=== PATIENT | male | born 1935 | race Caucasian/White ===

== ENCOUNTER 2018-04-01 05:55 | Emergency (ER) | payer MEDICARE ==
[2018-04-01 06:10] VITALS: PULSE 70
[2018-04-01] MEDS ORDERED: DUONEB 0.5-3 MG/3 ml Neb IH ONE ×2 (06:18→07:04)
--- NOTE | 2018-04-01 06:25 | ERPHSYRPT ---
- History of Present Illness Time Seen by Provider: 04/01/18 06:13 Source: patient Exam Limitations: no limitations Patient Subjective Stated Complaint: pt is alert and oriented. pt is ambulatory with a steady gait. pt comes in with c/o cough for the past 10 days. pt states he's had a runny nose and cough with some shortness of breath. pt denies fever, nausea, vomiting, diarrhea, chest pain, or any abnormal body aches. pt has some audible wheezes with some fine right lower lobe crackles noted posteriorly. Triage Nursing Assessment: see above Physician History: 82-year-old white male with history of CVA, coronary artery disease, hyperlipidemia, high blood pressure, OR. Patient arrives with complaint of shortness of breath cough symptoms 1 week he states that he has had some wheezing sometimes at night. He denies any chest pain denies any fevers he has had a runny nose no vomiting no diarrhea. Past medical history includes CVA, coronary artery disease, hyperlipidemia, high blood pressure, myocardial infarction. Past surgical history includes CABG, cardiac stents. Social history patient denies tobacco alcohol or illicit drug use. Timing/Duration: day(s) (10 days) Activities at Onset: none Severity of Dyspnea-Max: moderate Severity of Dyspnea-Current: mild Possible Cause: no prior episodes Modifying Factors: Improves With: coughing. Worsens With: nothing, albuterol inhaler, albuterol nebulizer, deep breath, exertion, lying down, oxygen, rest Associated Symptoms: intermittent, cough, wheezing, No constant, No anxiety, No chest pain/discomfort, No edema, No fever, No insomnia, No loss of appetite, No lightheadedness, No weakness, No ankle swelling, No chills, No hemoptysis, No calf pain, No dizziness, No heaviness, No heart racing, No lightheadedness, No leg swelling, No muscle spasms feet, No muscle spasms hands, No painful breathing, No productive cough, No sweating, No tightness, No tingling face, No tingling hands International travel in last 2 weeks: No Allergies/Adverse Reactions: No Known Drug Allergies Allergy (Verified 04/02/13 02:57) Home Medications: Aspirin 81 gm Chew [Baby Aspirin 81 mg Chew] 1 tab PO DAILY 04/02/13 [ History] Clopidogrel Bisulfate 75 mg [PLAVIX 75 MG Tablet] 1 tab PO DAILY 04/02/13 [History] Metoprolol Succinate 50 mg [Toprol Xl 50 MG] 50 mg PO DAILY 04/02/13 [ History] Hx Tetanus, Diphtheria Vaccination/Date Given: No Hx Influenza Vaccination/Date Given: Yes (February 2018) Hx Pneumococcal Vaccination/Date Given: No - Review of Systems Constitutional: No Fever, No Chills Eyes: No Symptoms Ears, Nose, & Throat: Nose Discharge, No Ear Pain, No Ear Discharge, No Hearing Changes, No Tinnitus, No Nose Pain, No Nose Congestion, No Sinus Drainage, No Epistaxis, No Mouth Pain, No Mouth Swelling, No Loose Teeth, No Throat Pain, No Throat Swelling, No Hoarse, No Painful Swallowing, No Snoring, No Stridor Respiratory: Cough, Dyspnea, Wheezing, No Cyanosis, No Dyspnea on Exertion (GARCIA) , No Stridor Cardiac: No Chest Pain, No Edema, No Syncope Abdominal/Gastrointestinal: No Abdominal Pain, No Nausea, No Vomiting, No Diarrhea Genitourinary Symptoms: No Dysuria Musculoskeletal: No Back Pain, No Neck Pain Skin: No Rash Neurological: No Dizziness, No Focal Weakness, No Sensory Changes Psychological: No Symptoms Endocrine: No Symptoms All Other Systems: Reviewed and Negative - Past Medical History Pertinent Past Medical History: Yes Neurological History: Stroke ENT History: No Pertinent History Cardiac History: Coronary Artery Disease, High Cholesterol, Hypertension, Myocardial Infarction ([place]) Respiratory History: Asthma Endocrine Medical History: No Pertinent History Musculoskeletal History: No Pertinent History GI Medical History: No Pertinent History History: No Pertinent History Psycho-Social History: No Pertinent History Male Reproductive Disorders: No Pertinent History - Past Surgical History Past Surgical History: Yes Neuro Surgical History: No Pertinent History Cardiac: CABG, Cardiac Stent Respiratory: No Pertinent History Gastrointestinal: Appendectomy Genitourinary: No Pertinent History Musculoskeletal: No Pertinent History Male Surgical History: No Pertinent History - Social History Smoking Status: Never smoker Exposure to second hand smoke: No Drug Use: none Patient Lives Alone: Yes - Nursing Vital Signs Nursing Vital Signs: Initial Vital Signs Temperature 97.8 F 04/01/18 06:02 Pulse Rate 70 04/01/18 06:02 Respiratory Rate 24 04/01/18 06:02 Blood Pressure 127/80 12/24/18 06:02 O2 Sat by Pulse Oximetry 98 04/01/18 06:02 Pain Scale Pain Intensity 0 - Physical Exam General Appearance: no apparent distress, alert, other (well-developed well- nourished white male alert, oriented 3, pleasant and cooperative to examination , frequent cough) Eye Exam: PERRL/EOMI, other (Fundi are unremarkable) Ears, Nose, Throat Exam: hearing grossly normal, normal ENT inspection, normal pharynx, No abnormal TM (R), No abnormal TM (L), No sinus pain/drainage, No hearing decreased, No nasal congestion, No pharyngeal erythema, No tonsillar exudate, No tonsillar swelling Neck Exam: normal inspection, non-tender, supple, full range of motion, No limited range of motion Respiratory Exam: diminished breath sounds, wheezing (few wheezes posteriorly in the bases) Cardiovascular/Chest Exam: normal heart sounds, regular rate/rhythm, normal peripheral pulses, No murmur Abdominal/Gastrointestinal Exam: soft, No tenderness, No distention, No mass Extremity Exam: non-tender, normal range of motion, normal inspection, no calf tenderness, no pedal edema Peripheral Pulses Exam: dorsalis-pedis (R): 2+, dorsalis-pedis (L): 2+ Neurologic Exam: alert, oriented x 3, cooperative, shell mold bonder II-XII nml as tested, sensation nml, No motor deficits Skin Exam: normal color, warm, No dry Lymphatic Exam: No adenopathy SpO2 Interpretation: normal (98%) SpO2: 98 Oxygen Delivery: Room Air - Course Nursing assessment & vital signs reviewed: Yes EKG Interpreted by Me: RATE (70 bpm), Other (EKG: Paced rhythm 70 bpm) - Radiology Exams Chest X-ray Interpretation: Interpreted by me, No Pneumothorax, No Infiltrates, Other (cardiomegaly, no infiltrates, no chf, no pneumothorax) Ordered Tests: Active Orders 24 hr Category Date Time Status EKG-ER Only STAT Care 04/01/18 06:18 Active IV Insertion STAT Care 04/01/18 06:18 Active CHEST 1 VIEW (PORTABLE) Stat Exams 04/01/18 06:18 Taken CBC W DIFF Stat Lab 04/01/18 06:36 Completed CMP Stat Lab 04/01/18 06:36 Completed NT PRO BNP Stat Lab 04/01/18 06:36 Completed VENOUS BLOOD GAS Stat Lab 04/01/18 06:45 Completed Respiratory Nebulizer STAT RT 04/01/18 06:19 Active Medication Summary Generic Name Dose Route Start Last Admin Trade Name Gemini PRN Reason Stop Dose Admin Ceftriaxone Sodium/Dextrose 1 g in 50 mls @ 100 mls/hr 04/01/18 07:03 Rocephin 1 Gm-D5w 50 Ml Bag IV 04/01/18 07:32 STAT STA Discontinued Medications Generic Name Dose Route Start Last Admin Trade Name Gemini PRN Reason Stop Dose Admin Albuterol/Ipratropium 3 ml 04/01/18 06:18 Duoneb 0.5-3 Mg/3 Ml Neb IH 04/01/18 06:19 STAT ONE Albuterol/Ipratropium Confirm 04/01/18 07:04 Duoneb 0.5-3 Mg/3 Ml Neb Administered 04/01/18 07:05 Dose 3 ml IH .STK-MED ONE Methylprednisolone Sodium Succinate 125 mg 04/01/18 07:03 Solu-Medrol 125 Mg IV 04/01/18 07:04 STAT ONE Lab/Rad Data: Laboratory Result Diagrams 04/01/18 06:36 04/01/18 06:36 Laboratory Results 04/01/18 04/01/18 04/01/18 Range/Units 06:45 06:36 06:36 WBC 6.5 (4.0-10.5) K/mm3 RBC 3.91 L (4.1-5.6) M/mm3 Hgb 11.9 L (12.5-18.0) gm/dl Hct 37.4 L (42-50) % MCV 95.7 (78-100) fl MCH 30.4 (26-32) pg MCHC 31.8 L (32-36) g/dl RDW 14.9 H (11.5-14.0) % Plt Count 151 (150-450) K/mm3 MPV 10.7 H (6-9.5) fl Gran % 59.3 (36.0-66.0) % Eos # (Auto) 0.33 (0-0.5) Absolute Lymphs (auto) 1.63 (1.0-4.6) Absolute Monos (auto) 0.64 (0.0-1.3) Lymphocytes % 25.2 (24.0-44.0) % Monocytes % 9.9 (0.0-12.0) % Eosinophils % 5.1 H (0.00-5.0) % Basophils % 0.5 (0.0-0.4) % Absolute Granulocytes 3.84 (1.4-6.9) Basophils # 0.03 (0-0.4) pO2/FiO2 Ratio 21.0 % VBG pH 7.40 (7.32-7.42) VBG pCO2 at Pat Temp 38 L (42-55) mm/Hg VBG pO2 at Pat Temp 56 H (25-40) mm/Hg VBG HCO3 23.5 (22-28) meq/L VBG O2 Sat (Esteban) 90.9 L (95-100) VBG Base Excess -1.1 (-2.0-2.0) VBG Hemoglobin 12.3 VBG Carboxyhemoglobin 2.2 (0.0-6.9) % T HGB POC Potassium 3.8 (3.5-5.1) Sodium 143 (137-145) mmol/L Potassium 3.9 (3.5-5.1) mmol/L Chloride 111 H (98-107) mmol/L Carbon Dioxide 23 (22-30) mmol/L Anion Gap 12.6 (5-15) MEQ/L BUN 29 H (9-20) mg/dL Creatinine 0.93 (0.66-1.25) mg/dL Estimated GFR > 60.0 ML/MIN Glucose 108 H (74-106) mg/dL Calcium 8.7 (8.4-10.2) mg/dL Total Bilirubin 0.40 (0.2-1.3) mg/dL AST 35 (17-59) U/L ALT 27 (0-50) U/L Alkaline Phosphatase 124 (38-126) U/L NT-Pro-B Natriuret Pep 1930 H (0-1800) pg/mL Serum Total Protein 7.0 (6.3-8.2) g/dL Albumin 3.9 (3.5-5.0) g/dL - Progress Progress: improved Air Movement: fair Progress Note: 04/01/18 06:24 82-year-old white male with history of CVA, coronary artery disease, hyperlipidemia, high blood pressure, myocardial infarction. Patient arrives with complaint of a cough for 10 days he states he occasionally is wheezy also states he is sometimes worse with laying down. On physical examination patient appears to have a fairly frequent cough he has diminished breath sounds and some wheezes in the bases posteriorly. Patient denies any fever she is not having any nausea or vomiting he has no chest pain. Will go ahead and give patient DuoNeb treatment obtain EKG chest x-ray CBC CMP BNP and venous gas. 04/01/18 06:58 Awaiting DuoNeb treatment. Patient's chest x-ray cardiomegaly no signs of failure no infiltrate patient's CBC white blood cell 6.5 hemoglobin 11.9 hematocrit 37.4 platelets 151. Patient's chemistry sodium 143 potassium 3.9 chloride 111 BUN 29 creatinine 0.93 glucose 108 BNP is slightly elevated at 1930 Patient with bronchitis with bronchospasm Will plan to give patient Rocephin 1 g IV, Solu-Medrol 125 IV. DuoNeb treatment is ordered Home on Zithromax tapering dose of prednisone and albuterol inhaler - Departure Time of Disposition: 07:00 Departure Disposition: Home Clinical Impression: Bronchitis with bronchospasm Condition: Fair Critical Care Time: No Referrals: ULISES ADAMS MD [Primary Care Provider] - Additional Instructions: Return home. Albuterol 2 puffs every 4-6 hours as needed. Zithromax Z-DANIEL as directed. Tapering dose of prednisone as directed. Follow-up with your family doctor. Return for acute distress or for severe symptoms. Prescriptions: Albuterol Common Canister [Proventil Common Canister] 2 puff IH Q4-6HPRN PRN #1 canister PRN Reason: shortness of breath / wheezing Azithromycin 250 mg [Zithromax 250 MG TABLET] 0 mg PO ZPACK #6 tablet
[2018-04-01 06:38] LABS: BASOPHIL % 0.5 % (0.0-0.4); Basophil (Absolute #) 0.03 (0-0.4); Eosinophil % 5.1 % (0.00-5.0); Eosinophil (Absolute #) 0.33 (0-0.5); Granulocyte Absolute (ANC) 3.84 (1.4-6.9); Granulocytes % 59.3 % (36.0-66.0); Hematocrit 37.4 % (42-50); Hemoglobin 11.9 gm/dl (12.5-18.0); Lymphocyte (Absolute #) 1.63 (1.0-4.6); Lymphocytes % 25.2 % (24.0-44.0); Mean Cell Volume 95.7 fl (78-100); Mean Corpuscular Hemoglobin 30.4 pg (26-32); Mean Corpuscular Hgb Concent. 31.8 g/dl (32-36); Mean Platelet Volume 10.7 fl (6-9.5); Monocyte (Absolute #) 0.64 (0.0-1.3); Monocytes % 9.9 % (0.0-12.0); Platelet Count 151 K/mm3 (150-450); Red Blood Count 3.91 M/mm3 (4.1-5.6); Red Cell Distribution Width 14.9 % (11.5-14.0); White Blood Count 6.5 K/mm3 (4.0-10.5)
[2018-04-01 06:53] LABS: ALBUMIN 3.9 g/dL (3.5-5.0); ALKALINE PHOSPHATASE 124 U/L (38-126); ANION GAP 12.6 MEQ/L (5-15); BLOOD UREA NITROGEN 29 mg/dL (9-20); CHLORIDE 111 mmol/L (98-107); Calcium 8.7 mg/dL (8.4-10.2); Carbon Dioxide 23 mmol/L (22-30); Creatinine 1 0.93 mg/dL (0.66-1.25); Glucose 108 mg/dL (74-106); NT PRO BNP 1930 pg/mL (0-1800); Potassium 3.9 mmol/L (3.5-5.1); SGOT/AST 35 U/L (17-59); SGPT/ALT 27 U/L (0-50); SODIUM 143 mmol/L (137-145)
[2018-04-01 07:02] LABS: VBG BASE EXCESS -1.1 (-2.0-2.0); VBG CARBOXYHEMOGLOBIN 2.2 % T HGB (0.0-6.9); VBG HCO3- 23.5 meq/L (22-28); VBG HEMOGLOBIN 12.3; VBG O2 SATURATION 90.9 (95-100); VBG POTASSIUM 3.8 (3.5-5.1); VBG pH 7.4 (7.32-7.42)
[2018-04-01] MEDS ORDERED: ROCEPHIN 1 Gm-D5w 50 ml Bag** 1 G/50 ML IVPB IV STA (07:03)
[2018-04-01] MEDS ORDERED: solu-MEDROL 125 MG IV ONE (07:03)
[2018-04-01] MEDS ORDERED: ROCEPHIN 1 Gm-D5w 50 ml Bag** 1 G/50 ML IVPB IV ONE (07:09)
[2018-04-01] MEDS ORDERED: solu-MEDROL 125 MG ONE (07:09)
[2018-04-01 07:57] VITALS: BP 142/95; O2SAT 94
--- NOTE | 2018-04-01 08:36 | XRAY ---
Indication: Cough and short of breath. Comparison: April 02, 2013. Portable chest demonstrates chronic lung markings with a few tiny calcified granulomas. No focal infiltrate, consolidation, or large effusion. Heart is now enlarged again demonstrating CABG surgery. New left-sided dual-lead pacemaker. Vascularity normal. Bony thorax intact again with mild osteopenia and degenerative changes. Impression: New cardiomegaly with left-sided dual-lead pacemaker. Negative acute pneumonic process or CHF.
== END 2018-04-01 07:57 | disposition home or self-care (01) ==
LOC: ED 05:55
DX: J20.9 Acute bronchitis, unspecified (principal); Z79.01 Long term (current) use of anticoagulants; Z79.899 Other long term (current) drug therapy; Z86.73 Personal history of transient ischemic attack (TIA), and cerebral infarction without residual deficits; I25.2 Old myocardial infarction
CPT/HCPCS: 36000; 36415; 71045; 80053; 82805; 83880; 85025; 93005; 94640; 96365; 96374; 99284; J0696; J2930; A9270-GY

== ENCOUNTER 2018-06-25 21:35 | Emergency (ER) | payer MEDICARE ==
--- NOTE | 2018-06-25 21:45 | ERPHSYRPT ---
- History of Present Illness Time Seen by Provider: 06/25/18 21:44 Source: patient, family Exam Limitations: clinical condition Physician History: 83 y/o white male presents with 2 week h/o worsening soa with associated mild substernal nonradiating chest pressure. 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 dr. francisco is pts baggage porter head. pt has never been dx with copd or chf. pt denies cp. pt denies abd pain. pt does not use oxygen at home. Timing/Duration: week(s) (2) Severity of Dyspnea-Max: moderate Severity of Dyspnea-Current: moderate Possible Cause: occasional episodes Modifying Factors: Improves With: exertion Associated Symptoms: cough, wheezing Allergies/Adverse Reactions: No Known Drug Allergies Allergy (Verified 06/25/18 21:52) Home Medications: Aspirin 81 gm Chew [Baby Aspirin 81 mg Chew] 1 tab PO DAILY 04/02/13 [ History] Albuterol Sulfate [Proair Hfa] 1 puff IN DAILY 06/25/18 [History] Apixaban [Eliquis] 1 tab PO DAILY 06/25/18 [History] Umeclidinium Brm/Vilanterol Tr [Anoro Ellipta 62.5-25 Mcg INH] DIRECTIONS UNKNOWN 06/25/18 [History] Hx Tetanus, Diphtheria Vaccination/Date Given: No Hx Influenza Vaccination/Date Given: Yes (February 2018) Hx Pneumococcal Vaccination/Date Given: No - Review of Systems Constitutional: No Symptoms Eyes: No Symptoms Ears, Nose, & Throat: No Symptoms Respiratory: Cough, Dyspnea, Wheezing Cardiac: No Symptoms Abdominal/Gastrointestinal: No Symptoms Genitourinary Symptoms: No Symptoms Musculoskeletal: No Symptoms Skin: No Symptoms Neurological: No Symptoms Psychological: No Symptoms Endocrine: No Symptoms Hematologic/Lymphatic: No Symptoms Immunological/Allergic: No Symptoms All Other Systems: Reviewed and Negative - Past Medical History Pertinent Past Medical History: Yes Neurological History: Stroke ENT History: No Pertinent History Cardiac History: Coronary Artery Disease, High Cholesterol, Hypertension, Myocardial Infarction ([place]) Respiratory History: Asthma Endocrine Medical History: No Pertinent History Musculoskeletal History: No Pertinent History GI Medical History: No Pertinent History History: No Pertinent History Psycho-Social History: No Pertinent History Male Reproductive Disorders: No Pertinent History - Past Surgical History Past Surgical History: Yes Neuro Surgical History: No Pertinent History Cardiac: CABG, Cardiac Stent Respiratory: No Pertinent History Gastrointestinal: Appendectomy Genitourinary: No Pertinent History Musculoskeletal: No Pertinent History Male Surgical History: No Pertinent History - Social History Smoking Status: Never smoker Exposure to second hand smoke: No Drug Use: none Patient Lives Alone: Yes - Nursing Vital Signs Nursing Vital Signs: Initial Vital Signs Pulse Rate 70 06/25/18 21:39 Respiratory Rate 26 H 06/25/18 21:39 Blood Pressure 160/94 06/25/18 21:39 O2 Sat by Pulse Oximetry 95 06/25/18 21:39 Pain Scale Pain Intensity 0 - Physical Exam General Appearance: moderate distress, alert, anxiety Eye Exam: PERRL/EOMI Ears, Nose, Throat Exam: hearing grossly normal Neck Exam: normal inspection, non-tender, supple, full range of motion Respiratory Exam: respiratory distress (mild), airway intact, rhonchi, wheezing , No chest tenderness Cardiovascular/Chest Exam: normal heart sounds, regular rate/rhythm Abdominal/Gastrointestinal Exam: soft, normal bowel sounds, No tenderness, No guarding Rectal Exam: not done Extremity Exam: non-tender, normal range of motion, normal inspection Neurologic Exam: alert, oriented x 3, cooperative, wellness ambassador II-XII nml as tested Skin Exam: normal color, warm, dry SpO2 Interpretation: normal O2 Delivery: Room Air - Course Nursing assessment & vital signs reviewed: Yes EKG Interpreted by Me: RATE (70 indeterminate axis), Other (pacemaker rhythm. no acute ischemia. comparison ekg 04/01/18) Ordered Tests: Active Orders 24 hr Category Date Time Status Rope Silica Machine Operator STAT Care 06/25/18 21:53 Active EKG-ER Only STAT Care 06/25/18 21:48 Active IV Insertion STAT Care 06/25/18 21:48 Active Oxygen-ED Only Nasal Cannula 2 lpm Care 06/25/18 21:56 Active Pulse Oximetry (ED) STAT Care 06/25/18 21:52 Active CHEST 1 VIEW (PORTABLE) Stat Exams 06/25/18 21:52 Taken CBC W DIFF Stat Lab 06/25/18 21:51 Completed CMP Stat Lab 06/25/18 21:51 Completed Lactic Acid Stat Lab 06/25/18 21:43 Completed NT PRO BNP Stat Lab 06/25/18 21:51 Completed TROPONIN Q3H Lab 06/25/18 22:00 Completed TROPONIN Q3H Lab 06/26/18 00:58 Completed TROPONIN Q3H Lab 06/26/18 04:00 Ordered TROPONIN Q3H Lab 06/26/18 07:00 Ordered TROPONIN Q3H Lab 06/26/18 10:00 Ordered Peak Expiratory Flow Rate ONCE RT 06/25/18 21:47 Active Respiratory Therapy Assessment DAILY RT 06/25/18 21:47 Active Medication Summary Discontinued Medications Generic Name Dose Route Start Last Admin Trade Name Gemini PRN Reason Stop Dose Admin Albuterol/Ipratropium Confirm 06/25/18 21:46 Duoneb 0.5-3 Mg/3 Ml Neb Administered 06/25/18 21:47 Dose 3 ml IH .STK-MED ONE Albuterol/Ipratropium 3 ml 06/25/18 21:47 06/25/18 21:49 Duoneb 0.5-3 Mg/3 Ml Neb IH 06/25/18 21:48 3 ml STAT ONE Administration Furosemide 40 mg 06/25/18 23:08 06/25/18 23:11 Lasix 40 Mg/4 Ml IV 06/25/18 23:09 40 mg STAT ONE Administration Furosemide Confirm 06/25/18 23:09 Lasix 40 Mg/4 Ml Administered 06/25/18 23:10 Dose 40 mg .ROUTE .STK-MED ONE Methylprednisolone Sodium Succinate 125 mg 06/25/18 21:52 06/25/18 21:57 Solu-Medrol 125 Mg IV 06/25/18 21:53 125 mg STAT ONE Administration Methylprednisolone Sodium Succinate Confirm 06/25/18 21:55 Solu-Medrol 125 Mg Administered 06/25/18 21:56 Dose 125 mg .ROUTE .STK-MED ONE Lab/Rad Data: Laboratory Result Diagrams 06/25/18 21:51 06/25/18 21:51 Laboratory Results 06/26/18 06/25/18 06/25/18 Range/Units 00:58 22:00 21:51 WBC (4.0-10.5) K/mm3 RBC (4.1-5.6) M/mm3 Hgb (12.5-18.0) gm/dl Hct (42-50) % MCV (78-100) fl MCH (26-32) pg MCHC (32-36) g/dl RDW (11.5-14.0) % Plt Count (150-450) K/mm3 MPV (6-9.5) fl Gran % (36.0-66.0) % Eos # (Auto) (0-0.5) Absolute Lymphs (auto) (1.0-4.6) Absolute Monos (auto) (0.0-1.3) Lymphocytes % (24.0-44.0) % Monocytes % (0.0-12.0) % Eosinophils % (0.00-5.0) % Basophils % (0.0-0.4) % Absolute Granulocytes (1.4-6.9) Basophils # (0-0.4) Sodium 140 (137-145) mmol/L Potassium 4.6 (3.5-5.1) mmol/L Chloride 109 H (98-107) mmol/L Carbon Dioxide 21 L (22-30) mmol/L Anion Gap 14.8 (5-15) MEQ/L BUN 34 H (9-20) mg/dL Creatinine 1.52 H (0.66-1.25) mg/dL Estimated GFR 46.8 ML/MIN Glucose 124 H (74-106) mg/dL Lactic Acid (0.4-2.0) Calcium 9.0 (8.4-10.2) mg/dL Total Bilirubin 0.60 (0.2-1.3) mg/dL AST 42 (17-59) U/L ALT 26 (0-50) U/L Alkaline Phosphatase 130 H (38-126) U/L Troponin I 0.040 H* 0.028 (0.000-0.034) ng/mL NT-Pro-B Natriuret Pep 1970 H (0-1800) pg/mL Serum Total Protein 7.4 (6.3-8.2) g/dL Albumin 4.3 (3.5-5.0) g/dL 06/25/18 06/25/18 Range/Units 21:51 21:43 WBC 6.4 (4.0-10.5) K/mm3 RBC 4.39 (4.1-5.6) M/mm3 Hgb 13.1 (12.5-18.0) gm/dl Hct 41.5 L (42-50) % MCV 94.5 (78-100) fl MCH 29.8 (26-32) pg MCHC 31.6 L (32-36) g/dl RDW 15.1 H (11.5-14.0) % Plt Count 120 L (150-450) K/mm3 MPV 11.8 H (6-9.5) fl Gran % 61.7 (36.0-66.0) % Eos # (Auto) 0.47 (0-0.5) Absolute Lymphs (auto) 1.23 (1.0-4.6) Absolute Monos (auto) 0.71 (0.0-1.3) Lymphocytes % 19.3 L (24.0-44.0) % Monocytes % 11.1 (0.0-12.0) % Eosinophils % 7.4 H (0.00-5.0) % Basophils % 0.5 (0.0-0.4) % Absolute Granulocytes 3.93 (1.4-6.9) Basophils # 0.03 (0-0.4) Sodium (137-145) mmol/L Potassium (3.5-5.1) mmol/L Chloride (98-107) mmol/L Carbon Dioxide (22-30) mmol/L Anion Gap (5-15) MEQ/L BUN (9-20) mg/dL Creatinine (0.66-1.25) mg/dL Estimated GFR ML/MIN Glucose (74-106) mg/dL Lactic Acid 1.5 (0.4-2.0) Calcium (8.4-10.2) mg/dL Total Bilirubin (0.2-1.3) mg/dL AST (17-59) U/L ALT (0-50) U/L Alkaline Phosphatase (38-126) U/L Troponin I (0.000-0.034) ng/mL NT-Pro-B Natriuret Pep (0-1800) pg/mL Serum Total Protein (6.3-8.2) g/dL Albumin (3.5-5.0) g/dL - Progress Progress: improved Air Movement: good Progress Note: 06/26/18 02:00 cxr-no pleural effusions. increased bronchovascular markings. no infiltrate. 0140 spoke with pts baggage porter head dr. francisco. i reviewed pt hx, condition, lab, ekg and xray results. he will be consulted. told me to call [facility] transfer center. 0155 spoke with jacoby at transfer center. i reviewed pt hx, condition, lab, ekg and cxr results. per [facility] protocol pt is automatically accepted for admission. jacoby told me she will speak with ED doctor. i do not need to speak with them there. they will call me if more info needed. jacoby will call back and give us attendings name and bed assignment. [address] Sanchez in ED at [facility] and gave him report Blood Culture(s) Obtained: No Antibiotics given: No Discussed with DrLinda: Jose Francisco ([facility] at [facility]) Counseled pt/family regarding: lab results, diagnosis, rad results - Departure Time of Disposition: 02:16 Departure Disposition: Transfer Clinical Impression: Exertional dyspnea, Elevated troponin level, CHF (congestive heart failure) Condition: Stable Critical Care Time: Yes Critical Care Time(excluding separately billable procedures): 30-74 minutes Referrals: ULISES ADAMS MD [Primary Care Provider] - Instructions: Heart Failure
[2018-06-25] MEDS ORDERED: DUONEB 0.5-3 MG/3 ml Neb IH ONE ×2 (21:46→21:47)
[2018-06-25 21:48] VITALS: PULSE 70
[2018-06-25] MEDS ORDERED: solu-MEDROL 125 MG IV ONE (21:52)
[2018-06-25] MEDS ORDERED: solu-MEDROL 125 MG ONE (21:55)
[2018-06-25 22:11] LABS: BASOPHIL % 0.5 % (0.0-0.4); Basophil (Absolute #) 0.03 (0-0.4); Eosinophil % 7.4 % (0.00-5.0); Eosinophil (Absolute #) 0.47 (0-0.5); Granulocyte Absolute (ANC) 3.93 (1.4-6.9); Granulocytes % 61.7 % (36.0-66.0); Hematocrit 41.5 % (42-50); Hemoglobin 13.1 gm/dl (12.5-18.0); Lymphocyte (Absolute #) 1.23 (1.0-4.6); Lymphocytes % 19.3 % (24.0-44.0); Mean Cell Volume 94.5 fl (78-100); Mean Corpuscular Hemoglobin 29.8 pg (26-32); Mean Corpuscular Hgb Concent. 31.6 g/dl (32-36); Mean Platelet Volume 11.8 fl (6-9.5); Monocyte (Absolute #) 0.71 (0.0-1.3); Monocytes % 11.1 % (0.0-12.0); Platelet Count 120 K/mm3 (150-450); Red Blood Count 4.39 M/mm3 (4.1-5.6); Red Cell Distribution Width 15.1 % (11.5-14.0); White Blood Count 6.4 K/mm3 (4.0-10.5)
[2018-06-25 22:32] LABS: ALBUMIN 4.3 g/dL (3.5-5.0); ANION GAP 14.8 MEQ/L (5-15); BILIRUBIN,TOTAL 0.6 mg/dL (0.2-1.3); Creatinine 1 1.52 mg/dL (0.66-1.25); Potassium 4.6 mmol/L (3.5-5.1); Total Protein 7.4 g/dL (6.3-8.2)
[2018-06-25] MEDS ORDERED: Lasix 40 MG/4 ML IV ONE (23:08)
[2018-06-25] MEDS ORDERED: Lasix 40 MG/4 ML ONE (23:09)
[2018-06-26 02:21] VITALS: BP 126/85; O2SAT 97
--- NOTE | 2018-06-26 09:03 | XRAY ---
Indication: Short of breath. Comparison: April 01, 2018. Portable chest again demonstrates chronic lung markings with a few incidental calcified granulomas. No focal infiltrate, consolidation, or large effusion. Heart remains enlarged again with previous cardiothoracic surgery and left-sided dual-lead pacemaker. Bony thorax intact again with mild osteopenia and degenerative changes. Impression: Stable cardiomegaly, cardiothoracic surgery, and evidence for old granulomatous disease. No new/acute findings.
== END 2018-06-26 02:43 | disposition short-term general hospital (02) ==
LOC: ED 21:35
DX: R06.09 Other forms of dyspnea (principal); R74.8 Abnormal levels of other serum enzymes; I50.9 Heart failure, unspecified; R07.89 Other chest pain; F41.9 Anxiety disorder, unspecified; Z79.899 Other long term (current) drug therapy
CPT/HCPCS: 36000; 36415; 71045; 80053; 83605; 83880; 84484; 85025; 93005; 93041; 94150; 94640; 96374; 96375; 99285; J1940; J2930; A9270-GY

== ENCOUNTER 2020-06-21 10:49 | Day surgery (SDC) | payer MEDICARE ==
--- NOTE | 2020-06-21 08:00 | HP ---
DATE OF SURGERY: 06/21/2020 HISTORY OF PRESENT ILLNESS: The patient is an 85 year-old with squamous cell carcinoma left upper shoulder that has been going on now for a while increasing in size the past few weeks itching and sometimes he scratches it and sometimes it will have a little bit of bleeding. He is in need of wide excision of the site. He has an area nearby it that also needs excision. PAST MEDICAL HISTORY: Coronary artery disease, high cholesterol, hypertension, stroke, myocardial infarction, asthma. PAST SURGICAL HISTORY: Pacemaker in the past. Appendectomy in the past. Coronary artery bypass graft, stent in the past. MEDICATIONS: Anoro Ellipta, atorvastatin, cyclobenzaprine, Klor-Con, Proair HFA, apixaban. ALLERGIES: NKDA. FAMILY HISTORY: Negative in regards to this problem. SOCIAL HISTORY: He denies smoking currently. REVIEW OF SYSTEMS: Fourteen systems reviewed. No chest pain or palpitations. Other systems negative or noncontributory as above and per preadmission questionnaire and as mentioned above, chronic heart and lung disease. He received cardiac clearance by Dr. Clemons. PHYSICAL EXAMINATION: GENERAL: No acute distress. HEENT: Sclerae nonicteric. NECK: No JVD. CHEST: Equal excursion, clear to auscultation. CVS: Regular rate and rhythm. ABDOMEN: Soft. EXTREMITIES: No cyanosis. 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 NEURO: Alert, moving extremities symmetrically. PSYCH: Appropriate mood and affect. IMPRESSION: Squamous cell carcinoma left shoulder. He is in need of wide excision of the lesion, possible flap, and possible skin graft. There is risk of bleeding or infection, risk of wound dehiscence or infection, possibly needing skin graft, possible risk of deep venous thrombosis, pulmonary embolism or pneumonia but not limited to, will proceed as an outpatient.
[~2020-06-21 10:49] MED LIST: MINERAL OIL LIGHT 10 ML FOR SURGERY ONE; Sensorcaine 0.25% 10 ML ONE
[2020-06-21] MEDS ORDERED: Lactated Ringers 1,000 ML IV ONE (10:54)
[2020-06-21] MEDS ORDERED: Lactated Ringers 1,000 ML IV SCH (11:30)
[2020-06-21] MEDS ORDERED: SUBLIMAZE 100 MCG/2 ML ONE (12:24)
[2020-06-21] MEDS ORDERED: DIPRIVAN 200 MG/20 ML IV ONE (12:24)
[2020-06-21] MEDS ORDERED: Zofran 4 MG/2 ML VIAL ONE (12:24)
[2020-06-21] MEDS ORDERED: Decadron 4 MG INJ ONE (12:24)
[2020-06-21] MEDS ORDERED: Xylocaine-Mpf 2% 5 Ml Vial ONE (12:24)
[2020-06-21] MEDS ORDERED: XYLOCAINE 1%/Epi 1:100000 MDV 20 ML ONE (12:34)
[2020-06-21] MEDS ORDERED: KEFZOL 1 GM ONE (12:48)
[2020-06-21] MEDS ORDERED: PHENYLEPHRINE HCL ONE (12:57)
[2020-06-21] MEDS ORDERED: CEFAZOLIN 2 GM-D5W BAG IV ONE (13:08)
[2020-06-21 15:30] VITALS: O2SAT 99
[2020-06-21 15:37] VITALS: BP 134/77; PULSE 71
--- NOTE | 2020-06-22 08:35 | OP ---
SURGERY DATE/TIME: 06/21/2020 1256 PREOPERATIVE DIAGNOSIS: Enlarging basal cell carcinoma left shoulder. POSTOPERATIVE DIAGNOSIS: Enlarging basal cell carcinoma left shoulder. PROCEDURE: Wide excisional biopsy of nonhealing basal cell carcinoma left shoulder approximately 10.5 cm with margins (two areas en bloc excised together) with rotational advancement flap closure. SURGEON: Dr. Og Dennis. ELECTRICAL TEST ENGINEER: William Florez, medical student III. ANESTHESIA: General. ESTIMATED BLOOD LOSS: Minimal. INDICATIONS: As noted above. Risks and benefits explained in detail and not limited to and consent obtained. The site is confirmed and marked in the preoperative holding area. DESCRIPTION OF PROCEDURE AND FINDINGS: The patient is taken to the operating room. General anesthesia introduced. Prepped and draped in usual fashion in lateral position. After official time out and no disagreement with planned procedure, marking out to normal appearing skin on either side, dissecting both of these areas off of the underlying muscle and fascia in what appeared to be a clinically visible clear plane. One small lithograph designer controlled with 3-0 Vicryl suture ligature. Specimen passed off. It measured about 10.5 cm with margins with the two areas excised en bloc. Given the large size of the defect on this shoulder extending from posterior to anteriorly on the shoulder, it was necessary to undermine flaps on either side and still required some rotation of the anterior skin and posterior medial skin rotating them laterally, this took some time but was carefully accomplished. The flaps were closed with interrupted 3-0 and 4-0 Vicryl closing the deep dermis and subcu. The skin was closed with running 4-0 subcuticular and some interrupted 2-0 and 3-0 Prolene used to reinforce the area given the tension of this large defect. Some antibiotic ointment and sterile dressing applied. The patient was given a sling. There were no immediate complications. The patient tolerated the procedure well. There was no family available to discuss the findings with. I will see him back in the office next week. Again, it was felt as it just closed it was snug. I was felt this is safer than trying put a skin graft on a high motion area. Should this wound fail to stay together [facility] would consider skin graft at a later date but at this time was closed with rotational advancement flaps.
== END 2020-06-21 16:00 | disposition home or self-care (01) ==
LOC: SDC 10:49
PROVIDERS: ATTEND Surgery
DX: C44.619 Basal cell carcinoma of skin of left upper limb, including shoulder (principal)
CPT/HCPCS: 88305; 99100; J0690; J1100; J2370; J2405; J2704; J3010; A9270-GY

== ENCOUNTER 2020-10-17 20:17 | Observation (INO) | payer MEDICARE ==
[2020-10-17] MEDS ORDERED: DUONEB 0.5-3 MG/3 ml Neb IH ONE ×2 (20:30→20:57)
[2020-10-17] MEDS ORDERED: BABY ASPIRIN 81 MG CHEW PO ONE (20:31)
--- NOTE | 2020-10-17 20:40 | ERPHSYRPT ---
- History of Present Illness Time Seen by Provider: 10/17/20 20:27 Source: patient Exam Limitations: no limitations Physician History: 85 years old male with history of atrial fibrillation status post pacemaker placement on Eliquis, coronary artery disease status post CABG, COPD presented in the ER with almost 4 days history of progressively increasing shortness of breath initially with activity and now even at resting. Patient reports wheezing and chest tightness without any palpitations. Patient reports having minimal productive cough which makes his shortness of breath worse. No fever or chills reported. Denies any chest pain Timing/Duration: day(s) (4), intermittent, gradual onset, worse Activities at Onset: activity, rest Severity of Dyspnea-Max: moderate Severity of Dyspnea-Current: moderate Modifying Factors: Worsens With: activity, coughing, exertion Associated Symptoms: cough, wheezing, heaviness, productive cough, tightness, No chest pain/discomfort Allergies/Adverse Reactions: No Known Drug Allergies Allergy (Verified 10/17/20 20:23) Home Medications: Aspirin 81 gm Chew [Baby Aspirin 81 mg Chew] 1 tab PO DAILY 04/02/13 [His tory] Apixaban [Eliquis] 1 tab PO BID 06/25/18 [History] Umeclidinium Brm/Vilanterol Tr [Anoro Ellipta 62.5-25 Mcg INH] 62.5 mcg IH UD 06/25/18 [History] Albuterol Sulfate [Proair Hfa] 8.5 gm IH Q4HWA 06/08/20 [History] Atorvastatin Calcium [Lipitor] 40 mg PO DAILY 06/08/20 [History] Cyclobenzaprine HCl 5 mg PO HS 06/08/20 [History] Furosemide 40 mg [Lasix 40 MG] 40 mg PO DAILY 06/08/20 [History] Potassium Chloride [Klor-Con 10] 10 meq PO DAILY 06/08/20 [History] Albuterol/Ipratropium 3ml Neb* [DUONEB 0.5-3 MG/3 ml Neb] 3 ml IH Q6H PRN PRN 10/17/20 [History] Montelukast Sodium 10 mg [Singulair 10 MG] 10 mg PO DAILY 10/17/20 [History] Hx Tetanus, Diphtheria Vaccination/Date Given: No Hx Influenza Vaccination/Date Given: Yes (February 2018) Hx Pneumococcal Vaccination/Date Given: No - Review of Systems Constitutional: Fatigue, Weakness Eyes: No Symptoms Ears, Nose, & Throat: No Symptoms Respiratory: Cough, Dyspnea, Dyspnea on Exertion (GARCIA), Wheezing Cardiac: No Symptoms Abdominal/Gastrointestinal: No Symptoms Genitourinary Symptoms: No Symptoms Skin: No Symptoms Neurological: No Symptoms Psychological: No Symptoms Endocrine: No Symptoms Hematologic/Lymphatic: No Symptoms Immunological/Allergic: No Symptoms - Past Medical History Pertinent Past Medical History: Yes Neurological History: Stroke ENT History: No Pertinent History Cardiac History: Coronary Artery Disease, High Cholesterol, Hypertension, Myocardial Infarction ([place]) Respiratory History: Asthma Endocrine Medical History: No Pertinent History Musculoskeletal History: No Pertinent History GI Medical History: No Pertinent History History: No Pertinent History Psycho-Social History: No Pertinent History Male Reproductive Disorders: No Pertinent History - Past Surgical History Past Surgical History: Yes Neuro Surgical History: No Pertinent History Cardiac: CABG, Cardiac Stent Respiratory: No Pertinent History Gastrointestinal: Appendectomy, Hernia Repair Genitourinary: No Pertinent History Musculoskeletal: No Pertinent History Male Surgical History: No Pertinent History Other Surgical History: TAVR, PACEMAKER - Social History Smoking Status: Never smoker Exposure to second hand smoke: No Drug Use: none Patient Lives Alone: Yes - Nursing Vital Signs Nursing Vital Signs: Initial Vital Signs Temperature 98.4 F 10/17/20 20:17 Pulse Rate 64 10/17/20 20:17 Respiratory Rate 22 10/17/20 20:17 Blood Pressure 139/78 10/17/20 20:17 O2 Sat by Pulse Oximetry 94 L 10/17/20 20:17 Pain Scale Pain Intensity 0 - Physical Exam General Appearance: no apparent distress, alert Eye Exam: PERRL/EOMI, eyes nml inspection Ears, Nose, Throat Exam: hearing grossly normal, pharyngeal erythema Neck Exam: normal inspection, supple, full range of motion Respiratory Exam: rhonchi, wheezing, No respiratory distress Cardiovascular/Chest Exam: normal heart sounds, regular rate/rhythm Abdominal/Gastrointestinal Exam: soft, normal bowel sounds, No tenderness Extremity Exam: non-tender, normal range of motion Neurologic Exam: alert, oriented x 3, cooperative, health care liaison II-XII nml as tested Skin Exam: normal color SpO2 Interpretation: normal SpO2: 95 O2 Delivery: Room Air - Course EKG Interpreted by Me: RATE (78), A-fib, NORMAL AXIS, NORMAL INTERVALS, Q-wave (Anterior), Other (PVCs) Ordered Tests: Active Orders 24 hr Category Date Time Status [place] STAT Care 10/17/20 20:31 Active EKG-ER Only STAT Care 10/17/20 20:30 Active IV Insertion STAT Care 10/17/20 20:30 Active CHEST 1 VIEW (PORTABLE) Stat Exams 10/17/20 20:31 Taken BLOOD CULTURE Stat Lab 10/17/20 21:07 Received CBC W DIFF Stat Lab 10/17/20 21:00 Completed CMP Stat Lab 10/17/20 21:00 Completed D-DIMER QUANTITATIVE Stat Lab 10/17/20 21:00 Received Lactic Acid Stat Lab 10/17/20 21:20 Completed MAGNESIUM Stat Lab 10/17/20 21:00 Completed NT PRO BNP Stat Lab 10/17/20 21:00 Completed TROPONIN Q3H Lab 10/17/20 20:30 Completed TROPONIN Q3H Lab 10/17/20 23:30 Ordered TROPONIN Q3H Lab 10/18/20 02:30 Ordered TROPONIN Q3H Lab 10/18/20 05:30 Ordered TROPONIN Q3H Lab 10/18/20 08:30 Ordered UA W/RFX UR CULTURE Stat Lab 10/17/20 20:30 Completed Respiratory Therapy Assessment DAILY RT 10/17/20 21:00 Active Transfer Order Routine Transfer 10/17/20 Ordered Medication Summary Generic Name Dose Route Start Last Admin Trade Name Gemini PRN Reason Stop Dose Admin Apixaban 5 mg 10/18/20 10:00 Eliquis 2.5 Mg Tablet PO 11/17/20 09:59 BID FAVIAN Magnesium Sulfate/Dextrose 100 mls @ 100 mls/hr 10/17/20 21:15 10/17/20 22:04 Magnesium 1 Gm / 100 Ml D5w IV 10/17/20 23:14 100 mls/hr Q1H FAVIAN Administration Discontinued Medications Generic Name Dose Route Start Last Admin Trade Name Freq PRN Reason Stop Dose Admin Albuterol/Ipratropium 3 ml 10/17/20 20:30 10/17/20 20:59 Duoneb 0.5-3 Mg/3 Ml Neb IH 10/17/20 20:31 3 ml STAT ONE Administration Albuterol/Ipratropium Confirm 10/17/20 20:57 Duoneb 0.5-3 Mg/3 Ml Neb Administered 10/17/20 20:58 Dose 3 ml IH .STK-MED ONE Aspirin 324 mg 10/17/20 20:31 10/17/20 21:13 Baby Aspirin 81 Mg Chew PO 10/17/20 20:32 324 mg STAT ONE Administration Aspirin Confirm 10/17/20 21:33 Baby Aspirin 81 Mg Chew Administered 10/17/20 21:34 Dose 324 mg .ROUTE .STK-MED ONE Lab/Rad Data: Laboratory Result Diagrams 10/17/20 21:00 10/17/20 21:00 Laboratory Results 10/17/20 10/17/20 10/17/20 Range/Units 21:20 21:00 21:00 WBC 8.0 (4.0-10.5) K/mm3 RBC 3.86 L (4.1-5.6) M/mm3 Hgb 11.2 L (12.5-18.0) gm/dl Hct 35.6 L (42-50) % MCV 92.2 (78-100) fl MCH 29.0 (26-32) pg MCHC 31.5 L (32-36) g/dl RDW 14.9 H (11.5-14.0) % Plt Count 158 (150-450) K/mm3 MPV 11.7 H (7.5-11.0) fl Gran % 56.9 (36.0-66.0) % Eos # (Auto) 1.27 H (0-0.5) Absolute Lymphs (auto) 1.50 (1.0-4.6) Absolute Monos (auto) 0.62 (0.0-1.3) Lymphocytes % 18.8 L (24.0-44.0) % Monocytes % 7.8 (0.0-12.0) % Eosinophils % 15.9 H (0.00-5.0) % Basophils % 0.6 (0.0-0.4) % Absolute Granulocytes 4.54 (1.4-6.9) Basophils # 0.05 (0-0.4) Sodium 139 (137-145) mmol/L Potassium 3.3 L (3.5-5.1) mmol/L Chloride 103 (98-107) mmol/L Carbon Dioxide 25 (22-30) mmol/L Anion Gap 14.2 (5-15) MEQ/L BUN 23 H (9-20) mg/dL Creatinine 1.61 H (0.66-1.25) mg/dL Estimated GFR 43.6 ML/MIN Glucose 104 (74-106) mg/dL Lactic Acid 1.0 (0.4-2.0) Calcium 8.7 (8.4-10.2) mg/dL Magnesium 2.1 (1.6-2.3) mg/dL Total Bilirubin 0.40 (0.2-1.3) mg/dL AST 34 (17-59) U/L ALT 16 (0-50) U/L Alkaline Phosphatase 125 (38-126) U/L Troponin I (0.000-0.034) ng/mL NT-Pro-B Natriuret Pep 1580 (0-1800) pg/mL Serum Total Protein 7.3 (6.3-8.2) g/dL Albumin 4.2 (3.5-5.0) g/dL Urine Color (YELLOW) Urine Appearance (CLEAR) Urine pH (5-6) Ur Specific [place] (1.005-1.025) Urine Protein (Negative) Urine Ketones (NEGATIVE) Urine Blood (0-5) [place]/ul Urine Nitrite (NEGATIVE) Urine Bilirubin (NEGATIVE) Urine Urobilinogen (0-1) mg/dL Ur Leukocyte Esterase (NEGATIVE) Urine WBC (Auto) (0-5) /HPF Urine RBC (Auto) (0-2) /HPF U Epithel Cells (Auto) (FEW) /HPF Urine Bacteria (Auto) (NEGATIVE) /HPF Urine Mucus (Auto) (NEGATIVE) /HPF Urine Culture Reflexed (NO) Urine Glucose (NEGATIVE) mg/dL 10/17/20 10/17/20 Range/Units 20:30 20:30 WBC (4.0-10.5) K/mm3 RBC (4.1-5.6) M/mm3 Hgb (12.5-18.0) gm/dl Hct (42-50) % MCV (78-100) fl MCH (26-32) pg MCHC (32-36) g/dl RDW (11.5-14.0) % Plt Count (150-450) K/mm3 MPV (7.5-11.0) fl Gran % (36.0-66.0) % Eos # (Auto) (0-0.5) Absolute Lymphs (auto) (1.0-4.6) Absolute Monos (auto) (0.0-1.3) Lymphocytes % (24.0-44.0) % Monocytes % (0.0-12.0) % Eosinophils % (0.00-5.0) % Basophils % (0.0-0.4) % Absolute Granulocytes (1.4-6.9) Basophils # (0-0.4) Sodium (137-145) mmol/L Potassium (3.5-5.1) mmol/L Chloride (98-107) mmol/L Carbon Dioxide (22-30) mmol/L Anion Gap (5-15) MEQ/L BUN (9-20) mg/dL Creatinine (0.66-1.25) mg/dL Estimated GFR ML/MIN Glucose (74-106) mg/dL Lactic Acid (0.4-2.0) Calcium (8.4-10.2) mg/dL Magnesium (1.6-2.3) mg/dL Total Bilirubin (0.2-1.3) mg/dL AST (17-59) U/L ALT (0-50) U/L Alkaline Phosphatase (38-126) U/L Troponin I 0.037 H* (0.000-0.034) ng/mL NT-Pro-B Natriuret Pep (0-1800) pg/mL Serum Total Protein (6.3-8.2) g/dL Albumin (3.5-5.0) g/dL Urine Color STRAW (YELLOW) Urine Appearance CLEAR (CLEAR) Urine pH 5.0 (5-6) Ur Specific [place] 1.006 (1.005-1.025) Urine Protein NEGATIVE (Negative) Urine Ketones NEGATIVE (NEGATIVE) Urine Blood NEGATIVE (0-5) [place]/ul Urine Nitrite NEGATIVE (NEGATIVE) Urine Bilirubin NEGATIVE (NEGATIVE) Urine Urobilinogen NEGATIVE (0-1) mg/dL Ur Leukocyte Esterase TRACE (NEGATIVE) Urine WBC (Auto) 6-10 (0-5) /HPF Urine RBC (Auto) 0-2 (0-2) /HPF U Epithel Cells (Auto) NONE (FEW) /HPF Urine Bacteria (Auto) NONE SEEN (NEGATIVE) /HPF Urine Mucus (Auto) SLIGHT (NEGATIVE) /HPF Urine Culture Reflexed NO (NO) Urine Glucose NEGATIVE (NEGATIVE) mg/dL - Progress Progress: improved Air Movement: good Progress Note: 10/17/20 22:04 85 years old with multiple medical problems including atrial fib rillation/pacemaker is evaluated for increasing shortness of breath for the last few days. Patient was not in any distress on presentation. He is given DuoNeb and his heart rate jumped to 106. He is feeling better on reevaluation after DuoNeb. Chest x-ray I did not appreciate any obvious pneumonic infiltrate, official reading is pending. Has normal white count, grossly unremarkable chemistries except for mildly elevated creatinine. Does have mildly elevated troponin 0.037 as well. Is given full dose aspirin. Denies any chest pain. Later on daughter told me that patient is out of Eliquis for the last 4 days. I have ordered D-dimers. He is also given magnesium. Discussed with Dr. Adams who recommended starting him back on Eliquis rather than obtaining CTA if D- dimers are elevated and will do VQ scan in the morning because of his renal issues. Plan discussed with patient and family who understand and agree with it. Blood Culture(s) Obtained: Yes Antibiotics given: No Discussed with Dr.: Jose Alfredo Will see patient in: hospital (observation) Counseled pt/family regarding: lab results, diagnosis, rad results - Departure Departure Disposition: Observation Clinical Impression: Elevated troponin level, DEEPIKA (acute kidney injury) Dyspnea Qualifiers: Dyspnea type: unspecified Qualified Code(s): R06.00 - Dyspnea, unspecified Atrial fibrillation Qualifiers: Atrial fibrillation type: unspecified Qualified Code(s): I48.91 - Unspecified atrial fibrillation Condition: Stable Critical Care Time: No Referrals: ULISES ADAMS MD [Primary Care Provider] -
[2020-10-17 21:11] LABS: Absolute Neutrophil Ct (ANC) 4.54 (1.4-6.9); BASOPHIL % 0.6 % (0.0-0.4); Basophil (Absolute #) 0.05 (0-0.4); Eosinophil % 15.9 % (0.00-5.0); Eosinophil (Absolute #) 1.27 (0-0.5); Hematocrit 35.6 % (42-50); Hemoglobin 11.2 gm/dl (12.5-18.0); Lymphocytes % 18.8 % (24.0-44.0); Mean Cell Volume 92.2 fl (78-100); Mean Corpuscular Hgb Concent. 31.5 g/dl (32-36); Mean Platelet Volume 11.7 fl (7.5-11.0); Monocyte (Absolute #) 0.62 (0.0-1.3); Monocytes % 7.8 % (0.0-12.0); Neutrophil % 56.9 % (36.0-66.0); Platelet Count 158 K/mm3 (150-450); Red Blood Count 3.86 M/mm3 (4.1-5.6); Red Cell Distribution Width 14.9 % (11.5-14.0)
[2020-10-17] MEDS ORDERED: Magnesium 1 Gm / 100 Ml D5W*** 200 ML IV ONE (21:11)
[2020-10-17] MEDS: Magnesium 1 Gm / 100 Ml D5W*** 100 ML IV SCH ×2 (21:12→22:04)
[2020-10-17] MEDS ORDERED: BABY ASPIRIN 81 MG CHEW ONE (21:33)
[2020-10-17 21:38] LABS: ALBUMIN 4.2 g/dL (3.5-5.0); ANION GAP 14.2 MEQ/L (5-15); BILIRUBIN,TOTAL 0.4 mg/dL (0.2-1.3); Calcium 8.7 mg/dL (8.4-10.2); Creatinine 1 1.61 mg/dL (0.66-1.25); EST GLOMERULAR FILTRATION RATE 43.6 ML/MIN; MAGNESIUM 2.1 mg/dL (1.6-2.3); Potassium 3.3 mmol/L (3.5-5.1); Total Protein 7.3 g/dL (6.3-8.2)
[2020-10-17 21:38] LABS: Appearance CLEAR (CLEAR); Bacteria NONE SEEN /HPF (NEGATIVE); Bilirubin NEGATIVE (NEGATIVE); Blood NEGATIVE Ery/ul (0-5); Glucose NEGATIVE (NEGATIVE); Ketones NEGATIVE (NEGATIVE); Leukocyte Esterase TRACE (NEGATIVE); Mucus SLIGHT /HPF (NEGATIVE); Nitrite NEGATIVE (NEGATIVE); Protein,Urine Dip NEGATIVE (Negative); RBC 0-2 /HPF (0-2); Specific Gravity 1.006 (1.005-1.025); Urobilinogen NEGATIVE mg/dL (0-1)
[2020-10-18] MEDS ORDERED: DUONEB 0.5-3 MG/3 ml Neb IH ONE ×2 (00:27→00:30)
[2020-10-18] MEDS ORDERED: solu-MEDROL 125 MG, Sterile H2O 10 ml 2 ML IV ONE ×2 (00:27)
[2020-10-18] MEDS ORDERED: Sterile H2O 10 ml IJ ONE (00:28)
[2020-10-18] MEDS ORDERED: solu-MEDROL ONE (00:28)
[2020-10-18] MEDS ORDERED: TYLENOL 325 MG PO PRN (01:04)
[2020-10-18 06:05] LABS: Absolute Neutrophil Ct (ANC) 5.65 (1.4-6.9); BASOPHIL % 0.3 % (0.0-0.4); Basophil (Absolute #) 0.02 (0-0.4); Eosinophil % 2.4 % (0.00-5.0); Eosinophil (Absolute #) 0.16 (0-0.5); Hemoglobin 11.4 gm/dl (12.5-18.0); Lymphocyte (Absolute #) 0.68 (1.0-4.6); Lymphocytes % 10.3 % (24.0-44.0); Mean Cell Volume 91.4 fl (78-100); Mean Corpuscular Hemoglobin 28.9 pg (26-32); Mean Corpuscular Hgb Concent. 31.7 g/dl (32-36); Mean Platelet Volume 11.4 fl (7.5-11.0); Monocytes % 1.5 % (0.0-12.0); Neutrophil % 85.5 % (36.0-66.0); Platelet Count 153 K/mm3 (150-450); Red Blood Count 3.94 M/mm3 (4.1-5.6); Red Cell Distribution Width 14.7 % (11.5-14.0); White Blood Count 6.6 K/mm3 (4.0-10.5)
[2020-10-18 06:33] LABS: ALBUMIN 3.9 g/dL (3.5-5.0); ANION GAP 12.4 MEQ/L (5-15); BILIRUBIN,TOTAL 0.3 mg/dL (0.2-1.3); Calcium 8.7 mg/dL (8.4-10.2); Creatinine 1 1.35 mg/dL (0.66-1.25); EST GLOMERULAR FILTRATION RATE 53.4 ML/MIN; Potassium 3.4 mmol/L (3.5-5.1); Total Protein 6.9 g/dL (6.3-8.2)
--- NOTE | 2020-10-18 08:32 | PCM.SSS ---
History of Present Illness - Chief Complaint Chief Complaint: Dyspnea elivated troponin History of Present Illness: is a 85 year old male who presented complaining of shortness of breat h, he is not requiring oxygen and his dyspnea is improved at the moment, he has some cough productive of white sputum as well, known hx of copd. had elevated d- dimer awaiting VQ scan but no chest pain, is on eliquis but apparently hadn't taken the last few days for unknown reasons. - Review of Systems Constitutional: No Fever, No Chills Respiratory: Cough, Short Of Breath Cardiac: No Chest Pain, No Edema, No Syncope Abdominal/Gastrointestinal: No Abdominal Pain, No Nausea, No Vomiting, No Diarrhea Skin: No Rash All Other Systems: Reviewed and Negative Medications & Allergies Home Medications: Home Medication List Aspirin 81 gm Chew [Baby Aspirin 81 mg Chew] 1 tab PO DAILY 04/02/13 [History Confirmed 10/18/20] Apixaban [Eliquis] 5 tab PO BID 06/25/18 [History Confirmed 10/18/20] Umeclidinium Brm/Vilanterol Tr [Anoro Ellipta 62.5-25 Mcg INH] 62.5 mcg IH BID PRN 06/25/18 [History Confirmed 10/18/20] Albuterol Sulfate [Proair Hfa] 8.5 gm IH Q4HWA 06/08/20 [History Confirmed 0 10/18/20] Atorvastatin Calcium [Lipitor] 40 mg PO DAILY 06/08/20 [History Confirmed 10/18/20] Cyclobenzaprine HCl 5 mg PO HS 06/08/20 [History Confirmed 10/18/20] Furosemide 40 mg [Lasix 40 MG] 40 mg PO DAILY 06/08/20 [History Confirmed 10/18/20] Potassium Chloride [Klor-Con 10] 10 meq PO DAILY 06/08/20 [History Confirmed 10/18/20] Albuterol/Ipratropium 3ml Neb* [DUONEB 0.5-3 MG/3 ml Neb] 3 ml IH Q6H PRN PRN 10/17/20 [History Confirmed 10/18/20] Montelukast Sodium 10 mg [Singulair 10 MG] 10 mg PO DAILY 10/17/20 [History Confirmed 10/18/20] Doxycycline Hyclate 100 mg [Vibramycin 100 MG] 100 mg PO BID #14 tab 10/18/20 [Rx] Hydrocodone/Acetaminophen [Hydrocodone-Acetamin 5-325 mg ###] 5 mg PO Q4H PRN MDD 6 10/18/20 [History Confirmed 10/18/20] Prednisone 20 mg [Deltasone 20 mg] 20 mg PO UD #18 tablet 10/18/20 [Rx] Allergies/Adverse Reactions: Allergies Allergy/AdvReac Type Severity Reaction Status Date / Time No Known Drug Allergies Allergy Verified 10/17/20 20:23 - Past Medical History Past Medical History: Yes Neurological History: Stroke ENT History: No Pertinent History Cardiac History: Coronary Artery Disease, High Cholesterol, Hypertension, Myocardial Infarction (CT) Respiratory History: Asthma Endocrine Medical History: No Pertinent History Musculoskelatal History: No Pertinent History GI Medical History: No Pertinent History History: No Pertinent History Pyscho-Social History: No Pertinent History Male Reproductive Disorders: No Pertinent History Comment: AFIB - Past Surgical History Past Surgical History: Yes Neuro Surgical History: No Pertinent History Cardiac History: CABG, Cardiac Stent Respiratory Surgery: No Pertinent History GI Surgical History: Appendectomy, Hernia Repair Genitourinary Surgical Hx: No Pertinent History Musculskeletal Surgical Hx: No Pertinent History Male Surgical History: No Pertinent History Other Surgical History: TAVR, PACEMAKER - Social History Smoking Status: Never smoker Exposure to second hand smoke: No Alcohol: Rarely Drug Use: none - Physical Exam Vital Signs: Vital Signs - 24 hr Temp Pulse Resp BP Pulse Ox 10/18/20 07:22 97.9 F 59 L 16 129/66 93 L 10/18/20 06:26 105 H 16 90 L 10/18/20 04:00 97.7 F 62 18 138/68 93 L 10/18/20 02:02 97.7 F 62 18 138/68 93 L 10/18/20 01:00 94 H 20 140/78 95 10/18/20 00:32 107 H 18 93 L 10/17/20 23:00 68 18 138/76 95 10/17/20 22:13 95 10/17/20 22:00 60 18 145/76 96 10/17/20 21:18 61 25 H 94 L 10/17/20 21:17 100 H 24 112/83 95 10/17/20 20:17 98.4 F 64 22 139/78 95 General Appearance: no apparent distress, alert Neurologic Exam: alert, oriented x 3, cooperative, normal mood/affect, nml cerebellar function, nml station & gait, sensation nml, No motor deficits Respiratory Exam: prolonged expirations, wheezing, No accessory muscle use Cardiovascular Exam: regular rate/rhythm, normal heart sounds, normal peripheral pulses Gastrointestinal/Abdomen Exam: soft, normal bowel sounds, No tenderness, No mass Extremity Exam: normal inspection, normal range of motion, pelvis stable Skin Exam: normal color, warm, dry, No rash Results - Labs Lab/Micro Results: Lab Results-Last 24 Hours 10/17/20 10/17/20 10/17/20 Range/Units 20:30 20:30 21:00 WBC 8.0 (4.0-10.5) K/mm3 RBC 3.86 L (4.1-5.6) M/mm3 Hgb 11.2 L (12.5-18.0) gm/dl Hct 35.6 L (42-50) % MCV 92.2 (78-100) fl MCH 29.0 (26-32) pg MCHC 31.5 L (32-36) g/dl RDW 14.9 H (11.5-14.0) % Plt Count 158 (150-450) K/mm3 MPV 11.7 H (7.5-11.0) fl Gran % 56.9 (36.0-66.0) % Eos # (Auto) 1.27 H (0-0.5) Absolute Lymphs (auto) 1.50 (1.0-4.6) Absolute Monos (auto) 0.62 (0.0-1.3) Lymphocytes % 18.8 L (24.0-44.0) % Monocytes % 7.8 (0.0-12.0) % Eosinophils % 15.9 H (0.00-5.0) % Basophils % 0.6 (0.0-0.4) % Absolute Granulocytes 4.54 (1.4-6.9) Basophils # 0.05 (0-0.4) D-Dimer (215-500) ng/mL Sodium (137-145) mmol/L Potassium (3.5-5.1) mmol/L Chloride (98-107) mmol/L Carbon Dioxide (22-30) mmol/L Anion Gap (5-15) MEQ/L BUN (9-20) mg/dL Creatinine (0.66-1.25) mg/dL Estimated GFR ML/MIN Glucose (74-106) mg/dL Lactic Acid (0.4-2.0) Calcium (8.4-10.2) mg/dL Magnesium (1.6-2.3) mg/dL Total Bilirubin (0.2-1.3) mg/dL AST (17-59) U/L ALT (0-50) U/L Alkaline Phosphatase (38-126) U/L Troponin I 0.037 H* (0.000-0.034) ng/mL NT-Pro-B Natriuret Pep (0-1800) pg/mL Serum Total Protein (6.3-8.2) g/dL Albumin (3.5-5.0) g/dL Urine Color STRAW (YELLOW) Urine Appearance CLEAR (CLEAR) Urine pH 5.0 (5-6) Ur Specific [place] 1.006 (1.005-1.025) Urine Protein NEGATIVE (Negative) Urine Ketones NEGATIVE (NEGATIVE) Urine Blood NEGATIVE (0-5) [place]/ul Urine Nitrite NEGATIVE (NEGATIVE) Urine Bilirubin NEGATIVE (NEGATIVE) Urine Urobilinogen NEGATIVE (0-1) mg/dL Ur Leukocyte Esterase TRACE (NEGATIVE) Urine WBC (Auto) 6-10 (0-5) /HPF Urine RBC (Auto) 0-2 (0-2) /HPF U Epithel Cells (Auto) NONE (FEW) /HPF Urine Bacteria (Auto) NONE SEEN (NEGATIVE) /HPF Urine Mucus (Auto) SLIGHT (NEGATIVE) /HPF Urine Culture Reflexed NO (NO) Urine Glucose NEGATIVE (NEGATIVE) mg/dL SARS-CoV-2 (PCR) (NEGATIVE) 10/17/20 10/17/20 10/17/20 Range/Units 21:00 21:00 21:20 WBC (4.0-10.5) K/mm3 RBC (4.1-5.6) M/mm3 Hgb (12.5-18.0) gm/dl Hct (42-50) % MCV (78-100) fl MCH (26-32) pg MCHC (32-36) g/dl RDW (11.5-14.0) % Plt Count (150-450) K/mm3 MPV (7.5-11.0) fl Gran % (36.0-66.0) % Eos # (Auto) (0-0.5) Absolute Lymphs (auto) (1.0-4.6) Absolute Monos (auto) (0.0-1.3) Lymphocytes % (24.0-44.0) % Monocytes % (0.0-12.0) % Eosinophils % (0.00-5.0) % Basophils % (0.0-0.4) % Absolute Granulocytes (1.4-6.9) Basophils # (0-0.4) D-Dimer 1521 H* (215-500) ng/mL Sodium 139 (137-145) mmol/L Potassium 3.3 L (3.5-5.1) mmol/L Chloride 103 (98-107) mmol/L Carbon Dioxide 25 (22-30) mmol/L Anion Gap 14.2 (5-15) MEQ/L BUN 23 H (9-20) mg/dL Creatinine 1.61 H (0.66-1.25) mg/dL Estimated GFR 43.6 ML/MIN Glucose 104 (74-106) mg/dL Lactic Acid 1.0 (0.4-2.0) Calcium 8.7 (8.4-10.2) mg/dL Magnesium 2.1 (1.6-2.3) mg/dL Total Bilirubin 0.40 (0.2-1.3) mg/dL AST 34 (17-59) U/L ALT 16 (0-50) U/L Alkaline Phosphatase 125 (38-126) U/L Troponin I (0.000-0.034) ng/mL NT-Pro-B Natriuret Pep 1580 (0-1800) pg/mL Serum Total Protein 7.3 (6.3-8.2) g/dL Albumin 4.2 (3.5-5.0) g/dL Urine Color (YELLOW) Urine Appearance (CLEAR) Urine pH (5-6) Ur Specific [place] (1.005-1.025) Urine Protein (Negative) Urine Ketones (NEGATIVE) Urine Blood (0-5) [place]/ul Urine Nitrite (NEGATIVE) Urine Bilirubin (NEGATIVE) Urine Urobilinogen (0-1) mg/dL Ur Leukocyte Esterase (NEGATIVE) Urine WBC (Auto) (0-5) /HPF Urine RBC (Auto) (0-2) /HPF U Epithel Cells (Auto) (FEW) /HPF Urine Bacteria (Auto) (NEGATIVE) /HPF Urine Mucus (Auto) (NEGATIVE) /HPF Urine Culture Reflexed (NO) Urine Glucose (NEGATIVE) mg/dL SARS-CoV-2 (PCR) (NEGATIVE) 10/17/20 10/17/20 10/18/20 Range/Units 22:51 23:54 02:28 WBC (4.0-10.5) K/mm3 RBC (4.1-5.6) M/mm3 Hgb (12.5-18.0) gm/dl Hct (42-50) % MCV (78-100) fl MCH (26-32) pg MCHC (32-36) g/dl RDW (11.5-14.0) % Plt Count (150-450) K/mm3 MPV (7.5-11.0) fl Gran % (36.0-66.0) % Eos # (Auto) (0-0.5) Absolute Lymphs (auto) (1.0-4.6) Absolute Monos (auto) (0.0-1.3) Lymphocytes % (24.0-44.0) % Monocytes % (0.0-12.0) % Eosinophils % (0.00-5.0) % Basophils % (0.0-0.4) % Absolute Granulocytes (1.4-6.9) Basophils # (0-0.4) D-Dimer (215-500) ng/mL Sodium (137-145) mmol/L Potassium (3.5-5.1) mmol/L Chloride (98-107) mmol/L Carbon Dioxide (22-30) mmol/L Anion Gap (5-15) MEQ/L BUN (9-20) mg/dL Creatinine (0.66-1.25) mg/dL Estimated GFR ML/MIN Glucose (74-106) mg/dL Lactic Acid (0.4-2.0) Calcium (8.4-10.2) mg/dL Magnesium (1.6-2.3) mg/dL Total Bilirubin (0.2-1.3) mg/dL AST (17-59) U/L ALT (0-50) U/L Alkaline Phosphatase (38-126) U/L Troponin I 0.038 H* 0.035 H (0.000-0.034) ng/mL NT-Pro-B Natriuret Pep (0-1800) pg/mL Serum Total Protein (6.3-8.2) g/dL Albumin (3.5-5.0) g/dL Urine Color (YELLOW) Urine Appearance (CLEAR) Urine pH (5-6) Ur Specific [place] (1.005-1.025) Urine Protein (Negative) Urine Ketones (NEGATIVE) Urine Blood (0-5) [place]/ul Urine Nitrite (NEGATIVE) Urine Bilirubin (NEGATIVE) Urine Urobilinogen (0-1) mg/dL Ur Leukocyte Esterase (NEGATIVE) Urine WBC (Auto) (0-5) /HPF Urine RBC (Auto) (0-2) /HPF U Epithel Cells (Auto) (FEW) /HPF Urine Bacteria (Auto) (NEGATIVE) /HPF Urine Mucus (Auto) (NEGATIVE) /HPF Urine Culture Reflexed (NO) Urine Glucose (NEGATIVE) mg/dL SARS-CoV-2 (PCR) NEGATIVE (NEGATIVE) 10/18/20 10/18/20 10/18/20 Range/Units 05:47 05:47 05:47 WBC 6.6 (4.0-10.5) K/mm3 RBC 3.94 L (4.1-5.6) M/mm3 Hgb 11.4 L (12.5-18.0) gm/dl Hct 36.0 L (42-50) % MCV 91.4 (78-100) fl MCH 28.9 (26-32) pg MCHC 31.7 L (32-36) g/dl RDW 14.7 H (11.5-14.0) % Plt Count 153 (150-450) K/mm3 MPV 11.4 H (7.5-11.0) fl Gran % 85.5 H (36.0-66.0) % Eos # (Auto) 0.16 (0-0.5) Absolute Lymphs (auto) 0.68 L (1.0-4.6) Absolute Monos (auto) 0.10 (0.0-1.3) Lymphocytes % 10.3 L (24.0-44.0) % Monocytes % 1.5 (0.0-12.0) % Eosinophils % 2.4 (0.00-5.0) % Basophils % 0.3 (0.0-0.4) % Absolute Granulocytes 5.65 (1.4-6.9) Basophils # 0.02 (0-0.4) D-Dimer (215-500) ng/mL Sodium 139 (137-145) mmol/L Potassium 3.4 L (3.5-5.1) mmol/L Chloride 104 (98-107) mmol/L Carbon Dioxide 26 (22-30) mmol/L Anion Gap 12.4 (5-15) MEQ/L BUN 23 H (9-20) mg/dL Creatinine 1.35 H (0.66-1.25) mg/dL Estimated GFR 53.4 ML/MIN Glucose 141 H (74-106) mg/dL Lactic Acid (0.4-2.0) Calcium 8.7 (8.4-10.2) mg/dL Magnesium (1.6-2.3) mg/dL Total Bilirubin 0.30 (0.2-1.3) mg/dL AST 32 (17-59) U/L ALT 16 (0-50) U/L Alkaline Phosphatase 130 H (38-126) U/L Troponin I 0.028 (0.000-0.034) ng/mL NT-Pro-B Natriuret Pep (0-1800) pg/mL Serum Total Protein 6.9 (6.3-8.2) g/dL Albumin 3.9 (3.5-5.0) g/dL Urine Color (YELLOW) Urine Appearance (CLEAR) Urine pH (5-6) Ur Specific [place] (1.005-1.025) Urine Protein (Negative) Urine Ketones (NEGATIVE) Urine Blood (0-5) [place]/ul Urine Nitrite (NEGATIVE) Urine Bilirubin (NEGATIVE) Urine Urobilinogen (0-1) mg/dL Ur Leukocyte Esterase (NEGATIVE) Urine WBC (Auto) (0-5) /HPF Urine RBC (Auto) (0-2) /HPF U Epithel Cells (Auto) (FEW) /HPF Urine Bacteria (Auto) (NEGATIVE) /HPF Urine Mucus (Auto) (NEGATIVE) /HPF Urine Culture Reflexed (NO) Urine Glucose (NEGATIVE) mg/dL SARS-CoV-2 (PCR) (NEGATIVE) - Radiology Impressions Radiology Exams & Impressions: Radiology Procedures Category Date Time Status CHEST 1 VIEW (PORTABLE) Stat Exams 10/17/20 20:31 Taken PULMONARY PERF VENTILATION [NUCMED] Stat Exams 10/18/20 10:00 Ordered - Other Procedures and Tests Respiratory Therapy 10/17/20 21:00 Respiratory Therapy Assessment DAILY Assessment/Plan (1) COPD exacerbation Current Visit: Yes Status: Acute Assessment & Plan: awaiting vq, start solu medrol and rocephin/zithromax. likely home if vq is n egative Code(s): J44.1 - CHRONIC OBSTRUCTIVE PULMONARY DISEASE W (ACUTE) EXACERBATION (2) Atrial fibrillation Current Visit: Yes Status: Acute Qualifiers: Atrial fibrillation type: unspecified Qualified Code(s): I48.91 - Unspecified atrial fibrillation Code(s): I48.91 - UNSPECIFIED ATRIAL FIBRILLATION Hospital Summary - Vitals & Intake/Output Vital Signs: Vital Signs Temperature 97.9 F 10/18/20 07:22 Pulse Rate 59 L 10/18/20 07:22 Respiratory Rate 16 10/18/20 07:22 Blood Pressure 129/66 10/18/20 07:22 O2 Sat by Pulse Oximetry 93 L 10/18/20 07:22 Intake & Output: Intake & Output 10/15/20 10/16/20 10/17/20 10/18/20 11:59 11:59 11:59 11:59 Weight 80.3 kg - Lab Result Diagrams: 10/18/20 05:47 10/18/20 05:47 Lab Results-Last 24 Hrs: Lab Results-Last 24 Hours 10/17/20 10/17/20 10/17/20 Range/Units 20:30 20:30 21:00 WBC 8.0 (4.0-10.5) K/mm3 RBC 3.86 L (4.1-5.6) M/mm3 Hgb 11.2 L (12.5-18.0) gm/dl Hct 35.6 L (42-50) % MCV 92.2 (78-100) fl MCH 29.0 (26-32) pg MCHC 31.5 L (32-36) g/dl RDW 14.9 H (11.5-14.0) % Plt Count 158 (150-450) K/mm3 MPV 11.7 H (7.5-11.0) fl Gran % 56.9 (36.0-66.0) % Eos # (Auto) 1.27 H (0-0.5) Absolute Lymphs (auto) 1.50 (1.0-4.6) Absolute Monos (auto) 0.62 (0.0-1.3) Lymphocytes % 18.8 L (24.0-44.0) % Monocytes % 7.8 (0.0-12.0) % Eosinophils % 15.9 H (0.00-5.0) % Basophils % 0.6 (0.0-0.4) % Absolute Granulocytes 4.54 (1.4-6.9) Basophils # 0.05 (0-0.4) D-Dimer (215-500) ng/mL Sodium (137-145) mmol/L Potassium (3.5-5.1) mmol/L Chloride (98-107) mmol/L Carbon Dioxide (22-30) mmol/L Anion Gap (5-15) MEQ/L BUN (9-20) mg/dL Creatinine (0.66-1.25) mg/dL Estimated GFR ML/MIN Glucose (74-106) mg/dL Lactic Acid (0.4-2.0) Calcium (8.4-10.2) mg/dL Magnesium (1.6-2.3) mg/dL Total Bilirubin (0.2-1.3) mg/dL AST (17-59) U/L ALT (0-50) U/L Alkaline Phosphatase (38-126) U/L Troponin I 0.037 H* (0.000-0.034) ng/mL NT-Pro-B Natriuret Pep (0-1800) pg/mL Serum Total Protein (6.3-8.2) g/dL Albumin (3.5-5.0) g/dL Urine Color STRAW (YELLOW) Urine Appearance CLEAR (CLEAR) Urine pH 5.0 (5-6) Ur Specific [place] 1.006 (1.005-1.025) Urine Protein NEGATIVE (Negative) Urine Ketones NEGATIVE (NEGATIVE) Urine Blood NEGATIVE (0-5) [place]/ul Urine Nitrite NEGATIVE (NEGATIVE) Urine Bilirubin NEGATIVE (NEGATIVE) Urine Urobilinogen NEGATIVE (0-1) mg/dL Ur Leukocyte Esterase TRACE (NEGATIVE) Urine WBC (Auto) 6-10 (0-5) /HPF Urine RBC (Auto) 0-2 (0-2) /HPF U Epithel Cells (Auto) NONE (FEW) /HPF Urine Bacteria (Auto) NONE SEEN (NEGATIVE) /HPF Urine Mucus (Auto) SLIGHT (NEGATIVE) /HPF Urine Culture Reflexed NO (NO) Urine Glucose NEGATIVE (NEGATIVE) mg/dL SARS-CoV-2 (PCR) (NEGATIVE) 10/17/20 10/17/20 10/17/20 Range/Units 21:00 21:00 21:20 WBC (4.0-10.5) K/mm3 RBC (4.1-5.6) M/mm3 Hgb (12.5-18.0) gm/dl Hct (42-50) % MCV (78-100) fl MCH (26-32) pg MCHC (32-36) g/dl RDW (11.5-14.0) % Plt Count (150-450) K/mm3 MPV (7.5-11.0) fl Gran % (36.0-66.0) % Eos # (Auto) (0-0.5) Absolute Lymphs (auto) (1.0-4.6) Absolute Monos (auto) (0.0-1.3) Lymphocytes % (24.0-44.0) % Monocytes % (0.0-12.0) % Eosinophils % (0.00-5.0) % Basophils % (0.0-0.4) % Absolute Granulocytes (1.4-6.9) Basophils # (0-0.4) D-Dimer 1521 H* (215-500) ng/mL Sodium 139 (137-145) mmol/L Potassium 3.3 L (3.5-5.1) mmol/L Chloride 103 (98-107) mmol/L Carbon Dioxide 25 (22-30) mmol/L Anion Gap 14.2 (5-15) MEQ/L BUN 23 H (9-20) mg/dL Creatinine 1.61 H (0.66-1.25) mg/dL Estimated GFR 43.6 ML/MIN Glucose 104 (74-106) mg/dL Lactic Acid 1.0 (0.4-2.0) Calcium 8.7 (8.4-10.2) mg/dL Magnesium 2.1 (1.6-2.3) mg/dL Total Bilirubin 0.40 (0.2-1.3) mg/dL AST 34 (17-59) U/L ALT 16 (0-50) U/L Alkaline Phosphatase 125 (38-126) U/L Troponin I (0.000-0.034) ng/mL NT-Pro-B Natriuret Pep 1580 (0-1800) pg/mL Serum Total Protein 7.3 (6.3-8.2) g/dL Albumin 4.2 (3.5-5.0) g/dL Urine Color (YELLOW) Urine Appearance (CLEAR) Urine pH (5-6) Ur Specific [place] (1.005-1.025) Urine Protein (Negative) Urine Ketones (NEGATIVE) Urine Blood (0-5) [place]/ul Urine Nitrite (NEGATIVE) Urine Bilirubin (NEGATIVE) Urine Urobilinogen (0-1) mg/dL Ur Leukocyte Esterase (NEGATIVE) Urine WBC (Auto) (0-5) /HPF Urine RBC (Auto) (0-2) /HPF U Epithel Cells (Auto) (FEW) /HPF Urine Bacteria (Auto) (NEGATIVE) /HPF Urine Mucus (Auto) (NEGATIVE) /HPF Urine Culture Reflexed (NO) Urine Glucose (NEGATIVE) mg/dL SARS-CoV-2 (PCR) (NEGATIVE) 10/17/20 10/17/20 10/18/20 Range/Units 22:51 23:54 02:28 WBC (4.0-10.5) K/mm3 RBC (4.1-5.6) M/mm3 Hgb (12.5-18.0) gm/dl Hct (42-50) % MCV (78-100) fl MCH (26-32) pg MCHC (32-36) g/dl RDW (11.5-14.0) % Plt Count (150-450) K/mm3 MPV (7.5-11.0) fl Gran % (36.0-66.0) % Eos # (Auto) (0-0.5) Absolute Lymphs (auto) (1.0-4.6) Absolute Monos (auto) (0.0-1.3) Lymphocytes % (24.0-44.0) % Monocytes % (0.0-12.0) % Eosinophils % (0.00-5.0) % Basophils % (0.0-0.4) % Absolute Granulocytes (1.4-6.9) Basophils # (0-0.4) D-Dimer (215-500) ng/mL Sodium (137-145) mmol/L Potassium (3.5-5.1) mmol/L Chloride (98-107) mmol/L Carbon Dioxide (22-30) mmol/L Anion Gap (5-15) MEQ/L BUN (9-20) mg/dL Creatinine (0.66-1.25) mg/dL Estimated GFR ML/MIN Glucose (74-106) mg/dL Lactic Acid (0.4-2.0) Calcium (8.4-10.2) mg/dL Magnesium (1.6-2.3) mg/dL Total Bilirubin (0.2-1.3) mg/dL AST (17-59) U/L ALT (0-50) U/L Alkaline Phosphatase (38-126) U/L Troponin I 0.038 H* 0.035 H (0.000-0.034) ng/mL NT-Pro-B Natriuret Pep (0-1800) pg/mL Serum Total Protein (6.3-8.2) g/dL Albumin (3.5-5.0) g/dL Urine Color (YELLOW) Urine Appearance (CLEAR) Urine pH (5-6) Ur Specific [place] (1.005-1.025) Urine Protein (Negative) Urine Ketones (NEGATIVE) Urine Blood (0-5) [place]/ul Urine Nitrite (NEGATIVE) Urine Bilirubin (NEGATIVE) Urine Urobilinogen (0-1) mg/dL Ur Leukocyte Esterase (NEGATIVE) Urine WBC (Auto) (0-5) /HPF Urine RBC (Auto) (0-2) /HPF U Epithel Cells (Auto) (FEW) /HPF Urine Bacteria (Auto) (NEGATIVE) /HPF Urine Mucus (Auto) (NEGATIVE) /HPF Urine Culture Reflexed (NO) Urine Glucose (NEGATIVE) mg/dL SARS-CoV-2 (PCR) NEGATIVE (NEGATIVE) 10/18/20 10/18/20 10/18/20 Range/Units 05:47 05:47 05:47 WBC 6.6 (4.0-10.5) K/mm3 RBC 3.94 L (4.1-5.6) M/mm3 Hgb 11.4 L (12.5-18.0) gm/dl Hct 36.0 L (42-50) % MCV 91.4 (78-100) fl MCH 28.9 (26-32) pg MCHC 31.7 L (32-36) g/dl RDW 14.7 H (11.5-14.0) % Plt Count 153 (150-450) K/mm3 MPV 11.4 H (7.5-11.0) fl Gran % 85.5 H (36.0-66.0) % Eos # (Auto) 0.16 (0-0.5) Absolute Lymphs (auto) 0.68 L (1.0-4.6) Absolute Monos (auto) 0.10 (0.0-1.3) Lymphocytes % 10.3 L (24.0-44.0) % Monocytes % 1.5 (0.0-12.0) % Eosinophils % 2.4 (0.00-5.0) % Basophils % 0.3 (0.0-0.4) % Absolute Granulocytes 5.65 (1.4-6.9) Basophils # 0.02 (0-0.4) D-Dimer (215-500) ng/mL Sodium 139 (137-145) mmol/L Potassium 3.4 L (3.5-5.1) mmol/L Chloride 104 (98-107) mmol/L Carbon Dioxide 26 (22-30) mmol/L Anion Gap 12.4 (5-15) MEQ/L BUN 23 H (9-20) mg/dL Creatinine 1.35 H (0.66-1.25) mg/dL Estimated GFR 53.4 ML/MIN Glucose 141 H (74-106) mg/dL Lactic Acid (0.4-2.0) Calcium 8.7 (8.4-10.2) mg/dL Magnesium (1.6-2.3) mg/dL Total Bilirubin 0.30 (0.2-1.3) mg/dL AST 32 (17-59) U/L ALT 16 (0-50) U/L Alkaline Phosphatase 130 H (38-126) U/L Troponin I 0.028 (0.000-0.034) ng/mL NT-Pro-B Natriuret Pep (0-1800) pg/mL Serum Total Protein 6.9 (6.3-8.2) g/dL Albumin 3.9 (3.5-5.0) g/dL Urine Color (YELLOW) Urine Appearance (CLEAR) Urine pH (5-6) Ur Specific [place] (1.005-1.025) Urine Protein (Negative) Urine Ketones (NEGATIVE) Urine Blood (0-5) [place]/ul Urine Nitrite (NEGATIVE) Urine Bilirubin (NEGATIVE) Urine Urobilinogen (0-1) mg/dL Ur Leukocyte Esterase (NEGATIVE) Urine WBC (Auto) (0-5) /HPF Urine RBC (Auto) (0-2) /HPF U Epithel Cells (Auto) (FEW) /HPF Urine Bacteria (Auto) (NEGATIVE) /HPF Urine Mucus (Auto) (NEGATIVE) /HPF Urine Culture Reflexed (NO) Urine Glucose (NEGATIVE) mg/dL SARS-CoV-2 (PCR) (NEGATIVE) - Radiology Exams Ordered Rad Exams-Entire Visit: Radiology Procedures Category Date Time Status CHEST 1 VIEW (PORTABLE) Stat Exams 10/17/20 20:31 Taken PULMONARY PERF VENTILATION [NUCMED] Stat Exams 10/18/20 10:00 Ordered - Procedures and Test Procedures and Tests throughout Hospitalization: Therapy Orders & Screens 10/17/20 21:00 Respiratory Therapy Assessment DAILY Comment: 10/18/20 06:11 EKG OM.NOW Comment: Diagnosis: Dyspnea elivated troponin - Discharge Disposition: Home, Self-Care Condition: Stable Prescriptions: New Prednisone 20 mg [Deltasone 20 mg] 20 mg PO UD #18 tablet Doxycycline Hyclate 100 mg [Vibramycin 100 MG] 100 mg PO BID #14 tab Continue Aspirin 81 gm Chew [Baby Aspirin 81 mg Chew] 1 tab PO DAILY Apixaban [Eliquis] 5 tab PO BID Umeclidinium Brm/Vilanterol Tr [Anoro Ellipta 62.5-25 Mcg INH] 62.5 mcg IH BID PRN PRN Reason: sob Potassium Chloride [Klor-Con 10] 10 meq PO DAILY Furosemide 40 mg [Lasix 40 MG] 40 mg PO DAILY Atorvastatin Calcium [Lipitor] 40 mg PO DAILY Albuterol Sulfate [Proair Hfa] 8.5 gm IH Q4HWA Cyclobenzaprine HCl 5 mg PO HS Montelukast Sodium 10 mg [Singulair 10 MG] 10 mg PO DAILY Albuterol/Ipratropium 3ml Neb* [DUONEB 0.5-3 MG/3 ml Neb] 3 ml IH Q6H PRN PRN PRN Reason: Shortness Of Breath/Wheezing Hydrocodone/Acetaminophen [Hydrocodone-Acetamin 5-325 mg ###] 5 mg PO Q4H PRN MDD 6 PRN Reason: Pain Follow up with: ULISES ADAMS MD [Primary Care Provider] - 1 Week
[2020-10-18] MEDS: ROCEPHIN 1 Gm-D5w 50 ml Bag** 1 G/50 ML IVPB IV SCH (09:39)
[2020-10-18] MEDS: PROTONIX 40 MG IV IV SCH (09:39)
[2020-10-18] MEDS: Zithromax 500 MG/ 250 ML NaCl Premix 500 MG/250 ML IVPB IV SCH (09:46)
[2020-10-18] MEDS ORDERED: VILANTEROL IH PRN (09:48)
[2020-10-18] MEDS ORDERED: NORCO 5/325 MG PO PRN (09:48)
[2020-10-18] MEDS ORDERED: [UNRECOGNIZED DRUG - OTHER] IH PRN (09:48)
[2020-10-18] MEDS ORDERED: UMECLIDINIUM IH PRN (09:48)
[2020-10-18] MEDS ORDERED: ELIQUIS 2.5 MG TABLET PO SCH (10:00)
[2020-10-18] MEDS ORDERED: BABY ASPIRIN 81 MG CHEW PO SCH (10:00)
[2020-10-18] MEDS ORDERED: APIXABAN PO SCH (10:00)
[2020-10-18] MEDS ORDERED: LIPITOR 40MG PO SCH ×2 (10:00→22:00)
[2020-10-18] MEDS ORDERED: MEDICATION INTERVENTION MC PRN (10:03)
[2020-10-18] MEDS: Lasix 40 MG PO SCH (10:09)
[2020-10-18] MEDS: ECOTRIN 81 MG PO SCH (10:09)
[2020-10-18] MEDS: Klor Con 10 MEQ PO SCH (10:09)
[2020-10-18] MEDS: Singulair 10 MG PO SCH (10:09)
[2020-10-18] MEDS: ELIQUIS 2.5 MG TABLET PO SCH ×2 (10:10→21:46)
[2020-10-18] MEDS: solu-MEDROL 40 MG IV SCH ×2 (11:54→17:33)
--- NOTE | 2020-10-18 12:52 | XRAY ---
Exam: AP upright portable chest film from 10/17/2020. Comparison: Two-view chest from 08/28/2020. Indication: Shortness of breath. Findings: The film was obtained in a lordotic projection. The heart size appears slightly enlarged. I again see evidence of aortic valve replacement, probable CABG, and midline sternotomy. Left-sided cardiac pacemaker is noted with [address], one lead tip in the projection of the right atrium and the other lead tip in the projection of the apex of the right ventricle. The david and mediastinal structures appear unremarkable. The lung gayle are adequately inflated. No air space infiltrates, central pulmonary vascular congestion, pneumothorax, or pleural fluid is seen. There is minimal eventration of the right hemidiaphragm. Some degenerative changes are seen within the lower thoracic spine. Impression: 1. No acute cardiopulmonary process is seen. 2. Slight cardiomegaly without evidence of cardiac decompensation. 3. Left-sided cardiac pacemaker, probable CABG, and evidence of prior aortic valve replacement with sternotomy, no change from 08/28/2020.
--- NOTE | 2020-10-18 15:53 | XRAY ---
Exam: Radionuclide ventilation perfusion lung scan from 10/18/2020. Comparison: AP upright portable chest radiograph from 10/17/2020. Indication: 85-year-old male for rule out pulmonary embolus; chest pain; shortness of breath. Dose: Ventilation scan: 35.6 mCi of technetium 99m DTPA aerosol. Perfusion scan: 5.0 mCi of technetium 99m MAA IV. Findings: Corresponding anterior, posterior, right lateral, left lateral, left posterior oblique, right posterior oblique, right anterior oblique, and left anterior oblique camera spot images were obtained of the patient's chest during both the ventilation and perfusion lung scan phases. There are some minor ventilation perfusion lung scan matches which I believe are not significant and could be related to chronic lung disease or mild COPD. No segmental or subsegmental perfusion mismatches were seen with respect to the ventilation scan. Impression: 1. The probability of pulmonary embolism is low.
[2020-10-18] MEDS: DUONEB 0.5-3 MG/3 ml Neb IH PRN (19:51)
[2020-10-19] MEDS: solu-MEDROL 40 MG IV SCH ×2 (00:15→05:52)
[2020-10-19] MEDS: DUONEB 0.5-3 MG/3 ml Neb IH PRN (07:31)
[2020-10-19 07:48] VITALS: O2SAT 96
[2020-10-19 08:05] VITALS: BP 121/72; PULSE 65
--- NOTE | 2020-10-19 09:19 | PCM.DS ---
Discharge Summary Date of Admission: 10/18/20 00:39 Admitting Physician: ULISES ADAMS Primary Care Provider: ULISES ADAMS Allergies Allergies No Known Drug Allergies Allergy (Verified 10/17/20 20:23) Hospital Summary - Hospital Course Hospital Course: Pt is an 85 yo male pt of Dr. Adams' who was admitted with SOB - had been out of [facility] for a few days. His VQ scan ended up with low probability of PE. He has been tachycardic at times to the 100s - it was thought he was having intermittent episodes of Vtach that were asymptomatic. When all the leads are examined, however, several leads show NSR. I was present during one "episode" and pt's heartrate was regular rhythm, possibly mildly tachycardic, and pt was completely asymptomatic. Therefore, it appears that this is all artifact. Pt is feeling very well today and would like to go home. He is denying shortness of breath at rest and while up to the bathroom. 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 Pt also has hx B12 deficiency so will test him for that as well. - Vitals & Intake/Output Vital Signs: Vital Signs Temperature 98.1 F 10/19/20 08:00 Pulse Rate 65 10/19/20 08:00 Respiratory Rate 16 10/19/20 08:00 Blood Pressure 121/72 10/19/20 08:00 O2 Sat by Pulse Oximetry 96 10/19/20 08:00 Intake & Output: Intake & Output 10/16/20 10/17/20 10/18/20 10/19/20 11:59 11:59 11:59 11:59 Intake Total 1420 Balance 1420 Weight 80.3 kg 80.4 kg - Lab Result Diagrams: 10/18/20 05:47 10/18/20 05:47 Micro Results-Entire Visit: Microbiology 10/17/20 21:07 Blood Culture Gram Stain - Final Blood Blood Culture - Preliminary NO GROWTH TO DATE 10/17/20 21:00 Blood Culture - Preliminary Blood NO GROWTH TO DATE - Radiology Exams Ordered Rad Exams-Entire Visit: Radiology Procedures Category Date Time Status CHEST 1 VIEW (PORTABLE) Stat Exams 10/17/20 20:31 Completed PULMONARY PERF VENTILATION [NUCMED] Stat Exams 10/18/20 10:00 Completed - Procedures and Test Procedures and Tests throughout Hospitalization: Therapy Orders & Screens 10/17/20 21:00 Respiratory Therapy Assessment DAILY Comment: 10/18/20 06:11 EKG OM.NOW Comment: Diagnosis: Dyspnea elivated troponin Discharge Exam General Appearance: no apparent distress, alert Neurologic Exam: oriented x 3, cooperative, normal mood/affect Eye Exam: eyes nml inspection Ears, Nose, Throat Exam: moist mucous membranes Neck Exam: normal inspection Respiratory Exam: normal breath sounds, lungs clear, No crackles/rales, No rhonchi, No wheezing Cardiovascular Exam: normal heart sounds, tachycardia (reg rhythm; mildly tachycardic), No murmur Gastrointestinal/Abdomen Exam: soft, normal bowel sounds, No tenderness, No distention, No mass, No guarding, No rebound Extremity Exam: normal inspection, No pedal edema, No swelling Skin Exam: normal color, warm, dry, No rash Final Diagnosis/Problem List - Final Discharge Diagnosis/Problem (1) Dyspnea Current Visit: Yes Status: Resolved Assessment & Plan: discharge to home today. If any issues, he should return to ER. Will check for histoplasmosis. Code(s): R06.00 - DYSPNEA, UNSPECIFIED (2) COPD exacerbation Current Visit: Yes Status: Acute Assessment & Plan: home on doxycycline and po prednisone. Code(s): J44.1 - CHRONIC OBSTRUCTIVE PULMONARY DISEASE W (ACUTE) EXACERBATION - Discharge Disposition: Home, Self-Care Condition: Good Prescriptions: New Prednisone 20 mg [Deltasone 20 mg] 20 mg PO UD #18 tablet Doxycycline Hyclate 100 mg [Vibramycin 100 MG] 100 mg PO BID #14 tab Continue Aspirin 81 gm Chew [Baby Aspirin 81 mg Chew] 1 tab PO DAILY Apixaban [Eliquis] 5 tab PO BID Umeclidinium Brm/Vilanterol Tr [Anoro Ellipta 62.5-25 Mcg INH] 62.5 mcg IH BID PRN PRN Reason: sob Potassium Chloride [Klor-Con 10] 10 meq PO DAILY Furosemide 40 mg [Lasix 40 MG] 40 mg PO DAILY Atorvastatin Calcium [Lipitor] 40 mg PO DAILY Albuterol Sulfate [Proair Hfa] 8.5 gm IH Q4HWA Cyclobenzaprine HCl 5 mg PO HS Montelukast Sodium 10 mg [Singulair 10 MG] 10 mg PO DAILY Albuterol/Ipratropium 3ml Neb* [DUONEB 0.5-3 MG/3 ml Neb] 3 ml IH Q6H PRN PRN PRN Reason: Shortness Of Breath/Wheezing Hydrocodone/Acetaminophen [Hydrocodone-Acetamin 5-325 mg ###] 5 mg PO Q4H PRN MDD 6 PRN Reason: Pain Instructions: Shortness of Breath (Dyspnea) (DC), Doxycycline, Prednisone Follow up with: ULISES ADAMS MD [Primary Care Provider] - 10/25/20 10:00 am Forms: Discharge Instructions
[2020-10-19] MEDS: ROCEPHIN 1 Gm-D5w 50 ml Bag** 1 G/50 ML IVPB IV SCH (09:39)
[2020-10-19] MEDS: ECOTRIN 81 MG PO SCH (10:14)
[2020-10-19] MEDS: Klor Con 10 MEQ PO SCH (10:14)
[2020-10-19] MEDS: ELIQUIS 2.5 MG TABLET PO SCH (10:14)
[2020-10-19] MEDS: PROTONIX 40 MG IV IV SCH (10:15)
[2020-10-19] MEDS: Lasix 40 MG PO SCH (10:15)
[2020-10-19] MEDS: Singulair 10 MG PO SCH (10:15)
[2020-10-19] MEDS: Zithromax 500 MG/ 250 ML NaCl Premix 500 MG/250 ML IVPB IV SCH (10:16)
[2020-10-19 11:19] LABS: Folate (Folic Acid) 5.9 ng/mL (2.76 - >20)
== END 2020-10-19 11:38 | disposition home or self-care (01) ==
LOC: ED 20:17 → MED SURG 10-18 00:39
PROVIDERS: ADMIT Family Medicine; ATTEND Family Medicine
DX: J44.1 Chronic obstructive pulmonary disease with (acute) exacerbation (principal); I48.91 Unspecified atrial fibrillation; Z95.0 Presence of cardiac pacemaker; Z79.899 Other long term (current) drug therapy; Z79.01 Long term (current) use of anticoagulants; R79.1 Abnormal coagulation profile; R53.1 Weakness; R53.83 Other fatigue; I10 Essential (primary) hypertension; E78.00 Pure hypercholesterolemia, unspecified; Z20.828 Contact with and (suspected) exposure to other viral communicable diseases
CPT/HCPCS: 36000; 36415; 71045; 78582; 80053; 81001; 82607; 82746; 83605; 83735; 83880; 84484; 85025; 85379; 86698; 87040; 87077; 93005; 93041; 93268; 94640; 94760; 96365; 96366; 96374; 99285; A9540; A9567; G0378; U0003; 96375; J0456; J0696; J2920; J2930; J3475; A9270-GY

== ENCOUNTER 2021-01-05 10:43 | Day surgery (SDC) | payer MEDICARE ==
[2021-01-05] MEDS ORDERED: Depo-Medrol 80 MG/ML IM ONE (10:44)
[2021-01-05] MEDS ORDERED: Sodium Chloride 0.9(Preservative Free) 10 ML IJ ONE (10:44)
[2021-01-05] MEDS ORDERED: DIPRIVAN 200 MG/20 ML IV ONE (12:36)
--- NOTE | 2021-01-05 15:14 | XRAY ---
Indication: Right L4-S1 transforaminal DANIELLE. Intraoperative fluoroscopy provided for 38 seconds. 4 digital spot images submitted for interpretation demonstrates posterior needle tips projecting over the expected right L4 and L5 nerve roots. Small amount of contrast injected for needle tip placement. Correlate with intraoperative findings/report.
--- NOTE | 2021-01-05 16:30 | XRAY ---
38 seconds of fluoroscopy was used in surgery for a right L4-S1 transforaminal DANIELLE.
[2021-01-05] MEDS ORDERED: Lactated Ringers 1,000 ML IV ONE (17:27)
== END 2021-01-05 13:05 | disposition home or self-care (01) ==
LOC: SDC-PAIN 10:43
PROVIDERS: ATTEND Psychiatry & Neurology Pain Medicine
DX: M54.16 Radiculopathy, lumbar region (principal); Z79.899 Other long term (current) drug therapy
CPT/HCPCS: 64483; 64484; 72100; 77003; J1040; J2704; Q9966

== ENCOUNTER 2021-02-09 09:46 | Day surgery (SDC) | payer MEDICARE ==
[2021-02-09] MEDS ORDERED: Depo-Medrol 40 MG/ML IM ONE (09:47)
[2021-02-09] MEDS ORDERED: BUPIVACAINE 0.5% VIAL IJ ONE (09:47)
[2021-02-09] MEDS ORDERED: DIPRIVAN 200 MG/20 ML IV ONE (11:29)
[2021-02-09] MEDS ORDERED: Lactated Ringers 1,000 ML IV ONE (12:28)
--- NOTE | 2021-02-09 13:06 | XRAY ---
Indication: Right SI joint injection. Intraoperative fluoroscopy provided for 9 seconds. 2 digital spot images submitted for interpretation demonstrates posterior needle tip projecting over the inferior SI joint. Correlate with intraoperative findings/report.
--- NOTE | 2021-02-09 13:40 | XRAY ---
9 seconds of fluoroscopy was used in surgery for a right SI joint injection.
== END 2021-02-09 12:15 | disposition home or self-care (01) ==
LOC: SDC-PAIN 09:46
PROVIDERS: ATTEND Psychiatry & Neurology Pain Medicine
DX: M46.1 Sacroiliitis, not elsewhere classified (principal); Z79.899 Other long term (current) drug therapy
CPT/HCPCS: 27096; 72100; 77002; G0260; 99100; J1030; J2704

== ENCOUNTER 2021-03-09 09:27 | Day surgery (SDC) | payer MEDICARE ==
[2021-03-09] MEDS ORDERED: Depo-Medrol 40 MG/ML IM ONE (09:28)
[2021-03-09] MEDS ORDERED: Sodium Chloride 0.9% 10 ML FLUSH Syringe IJ ONE (09:28)
[2021-03-09] MEDS ORDERED: DIPRIVAN 200 MG/20 ML IV ONE (11:18)
[2021-03-09] MEDS ORDERED: Lactated Ringers 1,000 ML IV ONE (12:16)
--- NOTE | 2021-03-09 12:18 | XRAY ---
Indication: Right L3-L5 transforaminal DANIELLE. Intraoperative fluoroscopy provided for 39 seconds. 5 digital spot image submitted for interpretation demonstrates posterior needle tips projecting over the expected right L3 and L4 nerve roots. Small amount of contrast injected for needle tip placement. Correlate with intraoperative findings/report.
--- NOTE | 2021-03-09 12:23 | XRAY ---
39 seconds fluoroscopy time in surgery for right L3-L5 transforaminal DANIELLE.
== END 2021-03-09 11:47 | disposition home or self-care (01) ==
LOC: SDC-PAIN 09:27
PROVIDERS: ATTEND Psychiatry & Neurology Pain Medicine
DX: M54.16 Radiculopathy, lumbar region (principal); J44.9 Chronic obstructive pulmonary disease, unspecified; I50.9 Heart failure, unspecified; Z79.01 Long term (current) use of anticoagulants; Z79.899 Other long term (current) drug therapy
CPT/HCPCS: 64483; 64484; 72100; 77003; J1030; J2704; Q9966

== ENCOUNTER 2021-05-25 08:32 | Day surgery (SDC) | payer MEDICARE ==
[2021-05-25] MEDS ORDERED: Sensorcaine 0.25% 10 ML IJ ONE (08:33)
[2021-05-25] MEDS ORDERED: Depo-Medrol 40 MG/ML IM ONE (08:33)
[2021-05-25] MEDS ORDERED: Lactated Ringers 1,000 ML IV ONE (09:19)
[2021-05-25] MEDS ORDERED: DIPRIVAN 200 MG/20 ML IV ONE (09:25)
--- NOTE | 2021-05-25 10:50 | XRAY ---
Indication: Right SI joint injection. Intraoperative fluoroscopy provided for 10 seconds. 2 digital spot image submitted for interpretation demonstrates posterior needle tip projecting over the inferior right SI joint. Correlate with intraoperative findings/report.
--- NOTE | 2021-05-25 11:11 | XRAY ---
10 seconds fluoroscopy time in surgery for injection of the right SI joint.
== END 2021-05-25 09:50 | disposition home or self-care (01) ==
LOC: SDC-PAIN 08:32
PROVIDERS: ATTEND Psychiatry & Neurology Pain Medicine
DX: M46.1 Sacroiliitis, not elsewhere classified (principal); Z79.01 Long term (current) use of anticoagulants; Z79.899 Other long term (current) drug therapy
CPT/HCPCS: 27096; 72020; 77002; G0260; 99100; J1030; J2704

== ENCOUNTER 2022-09-09 08:32 | Emergency (ER) | payer MEDICARE ==
--- NOTE | 2022-09-09 09:37 | ERPHSYRPT ---
- History of Present Illness Time Seen by Provider: 09/09/22 09:32 Source: patient Exam Limitations: no limitations Patient Subjective Stated Complaint: Right shoulder pain Triage Nursing Assessment: Patient brought back to ED per w/c and transferred to bed with assist of 1. Patient A+O X3. Patient's skin, pink, warm and dry. Patient complains of right shoulder pain that goes into right shoulder blade 09/16. Patient denies recent injury or trauma. Patient states he is due to get a cortizone injection to right shoulder by Dr. Suazo. Patient complains of increased SOB at times. Lungs clear a/p francisco. Physician History: 87-year-old male presents emergency room with right shoulder pain. Patient woke up this morning with severe right shoulder pain, no injury reported. Patient has been dealing with pain in the shoulder for quite some time and is scheduled to have an injection soon. He was also feeling more short of breath than normal for him so he decided to come to the emergency room today. Patient has a history of CAD status post CABG, COPD, CHF and severe aortic stenosis. Due to his history it is appropriate to initiate a full cardiac work-up at this time. Patient's range of motion of the right shoulder is severely limited in flexion and abduction. He also has difficulty raising his arm overhead. He denies any numbness or tingling down the arm or pain in the neck. Occurred: this morning Method of Injury: unknown Quality: constant, dullness, throbbing Severity of Pain-Max: severe Severity of Pain-Current: severe Extremities Pain Location: shoulder: right Modifying Factors: Improves With: rest. Worsens With: movement Associated Symptoms: back pain (scapula), dyspnea, short of breath, No fever, No nausea, No neck pain, No vomiting Allergies/Adverse Reactions: No Known Drug Allergies Allergy (Verified 09/09/22 09:16) Home Medications: Aspirin 81 gm Chew [Baby Aspirin 81 mg Chew] 1 tab PO DAILY 04/02/13 [History] Apixaban [Eliquis] 5 tab PO BID 06/25/18 [History] Umeclidinium Brm/Vilanterol Tr [Anoro Ellipta 62.5-25 Mcg INH] 62.5 mcg IH BID PRN 06/25/18 [History] Albuterol Sulfate [Proair Hfa] 8.5 gm IH Q4HWA 06/08/20 [History] Atorvastatin Calcium [Lipitor] 40 mg PO DAILY 06/08/20 [History] Cyclobenzaprine HCl 5 mg PO HS 06/08/20 [History] Furosemide 40 mg [Lasix 40 MG] 40 mg PO DAILY 06/08/20 [History] Potassium Chloride [Klor-Con 10] 10 meq PO DAILY 06/08/20 [History] Albuterol/Ipratropium 3ml Neb* [DUONEB 0.5-3 MG/3 ml Neb] 3 ml IH Q6H PRN PRN 10/17/20 [History] Montelukast Sodium 10 mg [Singulair 10 MG] 10 mg PO DAILY 10/17/20 [History] Hydrocodone/Acetaminophen [Hydrocodone-Acetamin 5-325 mg ###] 5 mg PO Q4H PRN MDD 6 10/18/20 [History] Hx Tetanus, Diphtheria Vaccination/Date Given: No Hx Influenza Vaccination/Date Given: No Hx Pneumococcal Vaccination/Date Given: No Immunizations Up to Date: Yes Travel Risk - International Travel Have you traveled outside of the country in past 3 weeks: No - Coronavirus Screening Are you exhibiting any of the following symptoms?: No Close contact with a COVID-19 positive Pt in past 14-21 Days: No - Vaccine Status Have you recieved a Covid-19 vaccination: Yes B[employer]er [employer] Supervisor: Unknown - Vaccination Dates Date of 2cond Vaccination (if applicable): unknown Dates if Unknown: unkown - Review of Systems Constitutional: No Symptoms Eyes: No Symptoms Ears, Nose, & Throat: No Symptoms Respiratory: Dyspnea, Dyspnea on Exertion (GARCIA), No Cough, No Cyanosis, No Wheezing Cardiac: Edema, No Chest Pain Abdominal/Gastrointestinal: No Abdominal Pain, No Nausea, No Vomiting, No Diarrhea, No Constipation, No Appetite Changes Genitourinary Symptoms: No Symptoms Musculoskeletal: Arthralgias, Back Pain (right scapula), Joint Pain (right shoulder), No Deformity, No Injury, No Joint Swelling Skin: No Symptoms Neurological: No Symptoms - Past Medical History Pertinent Past Medical History: Yes Neurological History: Stroke ENT History: No Pertinent History Cardiac History: Coronary Artery Disease, High Cholesterol, Myocardial Infarction ([place]) Respiratory History: Asthma Endocrine Medical History: No Pertinent History Musculoskeletal History: No Pertinent History GI Medical History: No Pertinent History History: No Pertinent History Psycho-Social History: No Pertinent History Male Reproductive Disorders: No Pertinent History Other Medical History: AFIB. CABG 1999. PACEMAKER 1999 - Past Surgical History Past Surgical History: Yes Neuro Surgical History: No Pertinent History Cardiac: CABG, Cardiac Stent Respiratory: No Pertinent History Gastrointestinal: Appendectomy, Hernia Repair Genitourinary: No Pertinent History Musculoskeletal: No Pertinent History Male Surgical History: No Pertinent History Other Surgical History: TAVR, PACEMAKER - Social History Smoking Status: Never smoker Exposure to second hand smoke: No Drug Use: none Patient Lives Alone: No (granddaughter lives with) - Nursing Vital Signs Nursing Vital Signs: Initial Vital Signs Temperature 97.1 F 09/09/22 09:18 Pulse Rate 67 09/09/22 09:18 Respiratory Rate 18 09/09/22 09:18 Blood Pressure 119/73 09/09/22 09:18 O2 Sat by Pulse Oximetry 96 09/09/22 09:18 Pain Scale Pain Intensity 7 - Physical Exam General Appearance: no apparent distress, alert Neck Exam: normal inspection, supple, full range of motion Cardiovascular/Respiratory Exam: chest non-tender, regular rate/rhythm, no respiratory distress, decreased breath sounds, murmur (3/6 systolic murmur over right 2nd intercostal space) Abdominal Exam: non-tender, soft, No guarding, No tenderness Back Exam: normal inspection Shoulder Exam: normal inspection, non-tender, no evidence of injury, limited ROM, pain (+ flores, + neers, + empty can, no ac tenderness, no scapula tenderness), No bone tenderness Elbow/Forearm Exam: normal inspection, non-tender, no evidence of injury, normal ROM Neuro/Tendon Exam: normal sensation, normal motor functions, normal tendon functions Mental Status Exam: alert, oriented x 3, cooperative Skin Exam: normal color, warm, dry SpO2 Interpretation: normal SpO2: 96 O2 Delivery: Room Air - Course Nursing assessment & vital signs reviewed: Yes EKG Interpreted by Me: RATE (82), A-fib, NORMAL AXIS, prolonged QT interval (497), Non-specific ST Changes - Radiology Exams Right Shoulder X-ray Interpretation: Interpreted by me, No Fracture, Other (GH arthritis, AC arthritis) - CT Exams Chest CT Interpretation: Tele-radiologist Report, No PE, Other (cardiomegaly w/ bibasilar congestive changes w/ reflux of IV contrast into IVC and hepatic veins concerning for right heart failure, cholelithiasis w/o definite imaging evidence of acute cholecystitis) Ordered Tests: Medication Summary Discontinued Medications Generic Name Dose Route Start Last Admin Trade Name Gemini PRN Reason Stop Dose Admin Acetaminophen 650 mg 09/09/22 17:09 09/09/22 17:11 Acetaminophen 325 Mg Tablet PO 09/09/22 17:10 650 mg STAT STA Administration Acetaminophen Confirm 09/09/22 17:10 Acetaminophen 325 Mg Tablet Administered 09/09/22 17:11 Dose 650 mg .ROUTE .STK-MED ONE Albuterol/Ipratropium Confirm 09/09/22 10:21 Ipratropium/Albuterol Sulfate 3 Ml Ampul.Neb Administered 09/09/22 10:22 Dose 3 ml IH .STK-MED ONE Albuterol/Ipratropium 3 ml 09/09/22 10:27 09/09/22 10:28 Ipratropium/Albuterol Sulfate 3 Ml Ampul.Neb IH 09/09/22 10:28 3 ml STAT ONE Administration Furosemide 40 mg 09/09/22 10:52 09/09/22 11:22 Furosemide 40 Mg/4 Ml Vial IV 09/09/22 10:53 40 mg STAT ONE Administration Furosemide Confirm 09/09/22 11:20 Furosemide 40 Mg/4 Ml Vial Administered 09/09/22 11:21 Dose 40 mg .ROUTE .STK-MED ONE Lab/Rad Data: Laboratory Result Diagrams 09/09/22 09:46 09/09/22 09:46 Laboratory Results 09/09/22 09/09/22 09/09/22 Range/Units 17:47 14:02 09:46 WBC (4.0-10.5) x10^3/uL RBC (4.1-5.6) x10^6/uL Hgb (12.5-18.0) g/dL Hct (42-50) % MCV (78-100) fL MCH (26-32) pg MCHC (32-36) g/dL RDW (11.5-14.0) % Plt Count (150-450) x10^3/uL MPV (7.5-11.0) fL Gran % (36.0-66.0) % Immature Gran % (Auto) (0.00-0.4) % Nucleat RBC Rel Count (0.00-0.1) % Eos # (Auto) (0-0.5) x10^3/uL Immature Gran # (Auto) (0.00-0.03) x10^3u/L Absolute Lymphs (auto) (1.0-4.6) x10^3/uL Absolute Monos (auto) (0.0-1.3) x10^3/uL Absolute Nucleated RBC (0.00-0.01) x10^3u/L Lymphocytes % (24.0-44.0) % Monocytes % (0.0-12.0) % Eosinophils % (0.00-5.0) % Basophils % (0.0-0.4) % Absolute Granulocytes (1.4-6.9) x10^3/uL Basophils # (0-0.4) x10^3/uL D-Dimer (0.0-0.50) mg/L Sodium (137-145) mmol/L Potassium (3.5-5.1) mmol/L Chloride (98-107) mmol/L Carbon Dioxide (22-30) mmol/L Anion Gap (5-15) MEQ/L BUN (9-20) mg/dL Creatinine (0.66-1.25) mg/dL Estimated GFR ML/MIN Glucose (74-106) mg/dL Lactic Acid (0.4-2.0) Calcium (8.4-10.2) mg/dL Magnesium (1.6-2.3) mg/dL Total Bilirubin (0.2-1.3) mg/dL AST (17-59) U/L ALT (0-50) U/L Alkaline Phosphatase (38-126) U/L Troponin I 0.081 H* 0.071 H* (0.000-0.034) ng/mL NT-Pro-B Natriuret Pep 4400 (<300) pg/mL Serum Total Protein (6.3-8.2) g/dL Albumin (3.5-5.0) g/dL Lipase (23-300) U/L 06/03/23 06/03/23 06/03/23 Range/Units 09:46 09:46 09:46 WBC (4.0-10.5) x10^3/uL RBC (4.1-5.6) x10^6/uL Hgb (12.5-18.0) g/dL Hct (42-50) % MCV (78-100) fL MCH (26-32) pg MCHC (32-36) g/dL RDW (11.5-14.0) % Plt Count (150-450) x10^3/uL MPV (7.5-11.0) fL Gran % (36.0-66.0) % Immature Gran % (Auto) (0.00-0.4) % Nucleat RBC Rel Count (0.00-0.1) % Eos # (Auto) (0-0.5) x10^3/uL Immature Gran # (Auto) (0.00-0.03) x10^3u/L Absolute Lymphs (auto) (1.0-4.6) x10^3/uL Absolute Monos (auto) (0.0-1.3) x10^3/uL Absolute Nucleated RBC (0.00-0.01) x10^3u/L Lymphocytes % (24.0-44.0) % Monocytes % (0.0-12.0) % Eosinophils % (0.00-5.0) % Basophils % (0.0-0.4) % Absolute Granulocytes (1.4-6.9) x10^3/uL Basophils # (0-0.4) x10^3/uL D-Dimer 1.39 H* (0.0-0.50) mg/L Sodium 141 (137-145) mmol/L Potassium 3.5 (3.5-5.1) mmol/L Chloride 102 (98-107) mmol/L Carbon Dioxide 30 (22-30) mmol/L Anion Gap 12.5 (5-15) MEQ/L BUN 22 H (9-20) mg/dL Creatinine 1.45 H (0.66-1.25) mg/dL Estimated GFR 48.9 ML/MIN Glucose 102 (74-106) mg/dL Lactic Acid (0.4-2.0) Calcium 8.7 (8.4-10.2) mg/dL Magnesium 2.3 (1.6-2.3) mg/dL Total Bilirubin 1.00 (0.2-1.3) mg/dL AST 39 (17-59) U/L ALT 22 (0-50) U/L Alkaline Phosphatase 99 (38-126) U/L Troponin I 0.082 H* (0.000-0.034) ng/mL NT-Pro-B Natriuret Pep (<300) pg/mL Serum Total Protein 6.5 (6.3-8.2) g/dL Albumin 3.7 (3.5-5.0) g/dL Lipase 99 (23-300) U/L 09/09/22 09/09/22 Range/Units 09:46 09:25 WBC 8.3 (4.0-10.5) x10^3/uL RBC 3.84 L (4.1-5.6) x10^6/uL Hgb 10.5 L (12.5-18.0) g/dL Hct 34.6 L (42-50) % MCV 90.1 (78-100) fL MCH 27.3 (26-32) pg MCHC 30.3 L (32-36) g/dL RDW 17.7 H (11.5-14.0) % Plt Count 145 L (150-450) x10^3/uL MPV 10.6 (7.5-11.0) fL Gran % 74.2 H (36.0-66.0) % Immature Gran % (Auto) 0.4 (0.00-0.4) % Nucleat RBC Rel Count 0.0 (0.00-0.1) % Eos # (Auto) 0.15 (0-0.5) x10^3/uL Immature Gran # (Auto) 0.03 (0.00-0.03) x10^3u/L Absolute Lymphs (auto) 1.12 (1.0-4.6) x10^3/uL Absolute Monos (auto) 0.79 (0.0-1.3) x10^3/uL Absolute Nucleated RBC 0.00 (0.00-0.01) x10^3u/L Lymphocytes % 13.6 L (24.0-44.0) % Monocytes % 9.6 (0.0-12.0) % Eosinophils % 1.8 (0.00-5.0) % Basophils % 0.4 (0.0-0.4) % Absolute Granulocytes 6.14 (1.4-6.9) x10^3/uL Basophils # 0.03 (0-0.4) x10^3/uL D-Dimer (0.0-0.50) mg/L Sodium (137-145) mmol/L Potassium (3.5-5.1) mmol/L Chloride (98-107) mmol/L Carbon Dioxide (22-30) mmol/L Anion Gap (5-15) MEQ/L BUN (9-20) mg/dL Creatinine (0.66-1.25) mg/dL Estimated GFR ML/MIN Glucose (74-106) mg/dL Lactic Acid 1.9 (0.4-2.0) Calcium (8.4-10.2) mg/dL Magnesium (1.6-2.3) mg/dL Total Bilirubin (0.2-1.3) mg/dL AST (17-59) U/L ALT (0-50) U/L Alkaline Phosphatase (38-126) U/L Troponin I (0.000-0.034) ng/mL NT-Pro-B Natriuret Pep (<300) pg/mL Serum Total Protein (6.3-8.2) g/dL Albumin (3.5-5.0) g/dL Lipase (23-300) U/L - Progress Progress: unchanged Progress Note: Due to patient's hx of CHF and severe aortic stenosis I felt that a full cardiac w/u was warranted w/ his presentation of right shoulder pain and swelling. His results showed a Hb of 10.5, D dimer of 1.39, K 3.5, BNP 4400 and Troponin I of 0.082. CTA chest was ordered and showed no PE, but did show signs concerning for right heart failure. Repeat Troponoin remained elevated so patient was trasferred to [facility] because his guyline operator is Dr. Clemons. I never spoke w/ a physician at the facility to the hospital automatically accepted due to amount of time we had to wait. Will see patient in: hospital (observation) Counseled pt/family regarding: lab results, diagnosis, need for follow-up, rad results Medical Desision Making - Diagnostic Testing Diagnostic test were ordered, analyzed, and reviewed by me: Yes Radiological Interpretation: Interpreted by me, Reviewed by me, Teleradiologist Report - Risk of complications The pt has a mod risk of morbidity or mortality based on: Need for prescription drug management The pt has a high risk of morbidity or mortality based on: Decision regarding hospitilization or escalation of hosp level of care - Departure Departure Disposition: Transfer ([facility]) Clinical Impression: Atrial fibrillation, Acute exacerbation of CHF (congestive heart failure), Elevated troponin level, Anemia, Degenerative arthritis of right shoulder region, Acromioclavicular joint arthritis, Severe aortic stenosis, CKD (chronic kidney disease) Condition: Stable Critical Care Time: No Referrals: ULISES SUAZO MD [Primary Care Provider] - Follow up/PCP as directed Instructions: Heart Failure, Heart Failure, Adult, Shoulder Pain (DC)
[2022-09-09 09:58] LABS: Absolute Neutrophil Ct (ANC) 6.14 x10^3/uL (1.4-6.9); BASOPHIL % 0.4 % (0.0-0.4); Basophil (Absolute #) 0.03 x10^3/uL (0-0.4); Eosinophil % 1.8 % (0.00-5.0); Eosinophil (Absolute #) 0.15 x10^3/uL (0-0.5); Hematocrit 34.6 % (42-50); Hemoglobin 10.5 g/dL (12.5-18.0); IMMATURE GRAN # 0.03 x10^3u/L (0.00-0.03); IMMATURE GRAN % 0.4 % (0.00-0.4); Lymphocyte (Absolute #) 1.12 x10^3/uL (1.0-4.6); Lymphocytes % 13.6 % (24.0-44.0); Mean Cell Volume 90.1 fL (78-100); Mean Corpuscular Hemoglobin 27.3 pg (26-32); Mean Corpuscular Hgb Concent. 30.3 g/dL (32-36); Mean Platelet Volume 10.6 fL (7.5-11.0); Monocyte (Absolute #) 0.79 x10^3/uL (0.0-1.3); Monocytes % 9.6 % (0.0-12.0); Neutrophil % 74.2 % (36.0-66.0); Platelet Count 145 x10^3/uL (150-450); Red Blood Count 3.84 x10^6/uL (4.1-5.6); Red Cell Distribution Width 17.7 % (11.5-14.0); White Blood Count 8.3 x10^3/uL (4.0-10.5)
[2022-09-09 10:08] LABS: ALBUMIN 3.7 g/dL (3.5-5.0); ANION GAP 12.5 MEQ/L (5-15); Calcium 8.7 mg/dL (8.4-10.2); Creatinine 1 1.45 mg/dL (0.66-1.25); EST GLOMERULAR FILTRATION RATE 48.9 ML/MIN; MAGNESIUM 2.3 mg/dL (1.6-2.3); Potassium 3.5 mmol/L (3.5-5.1); Total Protein 6.5 g/dL (6.3-8.2)
[2022-09-09] MEDS ORDERED: DUONEB 0.5-3 MG/3 ml Neb IH ONE ×2 (10:21→10:27)
[2022-09-09] MEDS ORDERED: Lasix 40 MG/4 ML IV ONE (10:52)
[2022-09-09] MEDS ORDERED: Lasix 40 MG/4 ML ONE (11:20)
--- NOTE | 2022-09-09 13:43 | XRAY ---
CLINICAL HISTORY:sob, shoulder pain COMPARISON:Previous CT chest dated 06/17/2018 is reviewed; TECHNIQUES:Pulmonary angiogram was performed to visualize the pulmonary arteries and its branches after high bolus injection of intravenous contrast. Multiple images were acquired. 80cc of isovue 370 was given. Total DLp is 850mgy-cm and CTDL is 60.75mgy; FINDINGS: Midline sternotomy sutures are seen. Right-sided dual-chamber cardiac pacemaker noted with intact wires in place. Aortic valve replacement noted .Significant streak artifact seen due to prosthesis obscuring fine details. Right and left main pulmonary arteries as well as segmental branches appear of normal caliber without evidence of any filling defect. No evidence of pulmonary arterial thrombosis identified. Cardiomegaly seen with cardiothoracic ratio measuring 15: 25. Mild bibasal congestive changes noted. Reflux of intravenous contrast into the IVC and hepatic veins noted. Mild atheromatous calcification noted in arch of aorta. Using appropriate lung window settings, mild interlobular septal signal noted in both lung. Minimal paraseptal emphysematous changes noted bilaterally. Redemonstration of diffusely calcified nodule in the posterior segment of right upper lobe representing benign findinggranuloma showing no interval change. Few atelectatic band also noted in both lung bases. No evidence of consolidation or cavitation noted. No honey combing is noted. The major airway appears patent. No pleural effusion seen bilaterally. Small hiatal hernia seen. On appropriate mediastinal window settings, no evidence of mediastinal or hilar lymphadenopathy seen. Included sections through the upper abdomen show small calculus in the gallbladder measuring 7 mm, no pericholecystic fluid identified. On appropriate bone window settings, no significant abnormality was noted. IMPRESSION: 1. No evidence of pulmonary arterial thromboembolic disease. 2. Cardiomegaly with bibasal congestive changes seen, reflux of intravenous contrast into the IVC and hepatic veins noted, findings raising possibility of right heart failure, would recommend echocardiography for further evaluation. 3. Cholelithiasis without definite imaging evidence of acute cholecystitis. 4. In comparison to previous CT scan dated 06/17/2018, no significant interval change noted. Electronically Signed by: Josse Aquino MD. (09/09/2022 12:33:28 HOME HEALTH MANAGER)
[2022-09-09] MEDS ORDERED: TYLENOL 325 MG PO STA (17:09)
[2022-09-09] MEDS ORDERED: TYLENOL 325 MG ONE (17:10)
[2022-09-09 18:36] VITALS: BP 110/63; PULSE 72
--- NOTE | 2022-09-09 21:03 | XRAY ---
Indication: Pain. Comparison: None 3 view right shoulder demonstrates osteopenia, mild glenohumeral degenerative changes, moderate acromioclavicular degenerative changes, right perihilar calcified granulomas, and minimal right base subsegmental atelectasis/scarring. No acute findings.
[2022-09-12 22:25] VITALS: O2SAT 96
== END 2022-09-09 19:13 | disposition short-term general hospital (02) ==
LOC: ED 08:32
DX: I48.91 Unspecified atrial fibrillation (principal); I50.9 Heart failure, unspecified; R77.8 Other specified abnormalities of plasma proteins; D64.9 Anemia, unspecified; M19.011 Primary osteoarthritis, right shoulder; I35.0 Nonrheumatic aortic (valve) stenosis; N18.9 Chronic kidney disease, unspecified; I21.4 Non-ST elevation (NSTEMI) myocardial infarction; R06.02 Shortness of breath; M25.511 Pain in right shoulder; Z79.01 Long term (current) use of anticoagulants; Z79.899 Other long term (current) drug therapy
CPT/HCPCS: 36000; 36415; 71260; 73030; 80053; 83605; 83690; 83735; 83880; 84484; 85025; 85379; 93005; 93041; 94640; 96374; 99285; J1940; A9270-GY

== ENCOUNTER 2022-09-19 19:44 | Observation (INO) | payer MEDICARE ==
--- NOTE | 2022-09-19 19:46 | ERPHSYRPT ---
- History of Present Illness Time Seen by Provider: 09/19/22 19:46 Historian: patient Exam Limitations: no limitations Physician History: Patient is an 87-year-old white male who presented to the emergency room with concern of constipation for the last 2 to 3 days. The last 2 days he has taken stool softeners without benefit of passage of stool. Patient states he has chronic breathing problems and initially stated he did not want anything dealt with in terms of his breathing issue. However, while here in the emergency department his oxygen saturations dropped to 88% requiring additional, supplemental oxygen. He is now running 93 to 94% on 2 L of oxygen. He also received a nebulizer treatment from respiratory therapy. Patient has a history of coronary artery disease and has had a CABG, pacemaker placed and cardiac stents. He has history of COPD, hyperlipidemia, asthma and history of atrial fibrillation. He does state his main issue is the constipation. He does not have abdominal pain. He does not have nausea or vomiting. He does not have chest pain. Timing/Duration: day(s) (2 to 3 days) Activities at Onset: other (Increasing shortness of breath with activity) Severity of Pain-Max: none Severity of Pain-Current: none Associated Symptoms: shortness of breath, No fever/chills, No loss of appetite, No nausea, No vomiting, No weakness Previous symptoms: same symptoms as today, no recent treatment Allergies/Adverse Reactions: No Known Drug Allergies Allergy (Verified 09/19/22 20:13) Home Medications: Albuterol Sulfate [Proair Hfa] 8.5 gm IH Q4HWA 06/08/20 [History] Atorvastatin Calcium [Lipitor] 40 mg PO DAILY 06/08/20 [History] Potassium Chloride [Klor-Con 10] 10 meq PO DAILY 06/08/20 [History] Albuterol/Ipratropium 3ml Neb* [DUONEB 0.5-3 MG/3 ml Neb] 3 ml IH Q6H PRN PRN 10/17/20 [History] Trazodone HCl 150 mg PO HS 09/19/22 [History] Hx Tetanus, Diphtheria Vaccination/Date Given: No Hx Influenza Vaccination/Date Given: No Hx Pneumococcal Vaccination/Date Given: No Travel Risk - International Travel Have you traveled outside of the country in past 3 weeks: No - Coronavirus Screening Are you exhibiting any of the following symptoms?: Yes Symptoms: Shortness of Breath Close contact with a COVID-19 positive Pt in past 14-21 Days: No - Vaccine Status Have you recieved a Covid-19 vaccination: Yes Senior 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 - Vaccination Dates Date of 2cond Vaccination (if applicable): unknown Dates if Unknown: unkown - Review of Systems Constitutional: No Symptoms Eyes: No Symptoms Ears, Nose, & Throat: No Symptoms Respiratory: Dyspnea on Exertion (GARCIA), Wheezing (He says this is chronic), No Stridor Cardiac: No Symptoms, No Chest Pain Abdominal/Gastrointestinal: Constipation, No Abdominal Pain, No Nausea, No Vomiting, No Diarrhea Genitourinary Symptoms: No Symptoms Musculoskeletal: No Symptoms Skin: No Symptoms Neurological: No Symptoms Psychological: No Symptoms Endocrine: No Symptoms Hematologic/Lymphatic: No Symptoms Immunological/Allergic: No Symptoms All Other Systems: Reviewed and Negative - Past Medical History Pertinent Past Medical History: Yes Neurological History: Stroke ENT History: No Pertinent History Cardiac History: Coronary Artery Disease, High Cholesterol, Myocardial Infarction ([place]) Respiratory History: Asthma Endocrine Medical History: No Pertinent History Musculoskeletal History: No Pertinent History GI Medical History: No Pertinent History History: No Pertinent History Psycho-Social History: No Pertinent History Male Reproductive Disorders: No Pertinent History Other Medical History: AFIB. CABG 1999. PACEMAKER 1999 - Past Surgical History Past Surgical History: Yes Neuro Surgical History: No Pertinent History Cardiac: CABG, Cardiac Stent Respiratory: No Pertinent History Gastrointestinal: Appendectomy, Hernia Repair Genitourinary: No Pertinent History Musculoskeletal: No Pertinent History Male Surgical History: No Pertinent History Other Surgical History: TAVR, PACEMAKER - Social History Smoking Status: Never smoker Exposure to second hand smoke: No Drug Use: none Patient Lives Alone: No (granddaughter lives with) - Nursing Vital Signs Nursing Vital Signs: Initial Vital Signs Temperature 100.1 F 09/19/22 20:18 Pulse Rate 71 09/19/22 20:18 Respiratory Rate 24 09/19/22 20:18 Blood Pressure 103/78 09/19/22 20:18 O2 Sat by Pulse Oximetry 92 L 09/19/22 20:18 Pain Scale Pain Intensity 9 - Physical Exam General Appearance: no apparent distress, alert Eye Exam: PERRL/EOMI, eyes nml inspection Ears, Nose, Throat Exam: normal ENT inspection, moist mucous membranes Neck Exam: normal inspection, non-tender, supple, full range of motion Respiratory Exam: respiratory distress, airway intact, wheezing (Bilateral mild diffuse), No chest tenderness (Mild) Cardiovascular Exam: regular rate/rhythm, normal heart sounds, normal peripheral pulses Gastrointestinal/Abdomen Exam: soft, normal bowel sounds, No tenderness Rectal Exam: not done Back Exam: normal inspection, normal range of motion, No CVA tenderness, No vertebral tenderness Extremity Exam: normal inspection, normal range of motion, pelvis stable Neurologic Exam: alert, oriented x 3, cooperative, puppy sitter II-XII nml as tested, normal mood/affect, nml cerebellar function, nml station & gait, sensation nml Skin Exam: normal color, warm, dry Lymphatic Exam: No adenopathy SpO2 Interpretation: normal O2 Delivery: Nasal Cannula - Course Nursing assessment & vital signs reviewed: Yes Ordered Tests: Active Orders 24 hr Category Date Time Status Disk Sander STAT Care 09/19/22 21:13 Active EKG-ER Only STAT Care 09/19/22 21:12 Active IV Insertion STAT Care 09/19/22 21:12 Active Pulse Oximetry (ED) STAT Care 09/19/22 21:12 Active Telemetry q4h Care 09/19/22 21:58 Active CHEST 1 VIEW (PORTABLE) Stat Exams 09/19/22 21:12 Taken CBC W DIFF Stat Lab 09/19/22 21:33 Completed CMP Stat Lab 09/19/22 21:33 Completed MAG [MAGNESIUM] Stat Lab 09/19/22 22:48 Completed NT PRO BNPII Stat Lab 09/19/22 21:33 Completed TROPONIN Q4H Lab 09/19/22 21:33 Completed TROPONIN Q4H Lab 09/20/22 01:15 Ordered TROPONIN Q4H Lab 09/20/22 05:15 Ordered Respiratory Therapy Assessment DAILY RT 09/19/22 20:44 Active Transfer Order Routine Transfer 09/19/22 Ordered Medication Summary Generic Name Dose Route Start Last Admin Trade Name Freq PRN Reason Stop Dose Admin Potassium Chloride 20 meq in 100 mls @ 50 mls/hr 09/19/22 21:58 09/19/22 22:23 Potassium Chloride 20 Meq In Water 100ml IV 09/19/22 23:57 50 mls/hr STAT ONE Administration Sodium Chloride 1,000 mls @ 100 mls/hr 09/19/22 22:15 09/19/22 22:20 Sodium Chloride 0.9% 1000 Ml IV 10/19/22 22:14 100 mls/hr .Q10H FAVIAN Administration Discontinued Medications Generic Name Dose Route Start Last Admin Trade Name Gemini PRN Reason Stop Dose Admin Albuterol/Ipratropium Confirm 09/19/22 20:24 Ipratropium/Albuterol Sulfate 3 Ml Ampul.Neb Administered 09/19/22 20:25 Dose 3 ml IH .STK-MED ONE Albuterol/Ipratropium 3 ml 09/19/22 20:43 09/19/22 20:30 Ipratropium/Albuterol Sulfate 3 Ml Ampul.Neb IH 09/19/22 20:44 3 ml STAT ONE Administration Potassium Chloride Confirm 09/19/22 22:18 Potassium Chloride 20 Meq In Water 100ml Administered 09/19/22 22:19 Dose 100 mls @ ud IV .STK-MED ONE Potassium Chloride 20 meq 09/19/22 21:58 09/19/22 22:20 Potassium Chloride Tab 10 Meq Tab PO 09/19/22 21:59 20 meq STAT ONE Administration Potassium Chloride Confirm 09/19/22 22:18 Potassium Chloride Tab 10 Meq Tab Administered 09/19/22 22:19 Dose 20 meq PO .STK-MED ONE Lab/Rad Data: Laboratory Result Diagrams 09/19/22 21:33 09/19/22 21:33 Laboratory Results 09/19/22 09/19/22 09/19/22 Range/Units 22:48 21:33 21:33 WBC (4.0-10.5) x10^3/uL RBC (4.1-5.6) x10^6/uL Hgb (12.5-18.0) g/dL Hct (42-50) % MCV (78-100) fL MCH (26-32) pg MCHC (32-36) g/dL RDW (11.5-14.0) % Plt Count (150-450) x10^3/uL MPV (7.5-11.0) fL Gran % (36.0-66.0) % Immature Gran % (Auto) (0.00-0.4) % Nucleat RBC Rel Count (0.00-0.1) % Eos # (Auto) (0-0.5) x10^3/uL Immature Gran # (Auto) (0.00-0.03) x10^3u/L Absolute Lymphs (auto) (1.0-4.6) x10^3/uL Absolute Monos (auto) (0.0-1.3) x10^3/uL Absolute Nucleated RBC (0.00-0.01) x10^3u/L Lymphocytes % (24.0-44.0) % Monocytes % (0.0-12.0) % Eosinophils % (0.00-5.0) % Basophils % (0.0-0.4) % Absolute Granulocytes (1.4-6.9) x10^3/uL Basophils # (0-0.4) x10^3/uL Sodium 139 (137-145) mmol/L Potassium 2.8 L* (3.5-5.1) mmol/L Chloride 96 L (98-107) mmol/L Carbon Dioxide 30 (22-30) mmol/L Anion Gap 16.0 H (5-15) MEQ/L BUN 24 H (9-20) mg/dL Creatinine 1.23 (0.66-1.25) mg/dL Estimated GFR 59.2 ML/MIN Glucose 140 H (74-106) mg/dL Calcium 9.1 (8.4-10.2) mg/dL Magnesium 2.2 (1.6-2.3) mg/dL Total Bilirubin 1.20 (0.2-1.3) mg/dL AST 47 (17-59) U/L ALT 21 (0-50) U/L Alkaline Phosphatase 150 H (38-126) U/L Troponin I 0.066 H* (0.000-0.034) ng/mL NT-Pro-B Natriuret Pep 4350 (<300) pg/mL Serum Total Protein 7.7 (6.3-8.2) g/dL Albumin 4.4 (3.5-5.0) g/dL 09/19/22 Range/Units 21:33 WBC 10.7 H (4.0-10.5) x10^3/uL RBC 4.16 (4.1-5.6) x10^6/uL Hgb 11.3 L (12.5-18.0) g/dL Hct 37.0 L (42-50) % MCV 88.9 (78-100) fL MCH 27.2 (26-32) pg MCHC 30.5 L (32-36) g/dL RDW 17.1 H (11.5-14.0) % Plt Count 202 (150-450) x10^3/uL MPV 10.3 (7.5-11.0) fL Gran % 79.2 H (36.0-66.0) % Immature Gran % (Auto) 0.4 (0.00-0.4) % Nucleat RBC Rel Count 0.0 (0.00-0.1) % Eos # (Auto) 0.31 (0-0.5) x10^3/uL Immature Gran # (Auto) 0.04 H (0.00-0.03) x10^3u/L Absolute Lymphs (auto) 1.21 (1.0-4.6) x10^3/uL Absolute Monos (auto) 0.62 (0.0-1.3) x10^3/uL Absolute Nucleated RBC 0.00 (0.00-0.01) x10^3u/L Lymphocytes % 11.3 L (24.0-44.0) % Monocytes % 5.8 (0.0-12.0) % Eosinophils % 2.9 (0.00-5.0) % Basophils % 0.4 (0.0-0.4) % Absolute Granulocytes 8.46 H (1.4-6.9) x10^3/uL Basophils # 0.04 (0-0.4) x10^3/uL Sodium (137-145) mmol/L Potassium (3.5-5.1) mmol/L Chloride (98-107) mmol/L Carbon Dioxide (22-30) mmol/L Anion Gap (5-15) MEQ/L BUN (9-20) mg/dL Creatinine (0.66-1.25) mg/dL Estimated GFR ML/MIN Glucose (74-106) mg/dL Calcium (8.4-10.2) mg/dL Magnesium (1.6-2.3) mg/dL Total Bilirubin (0.2-1.3) mg/dL AST (17-59) U/L ALT (0-50) U/L Alkaline Phosphatase (38-126) U/L Troponin I (0.000-0.034) ng/mL NT-Pro-B Natriuret Pep (<300) pg/mL Serum Total Protein (6.3-8.2) g/dL Albumin (3.5-5.0) g/dL - Progress Progress: improved Progress Note: 09/19/22 23:06 Patient's medical issue is 1 of high complexity. The level of complexity and the work-up performed is based on review of the patient's past medical history, review of his old lab results from 09/09/2022, reviewed the patient's medication list, review of the patient's drug allergy list, history of present illness and physical findings on examination. Work-up included placement of intravenous line, twelve-lead EKG, chest x-ray, CBC, CMP, troponin and BNP. I reviewed the results of this work-up. I also reviewed the note from the patient's visit in this emergency department on 09/09/2022. I did not repeat the D-dimer because the patient had a CTA of the chest on 09/09/2022 with no evidence of a pulmonary embolus. Patient also had troponin levels above 0.08. Patient was sent to [facility] to be evaluated by his manager film and was discharged home without intervention. He is current troponin is 0.066 which is elevated over our normal high of 0.034. However, the patient has no evidence of chest pain and his troponin levels are decreasing when compared to those on 09/09/2022. I reviewed the patient history, the patient history of present illness, physical findings and twelve-lead EKG as well as laboratory results with Dr. Das the telehospitalist on-call today. The patient also has a potassium of 2.8. Patient will be placed in telemetry for observation. He will have repeat twelve-lead EKG in the morning and serial troponin levels. We will also provide him with additional potassium supplementation via potassium protocol. Patient's main concern was his constipation and we will provide him with fleets enema 1 rectally on arrival to the medical floor and repeat in 8 hours. - Departure Departure Disposition: Observation Clinical Impression: Hypokalemia, Elevated troponin, Elevated brain natriuretic peptide (BNP) level, Shortness of breath, Constipation Condition: Fair Critical Care Time: No Referrals: ULISES ADAMS MD [Primary Care Provider] - Follow up/PCP as directed
[2022-09-19] MEDS ORDERED: DUONEB 0.5-3 MG/3 ml Neb IH ONE ×2 (20:24→20:43)
[2022-09-19 21:36] LABS: Absolute Neutrophil Ct (ANC) 8.46 x10^3/uL (1.4-6.9); BASOPHIL % 0.4 % (0.0-0.4); Basophil (Absolute #) 0.04 x10^3/uL (0-0.4); Eosinophil % 2.9 % (0.00-5.0); Eosinophil (Absolute #) 0.31 x10^3/uL (0-0.5); Hemoglobin 11.3 g/dL (12.5-18.0); IMMATURE GRAN # 0.04 x10^3u/L (0.00-0.03); IMMATURE GRAN % 0.4 % (0.00-0.4); Lymphocyte (Absolute #) 1.21 x10^3/uL (1.0-4.6); Lymphocytes % 11.3 % (24.0-44.0); Mean Cell Volume 88.9 fL (78-100); Mean Corpuscular Hemoglobin 27.2 pg (26-32); Mean Corpuscular Hgb Concent. 30.5 g/dL (32-36); Mean Platelet Volume 10.3 fL (7.5-11.0); Monocyte (Absolute #) 0.62 x10^3/uL (0.0-1.3); Monocytes % 5.8 % (0.0-12.0); Neutrophil % 79.2 % (36.0-66.0); Platelet Count 202 x10^3/uL (150-450); Red Blood Count 4.16 x10^6/uL (4.1-5.6); Red Cell Distribution Width 17.1 % (11.5-14.0); White Blood Count 10.7 x10^3/uL (4.0-10.5)
[2022-09-19 21:50] LABS: ALBUMIN 4.4 g/dL (3.5-5.0); BILIRUBIN,TOTAL 1.2 mg/dL (0.2-1.3); Calcium 9.1 mg/dL (8.4-10.2); Creatinine 1 1.23 mg/dL (0.66-1.25); EST GLOMERULAR FILTRATION RATE 59.2 ML/MIN; Total Protein 7.7 g/dL (6.3-8.2)
[2022-09-19 21:54] LABS: Potassium 2.8 mmol/L (3.5-5.1)
[2022-09-19] MEDS ORDERED: POTASSIUM CHLORIDE 20 mEq IN WATER 100ML 20 MEQ/100 ML BAG IV ONE (21:58)
[2022-09-19] MEDS ORDERED: Klor Con PO ONE ×2 (21:58→22:18)
[2022-09-19] MEDS ORDERED: Sodium Chloride 0.9% 1000 ML 1,000 ML IV SCH (22:15)
[2022-09-19] MEDS ORDERED: Sodium Chloride 0.9% 1000 ML 1,000 ML ONE (22:18)
[2022-09-19] MEDS ORDERED: POTASSIUM CHLORIDE 20 mEq IN WATER 100ML 100 ML IV ONE (22:18)
[2022-09-19 22:21] LABS: TROPONIN 0.066 ng/mL (0.000-0.034)
[2022-09-20] MEDS ORDERED: TYLENOL 325 MG PO PRN (01:03)
[2022-09-20] MEDS ORDERED: DUONEB 0.5-3 MG/3 ml Neb IH ONE ×2 (01:47→05:54)
[2022-09-20] MEDS: DUONEB 0.5-3 MG/3 ml Neb IH SCH ×6 (02:13→21:18)
--- NOTE | 2022-09-20 02:31 | PCM.HP ---
History of Present Illness - Chief Complaint Chief Complaint: constipation Date: 09/20/22 History of Present Illness: is a 87 year old male with history of severe aortic stenosis, HFrEF, A-fib s/p PPM, CAD, who initially presented to ED with three days of cons tipation not relieved by stool softeners. However, he was noted to be hypoxic and hypokalemic in the ED. He initially stated that he was at his baseline dyspnea, but after further discussion, he noted that he has had a worsening in his exercise tolerance, with more dyspnea on exertion at shorter distances, in the last two weeks. He also has early satiety and leg edema, although he things the edema is at its baseline. He was being worked up for TAVR; echo last month showed severe and LVEF 40- 45%. However, he states this was placed on hold because "they found a blood clot" they have to treat first. He was changed from Eliquis to warfarin, and had his initial Coumadin clinic visit yesterday where he was therapeutic on 2.5 mg daily. He states he was briefly in another hospital one week ago when his diuretics were changed because "the first ones weren't working." He does not recall the names of the diuretics they put him on. Older notes document he was on furosemide 40, but he states not on that currently. However, he does not recall all of his medications. His granddaughter will be here in the morning and has a list of all of his medications. He denies chest pain, diaphoresis, nausea, numbness or tingling. He denies focal weakness, palpitations, or tremors. - Review of Systems Constitutional: No Fever, No Night Sweats, No Weakness Eyes: No Symptoms Ears, Nose, & Throat: No Symptoms Respiratory: Short Of Breath, No Orthopnea Cardiac: Edema, No Chest Pain, No Palpitations Abdominal/Gastrointestinal: Constipation, No Abdominal Pain, No Nausea Genitourinary Symptoms: No Dysuria, No Frequency Musculoskeletal: No No Symptoms Skin: No Symptoms Neurological: No Focal Weakness, No Sensory Changes, No Tremors Psychological: No Symptoms Endocrine: No Symptoms Hematologic/Lymphatic: No Symptoms Immunological/Allergic: No Symptoms Medications & Allergies Home Medications: Home Medication List Albuterol Sulfate [Proair Hfa] 8.5 gm IH Q4HWA 06/08/20 [History Confirmed 09/19/22] Atorvastatin Calcium [Lipitor] 40 mg PO DAILY 06/08/20 [History Confirmed 09/19/22] Potassium Chloride [Klor-Con 10] 10 meq PO DAILY 06/08/20 [History Confirmed 09/19/22] Albuterol/Ipratropium 3ml Neb* [DUONEB 0.5-3 MG/3 ml Neb] 3 ml IH Q6H PRN PRN 10/17/20 [History Confirmed 09/19/22] Trazodone HCl 150 mg PO HS 09/19/22 [History Confirmed 09/19/22] Allergies/Adverse Reactions: Allergies Allergy/AdvReac Type Severity Reaction Status Date / Time No Known Drug Allergies Allergy Verified 09/19/22 20:13 - Past Medical History Past Medical History: Yes Neurological History: Stroke ENT History: No Pertinent History Cardiac History: Congestive Heart Failure (EF 40-45%), Coronary Artery Disease, High Cholesterol, Myocardial Infarction ([place]), Other (severe aortic stenosis atrial fibrillation) Respiratory History: Asthma Endocrine Medical History: No Pertinent History Musculoskelatal History: No Pertinent History GI Medical History: No Pertinent History History: No Pertinent History Pyscho-Social History: No Pertinent History Male Reproductive Disorders: No Pertinent History Comment: AFIB. CABG 1999. PACEMAKER 1999 - Past Surgical History Past Surgical History: Yes Neuro Surgical History: No Pertinent History Cardiac History: CABG, Cardiac Stent Respiratory Surgery: No Pertinent History GI Surgical History: Appendectomy, Hernia Repair Genitourinary Surgical Hx: No Pertinent History Musculskeletal Surgical Hx: No Pertinent History Male Surgical History: No Pertinent History Other Surgical History: TAVR, PACEMAKER - Social History Smoking Status: Never smoker Exposure to second hand smoke: No Alcohol: None Drug Use: none Significant Family History: heart disease - Physical Exam Vital Signs: Vital Signs - 24 hr Temp Pulse Resp BP BP Pulse Ox 09/20/22 02:00 66 22 96 09/20/22 01:31 99.1 F 85 20 116/74 91 L 09/20/22 00:47 99.1 F 85 20 116/74 91 L 09/20/22 00:30 85 23 112/76 98 09/20/22 00:00 84 23 134/107 96 09/19/22 23:30 96 H 28 H 118/68 96 09/19/22 23:00 86 21 107/65 97 06/13/23 22:55 100 09/19/22 22:30 82 22 130/86 99 09/19/22 22:01 87 14 09/19/22 21:32 115/73 80 L 09/19/22 21:23 115/80 87 L 09/19/22 21:22 95 09/19/22 21:20 97 09/19/22 21:10 98 09/19/22 21:00 82 20 103/78 93 L 09/19/22 20:50 93 L 09/19/22 20:40 94 L 09/19/22 20:34 90 103/78 100 09/19/22 20:30 90 28 H 99 09/19/22 20:18 100.1 F 71 24 103/78 92 L General Appearance: no apparent distress Neurologic Exam: alert, oriented x 3, cooperative Respiratory Exam: normal breath sounds, lungs clear, other (on 2L oxygen) Cardiovascular Exam: regular rate/rhythm, murmur (4/6 decrescendo murmur along LUSB) Gastrointestinal/Abdomen Exam: soft, No tenderness Results - Labs Lab/Micro Results: Lab Results-Last 24 Hours 09/19/22 09/19/22 09/19/22 Range/Units 21:33 21:33 21:33 WBC 10.7 H (4.0-10.5) x10^3/uL RBC 4.16 (4.1-5.6) x10^6/uL Hgb 11.3 L (12.5-18.0) g/dL Hct 37.0 L (42-50) % MCV 88.9 (78-100) fL MCH 27.2 (26-32) pg MCHC 30.5 L (32-36) g/dL RDW 17.1 H (11.5-14.0) % Plt Count 202 (150-450) x10^3/uL MPV 10.3 (7.5-11.0) fL Gran % 79.2 H (36.0-66.0) % Immature Gran % (Auto) 0.4 (0.00-0.4) % Nucleat RBC Rel Count 0.0 (0.00-0.1) % Eos # (Auto) 0.31 (0-0.5) x10^3/uL Immature Gran # (Auto) 0.04 H (0.00-0.03) x10^3u/L Absolute Lymphs (auto) 1.21 (1.0-4.6) x10^3/uL Absolute Monos (auto) 0.62 (0.0-1.3) x10^3/uL Absolute Nucleated RBC 0.00 (0.00-0.01) x10^3u/L Lymphocytes % 11.3 L (24.0-44.0) % Monocytes % 5.8 (0.0-12.0) % Eosinophils % 2.9 (0.00-5.0) % Basophils % 0.4 (0.0-0.4) % Absolute Granulocytes 8.46 H (1.4-6.9) x10^3/uL Basophils # 0.04 (0-0.4) x10^3/uL Sodium 139 (137-145) mmol/L Potassium 2.8 L* (3.5-5.1) mmol/L Chloride 96 L (98-107) mmol/L Carbon Dioxide 30 (22-30) mmol/L Anion Gap 16.0 H (5-15) MEQ/L BUN 24 H (9-20) mg/dL Creatinine 1.23 (0.66-1.25) mg/dL Estimated GFR 59.2 ML/MIN Glucose 140 H (74-106) mg/dL Calcium 9.1 (8.4-10.2) mg/dL Magnesium (1.6-2.3) mg/dL Total Bilirubin 1.20 (0.2-1.3) mg/dL AST 47 (17-59) U/L ALT 21 (0-50) U/L Alkaline Phosphatase 150 H (38-126) U/L Troponin I 0.066 H* (0.000-0.034) ng/mL NT-Pro-B Natriuret Pep 4350 (<300) pg/mL Serum Total Protein 7.7 (6.3-8.2) g/dL Albumin 4.4 (3.5-5.0) g/dL 09/19/22 09/20/22 Range/Units 22:48 01:12 WBC (4.0-10.5) x10^3/uL RBC (4.1-5.6) x10^6/uL Hgb (12.5-18.0) g/dL Hct (42-50) % MCV (78-100) fL MCH (26-32) pg MCHC (32-36) g/dL RDW (11.5-14.0) % Plt Count (150-450) x10^3/uL MPV (7.5-11.0) fL Gran % (36.0-66.0) % Immature Gran % (Auto) (0.00-0.4) % Nucleat RBC Rel Count (0.00-0.1) % Eos # (Auto) (0-0.5) x10^3/uL Immature Gran # (Auto) (0.00-0.03) x10^3u/L Absolute Lymphs (auto) (1.0-4.6) x10^3/uL Absolute Monos (auto) (0.0-1.3) x10^3/uL Absolute Nucleated RBC (0.00-0.01) x10^3u/L Lymphocytes % (24.0-44.0) % Monocytes % (0.0-12.0) % Eosinophils % (0.00-5.0) % Basophils % (0.0-0.4) % Absolute Granulocytes (1.4-6.9) x10^3/uL Basophils # (0-0.4) x10^3/uL Sodium (137-145) mmol/L Potassium (3.5-5.1) mmol/L Chloride (98-107) mmol/L Carbon Dioxide (22-30) mmol/L Anion Gap (5-15) MEQ/L BUN (9-20) mg/dL Creatinine (0.66-1.25) mg/dL Estimated GFR ML/MIN Glucose (74-106) mg/dL Calcium (8.4-10.2) mg/dL Magnesium 2.2 (1.6-2.3) mg/dL Total Bilirubin (0.2-1.3) mg/dL AST (17-59) U/L ALT (0-50) U/L Alkaline Phosphatase (38-126) U/L Troponin I 0.072 H* (0.000-0.034) ng/mL NT-Pro-B Natriuret Pep (<300) pg/mL Serum Total Protein (6.3-8.2) g/dL Albumin (3.5-5.0) g/dL - Radiology Impressions Radiology Exams & Impressions: Radiology Procedures Category Date Time Status CHEST 1 VIEW (PORTABLE) Stat Exams 09/19/22 21:12 Taken CXR images reviewed, no significant pulmonary edema or effusions. Cardiomegaly. Dual chamber pacemaker present. - Other Procedures and Tests Respiratory Therapy 09/20/22 02:07 Respiratory Therapy Assessment DAILY 09/20/22 02:09 Oxygen Nasal Cannula 2 lpm Assessment/Plan (1) Acute exacerbation of CHF (congestive heart failure) Current Visit: No Status: Acute Qualifiers: Heart failure type: systolic Qualified Code(s): I50.23 - Acute on chronic systolic (congestive) heart failure Assessment & Plan: CHF is secondary to ischemic cardiomyopathy and severe aortic stenosis. With hypoxia on arrival, and patient is not normally on oxygen. BNP of 4400 is essentially the same as a month ago, although slightly more than his prior baseline. It appears his diuretics were recently changed, although he is unsure what they are. With his recent decrease in exercise capacity, I suspect has a little more edema than usual, although only somewhat so; possible due to recent medication changes. Alternatively, could be having progression of his underlying severe . - granddaughter to bring in current list of home medications - will review at that time; patient would benefit from BB and ANDREY-I if BP can tolerate - will give Lasix 40 mg IV x1 in AM to see if oxygen improves (note, was given 500 ml NS in ED) - wean oxygen to maintain SpO2 91-94%; currently on 2L - may need oxygen at home if have hit limit of diuresis Code(s): I50.9 - HEART FAILURE, UNSPECIFIED (2) Hypokalemia Current Visit: Yes Status: Acute Assessment & Plan: Likely secondary to diuresis. - give KCl 20 PO and 20 IV in ED - repeat BMP, Mg in AM Code(s): E87.6 - HYPOKALEMIA (3) Elevated troponin level Current Visit: Yes Status: Acute Assessment & Plan: No concern for acute coronary syndrome. Patient has not symptoms, and his troponin levels are below his baseline. Patient has CKD3 (age 87, Cr 1.2, previously 1.5); he will have mildly elevated troponin at baseline. - d/c serial troponins Code(s): R74.8 - ABNORMAL LEVELS OF OTHER SERUM ENZYMES (4) CKD (chronic kidney disease) Current Visit: No Status: Acute Qualifiers: Chronic kidney disease stage: stage 3 (moderate) Assessment & Plan: Appears to be at slightly better than baseline Cr. - monitor BMP Code(s): N18.9 - CHRONIC KIDNEY DISEASE, UNSPECIFIED (5) Severe aortic stenosis Current Visit: No Status: Acute Assessment & Plan: Currently planning for TAVR, although reportedly found "clot" that delayed procedure. Presumably this is an LV thrombus or perhaps LA thrombus. Patient was already on Eliquis (for A-fib?), and apparently now switched to warfarin. Was therapeutic in clinic yesterday. - continue warfarin 2.5 mg daily (dose per warfarin clinic notes yesterday) - check INR in AM - confirm home medications with granddaughter tomorrow Code(s): I35.0 - NONRHEUMATIC AORTIC (VALVE) STENOSIS (6) Constipation Current Visit: Yes Status: Acute Assessment & Plan: Resolved now after enema in ED, and feels much better. Code(s): K59.00 - CONSTIPATION, UNSPECIFIED Telemedicine Encounter - Telemedicine Encounter Telemedicine Encounter: The entirety of this encounter was performed via Telemedicine"
[2022-09-20 04:52] LABS: Absolute Neutrophil Ct (ANC) 9.48 x10^3/uL (1.4-6.9); BASOPHIL % 0.3 % (0.0-0.4); Basophil (Absolute #) 0.03 x10^3/uL (0-0.4); Eosinophil (Absolute #) 0.12 x10^3/uL (0-0.5); Hematocrit 33.8 % (42-50); Hemoglobin 10.5 g/dL (12.5-18.0); IMMATURE GRAN # 0.05 x10^3u/L (0.00-0.03); IMMATURE GRAN % 0.4 % (0.00-0.4); Lymphocyte (Absolute #) 1.04 x10^3/uL (1.0-4.6); Mean Cell Volume 86.4 fL (78-100); Mean Corpuscular Hemoglobin 26.9 pg (26-32); Mean Corpuscular Hgb Concent. 31.1 g/dL (32-36); Mean Platelet Volume 11.6 fL (7.5-11.0); Monocyte (Absolute #) 0.85 x10^3/uL (0.0-1.3); Monocytes % 7.3 % (0.0-12.0); Platelet Count 181 x10^3/uL (150-450); Red Blood Count 3.91 x10^6/uL (4.1-5.6); Red Cell Distribution Width 17.2 % (11.5-14.0); White Blood Count 11.6 x10^3/uL (4.0-10.5)
[2022-09-20 05:00] LABS: INR 2.68 (0.8-3.0); PROTIME 27.2 SECONDS (9.4-12.5)
[2022-09-20 05:32] LABS: ALBUMIN 3.6 g/dL (3.5-5.0); ALKALINE PHOSPHATASE 117 U/L (38-126); ANION GAP 10.2 MEQ/L (5-15); BLOOD UREA NITROGEN 22 mg/dL (9-20); CHLORIDE 97 mmol/L (98-107); Calcium 8.4 mg/dL (8.4-10.2); Carbon Dioxide 31 mmol/L (22-30); Creatinine 1 1.21 mg/dL (0.66-1.25); EST GLOMERULAR FILTRATION RATE > 60.0 ML/MIN; Glucose 124 mg/dL (74-106); NT PRO BNPII 4140 pg/mL (<300); SGOT/AST 38 U/L (17-59); SGPT/ALT 19 U/L (0-50); SODIUM 136 mmol/L (137-145); Total Protein 6.6 g/dL (6.3-8.2)
[2022-09-20 05:45] LABS: Potassium 2.7 mmol/L (3.5-5.1)
[2022-09-20] MEDS ORDERED: Klor Con PO ONE (05:58)
[2022-09-20] MEDS: POTASSIUM CHLORIDE 20 mEq IN WATER 100ML 20 MEQ/100 ML BAG IV SCH ×2 (06:07→11:05)
[2022-09-20] MEDS ORDERED: Sodium Chloride 0.9% 500 ML 500 ML IV ONE (06:15)
[2022-09-20] MEDS ORDERED: Lasix 40 MG/4 ML IV ONE (09:00)
--- NOTE | 2022-09-20 09:10 | XRAY ---
Indication: Short of breath. Comparison: October 19, 2021 Portable chest remains inflated and clear with a few incidental tiny calcified granulomas. Heart borderline enlarged again with cardiac valve replacement, CABG, and left pacemaker. Bony thorax intact again with osteopenia and mild degenerative changes. Impression: Continued nonacute chest with chronic features.
[2022-09-20] MEDS ORDERED: LIPITOR 40MG PO SCH (10:00)
[2022-09-20] MEDS ORDERED: NON-FORMULARY ITEM (Potassium Chloride [Klor-Con 10] 10 MEQ Tablet.Er) PO SCH (10:00)
--- NOTE | 2022-09-20 10:21 | PCM.NOTE ---
Date and Time: 09/20/22 1017 Subjective Assessment: patient was admitted and presented with severe abdominal pain related to constipation, he has had a large bowel movement and his pain is gone today. he continues to be very short of breath with minimal exertion, his swelling has improved since recent addition of bumex Objective Exam General Appearance: no apparent distress Neurologic Exam: alert, oriented x 3 Skin Exam: normal color, warm, dry Respiratory Exam: crackles/rales, No accessory muscle use Cardiovascular Exam: murmur (right sternal border) Gastrointestinal/Abdomen Exam: soft, No tenderness, No mass Extremity Exam: No pedal edema, No swelling OBJECTIVE DATA Vital Signs: Vital Signs - 24 hr Temp Pulse Resp BP BP Pulse Ox 09/20/22 08:00 20 09/20/22 07:07 97.5 F 83 20 135/85 94 L 09/20/22 05:59 90 26 H 94 L 09/20/22 04:00 99.1 F 66 22 116/74 96 09/20/22 02:00 66 22 96 09/20/22 01:31 99.1 F 85 20 116/74 91 L 09/20/22 00:47 99.1 F 85 20 116/74 91 L 09/20/22 00:30 85 23 112/76 98 09/20/22 00:00 84 23 134/107 96 09/19/22 23:30 96 H 28 H 118/68 96 09/19/22 23:00 86 21 107/65 97 09/19/22 22:55 100 09/19/22 22:30 82 22 130/86 99 09/19/22 22:01 87 14 09/19/22 21:32 115/73 80 L 09/19/22 21:23 115/80 87 L 09/19/22 21:22 95 09/19/22 21:20 97 09/19/22 21:10 98 09/19/22 21:00 82 20 103/78 93 L 09/19/22 20:50 93 L 09/19/22 20:40 94 L 09/19/22 20:34 90 103/78 100 09/19/22 20:30 90 28 H 99 09/19/22 20:18 100.1 F 71 24 103/78 92 L Pain Assessment - Last Documented Pain Intensity 0 Intake and Output: Intake & Output 09/17/22 09/18/22 09/19/22 09/20/22 11:59 11:59 11:59 11:59 Intake Total 320 Balance 320 Weight 78.4 kg Lab Results: Lab Results-Last 24 Hours 09/19/22 09/19/22 09/19/22 Range/Units 21:33 21:33 21:33 WBC 10.7 H (4.0-10.5) x10^3/uL RBC 4.16 (4.1-5.6) x10^6/uL Hgb 11.3 L (12.5-18.0) g/dL Hct 37.0 L (42-50) % MCV 88.9 (78-100) fL MCH 27.2 (26-32) pg MCHC 30.5 L (32-36) g/dL RDW 17.1 H (11.5-14.0) % Plt Count 202 (150-450) x10^3/uL MPV 10.3 (7.5-11.0) fL Gran % 79.2 H (36.0-66.0) % Immature Gran % (Auto) 0.4 (0.00-0.4) % Nucleat RBC Rel Count 0.0 (0.00-0.1) % Eos # (Auto) 0.31 (0-0.5) x10^3/uL Immature Gran # (Auto) 0.04 H (0.00-0.03) x10^3u/L Absolute Lymphs (auto) 1.21 (1.0-4.6) x10^3/uL Absolute Monos (auto) 0.62 (0.0-1.3) x10^3/uL Absolute Nucleated RBC 0.00 (0.00-0.01) x10^3u/L Lymphocytes % 11.3 L (24.0-44.0) % Monocytes % 5.8 (0.0-12.0) % Eosinophils % 2.9 (0.00-5.0) % Basophils % 0.4 (0.0-0.4) % Absolute Granulocytes 8.46 H (1.4-6.9) x10^3/uL Basophils # 0.04 (0-0.4) x10^3/uL PT (9.4-12.5) SECONDS INR (0.8-3.0) Sodium 139 (137-145) mmol/L Potassium 2.8 L* (3.5-5.1) mmol/L Chloride 96 L (98-107) mmol/L Carbon Dioxide 30 (22-30) mmol/L Anion Gap 16.0 H (5-15) MEQ/L BUN 24 H (9-20) mg/dL Creatinine 1.23 (0.66-1.25) mg/dL Estimated GFR 59.2 ML/MIN Glucose 140 H (74-106) mg/dL Calcium 9.1 (8.4-10.2) mg/dL Magnesium (1.6-2.3) mg/dL Total Bilirubin 1.20 (0.2-1.3) mg/dL AST 47 (17-59) U/L ALT 21 (0-50) U/L Alkaline Phosphatase 150 H (38-126) U/L Troponin I 0.066 H* (0.000-0.034) ng/mL NT-Pro-B Natriuret Pep 4350 (<300) pg/mL Serum Total Protein 7.7 (6.3-8.2) g/dL Albumin 4.4 (3.5-5.0) g/dL 09/19/22 09/20/22 09/20/22 Range/Units 22:48 01:12 04:27 WBC 11.6 H (4.0-10.5) x10^3/uL RBC 3.91 L (4.1-5.6) x10^6/uL Hgb 10.5 L (12.5-18.0) g/dL Hct 33.8 L (42-50) % MCV 86.4 (78-100) fL MCH 26.9 (26-32) pg MCHC 31.1 L (32-36) g/dL RDW 17.2 H (11.5-14.0) % Plt Count 181 (150-450) x10^3/uL MPV 11.6 H (7.5-11.0) fL Gran % 82.0 H (36.0-66.0) % Immature Gran % (Auto) 0.4 (0.00-0.4) % Nucleat RBC Rel Count 0.0 (0.00-0.1) % Eos # (Auto) 0.12 (0-0.5) x10^3/uL Immature Gran # (Auto) 0.05 H (0.00-0.03) x10^3u/L Absolute Lymphs (auto) 1.04 (1.0-4.6) x10^3/uL Absolute Monos (auto) 0.85 (0.0-1.3) x10^3/uL Absolute Nucleated RBC 0.00 (0.00-0.01) x10^3u/L Lymphocytes % 9.0 L (24.0-44.0) % Monocytes % 7.3 (0.0-12.0) % Eosinophils % 1.0 (0.00-5.0) % Basophils % 0.3 (0.0-0.4) % Absolute Granulocytes 9.48 H (1.4-6.9) x10^3/uL Basophils # 0.03 (0-0.4) x10^3/uL PT (9.4-12.5) SECONDS INR (0.8-3.0) Sodium (137-145) mmol/L Potassium (3.5-5.1) mmol/L Chloride (98-107) mmol/L Carbon Dioxide (22-30) mmol/L Anion Gap (5-15) MEQ/L BUN (9-20) mg/dL Creatinine (0.66-1.25) mg/dL Estimated GFR ML/MIN Glucose (74-106) mg/dL Calcium (8.4-10.2) mg/dL Magnesium 2.2 (1.6-2.3) mg/dL Total Bilirubin (0.2-1.3) mg/dL AST (17-59) U/L ALT (0-50) U/L Alkaline Phosphatase (38-126) U/L Troponin I 0.072 H* (0.000-0.034) ng/mL NT-Pro-B Natriuret Pep (<300) pg/mL Serum Total Protein (6.3-8.2) g/dL Albumin (3.5-5.0) g/dL 09/20/22 09/20/22 Range/Units 04:27 04:27 WBC (4.0-10.5) x10^3/uL RBC (4.1-5.6) x10^6/uL Hgb (12.5-18.0) g/dL Hct (42-50) % MCV (78-100) fL MCH (26-32) pg MCHC (32-36) g/dL RDW (11.5-14.0) % Plt Count (150-450) x10^3/uL MPV (7.5-11.0) fL Gran % (36.0-66.0) % Immature Gran % (Auto) (0.00-0.4) % Nucleat RBC Rel Count (0.00-0.1) % Eos # (Auto) (0-0.5) x10^3/uL Immature Gran # (Auto) (0.00-0.03) x10^3u/L Absolute Lymphs (auto) (1.0-4.6) x10^3/uL Absolute Monos (auto) (0.0-1.3) x10^3/uL Absolute Nucleated RBC (0.00-0.01) x10^3u/L Lymphocytes % (24.0-44.0) % Monocytes % (0.0-12.0) % Eosinophils % (0.00-5.0) % Basophils % (0.0-0.4) % Absolute Granulocytes (1.4-6.9) x10^3/uL Basophils # (0-0.4) x10^3/uL PT 27.2 H (9.4-12.5) SECONDS INR 2.68 (0.8-3.0) Sodium 136 L (137-145) mmol/L Potassium 2.7 L* (3.5-5.1) mmol/L Chloride 97 L (98-107) mmol/L Carbon Dioxide 31 H (22-30) mmol/L Anion Gap 10.2 (5-15) MEQ/L BUN 22 H (9-20) mg/dL Creatinine 1.21 (0.66-1.25) mg/dL Estimated GFR > 60.0 ML/MIN Glucose 124 H (74-106) mg/dL Calcium 8.4 (8.4-10.2) mg/dL Magnesium 2.0 (1.6-2.3) mg/dL Total Bilirubin 1.00 (0.2-1.3) mg/dL AST 38 (17-59) U/L ALT 19 (0-50) U/L Alkaline Phosphatase 117 (38-126) U/L Troponin I (0.000-0.034) ng/mL NT-Pro-B Natriuret Pep 4140 (<300) pg/mL Serum Total Protein 6.6 (6.3-8.2) g/dL Albumin 3.6 (3.5-5.0) g/dL Radiology Exams: Radiology Procedures Category Date Time Status CHEST 1 VIEW (PORTABLE) Stat Exams 09/19/22 21:12 Completed Assessment/Plan (1) Severe aortic stenosis Current Visit: No Status: Acute Assessment & Plan: apparently per patient and family he has a clot on a valve so no immediate procedure planned, his functional status remains poor and he has had multiple recent admissions and ER visits to [facility], will consult cardiology in attempt to reduce ER/admits Code(s): I35.0 - NONRHEUMATIC AORTIC (VALVE) STENOSIS (2) CHF (congestive heart failure) Current Visit: No Status: Acute Assessment & Plan: appears stable currently Code(s): I50.9 - HEART FAILURE, UNSPECIFIED (3) Constipation Current Visit: Yes Status: Acute Code(s): K59.00 - CONSTIPATION, UNSPECIFIED (4) Atrial fibrillation Current Visit: No Status: Acute Assessment & Plan: INR therapeutic, rate controlled. Code(s): I48.91 - UNSPECIFIED ATRIAL FIBRILLATION (5) CKD (chronic kidney disease) Current Visit: No Status: Acute Qualifiers: Chronic kidney disease stage: stage 3 (moderate) Code(s): N18.9 - CHRONIC KIDNEY DISEASE, UNSPECIFIED (6) Hypokalemia Current Visit: Yes Status: Acute Assessment & Plan: replacing K, when normalized will likely be ready for discharge unless cardiology has other recommendations at this time. Code(s): E87.6 - HYPOKALEMIA
[2022-09-20] MEDS: ZOCOR 20MG PO SCH (12:39)
[2022-09-20] MEDS: Klor Con PO SCH (12:39)
[2022-09-20] MEDS: Protonix 40MG Tablet PO SCH (12:39)
[2022-09-20] MEDS: JARDIANCE PO SCH (12:40)
[2022-09-20] MEDS ORDERED: Sodium Chloride 0.9% 1000 ML 1,000 ML ONE (13:17)
[2022-09-20] MEDS ORDERED: Sodium Chloride 0.9% 1000 ML 1,000 ML IV SCH (14:15)
[2022-09-20] MEDS: DUONEB 0.5-3 MG/3 ml Neb IH PRN (17:18)
[2022-09-20] MEDS ORDERED: JANTOVEN PO SCH (18:00)
[2022-09-20] MEDS ORDERED: VENTOLIN COMMON CANISTER IH PRN (19:00)
[2022-09-20] MEDS ORDERED: Robitussin 100 MG/5 ML PO PRN (21:18)
[2022-09-20] MEDS ORDERED: Desyrel 150 MG PO SCH (22:00)
[2022-09-21] MEDS: DUONEB 0.5-3 MG/3 ml Neb IH PRN (03:40)
[2022-09-21 04:55] LABS: Absolute Neutrophil Ct (ANC) 3.79 x10^3/uL (1.4-6.9); BASOPHIL % 0.5 % (0.0-0.4); Basophil (Absolute #) 0.03 x10^3/uL (0-0.4); Eosinophil % 5.2 % (0.00-5.0); Eosinophil (Absolute #) 0.34 x10^3/uL (0-0.5); Hemoglobin 9.9 g/dL (12.5-18.0); IMMATURE GRAN # 0.02 x10^3u/L (0.00-0.03); IMMATURE GRAN % 0.3 % (0.00-0.4); Lymphocyte (Absolute #) 1.76 x10^3/uL (1.0-4.6); Lymphocytes % 26.9 % (24.0-44.0); Mean Cell Volume 88.7 fL (78-100); Mean Corpuscular Hemoglobin 26.6 pg (26-32); Mean Platelet Volume 11.2 fL (7.5-11.0); Monocyte (Absolute #) 0.61 x10^3/uL (0.0-1.3); Monocytes % 9.3 % (0.0-12.0); Neutrophil % 57.8 % (36.0-66.0); Platelet Count 158 x10^3/uL (150-450); Red Blood Count 3.72 x10^6/uL (4.1-5.6); Red Cell Distribution Width 17.2 % (11.5-14.0); White Blood Count 6.6 x10^3/uL (4.0-10.5)
[2022-09-21 05:07] LABS: INR 2.25 (0.8-3.0); PROTIME 23.1 SECONDS (9.4-12.5)
[2022-09-21 05:18] LABS: ANION GAP 13.4 MEQ/L (5-15); BLOOD UREA NITROGEN 23 mg/dL (9-20); CHLORIDE 102 mmol/L (98-107); Calcium 8.5 mg/dL (8.4-10.2); Carbon Dioxide 25 mmol/L (22-30); Creatinine 1 1.14 mg/dL (0.66-1.25); EST GLOMERULAR FILTRATION RATE > 60.0 ML/MIN; Glucose 102 mg/dL (74-106); MAGNESIUM 2.2 mg/dL (1.6-2.3); NT PRO BNPII 3790 pg/mL (<300); Potassium 3.1 mmol/L (3.5-5.1); SODIUM 137 mmol/L (137-145)
[2022-09-21] MEDS: DUONEB 0.5-3 MG/3 ml Neb IH SCH ×2 (07:06→10:40)
[2022-09-21 07:12] VITALS: O2SAT 95
[2022-09-21] MEDS: JARDIANCE PO SCH (08:28)
[2022-09-21] MEDS: Protonix 40MG Tablet PO SCH (08:28)
[2022-09-21] MEDS: Klor Con PO SCH (08:29)
[2022-09-21] MEDS: ZOCOR 20MG PO SCH (09:31)
--- NOTE | 2022-09-21 09:44 | XRAY ---
Indication: Hypoxia. Multiple contiguous axial images obtained through the chest without contrast. Comparison: None Lungs demonstrate mild pulmonary edema. Small bilateral effusions with mild bilateral compressive atelectasis greatest near the lung bases. Right upper lobe demonstrate small calcified granuloma. No suspicious pulmonary mass/nodule or pneumothorax. Heart borderline enlarged with scattered coronary calcifications, aortic valve replacement, and left dual-lead pacemaker. Aorta is mildly arteriosclerotic without aneurysm. Small mediastinal and right hilar calcified nodes. No pathologic mediastinal lymphadenopathy. Moderate-sized hiatal hernia with partial intrathoracic stomach. Bony thorax intact with osteopenia, minimal degenerative changes throughout the spine, and sternotomy wires. Limited upper abdomen demonstrates 8 mm gallstone. Impression: 1. Borderline cardiomegaly with pulmonary edema and small bibasilar effusions. Rule out mild cardiac decompensation/CHF. 2. Chronic findings including arteriosclerotic disease, hiatal hernia with partial intrathoracic stomach, chronic bony findings, gallstone, and old granulomatous disease.
[2022-09-21] MEDS ORDERED: NON-FORMULARY ITEM (Omeprazole [Omeprazole] 40 MG Capsule.Dr) PO SCH ×2 (10:00)
[2022-09-21 11:41] VITALS: BP 116/80; PULSE 89
--- NOTE | 2022-09-21 14:01 | PCM.DS ---
Discharge Summary Date of Admission: 09/20/22 00:47 Date of Discharge: 09/21/2022 Admitting Physician: QUINN VARGAS MD Consults: Consults on Case 09/20/22 10:16 Consult Cardiology ROUTINE Primary Care Provider: ULISES ADAMS JEAN Allergies Allergies No Known Drug Allergies Allergy (Verified 09/19/22 20:13) Hospital Summary - Hospital Course Hospital Course: Mr. Moore is an 87 year-old gentleman with chronic systolic heart failure, severe , COPD, CAD s/p CABG, HLD, HTN, Afib s/PM, chronic anemia, cardiac valvular clot pn coumadin, and CKD who presented on 09/20 with constipation, hypoxia, hypokalemia, and worsening dyspnea with exertion. Upon arrival to [facility], his laboratory data revealed anemia, hypokalemia, an elevated Cr, and an elevated troponin. 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 - Vitals & Intake/Output Vital Signs: Vital Signs Temperature 97.0 F 09/21/22 11:40 Pulse Rate 89 09/21/22 11:40 Respiratory Rate 22 09/21/22 12:00 Blood Pressure 116/80 09/21/22 11:40 O2 Sat by Pulse Oximetry 95 09/21/22 11:40 Intake & Output: Intake & Output 09/19/22 09/20/22 09/21/22 09/22/22 11:59 11:59 11:59 11:59 Intake Total 320 1440 380 Balance 320 1440 380 Weight 78.4 kg 78.4 kg - Lab Result Diagrams: 09/21/22 04:26 09/21/22 04:26 Lab Results-Last 24 Hrs: Lab Results-Last 24 Hours 09/20/22 09/21/22 09/21/22 Range/Units 18:12 04:26 04:26 WBC 6.6 (4.0-10.5) x10^3/uL RBC 3.72 L (4.1-5.6) x10^6/uL Hgb 9.9 L (12.5-18.0) g/dL Hct 33.0 L (42-50) % MCV 88.7 (78-100) fL MCH 26.6 (26-32) pg MCHC 30.0 L (32-36) g/dL RDW 17.2 H (11.5-14.0) % Plt Count 158 (150-450) x10^3/uL MPV 11.2 H (7.5-11.0) fL Gran % 57.8 (36.0-66.0) % Immature Gran % (Auto) 0.3 (0.00-0.4) % Nucleat RBC Rel Count 0.0 (0.00-0.1) % Eos # (Auto) 0.34 (0-0.5) x10^3/uL Immature Gran # (Auto) 0.02 (0.00-0.03) x10^3u/L Absolute Lymphs (auto) 1.76 (1.0-4.6) x10^3/uL Absolute Monos (auto) 0.61 (0.0-1.3) x10^3/uL Absolute Nucleated RBC 0.00 (0.00-0.01) x10^3u/L Lymphocytes % 26.9 (24.0-44.0) % Monocytes % 9.3 (0.0-12.0) % Eosinophils % 5.2 H (0.00-5.0) % Basophils % 0.5 (0.0-0.4) % Absolute Granulocytes 3.79 (1.4-6.9) x10^3/uL Basophils # 0.03 (0-0.4) x10^3/uL PT (9.4-12.5) SECONDS INR (0.8-3.0) Sodium 137 (137-145) mmol/L Potassium 3.4 L D 3.1 L (3.5-5.1) mmol/L Chloride 102 (98-107) mmol/L Carbon Dioxide 25 (22-30) mmol/L Anion Gap 13.4 (5-15) MEQ/L BUN 23 H (9-20) mg/dL Creatinine 1.14 (0.66-1.25) mg/dL Estimated GFR > 60.0 ML/MIN Glucose 102 (74-106) mg/dL Calcium 8.5 (8.4-10.2) mg/dL Magnesium 2.2 (1.6-2.3) mg/dL NT-Pro-B Natriuret Pep 3790 (<300) pg/mL 09/21/22 Range/Units 04:26 WBC (4.0-10.5) x10^3/uL RBC (4.1-5.6) x10^6/uL Hgb (12.5-18.0) g/dL Hct (42-50) % MCV (78-100) fL MCH (26-32) pg MCHC (32-36) g/dL RDW (11.5-14.0) % Plt Count (150-450) x10^3/uL MPV (7.5-11.0) fL Gran % (36.0-66.0) % Immature Gran % (Auto) (0.00-0.4) % Nucleat RBC Rel Count (0.00-0.1) % Eos # (Auto) (0-0.5) x10^3/uL Immature Gran # (Auto) (0.00-0.03) x10^3u/L Absolute Lymphs (auto) (1.0-4.6) x10^3/uL Absolute Monos (auto) (0.0-1.3) x10^3/uL Absolute Nucleated RBC (0.00-0.01) x10^3u/L Lymphocytes % (24.0-44.0) % Monocytes % (0.0-12.0) % Eosinophils % (0.00-5.0) % Basophils % (0.0-0.4) % Absolute Granulocytes (1.4-6.9) x10^3/uL Basophils # (0-0.4) x10^3/uL PT 23.1 H (9.4-12.5) SECONDS INR 2.25 (0.8-3.0) Sodium (137-145) mmol/L Potassium (3.5-5.1) mmol/L Chloride (98-107) mmol/L Carbon Dioxide (22-30) mmol/L Anion Gap (5-15) MEQ/L BUN (9-20) mg/dL Creatinine (0.66-1.25) mg/dL Estimated GFR ML/MIN Glucose (74-106) mg/dL Calcium (8.4-10.2) mg/dL Magnesium (1.6-2.3) mg/dL NT-Pro-B Natriuret Pep (<300) pg/mL - Radiology Exams Ordered Rad Exams-Entire Visit: Radiology Procedures Category Date Time Status CHEST 1 VIEW (PORTABLE) Stat Exams 09/19/22 21:12 Completed CHEST WITHOUT CONTRAST [CT] Stat Exams 09/21/22 08:32 Completed - Procedures and Test Procedures and Tests throughout Hospitalization: Therapy Orders & Screens 09/19/22 20:44 Respiratory Therapy Assessment DAILY Comment: 09/20/22 01:03 EKG REPEAT IN AM Comment: 09/20/22 01:45 RT Screen per Nursing Assess ONCE Comment: Protocol Order Physician Instructions: Greater than 3 points order RT Admission Screen Reason For Exam: Triggered on Admission Diagnosis: hypokalemia Diagnosis: hypokalemia Pneumonia: No Home O2: No Asthma: No CHF: Yes Home CPAP/BIPAP: No Home Nebs/MDI: Yes Total Points: 8 09/20/22 02:07 Respiratory Therapy Assessment DAILY Comment: Diagnosis: hypokalemia 09/20/22 02:09 Oxygen Nasal Cannula 2 lpm Comment: Diagnosis: hypokalemia Discharge Exam General Appearance: no apparent distress Neurologic Exam: alert, oriented x 3 Eye Exam: PERRL, EOMI Ears, Nose, Throat Exam: normal ENT inspection Neck Exam: normal inspection Respiratory Exam: normal breath sounds Cardiovascular Exam: regular rate/rhythm Gastrointestinal/Abdomen Exam: soft, normal bowel sounds Male Genitalia Exam: deferred Rectal Exam: deferred Extremity Exam: normal inspection Skin Exam: normal color Final Diagnosis/Problem List - Final Discharge Diagnosis/Problem (1) Exertional dyspnea Current Visit: No Status: Acute Assessment & Plan: PRIMARY DIAGNOSES Acute Hypoxemic Respiratory Failure Acute on Chronic Systolic Heart Failure Hypokalemia Acute on Chronic Kidney Disease Non-ST Elevation Myocardial Infarction SECONDARY DIAGNOSES Atrial Fibrillation s/p PM COPD Severe Aortic Stenosis s/p TAVR x 1 Hyperlipidemia Coronary Artery Disease s/p CABG Chronic Anemia Code(s): R06.09 - OTHER FORMS OF DYSPNEA - Discharge Disposition: Home, Self-Care Condition: Stable Prescriptions: No Action Potassium Chloride [Klor-Con 10] 10 meq PO DAILY Atorvastatin Calcium [Lipitor] 40 mg PO DAILY Albuterol Sulfate [Proair Hfa] 8.5 gm IH Q4HWA Albuterol/Ipratropium 3ml Neb* [DUONEB 0.5-3 MG/3 ml Neb] 3 ml IH Q6H PRN PRN PRN Reason: Shortness Of Breath/Wheezing Trazodone HCl 150 mg PO HS Warfarin Sodium 5 mg [Jantoven] 2.5 mg PO DAILY Omeprazole 40 mg PO DAILY Empagliflozin [Jardiance] 10 mg PO DAILY Bumetanide 1 mg [Bumex 1 mg] 2 mg PO BID Instructions: Hypokalemia, Oxygen Therapy, Adult (DC) Additional Instructions: -WEAR 2L @ HOME, ESPECIALLY WITH ANY WALKING OR EXERTION -CALL CHRISTIAN AT [phone] WHEN YOU LEAVE [facility] SO THEY CAN COME TO YOUR HOME AND SET UP YOUR HOME CONCENTRATOR. -[facility] HAS BEEN SET UP. THEY WILL CALL YOU TO ARRANGE A TIME TO COME SEE YOU. THEIR PHONE NUMBER IS [phone] Follow up with: ULISES ADAMS MD [Primary Care Provider] - 10/02/22 2:15 pm GERRI LIRIANO MD [CONSULTING PHYSICIAN] - 10/26/22 4:00 pm ( )
[2022-09-24] MEDS ORDERED: JANTOVEN PO SCH (18:00)
== END 2022-09-21 13:35 | disposition home health service (06) ==
LOC: ED 19:44 → MED SURG 09-20 00:47
PROVIDERS: ADMIT Internal Medicine; ATTEND Family Medicine
DX: R06.09 Other forms of dyspnea (principal); I50.9 Heart failure, unspecified; E87.6 Hypokalemia; N18.9 Chronic kidney disease, unspecified; I48.91 Unspecified atrial fibrillation; E78.5 Hyperlipidemia, unspecified; D64.9 Anemia, unspecified; K59.00 Constipation, unspecified; R60.0 Localized edema; I35.0 Nonrheumatic aortic (valve) stenosis; R74.8 Abnormal levels of other serum enzymes; Z20.828 Contact with and (suspected) exposure to other viral communicable diseases; Z95.1 Presence of aortocoronary bypass graft; Z79.899 Other long term (current) drug therapy; Z79.01 Long term (current) use of anticoagulants
CPT/HCPCS: 36000; 36415; 71045; 71250; 80048; 80053; 83735; 83880; 84132; 84484; 85025; 85610; 93005; 93041; 93268; 94640; 94760; 94762; 99285; G0378; Q3014; J3480; A9270-GY

== ENCOUNTER 2022-09-26 05:13 | Observation (INO) | payer MEDICARE ==
[2022-09-26] MEDS ORDERED: ROCEPHIN 1 Gm-D5w 50 ml Bag** 1 G/50 ML IVPB IV STA (05:37)
[2022-09-26] MEDS ORDERED: Sodium Chloride 0.9% 1000 ML 1,000 ML IV STA (05:37)
[2022-09-26] MEDS ORDERED: Zithromax 500 MG/ 250 ML NaCl Premix 500 MG/250 ML IVPB IV STA (05:37)
[2022-09-26] MEDS ORDERED: PROVENTIL 2.5 MG/3 ML NEB IH ONE ×2 (05:37→05:54)
[2022-09-26] MEDS ORDERED: solu-MEDROL 125 MG, Sterile H2O 10 ml 2 ML IV ONE ×2 (05:37)
[2022-09-26] MEDS ORDERED: Sterile H2O 10 ml IJ ONE (05:43)
[2022-09-26] MEDS ORDERED: Sodium Chloride 0.9% 1000 ML 1,000 ML ONE (05:43)
[2022-09-26] MEDS ORDERED: ROCEPHIN 1 Gm-D5w 50 ml Bag** 1 G/50 ML IVPB IV ONE (05:43)
[2022-09-26] MEDS ORDERED: solu-MEDROL ONE (05:43)
--- NOTE | 2022-09-26 05:46 | ERPHSYRPT ---
- History of Present Illness Source: patient Exam Limitations: no limitations Patient Subjective Stated Complaint: pt states he got up to the bathroom and was super short of breath Triage Nursing Assessment: pt came into the er via wheelchair; pt is axo x3; c/o SOB; pt denies SOB at time of arrival; no visible respiratory distress present; clear lung sounds in all lobes; pt wears 2L via NC; skin is PDW; vitals wnl Hx Tetanus, Diphtheria Vaccination/Date Given: No (unsure) Hx Influenza Vaccination/Date Given: Yes Hx Pneumococcal Vaccination/Date Given: Yes Immunizations Up to Date: Yes <GEOFFREY SAMUEL - Last Filed: 09/26/22 06:45> <GURPREET WATERS - Last Filed: 09/26/22 08:35> - History of Present Illness Time Seen by Provider: 09/26/22 05:33 Physician History: Patient here for shortness of breath. Patient states that he woke up at 3 AM to use the bathroom. Became very short of breath. Patient has a history of COPD. Denies smoking. Wheezing as I enter the room. Patient is always on 2 L of oxygen. His family initially brought him in on 6 L of oxygen. No falls no trauma no chest pain. He is on Coumadin for chronic A-fib. He is in atrial fibrillation today. (GEOFFREY SAMUEL) Allergies/Adverse Reactions: No Known Drug Allergies Allergy (Verified 09/19/22 20:13) Home Medications: Albuterol Sulfate [Proair Hfa] 8.5 gm IH Q4HWA 06/08/20 [History] Atorvastatin Calcium [Lipitor] 40 mg PO DAILY 06/08/20 [History] Potassium Chloride [Klor-Con 10] 10 meq PO DAILY 06/08/20 [History] Albuterol/Ipratropium 3ml Neb* [DUONEB 0.5-3 MG/3 ml Neb] 3 ml IH Q6H PRN PRN 10/17/20 [History] Trazodone HCl 150 mg PO HS 09/19/22 [History] Bumetanide 1 mg [Bumex 1 mg] 2 mg PO BID 09/20/22 [History] Empagliflozin [Jardiance] 10 mg PO DAILY 09/20/22 [History] Omeprazole 40 mg PO DAILY 09/20/22 [History] Warfarin Sodium 5 mg [Jantoven] 2.5 mg PO DAILY 09/20/22 [History] Spironolactone 25 mg [Aldactone 25 MG] 12.5 mg PO DAILY 09/26/22 [History] Travel Risk - International Travel Have you traveled outside of the country in past 3 weeks: No - Coronavirus Screening Are you exhibiting any of the following symptoms?: Yes Symptoms: Shortness of Breath Close contact with a COVID-19 positive Pt in past 14-21 Days: No - Vaccine Status Have you recieved a Covid-19 vaccination: Yes 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 - Vaccination Dates Date of 2cond Vaccination (if applicable): unknown Dates if Unknown: unkown <GEOFFREY SAMUEL - Last Filed: 09/26/22 06:45> - Review of Systems Constitutional: No Fever, No Chills Eyes: No Symptoms Ears, Nose, & Throat: No Symptoms Respiratory: Cough, Dyspnea, Dyspnea on Exertion (GARCIA) Cardiac: No Chest Pain, No Edema, No Syncope Abdominal/Gastrointestinal: No Abdominal Pain, No Nausea, No Vomiting, No Diarrhea Genitourinary Symptoms: No Dysuria Musculoskeletal: No Back Pain, No Neck Pain Skin: No Rash Neurological: No Dizziness, No Focal Weakness, No Sensory Changes Psychological: No Symptoms Endocrine: No Symptoms All Other Systems: Reviewed and Negative <GEOFFREY SAMUEL - Last Filed: 09/26/22 06:45> - Past Medical History Pertinent Past Medical History: Yes Neurological History: Stroke ENT History: No Pertinent History Cardiac History: Congestive Heart Failure, Coronary Artery Disease, High Cholesterol, Myocardial Infarction ([place]), Other Respiratory History: Asthma, COPD Endocrine Medical History: No Pertinent History Musculoskeletal History: No Pertinent History GI Medical History: No Pertinent History History: No Pertinent History Psycho-Social History: No Pertinent History Male Reproductive Disorders: No Pertinent History Other Medical History: AFIB. CABG 1999. PACEMAKER 1999 - Past Surgical History Past Surgical History: Yes Neuro Surgical History: No Pertinent History Cardiac: CABG, Cardiac Stent Respiratory: No Pertinent History Gastrointestinal: Appendectomy, Hernia Repair Genitourinary: No Pertinent History Musculoskeletal: No Pertinent History Male Surgical History: No Pertinent History Other Surgical History: TAVR, PACEMAKER - Social History Smoking Status: Never smoker Exposure to second hand smoke: No Drug Use: none Patient Lives Alone: No Significant Family History: heart disease <GEOFFREY SAMUEL - Last Filed: 09/26/22 06:45> - Physical Exam General Appearance: no apparent distress, alert Eye Exam: PERRL/EOMI, eyes nml inspection Ears, Nose, Throat Exam: normal ENT inspection, TMs normal, pharynx normal, moist mucous membranes Neck Exam: normal inspection, non-tender, supple, full range of motion Respiratory Exam: crackles/rales, wheezing, No normal breath sounds, No lungs clear, No respiratory distress Cardiovascular Exam: regular rate/rhythm, normal heart sounds, normal peripheral pulses Gastrointestinal/Abdomen Exam: soft, normal bowel sounds, No tenderness, No mass Back Exam: normal inspection, normal range of motion, No CVA tenderness, No vertebral tenderness Extremity Exam: normal inspection, normal range of motion, pelvis stable Neurologic Exam: alert, oriented x 3, cooperative, normal mood/affect, nml cerebellar function, nml station & gait, sensation nml, No motor deficits Skin Exam: normal color, warm, dry, No rash Lymphatic Exam: No adenopathy SpO2: 97 <GEOFFREY SAMUEL - Last Filed: 09/26/22 06:45> - Nursing Vital Signs Nursing Vital Signs: Initial Vital Signs Temperature 97.1 F 09/26/22 05:14 Pulse Rate 91 H 09/26/22 05:14 Respiratory Rate 22 09/26/22 05:14 Blood Pressure 93/62 09/26/22 05:14 O2 Sat by Pulse Oximetry 97 09/26/22 05:14 Pain Scale Pain Intensity 0 - Course Nursing assessment & vital signs reviewed: Yes EKG Interpreted by Me: A-fib (A-fib, rate controlled) <GEOFFREY SAMUEL - Last Filed: 09/26/22 06:45> - Course EKG Interpreted by Me: RATE (83), NORMAL AXIS, prolonged QT interval - CT Exams Chest CT Interpretation: Tele-radiologist Report (No PE, cardiomegaly, lung granuloma, small hiatal hernia. Cholelithiasis no cholecystitis) <GURPREET WATERS - Last Filed: 09/26/22 08:35> Ordered Tests: Active Orders 24 hr Category Date Time Status Insurance Claims Examiner STAT Care 09/26/22 05:38 Active EKG-ER Only STAT Care 09/26/22 05:37 Active IV Insertion STAT Care 09/26/22 05:37 Active Telemetry q4h Care 09/26/22 07:13 Active CHEST 1 VIEW (PORTABLE) Stat Exams 09/26/22 05:38 Taken CHEST WITH CONTRAST [CT] Stat Exams 09/26/22 06:35 Completed CBC W DIFF Stat Lab 09/26/22 05:26 Completed CMP Stat Lab 09/26/22 05:26 Completed D-DIMER QUANTITATIVE Stat Lab 09/26/22 05:26 Completed NT PRO BNPII Stat Lab 09/26/22 05:26 Completed PROTIME WITH INR Stat Lab 09/26/22 05:26 Completed TROPONIN Q4H Lab 09/26/22 05:26 Completed TROPONIN Q4H Lab 09/26/22 09:45 Ordered TROPONIN Q4H Lab 09/26/22 13:45 Ordered Respiratory Therapy Assessment DAILY RT 09/26/22 06:02 Active Transfer Order Routine Transfer 09/26/22 Ordered Medication Summary Generic Name Dose Route Start Last Admin Trade Name Freq PRN Reason Stop Dose Admin Potassium Chloride 20 meq in 100 mls @ 50 mls/hr 09/26/22 07:15 09/26/22 08:10 Potassium Chloride 20 Meq In Water 100ml IV 09/26/22 11:14 50 mls/hr Q2H FAVIAN Administration Sodium Chloride 1,000 mls @ 100 mls/hr 09/26/22 08:00 09/26/22 08:10 Sodium Chloride 0.9% 1000 Ml IV 10/26/22 07:59 100 mls/hr .Q10H FAVIAN Administration Discontinued Medications Generic Name Dose Route Start Last Admin Trade Name Freq PRN Reason Stop Dose Admin Albuterol Sulfate 2.5 mg 09/26/22 05:37 09/26/22 06:00 Albuterol Sulfate 2.5 Mg/3 Ml Neb IH 09/26/22 05:38 2.5 mg STAT ONE Administration Albuterol Sulfate Confirm 09/26/22 05:54 Albuterol Sulfate 2.5 Mg/3 Ml Neb Administered 09/26/22 05:55 Dose 2.5 mg IH .STK-MED ONE Methylprednisolone Sodium 0 mg 09/26/22 05:37 09/26/22 05:44 Succinate 125 mg/ Sterile IV 09/26/22 05:38 125 mg Water 2 ml STAT ONE Administration Furosemide 40 mg 09/26/22 07:34 Furosemide 40 Mg/4 Ml Vial IV 09/26/22 07:35 STAT ONE Sodium Chloride 1,000 mls @ 999 mls/hr 09/26/22 05:37 09/26/22 06:56 Sodium Chloride 0.9% 1000 Ml IV 09/26/22 06:37 Infused .Q1H1M STA Infusion Azithromycin 500 mg in 250 mls @ 250 mls/hr 09/26/22 05:37 09/26/22 07:25 Zithromax 500 Mg/ 250 Ml Nacl Premix IV 09/26/22 06:36 Infused STAT STA Infusion Ceftriaxone Sodium/Dextrose 1 g in 50 mls @ 100 mls/hr 09/26/22 05:37 09/26/22 06:27 Rocephin 1 Gm-D5w 50 Ml Bag IV 09/26/22 06:06 Infused STAT STA Infusion Sodium Chloride Confirm 09/26/22 05:43 Sodium Chloride 0.9% 1000 Ml Administered 09/26/22 05:44 Dose 1,000 mls @ ud .ROUTE .STK-MED ONE Ceftriaxone Sodium/Dextrose Confirm 09/26/22 05:43 Rocephin 1 Gm-D5w 50 Ml Bag Administered 09/26/22 05:44 Dose 1 g in 50 mls @ ud IV .STK-MED ONE Azithromycin Confirm 09/26/22 06:19 Zithromax 500 Mg/ 250 Ml Nacl Premix Administered 09/26/22 06:20 Dose 500 mg in 250 mls @ ud IV .STK-MED ONE Magnesium Sulfate/Water 2 gm in 50 mls @ 100 mls/hr 09/26/22 07:14 09/26/22 07:59 Magnesium Sulf 2 G/50 Ml Bag IV 09/26/22 07:43 Infused ONCE ONE Infusion Magnesium Sulfate/Water Confirm 09/26/22 07:26 Magnesium Sulf 2 G/50 Ml Bag Administered 09/26/22 07:27 Dose 2 gm in 50 mls @ ud IV .STK-MED ONE Methylprednisolone Sodium Succinate Confirm 09/26/22 05:43 Methylprednis Sod Succ 125 Mg/2 Ml Vial Administered 09/26/22 05:44 Dose 125 mg .ROUTE .STK-MED ONE Sterile Water Confirm 09/26/22 05:43 Water For Injection,Sterile 10 Ml Vial Administered 09/26/22 05:44 Dose 10 ml IJ .STK-MED ONE Lab/Rad Data: Laboratory Result Diagrams 09/26/22 05:26 09/26/22 05:26 Laboratory Results 09/26/22 09/26/22 09/26/22 Range/Units 06:00 05:26 05:26 WBC (4.0-10.5) x10^3/uL RBC (4.1-5.6) x10^6/uL Hgb (12.5-18.0) g/dL Hct (42-50) % MCV (78-100) fL MCH (26-32) pg MCHC (32-36) g/dL RDW (11.5-14.0) % Plt Count (150-450) x10^3/uL MPV (7.5-11.0) fL Gran % (36.0-66.0) % Immature Gran % (Auto) (0.00-0.4) % Nucleat RBC Rel Count (0.00-0.1) % Eos # (Auto) (0-0.5) x10^3/uL Immature Gran # (Auto) (0.00-0.03) x10^3u/L Absolute Lymphs (auto) (1.0-4.6) x10^3/uL Absolute Monos (auto) (0.0-1.3) x10^3/uL Absolute Nucleated RBC (0.00-0.01) x10^3u/L Lymphocytes % (24.0-44.0) % Monocytes % (0.0-12.0) % Eosinophils % (0.00-5.0) % Basophils % (0.0-0.4) % Absolute Granulocytes (1.4-6.9) x10^3/uL Basophils # (0-0.4) x10^3/uL PT 21.3 H (9.4-12.5) SECONDS INR 2.06 (0.8-3.0) D-Dimer 1.09 H* (0.0-0.50) mg/L Sodium (137-145) mmol/L Potassium (3.5-5.1) mmol/L Chloride (98-107) mmol/L Carbon Dioxide (22-30) mmol/L Anion Gap (5-15) MEQ/L BUN (9-20) mg/dL Creatinine (0.66-1.25) mg/dL Estimated GFR ML/MIN Glucose (74-106) mg/dL Calcium (8.4-10.2) mg/dL Total Bilirubin (0.2-1.3) mg/dL AST (17-59) U/L ALT (0-50) U/L Alkaline Phosphatase (38-126) U/L Troponin I 0.070 H* (0.000-0.034) ng/mL NT-Pro-B Natriuret Pep (<300) pg/mL Serum Total Protein (6.3-8.2) g/dL Albumin (3.5-5.0) g/dL Influenza Type A Ag NEGATIVE (NEGATIVE) Influenza Type B Ag NEGATIVE (NEGATIVE) RSV (PCR) NEGATIVE (NEGATIVE) SARS-CoV-2 (PCR) NEGATIVE (NEGATIVE) 09/26/22 09/26/22 Range/Units 05:26 05:26 WBC 7.8 (4.0-10.5) x10^3/uL RBC 3.93 L (4.1-5.6) x10^6/uL Hgb 10.5 L (12.5-18.0) g/dL Hct 35.3 L (42-50) % MCV 89.8 (78-100) fL MCH 26.7 (26-32) pg MCHC 29.7 L (32-36) g/dL RDW 17.0 H (11.5-14.0) % Plt Count 187 (150-450) x10^3/uL MPV 10.8 (7.5-11.0) fL Gran % 69.0 H (36.0-66.0) % Immature Gran % (Auto) 0.4 (0.00-0.4) % Nucleat RBC Rel Count 0.0 (0.00-0.1) % Eos # (Auto) 0.42 (0-0.5) x10^3/uL Immature Gran # (Auto) 0.03 (0.00-0.03) x10^3u/L Absolute Lymphs (auto) 1.34 (1.0-4.6) x10^3/uL Absolute Monos (auto) 0.58 (0.0-1.3) x10^3/uL Absolute Nucleated RBC 0.00 (0.00-0.01) x10^3u/L Lymphocytes % 17.3 L (24.0-44.0) % Monocytes % 7.5 (0.0-12.0) % Eosinophils % 5.4 H (0.00-5.0) % Basophils % 0.4 (0.0-0.4) % Absolute Granulocytes 5.36 (1.4-6.9) x10^3/uL Basophils # 0.03 (0-0.4) x10^3/uL PT (9.4-12.5) SECONDS INR (0.8-3.0) D-Dimer (0.0-0.50) mg/L Sodium 142 (137-145) mmol/L Potassium 3.1 L (3.5-5.1) mmol/L Chloride 101 (98-107) mmol/L Carbon Dioxide 30 (22-30) mmol/L Anion Gap 14.7 (5-15) MEQ/L BUN 17 (9-20) mg/dL Creatinine 1.33 H (0.66-1.25) mg/dL Estimated GFR 54.1 ML/MIN Glucose 130 H (74-106) mg/dL Calcium 8.8 (8.4-10.2) mg/dL Total Bilirubin 0.90 (0.2-1.3) mg/dL AST 36 (17-59) U/L ALT 21 (0-50) U/L Alkaline Phosphatase 131 H (38-126) U/L Troponin I (0.000-0.034) ng/mL NT-Pro-B Natriuret Pep 4630 (<300) pg/mL Serum Total Protein 7.3 (6.3-8.2) g/dL Albumin 3.9 (3.5-5.0) g/dL Influenza Type A Ag (NEGATIVE) Influenza Type B Ag (NEGATIVE) RSV (PCR) (NEGATIVE) SARS-CoV-2 (PCR) (NEGATIVE) - Progress Progress: improved Counseled pt/family regarding: lab results, diagnosis, need for follow-up, rad results <GEOFFREY SAMUEL - Last Filed: 09/26/22 06:45> <GURPREET WATERS - Last Filed: 09/26/22 08:35> - Progress Progress Note: 09/26/22 05:56 Differential diagnosis includes COPD exacerbation, pneumonia, other infection, PE, [place] We will obtain basic labs, chest x-ray, breathing treatment, steroids. Given crackles and shortness of breath we will start antibiotics in the emergency department. We will do a dose of Rocephin and azithromycin here. 09/26/22 06:45 Labs and work-up pending. Transfer of care to Dr. Waters at 7 AM. He will follow-up on labs and imaging. Patient may benefit from inpatient admission for IV antibiotics if large pneumonia on CT scan. (GEOFFREY SAMUEL) Patient endorsed to Dr. Waters at approximately 7 AM. Patient previously seen by Dr. Samuel. Patient presented to our ED for shortness of breath. Testing ordered by previous physician includes EKG which shows atrial fibrillation. Patient currently on Coumadin. Coagulation profile reveals INR 2.06. Chest x- ray reviewed by previous physician Dr. Samuel. CT chest ordered. Results pending. Patient had a CT scan last week which was negative according to daughter who is at the bedside. Showed a hemoglobin of 10. However this appears to be near patient's baseline. CMP reveals a hypokalemia of 3.1. K rider ordered as well as magnesium sulfate. COVID test negative. D-dimer was ordered. D-dimer positive at 1.09. CTA results pending. BNP elevated at 4630. In light of patient's elevated BNP, elevated troponin history of CHF and the fact that patient received a liter of IV fluids in our ED Lasix ordered 40 mg IV. Troponin elevated at 0.070. 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 Patient reportedly has a history of COPD. Patient was treated for COPD by previous physician. Patient received albuterol nebulized treatment. Patient also received Solu-Medrol, ceftriaxone and azithromycin. Patient received a liter of normal saline as well ordered by previous physician. In light of patient's findings we will admit patient for further evaluation and treatment. Patient's prison officer Dr. Fay. 09/26/22 07:[address] Jitendra Das at 7:30 AM who excepts admission to observation. Patient will be admitted for treatment of shortness of breath congestive heart failure and possible underlying COPD exacerbation. Plan of care discussed with patient and daughter who is at the bedside. They agree to a dmission at [facility] for further evaluation and treatment. They voiced no other complaints or concerns at this time. Patient is a 87-year-old male presents to our ED for evaluation of shortness of breath. Patient has a history of COPD. Patient requires 24-hour oxygen. Patient uses 2 L nasal cannula 24 hours daily. Patient evaluated by previous physician Dr. Samuel. Dr. Waters assumed care at approximately 7 AM. Patient will require admission. Dr. Bowden excepts admission to observation. Complexity of problem addressed is moderate. Chronic illness with exacerbation. Complexity of data reviewed and analyzed is extensive. Test ordered. test as well as EKG independently reviewed by Dr. Waters. Patient's daughter served as a primary historian. Management discussed with Dr. Das who agrees with plan of care and accepts admission to observation. Risk of complication and or risk morbidity/mortality patient management is high. Patient received nebulizer treatment and will require hospitalization for ongoing monitoring and treatment of shortness of breath likely due to both CHF and COPD exacerbation. Vital stable. Plan of care established via shared decision making with daughter and patient. Daughter reports that patient has a history of aortic valve replacement. Daughter states replacement valve was problematic however patient not a candidate for repair. Dr. Fay's are patient's prison officer Portions of this note were created with voice recognition technology. There may be grammatical, spelling, punctuation or sound alike errors 09/26/22 07:35 Patient reassessed. He appears to be in good spirits. Patient sitting up in bed conversant eating his meal. Lungs are clear no active wheezing. Slight edema to bilateral lower extremities. Vital stable. 09/26/22 08:00 CT chest negative for PE. Portions of this note were created with voice recognition technology. There may be grammatical, spelling, punctuation or sound alike errors 09/26/22 08:34 (GURPREET WATERS) Medical Desision Making - Independent Historian Additional History obtained from: Family - External Record(s) Reviewed Records reviewed as a part of evaluation & management: Discharge Summary - Diagnostic Testing Diagnostic test were ordered, analyzed, and reviewed by me: Yes Radiological Interpretation: Interpreted by me, Reviewed by me - Risk of complications Minimal Risk: Minimal risk of morbidity <GEOFFREY SAMUEL - Last Filed: 09/26/22 06:45> - Departure Critical Care Time: No <GEOFFREY SAMUEL - Last Filed: 09/26/22 06:45> - Departure Departure Disposition: Observation <GURPREET WATERS - Last Filed: 09/26/22 08:35> - Departure Clinical Impression: COPD exacerbation, Wheezing, CHF (congestive heart failure), Hypokalemia, Lila vated troponin, Cardiomegaly, Lung granuloma, Small hiatal hernia, Cholelithiasis Condition: Stable Referrals: [facility]] - Follow up/PCP as directed Instructions: Heart Failure, Chronic Obstructive Pulmonary Disease
[2022-09-26 06:08] LABS: Absolute Neutrophil Ct (ANC) 5.36 x10^3/uL (1.4-6.9); BASOPHIL % 0.4 % (0.0-0.4); Basophil (Absolute #) 0.03 x10^3/uL (0-0.4); Eosinophil % 5.4 % (0.00-5.0); Eosinophil (Absolute #) 0.42 x10^3/uL (0-0.5); Hematocrit 35.3 % (42-50); Hemoglobin 10.5 g/dL (12.5-18.0); IMMATURE GRAN # 0.03 x10^3u/L (0.00-0.03); IMMATURE GRAN % 0.4 % (0.00-0.4); Lymphocyte (Absolute #) 1.34 x10^3/uL (1.0-4.6); Lymphocytes % 17.3 % (24.0-44.0); Mean Cell Volume 89.8 fL (78-100); Mean Corpuscular Hemoglobin 26.7 pg (26-32); Mean Corpuscular Hgb Concent. 29.7 g/dL (32-36); Mean Platelet Volume 10.8 fL (7.5-11.0); Monocyte (Absolute #) 0.58 x10^3/uL (0.0-1.3); Monocytes % 7.5 % (0.0-12.0); Platelet Count 187 x10^3/uL (150-450); Red Blood Count 3.93 x10^6/uL (4.1-5.6); White Blood Count 7.8 x10^3/uL (4.0-10.5)
[2022-09-26] MEDS ORDERED: Zithromax 500 MG/ 250 ML NaCl Premix 500 MG/250 ML IVPB IV ONE (06:19)
[2022-09-26 06:30] LABS: ALBUMIN 3.9 g/dL (3.5-5.0); ANION GAP 14.7 MEQ/L (5-15); BILIRUBIN,TOTAL 0.9 mg/dL (0.2-1.3); Calcium 8.8 mg/dL (8.4-10.2); Creatinine 1 1.33 mg/dL (0.66-1.25); EST GLOMERULAR FILTRATION RATE 54.1 ML/MIN; Potassium 3.1 mmol/L (3.5-5.1); Total Protein 7.3 g/dL (6.3-8.2)
[2022-09-26 06:42] LABS: INFLUENZA A NEGATIVE (NEGATIVE); INFLUENZA B NEGATIVE (NEGATIVE); RESPIRATORY SYNCTIAL VIRUS NEGATIVE (NEGATIVE); SARS-CoV-2 Xpert Express NEGATIVE (NEGATIVE)
[2022-09-26 06:48] LABS: INR 2.06 (0.8-3.0); PROTIME 21.3 SECONDS (9.4-12.5)
[2022-09-26 06:52] LABS: D-DIMER QUANTITATIVE 1.09 mg/L (0.0-0.50)
[2022-09-26] MEDS ORDERED: MAGNESIUM SULF 2 G/50 ML BAG 2 GM/50 ML PIGGYBACK IV ONE ×2 (07:14→07:26)
[2022-09-26] MEDS ORDERED: Lasix 40 MG/4 ML IV ONE (07:34)
[2022-09-26] MEDS ORDERED: Sodium Chloride 0.9% 1000 ML 1,000 ML IV SCH (08:00)
[2022-09-26] MEDS: POTASSIUM CHLORIDE 20 mEq IN WATER 100ML 20 MEQ/100 ML BAG IV SCH ×2 (08:10→10:40)
--- NOTE | 2022-09-26 08:30 | XRAY ---
CLINICAL HISTORY:PE, SOB, wheezing COMPARISON:Previous CT chest dated 09/09/2022 is reviewed. TECHNIQUES:Pulmonary angiogram was performed to visualize the pulmonary arteries and branches after a high bolus injection of intravenous contrast. Multiple images were acquired including MIP technique. FINDINGS: Right and left main pulmonary arteries, as well as segmental branches, appear of normal caliber without evidence of any filling defect. No evidence of pulmonary arterial thrombosis identified. Midline sternotomy sutures are seen. Right-sided dual-chamber cardiac pacemaker noted with intact wires in place. Aortic valve replacement noted. Significant streak artifact is seen due to prosthesis obscuring fine details. Cardiomegaly seen. Still noted mild bibasal congestive changes noted. Reflux of intravenous contrast into the IVC and hepatic veins. Mild atheromatous calcification noted in arch of aorta. Redomonstrarion of minimal paraseptal emphysematous changes noted bilaterally. Redemonstration of diffusely calcified nodule in the posterior segment of right upper lobe representing benign findinggranuloma. showing no interval change. Still noted few atelectatic band also noted in both lung bases. No evidence of consolidation or cavitation noted. No honeycombing is noted. The major airway appears patent. No pleural effusion seen bilaterally. Still noted small hiatal hernia seen. On appropriate mediastinal window settings, no evidence of mediastinal or hilar lymphadenopathy seen. Included sections through the upper abdomen show small calculus in the gallbladder measuring 7 mm. No pericholecystic fluid identified. On appropriate bone window settings, no significant abnormality was noted. IMPRESSION: 1. No evidence of pulmonary arterial thromboembolic disease. 2. In comparison to previous CT scan dated 09/09/2022, no significant interval change noted. Electronically Signed by: Josse Aquino MD. (09/26/2022 07:26:28 DISPENSARY TECHNICIAN)
--- NOTE | 2022-09-26 08:36 | XRAY ---
Indication: Pneumonia. Comparison: September 19, 2022 Portable chest demonstrates worsening cardiomegaly again with aortic valve replacement, CABG, and left pacemaker. New CT proven small bibasilar effusions. Findings favor cardiac decompensation/CHF.
[2022-09-26] MEDS ORDERED: Lasix 40 MG/4 ML ONE (08:41)
[2022-09-26] MEDS ORDERED: Furosemide 100mg/10 ml Vial IV ONE (11:00)
[2022-09-26] MEDS: JARDIANCE PO SCH (12:25)
[2022-09-26] MEDS: Aldactone 25 MG PO SCH (12:26)
[2022-09-26] MEDS: Protonix 40MG Tablet PO SCH (12:26)
[2022-09-26] MEDS: ZOCOR 20MG PO SCH (12:26)
--- NOTE | 2022-09-26 12:37 | PCM.HP ---
History of Present Illness - Chief Complaint Chief Complaint: shortness of breath Date: 09/26/22 History of Present Illness: is a 87 year old male with history of severe aortic stenosis, HFrEF, A-fib s/p PPM, CKD3, and CAD, who presents to the ED with dyspnea. Patient was recently admitted with acute on chronic systolic heart failure secondary to ; he was diuresed, and discharged home one week ago. He was doing well, when woke up this morning with dyspnea. He continues to have leg edema and early satiety, although thinks these are at his baseline. He remains on oxygen; he was set up for home oxygen on his last discharge. He denies chest pain, nausea, diaphoresis, numbness or tingling. He states he has been compliant with all of his medications, and has not had any recent changes in medications. Of note, he was planning for TAVR, but procedure was delayed due to ventricular thrombus and he was placed on warfarin. - Review of Systems Constitutional: No Fever, No Chills, No Fatigue, No Lethargy Eyes: No Symptoms Ears, Nose, & Throat: No Symptoms Respiratory: Short Of Breath, Wheezing, No Cough Cardiac: Edema, Orthopnea, No Chest Pain, No Palpitations Abdominal/Gastrointestinal: Vomiting, No Abdominal Pain, No Nausea, No Constipation Genitourinary Symptoms: No Symptoms Musculoskeletal: No Symptoms Skin: No Symptoms Neurological: No Symptoms All Other Systems: Reviewed and Negative Medications & Allergies Home Medications: Home Medication List Albuterol Sulfate [Proair Hfa] 8.5 gm IH Q4HWA 06/08/20 [History Confirmed 09/26/22] Atorvastatin Calcium [Lipitor] 40 mg PO DAILY 06/08/20 [History Confirmed 09/26/22] Albuterol/Ipratropium 3ml Neb* [DUONEB 0.5-3 MG/3 ml Neb] 3 ml IH Q6H PRN PRN 10/17/20 [History Confirmed 09/26/22] Trazodone HCl 150 mg PO HS 09/19/22 [History Confirmed 09/26/22] Bumetanide 1 mg [Bumex 1 mg] 2 mg PO BID 09/20/22 [History Confirmed 09/26/22] Empagliflozin [Jardiance] 10 mg PO DAILY 09/20/22 [History Confirmed 09/26/22] Omeprazole 40 mg PO DAILY 09/20/22 [History Confirmed 09/26/22] Warfarin Sodium 5 mg [Jantoven] 2.5 mg PO DAILY 09/20/22 [History Confirmed ] Spironolactone 25 mg [Aldactone 25 MG] 12.5 mg PO DAILY 09/26/22 [History Confirmed 09/26/22] Allergies/Adverse Reactions: Allergies Allergy/AdvReac Type Severity Reaction Status Date / Time No Known Drug Allergies Allergy Verified 09/19/22 20:13 - Past Medical History Past Medical History: Yes Neurological History: Stroke ENT History: No Pertinent History Cardiac History: Congestive Heart Failure, Coronary Artery Disease, High C holesterol, Myocardial Infarction (ME), Other Respiratory History: Asthma, COPD Endocrine Medical History: No Pertinent History Musculoskelatal History: No Pertinent History GI Medical History: No Pertinent History History: No Pertinent History Pyscho-Social History: No Pertinent History Male Reproductive Disorders: No Pertinent History Comment: AFIB. CABG 1999. PACEMAKER 1999. CKD stage 3 - Past Surgical History Past Surgical History: Yes Neuro Surgical History: No Pertinent History Cardiac History: CABG, Cardiac Stent Respiratory Surgery: No Pertinent History GI Surgical History: Appendectomy, Hernia Repair Genitourinary Surgical Hx: No Pertinent History Musculskeletal Surgical Hx: No Pertinent History Male Surgical History: No Pertinent History Other Surgical History: PACEMAKER - Social History Smoking Status: Never smoker Exposure to second hand smoke: No Alcohol: None Drug Use: none Significant Family History: heart disease - Physical Exam Vital Signs: Vital Signs - 24 hr Temp Pulse Resp BP BP Pulse Ox 09/26/22 12:01 76 20 97 09/26/22 11:46 98.8 F 76 20 109/66 97 09/26/22 09:16 97.7 F 70 20 121/74 94 L 09/26/22 08:30 70 18 103/62 95 09/26/22 07:00 82 25 H 105/68 95 09/26/22 06:46 97 09/26/22 06:00 89 26 H 118/76 95 09/26/22 05:15 86 23 93/62 98 09/26/22 05:14 97.1 F 91 H 22 93/62 97 General Appearance: no apparent distress Neurologic Exam: alert, oriented x 3, normal mood/affect Eye Exam: eyes nml inspection, No scleral icterus Ears, Nose, Throat Exam: normal ENT inspection Neck Exam: normal inspection, No JVD Respiratory Exam: normal breath sounds, lungs clear, No respiratory distress, No accessory muscle use Cardiovascular Exam: regular rate/rhythm, murmur (4/6 decrescendo murmur at LUSB) Gastrointestinal/Abdomen Exam: soft, distention, No tenderness Skin Exam: No rash Results - Labs Lab/Micro Results: Lab Results-Last 24 Hours 09/26/22 09/26/22 09/26/22 Range/Units 05:26 05:26 05:26 WBC 7.8 (4.0-10.5) x10^3/uL RBC 3.93 L (4.1-5.6) x10^6/uL Hgb 10.5 L (12.5-18.0) g/dL Hct 35.3 L (42-50) % MCV 89.8 (78-100) fL MCH 26.7 (26-32) pg MCHC 29.7 L (32-36) g/dL RDW 17.0 H (11.5-14.0) % Plt Count 187 (150-450) x10^3/uL MPV 10.8 (7.5-11.0) fL Gran % 69.0 H (36.0-66.0) % Immature Gran % (Auto) 0.4 (0.00-0.4) % Nucleat RBC Rel Count 0.0 (0.00-0.1) % Eos # (Auto) 0.42 (0-0.5) x10^3/uL Immature Gran # (Auto) 0.03 (0.00-0.03) x10^3u/L Absolute Lymphs (auto) 1.34 (1.0-4.6) x10^3/uL Absolute Monos (auto) 0.58 (0.0-1.3) x10^3/uL Absolute Nucleated RBC 0.00 (0.00-0.01) x10^3u/L Lymphocytes % 17.3 L (24.0-44.0) % Monocytes % 7.5 (0.0-12.0) % Eosinophils % 5.4 H (0.00-5.0) % Basophils % 0.4 (0.0-0.4) % Absolute Granulocytes 5.36 (1.4-6.9) x10^3/uL Basophils # 0.03 (0-0.4) x10^3/uL PT 21.3 H (9.4-12.5) SECONDS INR 2.06 (0.8-3.0) D-Dimer 1.09 H* (0.0-0.50) mg/L Sodium 142 (137-145) mmol/L Potassium 3.1 L (3.5-5.1) mmol/L Chloride 101 (98-107) mmol/L Carbon Dioxide 30 (22-30) mmol/L Anion Gap 14.7 (5-15) MEQ/L BUN 17 (9-20) mg/dL Creatinine 1.33 H (0.66-1.25) mg/dL Estimated GFR 54.1 ML/MIN Glucose 130 H (74-106) mg/dL Calcium 8.8 (8.4-10.2) mg/dL Total Bilirubin 0.90 (0.2-1.3) mg/dL AST 36 (17-59) U/L ALT 21 (0-50) U/L Alkaline Phosphatase 131 H (38-126) U/L Troponin I (0.000-0.034) ng/mL NT-Pro-B Natriuret Pep 4630 (<300) pg/mL Serum Total Protein 7.3 (6.3-8.2) g/dL Albumin 3.9 (3.5-5.0) g/dL Influenza Type A Ag (NEGATIVE) Influenza Type B Ag (NEGATIVE) RSV (PCR) (NEGATIVE) SARS-CoV-2 (PCR) (NEGATIVE) 09/26/22 09/26/22 09/26/22 Range/Units 05:26 06:00 09:35 WBC (4.0-10.5) x10^3/uL RBC (4.1-5.6) x10^6/uL Hgb (12.5-18.0) g/dL Hct (42-50) % MCV (78-100) fL MCH (26-32) pg MCHC (32-36) g/dL RDW (11.5-14.0) % Plt Count (150-450) x10^3/uL MPV (7.5-11.0) fL Gran % (36.0-66.0) % Immature Gran % (Auto) (0.00-0.4) % Nucleat RBC Rel Count (0.00-0.1) % Eos # (Auto) (0-0.5) x10^3/uL Immature Gran # (Auto) (0.00-0.03) x10^3u/L Absolute Lymphs (auto) (1.0-4.6) x10^3/uL Absolute Monos (auto) (0.0-1.3) x10^3/uL Absolute Nucleated RBC (0.00-0.01) x10^3u/L Lymphocytes % (24.0-44.0) % Monocytes % (0.0-12.0) % Eosinophils % (0.00-5.0) % Basophils % (0.0-0.4) % Absolute Granulocytes (1.4-6.9) x10^3/uL Basophils # (0-0.4) x10^3/uL PT (9.4-12.5) SECONDS INR (0.8-3.0) D-Dimer (0.0-0.50) mg/L Sodium (137-145) mmol/L Potassium (3.5-5.1) mmol/L Chloride (98-107) mmol/L Carbon Dioxide (22-30) mmol/L Anion Gap (5-15) MEQ/L BUN (9-20) mg/dL Creatinine (0.66-1.25) mg/dL Estimated GFR ML/MIN Glucose (74-106) mg/dL Calcium (8.4-10.2) mg/dL Total Bilirubin (0.2-1.3) mg/dL AST (17-59) U/L ALT (0-50) U/L Alkaline Phosphatase (38-126) U/L Troponin I 0.070 H* 0.060 H* (0.000-0.034) ng/mL NT-Pro-B Natriuret Pep (<300) pg/mL Serum Total Protein (6.3-8.2) g/dL Albumin (3.5-5.0) g/dL Influenza Type A Ag NEGATIVE (NEGATIVE) Influenza Type B Ag NEGATIVE (NEGATIVE) RSV (PCR) NEGATIVE (NEGATIVE) SARS-CoV-2 (PCR) NEGATIVE (NEGATIVE) - Radiology Impressions Radiology Exams & Impressions: Radiology Procedures Category Date Time Status CHEST 1 VIEW (PORTABLE) Stat Exams 09/26/22 05:38 Completed CHEST WITH CONTRAST [CT] Stat Exams 09/26/22 06:[address] Chest: 1. No evidence of pulmonary arterial thromboembolic disease. 2. In comparison to previous CT scan dated 09/09/2022, no significant interval change noted. - Other Procedures and Tests Respiratory Therapy 09/26/22 09:17 Oxygen NASAL CANNULA 2 lpm 09/27/22 07:00 Respiratory Therapy Assessment DAILY Assessment/Plan (1) CHF (congestive heart failure) Current Visit: Yes Status: Acute Assessment & Plan: 87 y/o M with history of severe aortic stenosis, HFrEF, A-fib s/p PPM, CAD, CKD3, who presents with dyspnea, acute on chronic systolic heart failure. ## Acute on chronic systolic heart failure. Secondary to ischemic cardiomyopathy and severe aortic stenosis. Now requiring room air. BNP is slightly higher from his baseline, but mostly unchanged. At home on Bumex 2 BID, but was just discharged one week ago after similar presentation. Unfortunately, was given IV fluid bolus and continuous fluids in ED. Not on beta-ankit due to bradycardia. - d/c NS continuous drip - give Lasix IV 80 mg x1 - resume home spironolactone - continue SGLT2 inhibitor - consider ANDREY inhibitor if renal function remains stable ## Hypokalemia - secondary to diuresis - give KCl 40 mEq IV x1 - repeat BMP, Mg in AM ## Chronic hypoxic respiratory failure - Secondary to CHF above. Patient now on home oxygen. - continue 2L oxygen ## CKD3 - Patient is at his baseline Creatnine level of 1.3-1.5 - follow BMP ## Elevated troponin level - chronic for patient, and typical for his CKD. No chest pain. - stop serial troponins ## Severe aortic stenosis, LV thrombus - planning for TAVR, delayed by LV thrombus. Now on warfarin, therapeutic today - continue warfarin 2.5 mg daily - follow INR daily Code status: DNR Prophylaxis: warfarin Entirety of encounter took place via telemedicine, to which patient consented. Code(s): I50.9 - HEART FAILURE, UNSPECIFIED Telemedicine Encounter - Telemedicine Encounter Telemedicine Encounter: The entirety of this encounter was performed via Telemedicine"
[2022-09-26] MEDS: DUONEB 0.5-3 MG/3 ml Neb IH PRN ×2 (13:45→23:28)
[2022-09-26] MEDS: JANTOVEN PO SCH (17:36)
[2022-09-26] MEDS: DUONEB 0.5-3 MG/3 ml Neb IH SCH (19:10)
[2022-09-26] MEDS: Desyrel 150 MG PO SCH (22:40)
[2022-09-27] MEDS ORDERED: TYLENOL 325 MG PO PRN (01:32)
[2022-09-27 05:22] LABS: Hematocrit 30.7 % (42-50); Hemoglobin 9.6 g/dL (12.5-18.0); Mean Corpuscular Hemoglobin 26.9 pg (26-32); Mean Corpuscular Hgb Concent. 31.3 g/dL (32-36); Mean Platelet Volume 11.2 fL (7.5-11.0); Platelet Count 164 x10^3/uL (150-450); Red Blood Count 3.57 x10^6/uL (4.1-5.6); Red Cell Distribution Width 17.1 % (11.5-14.0)
[2022-09-27 05:33] LABS: ANION GAP 14.5 MEQ/L (5-15); BLOOD UREA NITROGEN 27 mg/dL (9-20); CHLORIDE 100 mmol/L (98-107); Calcium 8.1 mg/dL (8.4-10.2); Carbon Dioxide 25 mmol/L (22-30); EST GLOMERULAR FILTRATION RATE > 60.0 ML/MIN; Glucose 117 mg/dL (74-106); MAGNESIUM 2.4 mg/dL (1.6-2.3); Potassium 3.4 mmol/L (3.5-5.1); SODIUM 136 mmol/L (137-145)
[2022-09-27 05:53] LABS: INR 1.96 (0.8-3.0); PROTIME 20.3 SECONDS (9.4-12.5)
[2022-09-27] MEDS: DUONEB 0.5-3 MG/3 ml Neb IH SCH ×2 (07:23→18:54)
[2022-09-27] MEDS: Aldactone 25 MG PO SCH (08:21)
[2022-09-27] MEDS: JARDIANCE PO SCH (08:22)
[2022-09-27] MEDS: Protonix 40MG Tablet PO SCH (08:22)
[2022-09-27] MEDS: ZOCOR 20MG PO SCH (08:22)
[2022-09-27] MEDS ORDERED: Lasix 40 MG/4 ML IV ONE (08:36)
[2022-09-27] MEDS ORDERED: LIPITOR 40MG PO SCH (10:00)
[2022-09-27] MEDS ORDERED: NON-FORMULARY ITEM (Omeprazole [Omeprazole] 40 MG Capsule.Dr) PO SCH (10:00)
[2022-09-27] MEDS: Klor Con PO SCH (10:36)
[2022-09-27] MEDS: DUONEB 0.5-3 MG/3 ml Neb IH PRN (14:26)
--- NOTE | 2022-09-27 16:43 | PCM.NOTE ---
Date and Time: 09/27/22 1637 Subjective Assessment: No acute events overnight. Patient reports making a lot of urine after getting IV Lasix last night. He was able to ambulate to the bathroom. Notes that his leg edema is a little bit improved, and that he is little better appetite today. Denies chest pain, nausea, or diarrhea. - Review of Systems Constitutional: No Fever, No Chills Respiratory: Short Of Breath, Wheezing Cardiac: Edema, No Chest Pain, No Orthopnea All Other Systems: Reviewed and Negative Objective Exam General Appearance: no apparent distress Neurologic Exam: alert, oriented x 3, normal mood/affect, other (Mild hearing impairment) Skin Exam: normal color Eye Exam: eyes nml inspection Neck Exam: normal inspection Respiratory Exam: wheezing (Mild), other (On 2 L oxygen by nasal cannula), No respiratory distress, No accessory muscle use Cardiovascular Exam: regular rate/rhythm, normal heart sounds, murmur (3 out of 6 decrescendo murmur at the left upper sternal border), edema Gastrointestinal/Abdomen Exam: soft, No tenderness, No distention OBJECTIVE DATA Vital Signs: Vital Signs - 24 hr Temp Pulse Resp BP Pulse Ox 09/27/22 16:00 98.1 F 82 16 110/71 96 09/27/22 14:31 82 20 97 09/27/22 11:53 98.2 F 71 18 124/78 96 09/27/22 07:20 98.1 F 74 18 108/60 97 09/27/22 07:00 70 20 95 09/27/22 04:00 97.3 F 76 22 103/59 97 09/26/22 23:54 97.1 F 78 22 120/76 96 09/26/22 23:30 76 20 97 09/26/22 20:00 97.7 F 71 20 99/50 96 09/26/22 19:10 77 18 97 Pain Assessment - Last Documented Pain Intensity 3 Pain Scale Used 0-10 Pain Scale Intake and Output: Intake & Output 09/25/22 09/26/22 09/27/22 09/28/22 11:59 11:59 11:59 11:59 Intake Total 2039 480 Balance 2039 480 Weight 80.4 kg 80.4 kg Lab Results: Lab Results-Last 24 Hours 09/26/22 09/27/22 09/27/22 Range/Units 16:50 04:48 04:48 WBC 7.0 (4.0-10.5) x10^3/uL RBC 3.57 L (4.1-5.6) x10^6/uL Hgb 9.6 L (12.5-18.0) g/dL Hct 30.7 L (42-50) % MCV 86.0 (78-100) fL MCH 26.9 (26-32) pg MCHC 31.3 L (32-36) g/dL RDW 17.1 H (11.5-14.0) % Plt Count 164 (150-450) x10^3/uL MPV 11.2 H (7.5-11.0) fL PT (9.4-12.5) SECONDS INR (0.8-3.0) Sodium 136 L (137-145) mmol/L Potassium 3.8 D 3.4 L (3.5-5.1) mmol/L Chloride 100 (98-107) mmol/L Carbon Dioxide 25 (22-30) mmol/L Anion Gap 14.5 (5-15) MEQ/L BUN 27 H (9-20) mg/dL Creatinine 1.20 (0.66-1.25) mg/dL Estimated GFR > 60.0 ML/MIN Glucose 117 H (74-106) mg/dL Calcium 8.1 L (8.4-10.2) mg/dL Magnesium 2.4 H (1.6-2.3) mg/dL 09/27/22 Range/Units 04:48 WBC (4.0-10.5) x10^3/uL RBC (4.1-5.6) x10^6/uL Hgb (12.5-18.0) g/dL Hct (42-50) % MCV (78-100) fL MCH (26-32) pg MCHC (32-36) g/dL RDW (11.5-14.0) % Plt Count (150-450) x10^3/uL MPV (7.5-11.0) fL PT 20.3 H (9.4-12.5) SECONDS INR 1.96 (0.8-3.0) Sodium (137-145) mmol/L Potassium (3.5-5.1) mmol/L Chloride (98-107) mmol/L Carbon Dioxide (22-30) mmol/L Anion Gap (5-15) MEQ/L BUN (9-20) mg/dL Creatinine (0.66-1.25) mg/dL Estimated GFR ML/MIN Glucose (74-106) mg/dL Calcium (8.4-10.2) mg/dL Magnesium (1.6-2.3) mg/dL Radiology Exams: Radiology Procedures Category Date Time Status CHEST 1 VIEW (PORTABLE) Stat Exams 09/26/22 05:38 Completed CHEST WITH CONTRAST [CT] Stat Exams 09/26/22 06:35 Completed Multi-Disciplinary Progress Notes: Multi-Disciplinary Progress Notes 09/27/22 09:33 Case Management Note by Margaret Muhammad PATIENT HAS [facility]. THEY WERE NOTIFIED PATIENT HERE OBS. THEY WILL NEED NOTIFIED AT TIME OF DC AT [phone]. THEY WILL NEED FAXED THE DC INSTRUCTIONS, DC MED LIST AND DC SUMMARY ( IF AVAILABLE) TO [phone] Initialized on 09/27/22 09:33 - END OF NOTE Assessment/Plan (1) CHF (congestive heart failure) Current Visit: Yes Status: Acute Assessment & Plan: 87 y/o M with history of severe aortic stenosis, HFrEF, A-fib s/p PPM, CAD, CKD3, who presents with dyspnea, acute on chronic systolic heart failure. ## Acute on chronic systolic heart failure secondary to ischemic car diomyopathy and severe aortic stenosis. BNP mildly higher on admission, and with some dyspnea. Now responding well to IV Lasix last night. Not on beta-ankit due to bradycardia. - give Lasix IV 80 mg x1 again today - Continue home spironolactone - continue SGLT2 inhibitor - consider ANDREY inhibitor if renal function remains stable ## Hypokalemia - secondary to diuresis - give KCl 40 mEq IV x1 again today - repeat BMP, Mg in AM ## Chronic hypoxic respiratory failure - Secondary to CHF above. Patient now on home oxygen since last admission, at his baseline requirements. - continue 2L oxygen ## CKD3 - reported baseline creatinine is 1.3-1.5, slightly improved today 1.2. - follow BMP ## Severe aortic stenosis, LV thrombus - planning for TAVR, delayed by LV thrombus. Now on warfarin, just under therapeutic level today. - continue warfarin 2.5 mg daily - follow INR daily Code status: DNR Prophylaxis: warfarin Dispo: Clinically improving, likely able to be ready to be discharged to home tomorrow. He already has home oxygen. Entirety of encounter took place via telemedicine, to which patient consented. Code(s): I50.9 - HEART FAILURE, UNSPECIFIED Telemedicine Encounter - Telemedicine Encounter Telemedicine Encounter: The entirety of this encounter was performed via Telemedicine"
[2022-09-27] MEDS: JANTOVEN PO SCH (18:30)
[2022-09-27] MEDS: Desyrel 150 MG PO SCH (21:33)
[2022-09-28] MEDS: DUONEB 0.5-3 MG/3 ml Neb IH PRN ×2 (02:50→12:07)
[2022-09-28 05:51] LABS: INR 1.69 (0.8-3.0); PROTIME 17.7 SECONDS (9.4-12.5)
[2022-09-28 05:53] LABS: ANION GAP 11.2 MEQ/L (5-15); BLOOD UREA NITROGEN 29 mg/dL (9-20); CHLORIDE 100 mmol/L (98-107); Calcium 8.2 mg/dL (8.4-10.2); Carbon Dioxide 29 mmol/L (22-30); Creatinine 1 1.21 mg/dL (0.66-1.25); EST GLOMERULAR FILTRATION RATE > 60.0 ML/MIN; Glucose 94 mg/dL (74-106); MAGNESIUM 2.3 mg/dL (1.6-2.3); Potassium 3.2 mmol/L (3.5-5.1); SODIUM 137 mmol/L (137-145)
[2022-09-28 05:59] LABS: Hematocrit 32.1 % (42-50); Hemoglobin 9.8 g/dL (12.5-18.0); Mean Cell Volume 87.5 fL (78-100); Mean Corpuscular Hemoglobin 26.7 pg (26-32); Mean Corpuscular Hgb Concent. 30.5 g/dL (32-36); Mean Platelet Volume 11.5 fL (7.5-11.0); Platelet Count 162 x10^3/uL (150-450); Red Blood Count 3.67 x10^6/uL (4.1-5.6); Red Cell Distribution Width 17.1 % (11.5-14.0); White Blood Count 6.8 x10^3/uL (4.0-10.5)
[2022-09-28] MEDS: DUONEB 0.5-3 MG/3 ml Neb IH SCH (06:34)
[2022-09-28] MEDS: Protonix 40MG Tablet PO SCH (08:18)
[2022-09-28] MEDS: Aldactone 25 MG PO SCH (08:18)
[2022-09-28] MEDS: Klor Con PO SCH (08:19)
[2022-09-28] MEDS: ZOCOR 20MG PO SCH (08:19)
[2022-09-28] MEDS: JARDIANCE PO SCH (08:20)
[2022-09-28] MEDS ORDERED: BUMEX 1 MG PO SCH (10:00)
--- NOTE | 2022-09-28 11:33 | PCM.DS ---
Discharge Summary Date of Admission: 09/26/22 08:55 Date of Discharge: 09/28/2022 Admitting Physician: QUINN VARGAS MD Primary Care Provider: ULISES ADAMS Allergies Allergies No Known Drug Allergies Allergy (Verified 09/19/22 20:13) Hospital Summary - Hospital Course Hospital Course: 87-year-old man with history of severe aortic stenosis, HFrEF, A-fib, CKD 3, and CAD, who presented with progressive dyspnea, leg edema, and no satiety, felt to be due to acute on chronic exacerbation of his heart failure. He had recently been admitted and discharged with similar symptoms. He been compliant with his medications at home, but had been a little bit worse overall. He initially was given bolus fluids for concern for pneumonia and COPD in the ED. He was changed back to IV Lasix. Patient did well with diuresis, with good urine output with 2 days of Lasix 80 mg IV. His breathing improved back to his baseline, and his leg edema almost completely resolved. His creatinine remained at his baseline of 1.2-1.3. He remains on 2 L oxygen, which was started at his last admission. He was able to ambulate around the room without difficulty. His weight decreased from 80.4 kg to 78 kg by day of discharge. His warfarin dose had to be increased to 5 mg on Sunday and Sunday and 2.5 mg all other days, and coordination with the Coumadin clinic. He will follow-up with the Coumadin clinic next week. He was started on daily scheduled potassium because of persistent hypokalemia from diuresis. Entirety of encounter took place via telemedicine. Patient consented to telemedicine. Greater than 30 minutes managing discharge. - Vitals & Intake/Output Vital Signs: Vital Signs Temperature 97.1 F 09/28/22 07:40 Pulse Rate 78 09/28/22 07:40 Respiratory Rate 16 09/28/22 07:40 Blood Pressure 129/74 09/28/22 07:40 O2 Sat by Pulse Oximetry 98 09/28/22 06:36 Intake & Output: Intake & Output 09/25/22 09/26/22 09/27/22 09/28/22 11:59 11:59 11:59 11:59 Intake Total 2039 1859 Balance 2039 1859 Weight 80.4 kg 80.4 kg 78 kg - Lab Result Diagrams: 09/28/22 04:54 09/28/22 04:54 Lab Results-Last 24 Hrs: Lab Results-Last 24 Hours 09/28/22 09/28/22 09/28/22 Range/Units 04:54 04:54 04:54 WBC 6.8 (4.0-10.5) x10^3/uL RBC 3.67 L (4.1-5.6) x10^6/uL Hgb 9.8 L (12.5-18.0) g/dL Hct 32.1 L (42-50) % MCV 87.5 (78-100) fL MCH 26.7 (26-32) pg MCHC 30.5 L (32-36) g/dL RDW 17.1 H (11.5-14.0) % Plt Count 162 (150-450) x10^3/uL MPV 11.5 H (7.5-11.0) fL PT 17.7 H (9.4-12.5) SECONDS INR 1.69 (0.8-3.0) Sodium 137 (137-145) mmol/L Potassium 3.2 L (3.5-5.1) mmol/L Chloride 100 (98-107) mmol/L Carbon Dioxide 29 (22-30) mmol/L Anion Gap 11.2 (5-15) MEQ/L BUN 29 H (9-20) mg/dL Creatinine 1.21 (0.66-1.25) mg/dL Estimated GFR > 60.0 ML/MIN Glucose 94 (74-106) mg/dL Calcium 8.2 L (8.4-10.2) mg/dL Magnesium 2.3 (1.6-2.3) mg/dL - Procedures and Test Procedures and Tests throughout Hospitalization: Therapy Orders & Screens 09/26/22 06:02 Respiratory Therapy Assessment DAILY Comment: 09/26/22 09:17 Oxygen NASAL CANNULA 2 lpm Comment: Diagnosis: CHF 09/26/22 09:52 RT Screen per Nursing Assess ONCE Comment: Protocol Order Physician Instructions: Greater than 3 points order RT Admission Screen Reason For Exam: Triggered on Admission Diagnosis: CHF, COPD exacerbation, elevated troponin, hypokalemia Diagnosis: CHF, COPD exacerbation, elevated troponin, hypokalemia Pneumonia: No Home O2: Yes Asthma: No CHF: Yes Home CPAP/BIPAP: No Home Nebs/MDI: Yes Total Points: 13 09/27/22 07:00 Respiratory Therapy Assessment DAILY Comment: Diagnosis: CHF, COPD exacerbation, elevated troponin, hypokalemia Discharge Exam General Appearance: no apparent distress Neurologic Exam: alert, oriented x 3, normal mood/affect Eye Exam: eyes nml inspection Respiratory Exam: other (Very mild and expiratory wheezing. Speaking complete sentences, good air movement. On 2 L oxygen by nasal cannula.) Cardiovascular Exam: regular rate/rhythm, murmur (3 out of 6 systolic murmur at LUSB), No edema Gastrointestinal/Abdomen Exam: soft, normal bowel sounds Final Diagnosis/Problem List - Final Discharge Diagnosis/Problem (1) CHF (congestive heart failure) Current Visit: Yes Status: Acute Code(s): I50.9 - HEART FAILURE, UNSPECIFIED Telemedicine Encounter - Telemedicine Encounter Telemedicine Encounter: The entirety of this encounter was performed via Telemedicine" - Discharge Disposition: Home, Self-Care Condition: Stable Prescriptions: New Warfarin Sodium 5 mg [Jantoven] 2.5 mg PO [email or web address] tablet Warfarin Sodium 5 mg [Jantoven] 5 mg PO [email or web address] tablet Potassium Chloride Tab* [Klor Con] 40 meq PO DAILY #120 tablet Continue Atorvastatin Calcium [Lipitor] 40 mg PO DAILY Albuterol Sulfate [Proair Hfa] 8.5 gm IH Q4HWA Albuterol/Ipratropium 3ml Neb* [DUONEB 0.5-3 MG/3 ml Neb] 3 ml IH Q6H PRN PRN PRN Reason: Shortness Of Breath/Wheezing Trazodone HCl 150 mg PO HS Omeprazole 40 mg PO DAILY Empagliflozin [Jardiance] 10 mg PO DAILY Bumetanide 1 mg [Bumex 1 mg] 2 mg PO BID Spironolactone 25 mg [Aldactone 25 MG] 12.5 mg PO DAILY Discontinued Warfarin Sodium 5 mg [Jantoven] 2.5 mg PO DAILY Additional Instructions: Follow-up with your broom maker Dr. Saucedo on 10/26/2022. Follow up with: ELYSSA MURPHY NP [NON-STAFF PHY W/O PRIVILEGES] - 10/06/22 2:15 pm
[2022-09-28 11:40] VITALS: BP 108/61
[2022-09-28 12:09] VITALS: PULSE 69; O2SAT 96
[2022-09-28] MEDS ORDERED: Klor Con PO ONE (13:00)
[2022-09-28] MEDS ORDERED: JANTOVEN PO SCH (18:00)
[2022-09-30] MEDS ORDERED: JANTOVEN PO SCH (18:00)
== END 2022-09-28 15:58 | disposition home or self-care (01) ==
LOC: ED 05:13 → MED SURG 08:55
PROVIDERS: ADMIT Internal Medicine; ATTEND Internal Medicine
DX: I50.9 Heart failure, unspecified (principal); N18.30 Chronic kidney disease, stage 3 unspecified; I48.91 Unspecified atrial fibrillation; I25.10 Atherosclerotic heart disease of native coronary artery without angina pectoris; R60.0 Localized edema; E78.5 Hyperlipidemia, unspecified; E87.6 Hypokalemia; R77.8 Other specified abnormalities of plasma proteins; J96.11 Chronic respiratory failure with hypoxia; J44.1 Chronic obstructive pulmonary disease with (acute) exacerbation; Z79.01 Long term (current) use of anticoagulants; Z79.899 Other long term (current) drug therapy; Z20.828 Contact with and (suspected) exposure to other viral communicable diseases; Z95.1 Presence of aortocoronary bypass graft; Z99.81 Dependence on supplemental oxygen
CPT/HCPCS: 0241U; 36000; 36415; 71045; 71260; 80048; 80053; 83735; 83880; 84132; 84484; 85025; 85027; 85379; 85610; 93005; 93041; 94640; 94760; 96365; 96367; 96368; 96374; 96375; 99284; Q3014; 93268; J0456; J0696; J1940; J2930; J3480; J7609; A9270-GY; G0378; J3475

== ENCOUNTER 2022-12-05 07:57 | Observation (INO) | payer MEDICARE ==
[2022-12-05] MEDS ORDERED: DUONEB 0.5-3 MG/3 ml Neb IH ONE ×3 (08:18→11:33)
[2022-12-05] MEDS ORDERED: solu-MEDROL 125 MG, Sterile H2O 10 ml 2 ML IV ONE ×2 (08:18)
[2022-12-05] MEDS ORDERED: ROCEPHIN 2 Gm-D5w 50ML BAG** 2 G/50 ML IVPB IV STA (08:20)
[2022-12-05] MEDS ORDERED: Zithromax 500 MG/ 250 ML NaCl Premix 500 MG/250 ML IVPB IV STA (08:20)
[2022-12-05] MEDS ORDERED: solu-MEDROL ONE (08:37)
[2022-12-05] MEDS ORDERED: Sterile H2O 10 ml IJ ONE (08:37)
[2022-12-05] MEDS ORDERED: Zithromax 500 MG/ 250 ML NaCl Premix 500 MG/250 ML IVPB IV ONE (08:37)
[2022-12-05] MEDS ORDERED: ROCEPHIN 2 Gm-D5w 50ML BAG** 2 G/50 ML IVPB IV ONE (08:37)
--- NOTE | 2022-12-05 08:46 | ERPHSYRPT ---
- History of Present Illness Time Seen by Provider: 12/05/22 08:15 Source: patient Exam Limitations: no limitations Patient Subjective Stated Complaint: Cough/SOB Triage Nursing Assessment: Patient brought into ED per w/c and transferred to bed with asssit of 1. Patient A+O X 3. Patient's skin pink, warm and dry. Patient complains of increased cough and SOB that started yesterday. Patient denies pain or discomfort. Lungs noted to have wheezing throughout. Patient wears home O2 PRN at home. Upon assessment on room air O2 sat 86% on room air. O 2 applied at 3 liters per N/C bringing sat to 90%. Patient placed on Oxymask per RT on 5 liters and O2 sat 97%. Physician History: Patient is an 87-year-old male with a history of COPD presents to our ED with complaints of shortness of breath and a cough. Symptoms started yesterday. Patient treated himself earlier this morning at approximately 5:30 AM with albuterol nebulizer. Symptoms persisted and patient decided to come to our ED for evaluation. Patient is here with his granddaughter. She serves as the historian. Patient wears 3 L nasal cannula at home. Upon arrival patient was hypoxic at 86%. We placed patient on his usual 3 L nasal cannula and sats incr eased to 90%. Patient appears to be mouth breathing. So we placed an oxy mask. Patient now on 5 L saturating 97%. No chest pain or shortness of breath. No nausea vomiting or diaphoresis. No fever. Symptoms are moderate in intensity. No specific worsening or improving factors. Granddaughter at bedside. She advised that patient has history of CHF. Patient is on Coumadin for aortic stenosis per her granddaughter. They voiced no other complaints or concerns at this time. Portions of this note were created with voice recognition technology. There may be grammatical, spelling, punctuation or sound alike errors Timing/Duration: yesterday Severity: moderate Modifying Factors: Improves With: nothing Associated Symptoms: cough Allergies/Adverse Reactions: No Known Drug Allergies Allergy (Verified 12/05/22 08:07) Home Medications: Albuterol Sulfate [Proair Hfa] 8.5 gm IH Q4HWA 06/08/20 [History] Atorvastatin Calcium [Lipitor] 40 mg PO DAILY 06/08/20 [History] Albuterol/Ipratropium 3ml Neb* [DUONEB 0.5-3 MG/3 ml Neb] 3 ml IH Q6H PRN PRN 10/17/20 [History] Trazodone HCl 150 mg PO HS 09/19/22 [History] Bumetanide 1 mg [Bumex 1 mg] 2 mg PO BID 09/20/22 [History] Empagliflozin [Jardiance] 10 mg PO DAILY 09/20/22 [History] Omeprazole 40 mg PO DAILY 09/20/22 [History] Spironolactone 25 mg [Aldactone 25 MG] 12.5 mg PO DAILY 09/26/22 [History] Hx Tetanus, Diphtheria Vaccination/Date Given: No (unsure) Hx Influenza Vaccination/Date Given: Yes Hx Pneumococcal Vaccination/Date Given: Yes Immunizations Up to Date: Yes Travel Risk - International Travel Have you traveled outside of the country in past 3 weeks: No - Coronavirus Screening Are you exhibiting any of the following symptoms?: No Close contact with a COVID-19 positive Pt in past 14-21 Days: No - Vaccine Status Have you recieved a Covid-19 vaccination: Yes [employer] Student Coordinator: Moderna - Vaccination Dates Date of 2cond Vaccination (if applicable): 2020 - Review of Systems Constitutional: No Symptoms, No Fever, No Chills Eyes: No Symptoms Ears, Nose, & Throat: No Symptoms Respiratory: No Symptoms, No Cough, No Dyspnea Cardiac: No Symptoms, No Chest Pain, No Edema, No Syncope Abdominal/Gastrointestinal: No Symptoms, No Abdominal Pain, No Nausea, No Vomiting, No Diarrhea Genitourinary Symptoms: No Symptoms, No Dysuria Musculoskeletal: No Symptoms, No Back Pain, No Neck Pain Skin: No Symptoms, No Rash Neurological: No Symptoms, No Dizziness, No Focal Weakness, No Sensory Changes Psychological: No Symptoms Endocrine: No Symptoms Hematologic/Lymphatic: No Symptoms Immunological/Allergic: No Symptoms All Other Systems: Reviewed and Negative - Past Medical History Pertinent Past Medical History: Yes Neurological History: Stroke ENT History: No Pertinent History Cardiac History: Congestive Heart Failure, Coronary Artery Disease, High Cholesterol, Myocardial Infarction (NH), Other Respiratory History: Asthma, COPD Endocrine Medical History: No Pertinent History Musculoskeletal History: No Pertinent History GI Medical History: No Pertinent History History: No Pertinent History Psycho-Social History: No Pertinent History Male Reproductive Disorders: No Pertinent History Other Medical History: AFIB. CABG 2000. PACEMAKER 1999. CKD stage 3 - Past Surgical History Past Surgical History: Yes Neuro Surgical History: No Pertinent History Cardiac: CABG, Cardiac Stent Respiratory: No Pertinent History Gastrointestinal: Appendectomy, Hernia Repair Genitourinary: No Pertinent History Musculoskeletal: No Pertinent History Male Surgical History: No Pertinent History Other Surgical History: PACEMAKER - Social History Smoking Status: Never smoker Exposure to second hand smoke: No Drug Use: none Patient Lives Alone: No Significant Family History: heart disease - Nursing Vital Signs Nursing Vital Signs: Initial Vital Signs Temperature 98.4 F 12/05/22 08:08 Pulse Rate 84 12/05/22 08:08 Respiratory Rate 30 H 12/05/22 08:08 Blood Pressure 169/96 12/05/22 08:08 O2 Sat by Pulse Oximetry 86 L 12/05/22 08:08 Pain Scale Pain Intensity 0 - Physical Exam General Appearance: mild distress, alert Eye Exam: PERRL/EOMI, eyes nml inspection Ears, Nose, Throat Exam: normal ENT inspection, TMs normal, pharynx normal, moist mucous membranes Neck Exam: normal inspection, non-tender, supple, full range of motion Respiratory Exam: respiratory distress (Mild respiratory distress), wheezing Cardiovascular Exam: regular rate/rhythm, normal heart sounds, normal peripheral pulses Gastrointestinal/Abdomen Exam: soft, normal bowel sounds, No tenderness, No mass Back Exam: normal inspection, normal range of motion, No CVA tenderness, No vertebral tenderness Extremity Exam: normal inspection, normal range of motion, pelvis stable Neurologic Exam: alert, oriented x 3, cooperative, normal mood/affect, nml cerebellar function, nml station & gait, sensation nml, No motor deficits Skin Exam: normal color, warm, dry, No rash Lymphatic Exam: No adenopathy SpO2 Interpretation: hypoxic SpO2: 86 O2 Delivery: Room Air - Course Nursing assessment & vital signs reviewed: Yes EKG Interpreted by Me: RATE, A-fib, NORMAL AXIS, NORMAL INTERVALS (Nonspecific T wave abnormalities) - Radiology Exams Chest X-ray Interpretation: Teleradiologist Report (Borderline cardiomegaly. Aortic valve replacement evidence of CABG. Pacemaker observed. Right upper lobe pneumonia) Ordered Tests: Active Orders 24 hr Category Date Time Status Cost Analyst STAT Care 12/05/22 08:18 Active EKG-ER Only STAT Care 12/05/22 08:18 Active IV Insertion STAT Care 12/05/22 08:18 Active Oxygen-ED Only Venti-Mask 40% Care 12/05/22 08:54 Completed Pulse Oximetry (ED) STAT Care 12/05/22 08:18 Active Telemetry q4h Care 12/05/22 09:14 Active CHEST 1 VIEW (PORTABLE) Stat Exams 12/05/22 08:18 Completed BLOOD CULTURE Stat Lab 12/05/22 08:43 Received CBC W DIFF Stat Lab 12/05/22 08:43 Completed CMP Stat Lab 12/05/22 08:43 Completed NT PRO BNPII Stat Lab 12/05/22 08:43 Completed PROTIME WITH INR Stat Lab 12/05/22 08:43 Completed PTT Stat Lab 12/05/22 08:43 Completed TROPONIN Q4H Lab 12/05/22 08:43 Completed TROPONIN Q4H Lab 12/05/22 12:30 Ordered TROPONIN Q4H Lab 12/05/22 16:30 Ordered Oxygen NASAL CANNULA 2 lpm RT 12/05/22 08:53 Active Transfer Order Routine Transfer 12/05/22 Ordered Medication Summary Generic Name Dose Route Start Last Admin Trade Name Freq PRN Reason Stop Dose Admin Potassium Chloride 20 meq in 100 mls @ 50 mls/hr 12/05/22 09:15 Potassium Chloride 20 Meq In Water 100ml IV 12/05/22 13:14 Q2H FAVIAN Magnesium Sulfate/Dextrose 100 mls @ 100 mls/hr 12/05/22 09:15 Magnesium 1 Gm / 100 Ml D5w IV 12/05/22 11:14 Q1H FAVIAN Discontinued Medications Generic Name Dose Route Start Last Admin Trade Name Freq PRN Reason Stop Dose Admin Albuterol/Ipratropium 3 ml 12/05/22 08:18 12/05/22 08:44 Ipratropium/Albuterol Sulfate 3 Ml Ampul.Neb IH 12/05/22 08:19 3 ml STAT ONE Administration Albuterol/Ipratropium Confirm 12/05/22 08:43 Ipratropium/Albuterol Sulfate 3 Ml Ampul.Neb Administered 12/05/22 08:44 Dose 3 ml IH .STK-MED ONE Methylprednisolone Sodium 0 mg 12/05/22 08:18 12/05/22 08:42 Succinate 125 mg/ Sterile IV 12/05/22 08:19 125 mg Water 2 ml STAT ONE Administration Ceftriaxone Sodium/Dextrose 2 g in 50 mls @ 100 mls/hr 12/05/22 08:20 08:43 Rocephin 2 Gm-D5w 50ml Bag IV 12/05/22 08:49 100 mls/hr STAT STA 100 mls/hr Administration Azithromycin 500 mg in 250 mls @ 250 mls/hr 12/05/22 08:20 12/05/22 09:15 Zithromax 500 Mg/ 250 Ml Nacl Premix IV 12/05/22 09:19 250 mls/hr STAT STA 250 mls/hr Administration Azithromycin Confirm 12/05/22 08:37 Zithromax 500 Mg/ 250 Ml Nacl Premix Administered 12/05/22 08:38 Dose 500 mg in 250 mls @ ud IV .STK-MED ONE Ceftriaxone Sodium/Dextrose Confirm 12/05/22 08:37 Rocephin 2 Gm-D5w 50ml Bag Administered 12/05/22 08:38 Dose 2 g in 50 mls @ ud IV .STK-MED ONE Methylprednisolone Sodium Succinate Confirm 12/05/22 08:37 Methylprednis Sod Succ 125 Mg/2 Ml Vial Administered 12/05/22 08:38 Dose 125 mg .ROUTE .STK-MED ONE Sterile Water Confirm 12/05/22 08:37 Water For Injection,Sterile 10 Ml Vial Administered 12/05/22 08:38 Dose 10 ml IJ .STK-MED ONE Lab/Rad Data: Laboratory Result Diagrams 12/05/22 08:43 12/05/22 08:43 Laboratory Results 12/05/22 12/05/22 12/05/22 Range/Units 08:43 08:43 08:43 WBC (4.0-10.5) x10^3/uL RBC (4.1-5.6) x10^6/uL Hgb (12.5-18.0) g/dL Hct (42-50) % MCV (78-100) fL MCH (26-32) pg MCHC (32-36) g/dL RDW (11.5-14.0) % Plt Count (150-450) x10^3/uL MPV (7.5-11.0) fL Gran % (36.0-66.0) % Immature Gran % (Auto) (0.00-0.4) % Nucleat RBC Rel Count (0.00-0.1) % Eos # (Auto) (0-0.5) x10^3/uL Immature Gran # (Auto) (0.00-0.03) x10^3u/L Absolute Lymphs (auto) (1.0-4.6) x10^3/uL Absolute Monos (auto) (0.0-1.3) x10^3/uL Absolute Nucleated RBC (0.00-0.01) x10^3u/L Lymphocytes % (24.0-44.0) % Monocytes % (0.0-12.0) % Eosinophils % (0.00-5.0) % Basophils % (0.0-0.4) % Absolute Granulocytes (1.4-6.9) x10^3/uL Basophils # (0-0.4) x10^3/uL PT 16.3 H (9.4-12.5) SECONDS INR 1.54 (0.8-3.0) APTT 33.3 (25.1-36.5) SECONDS Sodium (137-145) mmol/L Potassium (3.5-5.1) mmol/L Chloride (98-107) mmol/L Carbon Dioxide (22-30) mmol/L Anion Gap (5-15) MEQ/L BUN (9-20) mg/dL Creatinine (0.66-1.25) mg/dL Estimated GFR ML/MIN Glucose (74-106) mg/dL Calcium (8.4-10.2) mg/dL Total Bilirubin (0.2-1.3) mg/dL AST (17-59) U/L ALT (0-50) U/L Alkaline Phosphatase (38-126) U/L Troponin I 0.048 H* (0.000-0.034) ng/mL NT-Pro-B Natriuret Pep (<300) pg/mL Serum Total Protein (6.3-8.2) g/dL Albumin (3.5-5.0) g/dL Influenza Type A Ag NEGATIVE (NEGATIVE) Influenza Type B Ag NEGATIVE (NEGATIVE) RSV (PCR) NEGATIVE (NEGATIVE) SARS-CoV-2 (PCR) NEGATIVE (NEGATIVE) 12/05/22 12/05/22 Range/Units 08:43 08:43 WBC 8.0 (4.0-10.5) x10^3/uL RBC 4.47 (4.1-5.6) x10^6/uL Hgb 11.4 L (12.5-18.0) g/dL Hct 37.3 L (42-50) % MCV 83.4 (78-100) fL MCH 25.5 L (26-32) pg MCHC 30.6 L (32-36) g/dL RDW 18.6 H (11.5-14.0) % Plt Count 173 (150-450) x10^3/uL MPV 10.4 (7.5-11.0) fL Gran % 70.8 H (36.0-66.0) % Immature Gran % (Auto) 0.3 (0.00-0.4) % Nucleat RBC Rel Count 0.0 (0.00-0.1) % Eos # (Auto) 0.63 H (0-0.5) x10^3/uL Immature Gran # (Auto) 0.02 (0.00-0.03) x10^3u/L Absolute Lymphs (auto) 1.03 (1.0-4.6) x10^3/uL Absolute Monos (auto) 0.61 (0.0-1.3) x10^3/uL Absolute Nucleated RBC 0.00 (0.00-0.01) x10^3u/L Lymphocytes % 12.9 L (24.0-44.0) % Monocytes % 7.6 (0.0-12.0) % Eosinophils % 7.9 H (0.00-5.0) % Basophils % 0.5 (0.0-0.4) % Absolute Granulocytes 5.65 (1.4-6.9) x10^3/uL Basophils # 0.04 (0-0.4) x10^3/uL PT (9.4-12.5) SECONDS INR (0.8-3.0) APTT (25.1-36.5) SECONDS Sodium 139 (137-145) mmol/L Potassium 3.2 L (3.5-5.1) mmol/L Chloride 98 (98-107) mmol/L Carbon Dioxide 31 H (22-30) mmol/L Anion Gap 13.4 (5-15) MEQ/L BUN 29 H (9-20) mg/dL Creatinine 1.15 (0.66-1.25) mg/dL Estimated GFR > 60.0 ML/MIN Glucose 116 H (74-106) mg/dL Calcium 8.9 (8.4-10.2) mg/dL Total Bilirubin 0.80 (0.2-1.3) mg/dL AST 52 (17-59) U/L ALT 33 (0-50) U/L Alkaline Phosphatase 233 H (38-126) U/L Troponin I (0.000-0.034) ng/mL NT-Pro-B Natriuret Pep 2120 (<300) pg/mL Serum Total Protein 7.0 (6.3-8.2) g/dL Albumin 4.3 (3.5-5.0) g/dL Influenza Type A Ag (NEGATIVE) Influenza Type B Ag (NEGATIVE) RSV (PCR) (NEGATIVE) SARS-CoV-2 (PCR) (NEGATIVE) - Progress Progress: improved Progress Note: Patient is an 87-year-old male with a history of COPD, CHF, aortic valve replacement on Coumadin presents to our ED with a 1 day history of progressive s hortness of breath. Patient self treated with albuterol at home. No significant improvement. Upon arrival to our ED patient was observed to be hypoxic however he was not using his usual nasal cannula oxygen. Patient ultimately placed on a facemask. Oxygen sat now 97%. Chest x-ray reveals a rig ht upper lobe pneumonia. Blood cultures obtained. Antibiotics administered. Potassium observed to be 3.2. Patient receiving 40 mEq of K rider. Magnesium supplementation administered as well. Patient received Solu-Medrol, DuoNeb treatment, antibiotics and supplemental oxygen. Symptoms improved but not resolved. Patient will require admission for further evaluation and treatment. Plan of care discussed with patient. He agrees to admission to [facility] for further evaluation and treatment. Patient's granddaughter is at the bedside. Granddaughter serves as the primary historian. They voiced no other complaints or concerns at this time Portions of this note were created with voice recognition technology. There may be grammatical, spelling, punctuation or sound alike errors Complexity of problem addressed is high, severe exacerbation of chronic con dition. No critical care time Complex of data reviewed and analyzed is extensive. Test ordered. Test reviewed. Clinical correlation made between findings and history and physical examination. Patient granddaughter served as independent historian. Management and plan of care discussed with Dr. Moreno hospitalist who excepts admission to observation. Visit complication and or risk of morbidity/mortality of patient management is high. Patient required duo nebulizer treatment for COPD exacerbation/hypoxia. Patient will require hospitalization for further evaluation and treatment. Plan of care established for shared decision making. Vital stable. Patient agrees to admission to [facility] for further evaluation and treatment. Portions of this note were created with voice recognition technology. There may be grammatical, spelling, punctuation or sound alike errors 12/05/22 08:[address] Moreno. He advised the answering service to inform us that he will not be available for at least another 30 minutes. Conversation occurred at 9:28 AM. 12/05/22 09:16 12/05/22 09:29 Dr. Moreno return call at 10:03 AM. We discussed history of present illness, physical exam, laboratory/imaging study findings and treatment. Dr. Moreno accepts admission to observation. 12/05/22 10:07 Discussed with : Sharon Counseled pt/family regarding: lab results, diagnosis, rad results - Departure Departure Disposition: Observation Clinical Impression: Right upper lobe pneumonia, COPD exacerbation, Hypoxia, Shortness of breath, Hypokalemia, Elevated troponin Condition: Stable Critical Care Time: No Referrals: ULISES ADAMS MD [Primary Care Provider] - Follow up/PCP as directed Instructions: Chronic Obstructive Pulmonary Disease
--- NOTE | 2022-12-05 08:47 | XRAY ---
Indication: Short of breath. Comparison: September 26, 2022 Portable chest demonstrates new subtle right upper lobe hazy airspace disease without consolidation/large effusion. Heart borderline enlarged again with aortic valve replacement, CABG, and left pacemaker. Bony thorax intact.
[2022-12-05 08:50] LABS: Absolute Neutrophil Ct (ANC) 5.65 x10^3/uL (1.4-6.9); BASOPHIL % 0.5 % (0.0-0.4); Basophil (Absolute #) 0.04 x10^3/uL (0-0.4); Eosinophil % 7.9 % (0.00-5.0); Eosinophil (Absolute #) 0.63 x10^3/uL (0-0.5); Hematocrit 37.3 % (42-50); Hemoglobin 11.4 g/dL (12.5-18.0); IMMATURE GRAN # 0.02 x10^3u/L (0.00-0.03); IMMATURE GRAN % 0.3 % (0.00-0.4); Lymphocyte (Absolute #) 1.03 x10^3/uL (1.0-4.6); Lymphocytes % 12.9 % (24.0-44.0); Mean Cell Volume 83.4 fL (78-100); Mean Corpuscular Hemoglobin 25.5 pg (26-32); Mean Corpuscular Hgb Concent. 30.6 g/dL (32-36); Mean Platelet Volume 10.4 fL (7.5-11.0); Monocyte (Absolute #) 0.61 x10^3/uL (0.0-1.3); Monocytes % 7.6 % (0.0-12.0); Neutrophil % 70.8 % (36.0-66.0); Platelet Count 173 x10^3/uL (150-450); Red Blood Count 4.47 x10^6/uL (4.1-5.6); Red Cell Distribution Width 18.6 % (11.5-14.0)
[2022-12-05 09:05] LABS: INR 1.54 (0.8-3.0); PROTIME 16.3 SECONDS (9.4-12.5); PTT 33.3 SECONDS (25.1-36.5)
[2022-12-05 09:12] LABS: ALBUMIN 4.3 g/dL (3.5-5.0); ALKALINE PHOSPHATASE 233 U/L (38-126); ANION GAP 13.4 MEQ/L (5-15); BLOOD UREA NITROGEN 29 mg/dL (9-20); CHLORIDE 98 mmol/L (98-107); Calcium 8.9 mg/dL (8.4-10.2); Carbon Dioxide 31 mmol/L (22-30); Creatinine 1 1.15 mg/dL (0.66-1.25); EST GLOMERULAR FILTRATION RATE > 60.0 ML/MIN; Glucose 116 mg/dL (74-106); NT PRO BNPII 2120 pg/mL (<300); Potassium 3.2 mmol/L (3.5-5.1); SGOT/AST 52 U/L (17-59); SGPT/ALT 33 U/L (0-50); SODIUM 139 mmol/L (137-145)
[2022-12-05 09:27] LABS: INFLUENZA A NEGATIVE (NEGATIVE); INFLUENZA B NEGATIVE (NEGATIVE); RESPIRATORY SYNCTIAL VIRUS NEGATIVE (NEGATIVE); SARS-CoV-2 Xpert Express NEGATIVE (NEGATIVE)
[2022-12-05] MEDS ORDERED: Sodium Chloride 0.9% 1000 ML 1,000 ML IV SCH ×2 (10:15)
[2022-12-05] MEDS: Magnesium 1 Gm / 100 Ml D5W*** 100 ML IV SCH ×2 (10:23→15:03)
[2022-12-05] MEDS: POTASSIUM CHLORIDE 20 mEq IN WATER 100ML 20 MEQ/100 ML BAG IV SCH ×2 (10:24→15:03)
--- NOTE | 2022-12-05 10:26 | PCM.HP ---
History of Present Illness - Chief Complaint Chief Complaint: pneumonia Date: 12/05/22 History of Present Illness: is a 87 year old male with hx of CHF, aortic valve replacement (on coumadin), CABG, pacemaker, COPD, and PRN up to 3LNC oxygen use. Presented to our ED with complaints of shortness of breath and a cough. Room air O2 sat 86%. O2 applied at 3 liters per N/C bringing sat to 90%. Patient placed on Oxymask per RT on 5 liters and O2 sat 97%. Patient complains of increased cough and SOB that started yesterday. Patient treated himself earlier this morning at approximately 5:30 AM with albuterol nebulizer. Symptoms persisted and patient decided to come to our ED for evaluation. Patient is here with his granddaughter. She serves as the historian. Patient now on 5 L saturating 97%. Pt denies chest pain, abd. pain, N/V/D, no fever. Symptoms are moderate in intensity. No specific worsening or improving factors. - Review of Systems Constitutional: No Fever, No Chills Eyes: No Symptoms Ears, Nose, & Throat: No Symptoms Respiratory: Cough, Short Of Breath, Wheezing Cardiac: No Chest Pain, No Edema, No Syncope Abdominal/Gastrointestinal: No Abdominal Pain, No Nausea, No Vomiting, No Diarrhea Genitourinary Symptoms: No Dysuria Musculoskeletal: No Back Pain, No Neck Pain Skin: No Rash Neurological: No Dizziness, No Focal Weakness, No Sensory Changes Psychological: No Symptoms Endocrine: No Symptoms Hematologic/Lymphatic: No Symptoms Immunological/Allergic: No Symptoms Medications & Allergies Home Medications: Home Medication List Albuterol Sulfate [Proair Hfa] 8.5 gm IH Q4HWA 06/08/20 [History Confirmed 12/05/22] Atorvastatin Calcium [Lipitor] 40 mg PO DAILY 06/08/20 [History Confirmed 12/05/22] Albuterol/Ipratropium 3ml Neb* [DUONEB 0.5-3 MG/3 ml Neb] 3 ml IH Q6H PRN PRN 10/17/20 [History Confirmed 12/05/22] Trazodone HCl 150 mg PO HS 09/19/22 [History Confirmed 12/05/22] Bumetanide 1 mg [Bumex 1 mg] 2 mg PO BID 09/20/22 [History Confirmed 12/05/22] Empagliflozin [Jardiance] 10 mg PO DAILY 09/20/22 [History Confirmed 12/05/22] Omeprazole 40 mg PO DAILY 09/20/22 [History Confirmed 12/05/22] Spironolactone 25 mg [Aldactone 25 MG] 12.5 mg PO DAILY 09/26/22 [History Confirmed 12/05/22] Potassium Chloride Tab* [Klor Con] 40 meq PO DAILY #120 tablet 09/28/22 [Rx Confirmed 12/05/22] Warfarin Sodium 5 mg [Jantoven] 2.5 mg PO DAILY 12/05/22 [History Confirmed 12/05/22] Allergies/Adverse Reactions: Allergies Allergy/AdvReac Type Severity Reaction Status Date / Time No Known Drug Allergies Allergy Verified 12/05/22 12:06 - Past Medical History Past Medical History: Yes Neurological History: Stroke ENT History: No Pertinent History Cardiac History: Congestive Heart Failure, Coronary Artery Disease, High Cholesterol, Myocardial Infarction ([place]), Other Respiratory History: Asthma, COPD Endocrine Medical History: No Pertinent History Musculoskelatal History: No Pertinent History GI Medical History: No Pertinent History History: No Pertinent History Pyscho-Social History: No Pertinent History Male Reproductive Disorders: No Pertinent History Comment: AFIB. CABG 1999. PACEMAKER 1999. CKD stage 3 - Past Surgical History Past Surgical History: Yes Neuro Surgical History: No Pertinent History Cardiac History: CABG, Cardiac Stent Respiratory Surgery: No Pertinent History GI Surgical History: Appendectomy, Hernia Repair Genitourinary Surgical Hx: No Pertinent History Musculskeletal Surgical Hx: No Pertinent History Male Surgical History: No Pertinent History Other Surgical History: PACEMAKER - Social History Smoking Status: Never smoker Exposure to second hand smoke: No Alcohol: None Drug Use: none Significant Family History: heart disease - Physical Exam Vital Signs: Vital Signs - 24 hr Temp Pulse Resp BP Pulse Ox 12/05/22 10:14 70 18 106/77 96 12/05/22 10:08 86 L 12/05/22 09:01 84 18 144/86 98 12/05/22 08:49 96 H 30 H 96 12/05/22 08:30 86 L 12/05/22 08:08 98.4 F 84 30 H 169/96 86 L General Appearance: no apparent distress, alert Neurologic Exam: alert, oriented x 3, cooperative, normal mood/affect, nml cerebellar function, nml station & gait, sensation nml, No motor deficits Eye Exam: PERRL/EOMI, eyes nml inspection Ears, Nose, Throat Exam: normal ENT inspection, TMs normal, pharynx normal, moist mucous membranes Neck Exam: normal inspection, non-tender, supple, full range of motion Respiratory Exam: normal breath sounds, lungs clear, No respiratory distress Cardiovascular Exam: regular rate/rhythm, normal heart sounds, normal peripheral pulses Gastrointestinal/Abdomen Exam: soft, normal bowel sounds, No tenderness, No mass Back Exam: normal inspection, normal range of motion, No CVA tenderness, No vertebral tenderness Extremity Exam: normal inspection, normal range of motion, pelvis stable Skin Exam: normal color, warm, dry, No rash Lymphatic Exam: No adenopathy Results - Labs Lab/Micro Results: Lab Results-Last 24 Hours 12/05/22 12/05/22 12/05/22 Range/Units 08:43 08:43 08:43 WBC 8.0 (4.0-10.5) x10^3/uL RBC 4.47 (4.1-5.6) x10^6/uL Hgb 11.4 L (12.5-18.0) g/dL Hct 37.3 L (42-50) % MCV 83.4 (78-100) fL MCH 25.5 L (26-32) pg MCHC 30.6 L (32-36) g/dL RDW 18.6 H (11.5-14.0) % Plt Count 173 (150-450) x10^3/uL MPV 10.4 (7.5-11.0) fL Gran % 70.8 H (36.0-66.0) % Immature Gran % (Auto) 0.3 (0.00-0.4) % Nucleat RBC Rel Count 0.0 (0.00-0.1) % Eos # (Auto) 0.63 H (0-0.5) x10^3/uL Immature Gran # (Auto) 0.02 (0.00-0.03) x10^3u/L Absolute Lymphs (auto) 1.03 (1.0-4.6) x10^3/uL Absolute Monos (auto) 0.61 (0.0-1.3) x10^3/uL Absolute Nucleated RBC 0.00 (0.00-0.01) x10^3u/L Lymphocytes % 12.9 L (24.0-44.0) % Monocytes % 7.6 (0.0-12.0) % Eosinophils % 7.9 H (0.00-5.0) % Basophils % 0.5 (0.0-0.4) % Absolute Granulocytes 5.65 (1.4-6.9) x10^3/uL Basophils # 0.04 (0-0.4) x10^3/uL PT (9.4-12.5) SECONDS INR (0.8-3.0) APTT (25.1-36.5) SECONDS Sodium 139 (137-145) mmol/L Potassium 3.2 L (3.5-5.1) mmol/L Chloride 98 (98-107) mmol/L Carbon Dioxide 31 H (22-30) mmol/L Anion Gap 13.4 (5-15) MEQ/L BUN 29 H (9-20) mg/dL Creatinine 1.15 (0.66-1.25) mg/dL Estimated GFR > 60.0 ML/MIN Glucose 116 H (74-106) mg/dL Calcium 8.9 (8.4-10.2) mg/dL Total Bilirubin 0.80 (0.2-1.3) mg/dL AST 52 (17-59) U/L ALT 33 (0-50) U/L Alkaline Phosphatase 233 H (38-126) U/L Troponin I 0.048 H* (0.000-0.034) ng/mL NT-Pro-B Natriuret Pep 2120 (<300) pg/mL Serum Total Protein 7.0 (6.3-8.2) g/dL Albumin 4.3 (3.5-5.0) g/dL Influenza Type A Ag (NEGATIVE) Influenza Type B Ag (NEGATIVE) RSV (PCR) (NEGATIVE) SARS-CoV-2 (PCR) (NEGATIVE) 12/05/22 12/05/22 Range/Units 08:43 08:43 WBC (4.0-10.5) x10^3/uL RBC (4.1-5.6) x10^6/uL Hgb (12.5-18.0) g/dL Hct (42-50) % MCV (78-100) fL MCH (26-32) pg MCHC (32-36) g/dL RDW (11.5-14.0) % Plt Count (150-450) x10^3/uL MPV (7.5-11.0) fL Gran % (36.0-66.0) % Immature Gran % (Auto) (0.00-0.4) % Nucleat RBC Rel Count (0.00-0.1) % Eos # (Auto) (0-0.5) x10^3/uL Immature Gran # (Auto) (0.00-0.03) x10^3u/L Absolute Lymphs (auto) (1.0-4.6) x10^3/uL Absolute Monos (auto) (0.0-1.3) x10^3/uL Absolute Nucleated RBC (0.00-0.01) x10^3u/L Lymphocytes % (24.0-44.0) % Monocytes % (0.0-12.0) % Eosinophils % (0.00-5.0) % Basophils % (0.0-0.4) % Absolute Granulocytes (1.4-6.9) x10^3/uL Basophils # (0-0.4) x10^3/uL PT 16.3 H (9.4-12.5) SECONDS INR 1.54 (0.8-3.0) APTT 33.3 (25.1-36.5) SECONDS Sodium (137-145) mmol/L Potassium (3.5-5.1) mmol/L Chloride (98-107) mmol/L Carbon Dioxide (22-30) mmol/L Anion Gap (5-15) MEQ/L BUN (9-20) mg/dL Creatinine (0.66-1.25) mg/dL Estimated GFR ML/MIN Glucose (74-106) mg/dL Calcium (8.4-10.2) mg/dL Total Bilirubin (0.2-1.3) mg/dL AST (17-59) U/L ALT (0-50) U/L Alkaline Phosphatase (38-126) U/L Troponin I (0.000-0.034) ng/mL NT-Pro-B Natriuret Pep (<300) pg/mL Serum Total Protein (6.3-8.2) g/dL Albumin (3.5-5.0) g/dL Influenza Type A Ag NEGATIVE (NEGATIVE) Influenza Type B Ag NEGATIVE (NEGATIVE) RSV (PCR) NEGATIVE (NEGATIVE) SARS-CoV-2 (PCR) NEGATIVE (NEGATIVE) - Radiology Impressions Radiology Exams & Impressions: Radiology Procedures Category Date Time Status CHEST 1 VIEW (PORTABLE) Stat Exams 12/05/22 08:18 Completed - Other Procedures and Tests Respiratory Therapy 12/05/22 08:53 Oxygen NASAL CANNULA 2 lpm Assessment/Plan (1) Right upper lobe pneumonia Current Visit: Yes Status: Acute Assessment & Plan: - Chest XR 12/05/22: Portable chest demonstrates new subtle right upper lobe hazy airspace disease without consolidation/large effusion. Heart borderline enlarged again with aortic valve replacement, CABG, and left pacemaker. Bony thorax intact. - CT chest pending - Azithromycin/ ceftriaxone - Methylprednisone gave in ER x1 - breathing has improved now not requiring oxygen Code(s): J18.9 - PNEUMONIA, UNSPECIFIED ORGANISM (2) CHF (congestive heart failure) Current Visit: Yes Status: Acute Assessment & Plan: - BNP- 0 - Continue Bumex Code(s): I50.9 - HEART FAILURE, UNSPECIFIED (3) Acute on chronic renal failure Current Visit: Yes Status: Acute Assessment & Plan: - trend labs - appears to be near baseline Code(s): N17.9 - ACUTE KIDNEY FAILURE, UNSPECIFIED; N18.9 - CHRONIC KIDNEY DISEASE, UNSPECIFIED (4) COPD exacerbation Current Visit: Yes Status: Acute Assessment & Plan: - RT eval and treat - duoneb Code(s): J44.1 - CHRONIC OBSTRUCTIVE PULMONARY DISEASE W (ACUTE) EXACERBATION (5) Elevated troponin level Current Visit: Yes Status: Acute Assessment & Plan: - Trop 08:43- 0.048 - Trop 11:58- 0.037 - Trop 3 pending - Pt denies CP Code(s): R74.8 - ABNORMAL LEVELS OF OTHER SERUM ENZYMES (6) Hypokalemia Current Visit: Yes Status: Acute Assessment & Plan: K+ 3.2 in ER- replaced - repeat K+ 3.7 - continue daily home dosing Code(s): E87.6 - HYPOKALEMIA (7) H/O aortic valve replacement Current Visit: Yes Status: Acute Assessment & Plan: - Continue warfarin Code(s): Z95.2 - PRESENCE OF PROSTHETIC HEART VALVE (8) Anticoagulated on Coumadin Current Visit: Yes Status: Acute Assessment & Plan: - pharmacy to manage warfarin VTE: warfarin PPI: omeprazole D/C plan tomorrow? Next of kin: Talisha Angel [phone] Code(s): Z79.01 - DEHAIRER (CURRENT) USE OF ANTICOAGULANTS
[2022-12-05] MEDS: DUONEB 0.5-3 MG/3 ml Neb IH SCH ×4 (11:43→22:19)
[2022-12-05 11:58] LABS: Appearance Clear (Clear); Bacteria None Seen /HPF (None Seen); Bilirubin Negative (Negative); Blood Negative (Negative); Epithelial Cells None Seen /HPF (None Seen); Glucose, Urine >=1000 mg/dL (Negative); Hyaline Casts NONE SEEN /LPF (0-2); Ketones Negative (Negative); Leukocyte Esterase Negative (Negative); Nitrite Negative (Negative); Ph 5.5 (4.6-8.0); Protein,Urine Dip Negative (Negative); RBC 0-2 /HPF (0-5); Urobilinogen 0.2 mg/dL (0.2); WBC 0-2 /HPF (0-5)
[2022-12-05 12:32] LABS: ADD URINE CULTURE? NO (NO)
[2022-12-05 14:24] LABS: MAGNESIUM 2.5 mg/dL (1.6-2.3); Potassium 3.7 mmol/L (3.5-5.1)
[2022-12-05] MEDS ORDERED: VENTOLIN COMMON CANISTER IH SCH (16:00)
[2022-12-05] MEDS: DUONEB 0.5-3 MG/3 ml Neb IH PRN (16:01)
--- NOTE | 2022-12-05 17:02 | XRAY ---
Indication: Short of breath. Elevated troponin. Pulmonary edema. COPD. Multiple contiguous axial images obtained through the chest without contrast. Comparison: September 26, 2022 Lungs again demonstrates mild pulmonary emphysema with mild bilateral dependent atelectasis and tiny right mid lung calcified granulomas. No new pulmonary mass/nodule, infiltrate, consolidation, or effusion. Heart remains enlarged again with scattered coronary calcifications, aortic valve replacement, CABG surgery, and left dual-lead pacemaker. Again incidental small right hilar calcified nodes and moderate size hiatal hernia. Bony thorax intact again with osteopenia and minimal degenerative changes throughout the spine. Limited upper abdomen demonstrates a 7 mm gallstone not previously included in [id number]. Impression: 1. Again pulmonary emphysema, cardiomegaly, arteriosclerotic disease, hiatal hernia, and chronic bony findings. No new/acute cardiopulmonary abnormalities on this noncontrast exam. 2. Incidental tiny gallstone.
[2022-12-05] MEDS ORDERED: Coumadin 2 MG PO ONE (18:00)
[2022-12-05] MEDS: BUMEX 1 MG PO SCH ×3 (18:28→21:25)
[2022-12-05] MEDS ORDERED: Desyrel 150 MG PO SCH (22:00)
[2022-12-05] MEDS ORDERED: ZOCOR 20MG PO SCH (22:00)
[2022-12-06] MEDS: DUONEB 0.5-3 MG/3 ml Neb IH SCH ×3 (02:49→10:35)
[2022-12-06 05:13] LABS: Hematocrit 33.9 % (42-50); Hemoglobin 10.2 g/dL (12.5-18.0); Mean Cell Volume 82.7 fL (78-100); Mean Corpuscular Hemoglobin 24.9 pg (26-32); Mean Corpuscular Hgb Concent. 30.1 g/dL (32-36); Mean Platelet Volume 10.8 fL (7.5-11.0); Platelet Count 152 x10^3/uL (150-450); Red Cell Distribution Width 18.6 % (11.5-14.0); White Blood Count 7.5 x10^3/uL (4.0-10.5)
[2022-12-06 05:33] LABS: INR 1.68 (0.8-3.0); PROTIME 17.6 SECONDS (9.4-12.5)
[2022-12-06 05:36] LABS: ALKALINE PHOSPHATASE 216 U/L (38-126); ANION GAP 13.3 MEQ/L (5-15); BLOOD UREA NITROGEN 30 mg/dL (9-20); CHLORIDE 99 mmol/L (98-107); Calcium 8.4 mg/dL (8.4-10.2); Carbon Dioxide 27 mmol/L (22-30); Creatinine 1 0.99 mg/dL (0.66-1.25); EST GLOMERULAR FILTRATION RATE > 60.0 ML/MIN; Glucose 129 mg/dL (74-106); Potassium 3.3 mmol/L (3.5-5.1); SGOT/AST 61 U/L (17-59); SGPT/ALT 39 U/L (0-50); SODIUM 136 mmol/L (137-145); Total Protein 6.8 g/dL (6.3-8.2)
[2022-12-06] MEDS ORDERED: Klor Con PO ONE (06:35)
[2022-12-06] MEDS ORDERED: VENTOLIN COMMON CANISTER IH PRN (06:55)
[2022-12-06] MEDS ORDERED: Protonix 40MG Tablet PO SCH (10:00)
[2022-12-06] MEDS ORDERED: Klor Con PO SCH (10:00)
[2022-12-06] MEDS ORDERED: Zithromax 500 MG/ 250 ML NaCl Premix 500 MG/250 ML IVPB IV SCH (10:00)
[2022-12-06] MEDS ORDERED: NON-FORMULARY ITEM (Omeprazole [Omeprazole] 40 MG Capsule.Dr) PO SCH (10:00)
[2022-12-06] MEDS ORDERED: Aldactone 25 MG PO SCH (10:00)
[2022-12-06] MEDS ORDERED: ROCEPHIN 1 Gm-D5w 50 ml Bag** 1 G/50 ML IVPB IV SCH (10:00)
[2022-12-06] MEDS ORDERED: JARDIANCE PO SCH (10:00)
--- NOTE | 2022-12-06 10:03 | PCM.DS ---
Discharge Summary Date of Admission: 12/05/22 11:09 Date of Discharge: 12/06/22 Admitting Physician: IVY MALONE MD Primary Care Provider: ULISES ADAMS Allergies Allergies No Known Drug Allergies Allergy (Verified 12/05/22 12:06) Hospital Summary - Hospital Course Hospital Course: is a 87 year old male with hx of CHF, aortic valve replacement (on coumadin), CABG, pacemaker, COPD, and PRN up to 3LNC oxygen use. Presented to our ED with complaints of shortness of breath and a cough on 12/05. Room air O2 sat 86%. O2 applied at 3 liters per N/C bringing sat to 90%. Patient placed on Oxymask per RT on 5 liters and O2 sat 97%. Patient complained of increased cough and SOB that started 2 days ago. Patient treated himself earlier that morning at approximately 5:30 AM with albuterol nebulizer. Symptoms persisted and patient decided to come to our ED for evaluation. Pt is feeling much better today. He is at his baseline 3LNC PRN. One blood culture did come back + gram cocci, however the other was negative. Could be contaminate and sensitivity is still pending. Pt would like to go home today. He denies SOB, CP, Abd. pain, N/V/D. - Vitals & Intake/Output Vital Signs: Vital Signs Temperature 98.0 F 12/06/22 07:20 Pulse Rate 81 12/06/22 07:20 Respiratory Rate 18 12/06/22 07:20 Blood Pressure 112/59 12/06/22 07:20 O2 Sat by Pulse Oximetry 96 12/06/22 07:20 Intake & Output: Intake & Output 12/03/22 12/04/22 12/05/22 12/06/22 11:59 11:59 11:59 11:59 Intake Total 1320 Output Total 600 Balance 720 Weight 72.5 kg - Lab Result Diagrams: 12/06/22 04:58 12/06/22 09:30 Lab Results-Last 24 Hrs: Lab Results-Last 24 Hours 12/05/22 12/05/22 12/05/22 Range/Units 11:50 11:58 14:08 WBC (4.0-10.5) x10^3/uL RBC (4.1-5.6) x10^6/uL Hgb (12.5-18.0) g/dL Hct (42-50) % MCV (78-100) fL MCH (26-32) pg MCHC (32-36) g/dL RDW (11.5-14.0) % Plt Count (150-450) x10^3/uL MPV (7.5-11.0) fL PT (9.4-12.5) SECONDS INR (0.8-3.0) Sodium (137-145) mmol/L Potassium 3.7 (3.5-5.1) mmol/L Chloride (98-107) mmol/L Carbon Dioxide (22-30) mmol/L Anion Gap (5-15) MEQ/L BUN (9-20) mg/dL Creatinine (0.66-1.25) mg/dL Estimated GFR ML/MIN Glucose (74-106) mg/dL Calcium (8.4-10.2) mg/dL Magnesium 2.5 H (1.6-2.3) mg/dL Total Bilirubin (0.2-1.3) mg/dL AST (17-59) U/L ALT (0-50) U/L Alkaline Phosphatase (38-126) U/L Troponin I 0.037 H* (0.000-0.034) ng/mL Serum Total Protein (6.3-8.2) g/dL Albumin (3.5-5.0) g/dL Urine Color Yellow (Yellow) Urine Appearance Clear (Clear) Urine pH 5.5 (4.6-8.0) Ur Specific [place] 1.010 (1.005-1.030) Urine Protein Negative (Negative) Urine Glucose (UA) >=1000 A (Negative) mg/dL Urine Ketones Negative (Negative) Urine Blood Negative (Negative) Urine Nitrite Negative (Negative) Urine Bilirubin Negative (Negative) Urine Urobilinogen 0.2 (0.2) mg/dL Ur Leukocyte Esterase Negative (Negative) U Hyaline Cast (Auto) NONE SEEN (0-2) /LPF Urine Microscopic RBC 0-2 (0-5) /HPF Urine Microscopic WBC 0-2 (0-5) /HPF Ur Epithelial Cells None Seen (None Seen) /HPF Urine Bacteria None Seen (None Seen) /HPF Urine Culture Reflexed NO (NO) 12/05/22 12/06/22 12/06/22 Range/Units 17:20 04:58 04:58 WBC 7.5 (4.0-10.5) x10^3/uL RBC 4.10 (4.1-5.6) x10^6/uL Hgb 10.2 L (12.5-18.0) g/dL Hct 33.9 L (42-50) % MCV 82.7 (78-100) fL MCH 24.9 L (26-32) pg MCHC 30.1 L (32-36) g/dL RDW 18.6 H (11.5-14.0) % Plt Count 152 (150-450) x10^3/uL MPV 10.8 (7.5-11.0) fL PT (9.4-12.5) SECONDS INR (0.8-3.0) Sodium 136 L (137-145) mmol/L Potassium 3.3 L (3.5-5.1) mmol/L Chloride 99 (98-107) mmol/L Carbon Dioxide 27 (22-30) mmol/L Anion Gap 13.3 (5-15) MEQ/L BUN 30 H (9-20) mg/dL Creatinine 0.99 (0.66-1.25) mg/dL Estimated GFR > 60.0 ML/MIN Glucose 129 H (74-106) mg/dL Calcium 8.4 (8.4-10.2) mg/dL Magnesium (1.6-2.3) mg/dL Total Bilirubin 0.60 (0.2-1.3) mg/dL AST 61 H (17-59) U/L ALT 39 (0-50) U/L Alkaline Phosphatase 216 H (38-126) U/L Troponin I 0.030 (0.000-0.034) ng/mL Serum Total Protein 6.8 (6.3-8.2) g/dL Albumin 4.0 (3.5-5.0) g/dL Urine Color (Yellow) Urine Appearance (Clear) Urine pH (4.6-8.0) Ur Specific [place] (1.005-1.030) Urine Protein (Negative) Urine Glucose (UA) (Negative) mg/dL Urine Ketones (Negative) Urine Blood (Negative) Urine Nitrite (Negative) Urine Bilirubin (Negative) Urine Urobilinogen (0.2) mg/dL Ur Leukocyte Esterase (Negative) U Hyaline Cast (Auto) (0-2) /LPF Urine Microscopic RBC (0-5) /HPF Urine Microscopic WBC (0-5) /HPF Ur Epithelial Cells (None Seen) /HPF Urine Bacteria (None Seen) /HPF Urine Culture Reflexed (NO) 12/06/22 12/06/22 12/06/22 Range/Units 04:58 04:58 09:30 WBC (4.0-10.5) x10^3/uL RBC (4.1-5.6) x10^6/uL Hgb (12.5-18.0) g/dL Hct (42-50) % MCV (78-100) fL MCH (26-32) pg MCHC (32-36) g/dL RDW (11.5-14.0) % Plt Count (150-450) x10^3/uL MPV (7.5-11.0) fL PT 17.6 H (9.4-12.5) SECONDS INR 1.68 (0.8-3.0) Sodium (137-145) mmol/L Potassium 3.4 L (3.5-5.1) mmol/L Chloride (98-107) mmol/L Carbon Dioxide (22-30) mmol/L Anion Gap (5-15) MEQ/L BUN (9-20) mg/dL Creatinine (0.66-1.25) mg/dL Estimated GFR ML/MIN Glucose (74-106) mg/dL Calcium (8.4-10.2) mg/dL Magnesium 2.4 H (1.6-2.3) mg/dL Total Bilirubin (0.2-1.3) mg/dL AST (17-59) U/L ALT (0-50) U/L Alkaline Phosphatase (38-126) U/L Troponin I (0.000-0.034) ng/mL Serum Total Protein (6.3-8.2) g/dL Albumin (3.5-5.0) g/dL Urine Color (Yellow) Urine Appearance (Clear) Urine pH (4.6-8.0) Ur Specific [place] (1.005-1.030) Urine Protein (Negative) Urine Glucose (UA) (Negative) mg/dL Urine Ketones (Negative) Urine Blood (Negative) Urine Nitrite (Negative) Urine Bilirubin (Negative) Urine Urobilinogen (0.2) mg/dL Ur Leukocyte Esterase (Negative) U Hyaline Cast (Auto) (0-2) /LPF Urine Microscopic RBC (0-5) /HPF Urine Microscopic WBC (0-5) /HPF Ur Epithelial Cells (None Seen) /HPF Urine Bacteria (None Seen) /HPF Urine Culture Reflexed (NO) Micro Results-Entire Visit: Microbiology 12/05/22 08:43 Blood Culture Gram Stain - Final Blood 12/05/22 08:43 Blood Culture - Preliminary Blood NO GROWTH TO DATE - Radiology Exams Ordered Rad Exams-Entire Visit: Radiology Procedures Category Date Time Status CHEST 1 VIEW (PORTABLE) Stat Exams 12/05/22 08:18 Completed CHEST WITHOUT CONTRAST [CT] Routine Exams 12/05/22 15:08 Completed - Procedures and Test Procedures and Tests throughout Hospitalization: Therapy Orders & Screens 12/05/22 08:53 Oxygen NASAL CANNULA 2 lpm Comment: 12/05/22 11:16 Oxygen Oxymask LPM 10 lpm Comment: 12/06/22 06:51 Oxygen Nasal Cannula 3 lpm Comment: Diagnosis: pneumonia Discharge Exam General Appearance: no apparent distress, alert Neurologic Exam: alert, oriented x 3, cooperative, normal mood/affect, nml cerebellar function, sensation nml, No motor deficits Eye Exam: PERRL, EOMI, eyes nml inspection Ears, Nose, Throat Exam: normal ENT inspection, pharynx normal, moist mucous membranes Neck Exam: normal inspection, non-tender, supple, full range of motion Respiratory Exam: normal breath sounds, lungs clear, No respiratory distress Cardiovascular Exam: regular rate/rhythm, normal heart sounds Gastrointestinal/Abdomen Exam: soft, No tenderness, No mass Male Genitalia Exam: deferred Rectal Exam: deferred Back Exam: normal inspection, normal range of motion, No CVA tenderness, No vertebral tenderness Extremity Exam: normal inspection, normal range of motion Skin Exam: normal color, warm, dry Final Diagnosis/Problem List - Final Discharge Diagnosis/Problem (1) Right upper lobe pneumonia Current Visit: Yes Status: Acute Assessment & Plan: - Chest XR 12/05/22: Portable chest demonstrates new subtle right upper lobe hazy airspace disease without consolidation/large effusion. Heart borderline enlarged again with aortic valve replacement, CABG, and left pacemaker. Bony thorax intact. - CT chest: Impression: 1. Again pulmonary emphysema, cardiomegaly, arteriosclerotic disease, hiatal hernia, and chronic bony findings. No new/acute cardiopulmonary abnormalities on this noncontrast exam. 2. Incidental tiny gallstone - Azithromycin/ ceftriaxone - Methylprednisone gave in ER x1 - breathing has improved now not requiring oxygen 12/06 - placed on 3 LNC which is his baseline oxygen at night Code(s): J18.9 - PNEUMONIA, UNSPECIFIED ORGANISM (2) CHF (congestive heart failure) Current Visit: Yes Status: Acute Assessment & Plan: - BNP- 2119 - Continue Bumex Code(s): I50.9 - HEART FAILURE, UNSPECIFIED (3) Acute on chronic renal failure Current Visit: Yes Status: Acute Assessment & Plan: - trend labs - appears to be near baseline Code(s): N17.9 - ACUTE KIDNEY FAILURE, UNSPECIFIED; N18.9 - CHRONIC KIDNEY DISEASE, UNSPECIFIED (4) COPD exacerbation Current Visit: Yes Status: Acute Assessment & Plan: - RT eval and treat - duoneb Code(s): J44.1 - CHRONIC OBSTRUCTIVE PULMONARY DISEASE W (ACUTE) EXACERBATION (5) Elevated troponin level Current Visit: Yes Status: Acute Assessment & Plan: - Trop 08:43- 0.048 - Trop 11:58- 0.037 - Trop 3 wnl - Pt denies CP Code(s): R74.8 - ABNORMAL LEVELS OF OTHER SERUM ENZYMES (6) Hypokalemia Current Visit: Yes Status: Acute Assessment & Plan: K+ 3.2 in ER- replaced - repeat K+ 3.7 - continue daily home dosing 12/06 - K+ 3.4- replaced Code(s): E87.6 - HYPOKALEMIA (7) H/O aortic valve replacement Current Visit: Yes Status: Acute Assessment & Plan: - Continue warfarin Code(s): Z95.2 - PRESENCE OF PROSTHETIC HEART VALVE (8) Anticoagulated on Coumadin Current Visit: Yes Status: Acute Assessment & Plan: - pharmacy to manage warfarin Code(s): Z79.01 - RELOCATION COUNSELOR (CURRENT) USE OF ANTICOAGULANTS - Discharge Discharge Date: 12/06/22 Disposition: Home, Self-Care Condition: Stable Prescriptions: New Doxycycline Monohydrate 100 mg PO BID 5 Days #10 cap Continue Atorvastatin Calcium [Lipitor] 40 mg PO DAILY Albuterol Sulfate [Proair Hfa] 8.5 gm IH Q4HWA Albuterol/Ipratropium 3ml Neb* [DUONEB 0.5-3 MG/3 ml Neb] 3 ml IH Q6H PRN PRN PRN Reason: Shortness Of Breath/Wheezing Trazodone HCl 150 mg PO HS Omeprazole 40 mg PO DAILY Empagliflozin [Jardiance] 10 mg PO DAILY Bumetanide 1 mg [Bumex 1 mg] 2 mg PO BID Spironolactone 25 mg [Aldactone 25 MG] 12.5 mg PO DAILY Potassium Chloride Tab* [Klor Con] 40 meq PO DAILY #120 tablet Warfarin Sodium 5 mg [Jantoven] 2.5 mg PO DAILY Follow up with: ULISES ADAMS MD [Primary Care Provider] -
[2022-12-06] MEDS: BUMEX 1 MG PO SCH (10:21)
[2022-12-06 10:39] VITALS: RESP 24
[2022-12-06] MEDS: DUONEB 0.5-3 MG/3 ml Neb IH PRN (13:36)
[2022-12-06] MEDS ORDERED: JANTOVEN PO SCH (18:00)
[2022-12-07 11:23] VITALS: BP 112/65; PULSE 79; TEMP 97.6; O2SAT 96
== END 2022-12-06 14:28 | disposition home or self-care (01) ==
LOC: ED 07:57 → MED SURG 11:09
PROVIDERS: ADMIT Internal Medicine; ATTEND Internal Medicine
DX: J18.9 Pneumonia, unspecified organism (principal); I50.9 Heart failure, unspecified; J44.1 Chronic obstructive pulmonary disease with (acute) exacerbation; R74.8 Abnormal levels of other serum enzymes; E87.6 Hypokalemia; I25.10 Atherosclerotic heart disease of native coronary artery without angina pectoris; E78.5 Hyperlipidemia, unspecified; N18.30 Chronic kidney disease, stage 3 unspecified; Z79.01 Long term (current) use of anticoagulants; Z99.81 Dependence on supplemental oxygen; Z95.2 Presence of prosthetic heart valve; Z79.899 Other long term (current) drug therapy; Z20.828 Contact with and (suspected) exposure to other viral communicable diseases
CPT/HCPCS: 0241U; 36000; 36415; 71045; 71250; 80053; 81001; 83735; 83880; 84132; 84484; 85025; 85027; 85610; 85730; 87040; 93005; 93041; 93268; 94640; 94760; 94762; 96365; 96367; 96374; 99284; G0378; Q3014; J0456; J0696; J2930; J3475; J3480; A9270-GY

== ENCOUNTER 2023-02-13 13:15 | Observation (INO) | payer MEDICARE ==
[2023-02-13] MEDS ORDERED: DUONEB 0.5-3 MG/3 ml Neb IH ONE ×2 (13:26→13:32)
[2023-02-13] MEDS ORDERED: solu-MEDROL 125 MG, Sterile H2O 10 ml 10 ML IV ONE ×2 (13:26)
[2023-02-13] MEDS ORDERED: solu-MEDROL ONE (13:31)
[2023-02-13] MEDS ORDERED: Sterile H2O 10 ml IJ ONE (13:31)
[2023-02-13 13:43] LABS: BASOPHIL % 0.2 % (0.0-0.4); Basophil (Absolute #) 0.01 x10^3/uL (0-0.4); Eosinophil % 0.2 % (0.00-5.0); Eosinophil (Absolute #) 0.01 x10^3/uL (0-0.5); Hematocrit 31.9 % (42-50); Hemoglobin 9.8 g/dL (12.5-18.0); IMMATURE GRAN # 0.03 x10^3u/L (0.00-0.03); IMMATURE GRAN % 0.5 % (0.00-0.4); Lymphocyte (Absolute #) 0.41 x10^3/uL (1.0-4.6); Lymphocytes % 6.6 % (24.0-44.0); Mean Cell Volume 83.9 fL (78-100); Mean Corpuscular Hemoglobin 25.8 pg (26-32); Mean Corpuscular Hgb Concent. 30.7 g/dL (32-36); Mean Platelet Volume 10.7 fL (7.5-11.0); Monocyte (Absolute #) 0.34 x10^3/uL (0.0-1.3); Monocytes % 5.5 % (0.0-12.0); Platelet Count 144 x10^3/uL (150-450); Red Cell Distribution Width 18.5 % (11.5-14.0); White Blood Count 6.2 x10^3/uL (4.0-10.5)
--- NOTE | 2023-02-13 13:44 | ERPHSYRPT ---
- History of Present Illness Time Seen by Provider: 02/13/23 13:30 Source: patient Exam Limitations: no limitations Patient Subjective Stated Complaint: SOB Triage Nursing Assessment: gggg Physician History: Patient 87-year-old male presents to our ED for evaluation of shortness of breath. Patient has history of COPD and CHF. Patient currently on Coumadin for atrial fibrillation. INR was performed yesterday. Patient's niece is a nurse. She reports INR was 3.5. 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 Patient was started on steroids to treat COPD exacerbation. In spite of the steroids patient's symptoms worsen. No chest pain. No nausea vomiting or diaphoresis. Symptoms are moderate in intensity. Activity worsens symptoms. Symptoms improved with rest. Patient requires oxygen at home 3 to 5 L. Patient currently on 4 L. Patient voices no other complaints concerns at this time. Portions of this note were created with voice recognition technology. There may be grammatical, spelling, punctuation or sound alike errors Timing/Duration: today Activities at Onset: activity Severity of Dyspnea-Max: moderate Severity of Dyspnea-Current: mild Possible Cause: occasional episodes Modifying Factors: Improves With: activity Associated Symptoms: wheezing Allergies/Adverse Reactions: No Known Drug Allergies Allergy (Verified 02/13/23 13:20) Home Medications: Albuterol Sulfate [Proair Hfa] 8.5 gm IH Q4HWA 06/08/20 [History] Atorvastatin Calcium [Lipitor] 40 mg PO DAILY 06/08/20 [History] Albuterol/Ipratropium 3ml Neb* [DUONEB 0.5-3 MG/3 ml Neb] 3 ml IH Q6H PRN PRN 10/17/20 [History] Trazodone HCl 150 mg PO HS 09/19/22 [History] Bumetanide 1 mg [Bumex 1 mg] 2 mg PO BID 09/20/22 [History] Empagliflozin [Jardiance] 10 mg PO DAILY 09/20/22 [History] Omeprazole 40 mg PO DAILY 09/20/22 [History] Spironolactone 25 mg [Aldactone 25 MG] 12.5 mg PO DAILY 09/26/22 [History] Warfarin Sodium 5 mg [Jantoven] 2.5 mg PO DAILY 12/05/22 [History] Hx Tetanus, Diphtheria Vaccination/Date Given: No (unsure) Hx Influenza Vaccination/Date Given: No Hx Pneumococcal Vaccination/Date Given: No Immunizations Up to Date: Yes Travel Risk - International Travel Have you traveled outside of the country in past 3 weeks: No - Coronavirus Screening Are you exhibiting any of the following symptoms?: No Close contact with a COVID-19 positive Pt in past 14-21 Days: No - Vaccine Status Have you recieved a Covid-19 vaccination: Yes Stratigraphy 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 - Vaccination Dates Dates if Unknown: unknown - Review of Systems Constitutional: No Symptoms, No Fever, No Chills Eyes: No Symptoms Ears, Nose, & Throat: No Symptoms Respiratory: No Symptoms, No Cough, No Dyspnea Cardiac: No Symptoms, No Chest Pain, No Edema, No Syncope Abdominal/Gastrointestinal: No Symptoms, No Abdominal Pain, No Nausea, No Vomiting, No Diarrhea Genitourinary Symptoms: No Symptoms, No Dysuria Musculoskeletal: No Symptoms, No Back Pain, No Neck Pain Skin: No Symptoms, No Rash Neurological: No Symptoms, No Dizziness, No Focal Weakness, No Sensory Changes Psychological: No Symptoms Endocrine: No Symptoms Hematologic/Lymphatic: No Symptoms Immunological/Allergic: No Symptoms All Other Systems: Reviewed and Negative - Past Medical History Pertinent Past Medical History: Yes Neurological History: Stroke ENT History: No Pertinent History Cardiac History: Congestive Heart Failure, Coronary Artery Disease, High Cholesterol, Myocardial Infarction ([place]), Other Respiratory History: Asthma, COPD Endocrine Medical History: No Pertinent History Musculoskeletal History: No Pertinent History GI Medical History: No Pertinent History History: No Pertinent History Psycho-Social History: No Pertinent History Male Reproductive Disorders: No Pertinent History Other Medical History: AFIB. CABG 1999. PACEMAKER 2000. CKD stage 3 - Past Surgical History Past Surgical History: Yes Neuro Surgical History: No Pertinent History Cardiac: CABG, Cardiac Stent Respiratory: No Pertinent History Gastrointestinal: Appendectomy, Hernia Repair Genitourinary: No Pertinent History Musculoskeletal: No Pertinent History Male Surgical History: No Pertinent History Other Surgical History: PACEMAKER - Social History Smoking Status: Never smoker Exposure to second hand smoke: No Drug Use: none Patient Lives Alone: No Significant Family History: heart disease - Nursing Vital Signs Nursing Vital Signs: Initial Vital Signs Temperature 97.4 F 02/13/23 13:22 Pulse Rate 75 02/13/23 13:22 Respiratory Rate 34 H 02/13/23 13:22 Blood Pressure 114/59 02/13/23 13:22 O2 Sat by Pulse Oximetry 98 02/13/23 13:22 Pain Scale Pain Intensity 0 - Physical Exam General Appearance: no apparent distress, alert Eye Exam: PERRL/EOMI, eyes nml inspection Ears, Nose, Throat Exam: hearing grossly normal, normal ENT inspection, normal pharynx (Dry oral mucous membranes) Neck Exam: normal inspection, supple, full range of motion Respiratory Exam: diminished breath sounds, rhonchi, wheezing Cardiovascular/Chest Exam: normal heart sounds, regular rate/rhythm Abdominal/Gastrointestinal Exam: soft, No tenderness, No distention, No mass Extremity Exam: non-tender, normal range of motion, normal inspection, no calf tenderness, no pedal edema Neurologic Exam: alert, oriented x 3, cooperative, 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-XII nml as tested, sensation nml, No motor deficits Skin Exam: normal color, warm, No dry Lymphatic Exam: No adenopathy SpO2 Interpretation: normal SpO2: 98 O2 Delivery: Room Air - Course Nursing assessment & vital signs reviewed: Yes EKG Interpreted by Me: RATE (70 paced rhythm) - Radiology Exams Chest X-ray Interpretation: Teleradiologist Report (Nonacute chest with chronic features) Ordered Tests: Active Orders 24 hr Category Date Time Status Choker Hooker STAT Care 02/13/23 13:26 Active IV Insertion STAT Care 02/13/23 13:26 Active Pulse Oximetry (ED) STAT Care 02/13/23 13:26 Active CHEST 1 VIEW (PORTABLE) Stat Exams 02/13/23 13:26 Completed BLOOD CULTURE Stat Lab 02/13/23 14:05 Received CBC W DIFF Stat Lab 02/13/23 13:38 Completed CMP Stat Lab 02/13/23 13:38 Completed PROTIME WITH INR Stat Lab 02/13/23 13:38 Completed PTT Stat Lab 02/13/23 13:38 Completed TROPONIN Q4H Lab 02/13/23 13:38 Completed TROPONIN Q4H Lab 02/13/23 15:40 Completed TROPONIN Q4H Lab 02/13/23 21:30 Ordered Respiratory Therapy Assessment DAILY RT 02/13/23 13:43 Active Transfer Order Routine Transfer 02/13/23 Ordered Medication Summary Generic Name Dose Route Start Last Admin Trade Name Freq PRN Reason Stop Dose Admin Doxycycline Hyclate 100 mg/ 100 mls @ 100 mls/hr 02/13/23 22:00 02/13/23 15:26 Dextrose IV 03/15/23 21:59 100 mls/hr Q12HT FAVIAN Administration Discontinued Medications Generic Name Dose Route Start Last Admin Trade Name Gemini PRN Reason Stop Dose Admin Albuterol/Ipratropium 3 ml 02/13/23 13:26 02/13/23 13:42 Ipratropium/Albuterol Sulfate 3 Ml Ampul.Neb IH 02/13/23 13:27 3 ml STAT ONE Administration Albuterol/Ipratropium Confirm 02/13/23 13:32 Ipratropium/Albuterol Sulfate 3 Ml Ampul.Neb Administered 02/13/23 13:33 Dose 3 ml IH .STK-MED ONE Methylprednisolone Sodium 0 mg 02/13/23 13:26 02/13/23 13:39 Succinate 125 mg/ Sterile IV 02/13/23 13:27 125 mg Water 10 ml STAT ONE Administration Doxycycline Hyclate Confirm 02/13/23 15:24 Doxycycline Hyclate 100 Mg/Vial Injection Administered 02/13/23 15:25 Dose 100 mg IV .STK-MED ONE Ceftriaxone Sodium/Dextrose 2 g in 50 mls @ 100 mls/hr 02/13/23 14:24 15:13 Rocephin 2 Gm-D5w 50ml Bag IV 02/13/23 14:53 Infused STAT STA Infusion Ceftriaxone Sodium/Dextrose Confirm 02/13/23 14:28 Rocephin 2 Gm-D5w 50ml Bag Administered 02/13/23 14:29 Dose 2 g in 50 mls @ ud IV .STK-MED ONE Dextrose Confirm 02/13/23 15:24 D5w 100ml Mini Bag 100 Ml Administered 02/13/23 15:25 Dose 100 mls @ ud IV .STK-MED ONE Methylprednisolone Sodium Succinate Confirm 02/13/23 13:31 Methylprednis Sod Succ 125 Mg/2 Ml Vial Administered 02/13/23 13:32 Dose 125 mg .ROUTE .STK-MED ONE Sterile Water Confirm 02/13/23 13:31 Water For Injection,Sterile 10 Ml Vial Administered 02/13/23 13:32 Dose 10 ml IJ .STK-MED ONE Lab/Rad Data: Laboratory Result Diagrams 02/13/23 13:38 02/13/23 13:38 Laboratory Results 02/13/23 02/13/23 02/13/23 Range/Units 15:40 14:05 13:38 WBC (4.0-10.5) x10^3/uL RBC (4.1-5.6) x10^6/uL Hgb (12.5-18.0) g/dL Hct (42-50) % MCV (78-100) fL MCH (26-32) pg MCHC (32-36) g/dL RDW (11.5-14.0) % Plt Count (150-450) x10^3/uL MPV (7.5-11.0) fL Gran % (36.0-66.0) % Immature Gran % (Auto) (0.00-0.4) % Nucleat RBC Rel Count (0.00-0.1) % Eos # (Auto) (0-0.5) x10^3/uL Immature Gran # (Auto) (0.00-0.03) x10^3u/L Absolute Lymphs (auto) (1.0-4.6) x10^3/uL Absolute Monos (auto) (0.0-1.3) x10^3/uL Absolute Nucleated RBC (0.00-0.01) x10^3u/L Lymphocytes % (24.0-44.0) % Monocytes % (0.0-12.0) % Eosinophils % (0.00-5.0) % Basophils % (0.0-0.4) % Absolute Granulocytes (1.4-6.9) x10^3/uL Basophils # (0-0.4) x10^3/uL PT 28.1 H (9.4-12.5) SECONDS INR 2.78 (0.8-3.0) APTT 36.6 H (25.1-36.5) SECONDS Sodium (137-145) mmol/L Potassium (3.5-5.1) mmol/L Chloride (98-107) mmol/L Carbon Dioxide (22-30) mmol/L Anion Gap (5-15) MEQ/L BUN (9-20) mg/dL Creatinine (0.66-1.25) mg/dL Estimated GFR ML/MIN Glucose (74-106) mg/dL Calcium (8.4-10.2) mg/dL Total Bilirubin (0.2-1.3) mg/dL AST (17-59) U/L ALT (0-50) U/L Alkaline Phosphatase (38-126) U/L Troponin I 0.032 (0.000-0.034) ng/mL Serum Total Protein (6.3-8.2) g/dL Albumin (3.5-5.0) g/dL Influenza Type A Ag NEGATIVE (NEGATIVE) Influenza Type B Ag NEGATIVE (NEGATIVE) RSV (PCR) NEGATIVE (NEGATIVE) SARS-CoV-2 (PCR) NEGATIVE (NEGATIVE) Slides for Path Review 02/13/23 02/13/23 02/13/23 Range/Units 13:38 13:38 13:38 WBC 6.2 (4.0-10.5) x10^3/uL RBC 3.80 L (4.1-5.6) x10^6/uL Hgb 9.8 L (12.5-18.0) g/dL Hct 31.9 L (42-50) % MCV 83.9 (78-100) fL MCH 25.8 L (26-32) pg MCHC 30.7 L (32-36) g/dL RDW 18.5 H (11.5-14.0) % Plt Count 144 L (150-450) x10^3/uL MPV 10.7 (7.5-11.0) fL Gran % 87.0 H (36.0-66.0) % Immature Gran % (Auto) 0.5 H (0.00-0.4) % Nucleat RBC Rel Count 0.0 (0.00-0.1) % Eos # (Auto) 0.01 (0-0.5) x10^3/uL Immature Gran # (Auto) 0.03 (0.00-0.03) x10^3u/L Absolute Lymphs (auto) 0.41 L (1.0-4.6) x10^3/uL Absolute Monos (auto) 0.34 (0.0-1.3) x10^3/uL Absolute Nucleated RBC 0.00 (0.00-0.01) x10^3u/L Lymphocytes % 6.6 L (24.0-44.0) % Monocytes % 5.5 (0.0-12.0) % Eosinophils % 0.2 (0.00-5.0) % Basophils % 0.2 (0.0-0.4) % Absolute Granulocytes 5.40 (1.4-6.9) x10^3/uL Basophils # 0.01 (0-0.4) x10^3/uL PT (9.4-12.5) SECONDS INR (0.8-3.0) APTT (25.1-36.5) SECONDS Sodium 135 L (137-145) mmol/L Potassium 3.7 (3.5-5.1) mmol/L Chloride 99 (98-107) mmol/L Carbon Dioxide 26 (22-30) mmol/L Anion Gap 13.6 (5-15) MEQ/L BUN 28 H (9-20) mg/dL Creatinine 1.19 (0.66-1.25) mg/dL Estimated GFR 59.1 ML/MIN Glucose 150 H (74-106) mg/dL Calcium 8.4 (8.4-10.2) mg/dL Total Bilirubin 0.90 (0.2-1.3) mg/dL AST 43 (17-59) U/L ALT 31 (0-50) U/L Alkaline Phosphatase 147 H (38-126) U/L Troponin I 0.038 H* (0.000-0.034) ng/mL Serum Total Protein 6.4 (6.3-8.2) g/dL Albumin 3.9 (3.5-5.0) g/dL Influenza Type A Ag (NEGATIVE) Influenza Type B Ag (NEGATIVE) RSV (PCR) (NEGATIVE) SARS-CoV-2 (PCR) (NEGATIVE) Slides for Path Review YES - Progress Progress: improved Air Movement: good Progress Note: Patient 77-year-old male with history of COPD presents to our ED for evaluation of progressive shortness of breath. Patient has no chest pain. Patient currently on Coumadin for atrial fibrillation. D-dimer not ordered as PE very unlikely at this point. Patient denies pain. Work-up reveals a normocytic anemia at 9.8. Patient's last hemoglobin was 10.2. Thrombocytopenia at 144. COVID test pending. Cultures pending. case discussed with at 2:28 PM. Patient was accepted to the floor for further evaluation and treatment. Plan of care discussed with patient. He agrees to admission at [facility] for further evaluation and treatment. Portions of this note were created with voice recognition technology. There may be grammatical, spelling, punctuation or sound alike errors 02/13/23 14:29 Complexity problem addressed is moderate acute complicated No critical care time Complex of data reviewed and analyzed is extensive. Test ordered test reviewed. Results analyzed and correlated clinically with history and physical examination. Plan of care/management discussed with hospitalist who excepts admission to observation. Risk of complication and or risk of morbidity/mortality of patient management is high. Patient received nebulizer treatment. Patient will require hospitalization for further evaluation and treatment. Vital stable. Diagnosis COPD exacerbation. Time spent admit patient approximately 20 minutes. Plan of care established for shared decision making. Portions of this note were created with voice recognition technology. There may be grammatical, spelling, punctuation or sound alike errors 02/13/23 14:31 02/13/23 14:43 Patient's troponin was marginally elevated. We repeated a second troponin prior to going up to the floor to assure that it is not trending upward. Troponin appears to be coming down. Patient remains asymptomatic Blood Culture(s) Obtained: Yes Antibiotics given: Yes Discussed with Dr.: Other (lillie) Will see patient in: hospital (observation) Counseled pt/family regarding: lab results, diagnosis, rad results - Departure Departure Disposition: Observation Clinical Impression: Shortness of breath, COPD exacerbation Condition: Stable Critical Care Time: No Referrals: [facility]] - Follow up/PCP as directed Instructions: Chronic Obstructive Pulmonary Disease
--- NOTE | 2023-02-13 13:46 | XRAY ---
Indication: Short of breath. COPD. Comparison: December 05, 2022 Portable chest again hyperinflated. No focal infiltrate, consolidation, or large effusion. Heart remains enlarged again with aortic valve replacement, CABG, and left dual-lead pacemaker. Stable small right suprahilar calcified nodes. Bony thorax intact again with osteopenia and mild degenerative changes. Impression: Nonacute chest with chronic features.
[2023-02-13 13:56] LABS: ALBUMIN 3.9 g/dL (3.5-5.0); ANION GAP 13.6 MEQ/L (5-15); BILIRUBIN,TOTAL 0.9 mg/dL (0.2-1.3); Calcium 8.4 mg/dL (8.4-10.2); Creatinine 1 1.19 mg/dL (0.66-1.25); EST GLOMERULAR FILTRATION RATE 59.1 ML/MIN; Potassium 3.7 mmol/L (3.5-5.1); Total Protein 6.4 g/dL (6.3-8.2)
[2023-02-13 13:58] LABS: INR 2.78 (0.8-3.0); PROTIME 28.1 SECONDS (9.4-12.5); PTT 36.6 SECONDS (25.1-36.5)
[2023-02-13] MEDS ORDERED: ROCEPHIN 2 Gm-D5w 50ML BAG** 2 G/50 ML IVPB IV STA (14:24)
[2023-02-13] MEDS ORDERED: ROCEPHIN 2 Gm-D5w 50ML BAG** 2 G/50 ML IVPB IV ONE (14:28)
[2023-02-13 14:32] LABS: Slide Review 1 YES
[2023-02-13 14:50] LABS: INFLUENZA A NEGATIVE (NEGATIVE); INFLUENZA B NEGATIVE (NEGATIVE); RESPIRATORY SYNCTIAL VIRUS NEGATIVE (NEGATIVE); SARS-CoV-2 Xpert Express NEGATIVE (NEGATIVE)
[2023-02-13] MEDS ORDERED: D5w 100ML Mini Bag 100 ML 100 ML IV ONE (15:24)
[2023-02-13] MEDS ORDERED: VIBRAMYCIN 100 MG IV ONE (15:24)
--- NOTE | 2023-02-13 15:33 | PCM.HP ---
<LENY CARRENO - Last Filed: 02/13/23 17:15> History of Present Illness - Chief Complaint Chief Complaint: COPD exacerbcation Date: 02/13/23 History of Present Illness: is a 87 year old male with PMHX of COPD, asthma, hyperlipidemia, CHF, CA, Stroke, A-fib, and CABG. He presented to our ED for evaluation of shortness of breath. Patient currently on Coumadin for atrial fibrillation. INR was performed yesterday. Patient's niece is a nurse. She reports INR was 3.5. 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 In spite of the steroids patient's symptoms worsened thus came to the ER. He is on baseline 3LNC. Symptoms are moderate in intensity. Activity worsens symptoms and symptoms improved with rest. Patient voices no other complaints concerns at this time. Since admission to ER sxs have improved, he was given steriods, duonebs, and antibiotics. Lung sounds are clear. Flu and COVID are negative. Trop I slightly elevated will trend and consult cardiology if needed. Most likely observe overnight and d/c tomorrow. - Review of Systems Constitutional: No Fever, No Chills Eyes: No Symptoms Ears, Nose, & Throat: No Symptoms Respiratory: Short Of Breath (that has improved since admission), No Cough Cardiac: No Chest Pain, No Edema, No Syncope Abdominal/Gastrointestinal: No Abdominal Pain, No Nausea, No Vomiting, No Diarrhea Genitourinary Symptoms: No Dysuria Musculoskeletal: No Back Pain, No Neck Pain Skin: No Rash Neurological: No Dizziness, No Focal Weakness, No Sensory Changes Psychological: No Symptoms Endocrine: No Symptoms Hematologic/Lymphatic: No Symptoms Immunological/Allergic: No Symptoms Medications & Allergies Home Medications: Home Medication List Albuterol Sulfate [Proair Hfa] 8.5 gm IH Q4HWA 06/08/20 [History Confirmed 02/13/23] Atorvastatin Calcium [Lipitor] 40 mg PO DAILY 06/08/20 [History Confirmed 02/13/23] Albuterol/Ipratropium 3ml Neb* [DUONEB 0.5-3 MG/3 ml Neb] 3 ml IH Q6H PRN PRN 10/17/20 [History Confirmed 02/13/23] Trazodone HCl 150 mg PO HS 09/19/22 [History Confirmed 02/13/23] Bumetanide 1 mg [Bumex 1 mg] 2 mg PO BID 09/20/22 [History Confirmed 02/13/23] Empagliflozin [Jardiance] 10 mg PO DAILY 09/20/22 [History Confirmed 02/13/23] Omeprazole 40 mg PO DAILY 09/20/22 [History Confirmed 02/13/23] Spironolactone 25 mg [Aldactone 25 MG] 12.5 mg PO DAILY 09/26/22 [History Confirmed 02/13/23] Potassium Chloride Tab* [Klor Con] 40 meq PO DAILY #120 tablet 09/28/22 [Rx Confirmed 02/13/23] Warfarin Sodium 5 mg [Jantoven] 2.5 mg PO DAILY 12/05/22 [History Confirmed 02/13/23] Allergies/Adverse Reactions: Allergies Allergy/AdvReac Type Severity Reaction Status Date / Time No Known Drug Allergies Allergy Verified 02/13/23 13:20 - Past Medical History Past Medical History: Yes Neurological History: Stroke ENT History: No Pertinent History Cardiac History: Congestive Heart Failure, Coronary Artery Disease, High Cholesterol, Myocardial Infarction (CA), Other Respiratory History: Asthma, COPD Endocrine Medical History: No Pertinent History Musculoskelatal History: No Pertinent History GI Medical History: No Pertinent History History: No Pertinent History Pyscho-Social History: No Pertinent History Male Reproductive Disorders: No Pertinent History Comment: AFIB. CABG 1999. PACEMAKER 1999. CKD stage 3 - Past Surgical History Past Surgical History: Yes Neuro Surgical History: No Pertinent History Cardiac History: CABG, Cardiac Stent Respiratory Surgery: No Pertinent History GI Surgical History: Appendectomy, Hernia Repair Genitourinary Surgical Hx: No Pertinent History Musculskeletal Surgical Hx: No Pertinent History Male Surgical History: No Pertinent History Other Surgical History: PACEMAKER - Social History Smoking Status: Never smoker Exposure to second hand smoke: No Alcohol: None Drug Use: none Significant Family History: heart disease - Physical Exam Vital Signs: Vital Signs - 24 hr Temp Pulse Resp BP BP Pulse Ox 02/13/23 15:01 102 H 18 107/74 97 02/13/23 14:47 98 02/13/23 14:45 72 18 123/70 96 02/13/23 14:31 72 24 122/72 98 02/13/23 14:30 73 21 122/72 99 02/13/23 13:43 70 32 H 98 02/13/23 13:41 98 02/13/23 13:22 97.4 F 75 34 H 114/59 98 General Appearance: no apparent distress, alert Neurologic Exam: alert, oriented x 3, cooperative, normal mood/affect, nml cerebellar function, nml station & gait, sensation nml, No motor deficits Eye Exam: PERRL/EOMI, eyes nml inspection Ears, Nose, Throat Exam: normal ENT inspection, TMs normal, pharynx normal, moist mucous membranes Neck Exam: normal inspection, non-tender, supple, full range of motion Respiratory Exam: normal breath sounds, lungs clear, No respiratory distress Cardiovascular Exam: regular rate/rhythm, normal heart sounds, normal peripheral pulses Gastrointestinal/Abdomen Exam: soft, normal bowel sounds, No tenderness, No mass Back Exam: normal inspection, normal range of motion, No CVA tenderness, No vertebral tenderness Extremity Exam: normal inspection, normal range of motion, pelvis stable Skin Exam: normal color, warm, dry, No rash Lymphatic Exam: No adenopathy Results - Labs Lab/Micro Results: Lab Results-Last 24 Hours 02/13/23 02/13/23 02/13/23 Range/Units 13:38 13:38 13:38 WBC 6.2 (4.0-10.5) x10^3/uL RBC 3.80 L (4.1-5.6) x10^6/uL Hgb 9.8 L (12.5-18.0) g/dL Hct 31.9 L (42-50) % MCV 83.9 (78-100) fL MCH 25.8 L (26-32) pg MCHC 30.7 L (32-36) g/dL RDW 18.5 H (11.5-14.0) % Plt Count 144 L (150-450) x10^3/uL MPV 10.7 (7.5-11.0) fL Gran % 87.0 H (36.0-66.0) % Immature Gran % (Auto) 0.5 H (0.00-0.4) % Nucleat RBC Rel Count 0.0 (0.00-0.1) % Eos # (Auto) 0.01 (0-0.5) x10^3/uL Immature Gran # (Auto) 0.03 (0.00-0.03) x10^3u/L Absolute Lymphs (auto) 0.41 L (1.0-4.6) x10^3/uL Absolute Monos (auto) 0.34 (0.0-1.3) x10^3/uL Absolute Nucleated RBC 0.00 (0.00-0.01) x10^3u/L Lymphocytes % 6.6 L (24.0-44.0) % Monocytes % 5.5 (0.0-12.0) % Eosinophils % 0.2 (0.00-5.0) % Basophils % 0.2 (0.0-0.4) % Absolute Granulocytes 5.40 (1.4-6.9) x10^3/uL Basophils # 0.01 (0-0.4) x10^3/uL PT (9.4-12.5) SECONDS INR (0.8-3.0) APTT (25.1-36.5) SECONDS Sodium 135 L (137-145) mmol/L Potassium 3.7 (3.5-5.1) mmol/L Chloride 99 (98-107) mmol/L Carbon Dioxide 26 (22-30) mmol/L Anion Gap 13.6 (5-15) MEQ/L BUN 28 H (9-20) mg/dL Creatinine 1.19 (0.66-1.25) mg/dL Estimated GFR 59.1 ML/MIN Glucose 150 H (74-106) mg/dL Calcium 8.4 (8.4-10.2) mg/dL Total Bilirubin 0.90 (0.2-1.3) mg/dL AST 43 (17-59) U/L ALT 31 (0-50) U/L Alkaline Phosphatase 147 H (38-126) U/L Troponin I 0.038 H* (0.000-0.034) ng/mL Serum Total Protein 6.4 (6.3-8.2) g/dL Albumin 3.9 (3.5-5.0) g/dL Influenza Type A Ag (NEGATIVE) Influenza Type B Ag (NEGATIVE) RSV (PCR) (NEGATIVE) SARS-CoV-2 (PCR) (NEGATIVE) Slides for Path Review YES 02/13/23 02/13/23 Range/Units 13:38 14:05 WBC (4.0-10.5) x10^3/uL RBC (4.1-5.6) x10^6/uL Hgb (12.5-18.0) g/dL Hct (42-50) % MCV (78-100) fL MCH (26-32) pg MCHC (32-36) g/dL RDW (11.5-14.0) % Plt Count (150-450) x10^3/uL MPV (7.5-11.0) fL Gran % (36.0-66.0) % Immature Gran % (Auto) (0.00-0.4) % Nucleat RBC Rel Count (0.00-0.1) % Eos # (Auto) (0-0.5) x10^3/uL Immature Gran # (Auto) (0.00-0.03) x10^3u/L Absolute Lymphs (auto) (1.0-4.6) x10^3/uL Absolute Monos (auto) (0.0-1.3) x10^3/uL Absolute Nucleated RBC (0.00-0.01) x10^3u/L Lymphocytes % (24.0-44.0) % Monocytes % (0.0-12.0) % Eosinophils % (0.00-5.0) % Basophils % (0.0-0.4) % Absolute Granulocytes (1.4-6.9) x10^3/uL Basophils # (0-0.4) x10^3/uL PT 28.1 H (9.4-12.5) SECONDS INR 2.78 (0.8-3.0) APTT 36.6 H (25.1-36.5) SECONDS Sodium (137-145) mmol/L Potassium (3.5-5.1) mmol/L Chloride (98-107) mmol/L Carbon Dioxide (22-30) mmol/L Anion Gap (5-15) MEQ/L BUN (9-20) mg/dL Creatinine (0.66-1.25) mg/dL Estimated GFR ML/MIN Glucose (74-106) mg/dL Calcium (8.4-10.2) mg/dL Total Bilirubin (0.2-1.3) mg/dL AST (17-59) U/L ALT (0-50) U/L Alkaline Phosphatase (38-126) U/L Troponin I (0.000-0.034) ng/mL Serum Total Protein (6.3-8.2) g/dL Albumin (3.5-5.0) g/dL Influenza Type A Ag NEGATIVE (NEGATIVE) Influenza Type B Ag NEGATIVE (NEGATIVE) RSV (PCR) NEGATIVE (NEGATIVE) SARS-CoV-2 (PCR) NEGATIVE (NEGATIVE) Slides for Path Review - Radiology Impressions Radiology Exams & Impressions: Radiology Procedures Category Date Time Status CHEST 1 VIEW (PORTABLE) Stat Exams 02/13/23 13:26 Completed - Other Procedures and Tests Respiratory Therapy 02/13/23 13:43 Respiratory Therapy Assessment DAILY Assessment/Plan (1) COPD exacerbation Current Visit: Yes Status: Acute Assessment & Plan: - failed OP steroids ordered by Pulm - on Baseline 3LNC - Chest XR 02/13/23: Nonacute chest with chronic features - Cont. antibiotics ceftriaxone - Steriods PO Code(s): J44.1 - CHRONIC OBSTRUCTIVE PULMONARY DISEASE W (ACUTE) EXACERBATION (2) Hyperlipidemia Current Visit: Yes Status: Acute Assessment & Plan: - Continue statin Code(s): E78.5 - HYPERLIPIDEMIA, UNSPECIFIED (3) Elevated troponin level Current Visit: No Status: Acute Assessment & Plan: - Trop 0.038- continue to trend - 2nd trop trended down 0.032 - Consider cardiology consult Code(s): R74.8 - ABNORMAL LEVELS OF OTHER SERUM ENZYMES (4) Anticoagulated on Coumadin Current Visit: No Status: Chronic Assessment & Plan: - Pharmacy to manage coumadin - INR 2.78, target INR 2-3 Code(s): Z79.01 - HALF-WAY (CURRENT) USE OF ANTICOAGULANTS (5) Atrial fibrillation Current Visit: No Status: Chronic Assessment & Plan: - chronic - tele Code(s): I48.91 - UNSPECIFIED ATRIAL FIBRILLATION (6) Hyponatremia Current Visit: Yes Status: Acute Assessment & Plan: - mild- monitor Code(s): E87.1 - HYPO-OSMOLALITY AND HYPONATREMIA (7) GERD (gastroesophageal reflux disease) Current Visit: Yes Status: Acute Assessment & Plan: - continue omeprazole Code(s): K21.9 - GASTRO-ESOPHAGEAL REFLUX DISEASE WITHOUT ESOPHAGITIS <MARLINE RODRIGUES - Last Filed: 02/13/23 19:52> History of Present Illness - Chief Complaint History of Present Illness: is a 87 year old male. - Physical Exam Vital Signs: Vital Signs - 24 hr Temp Pulse Resp BP BP Pulse Ox 02/13/23 17:12 96.6 F 70 16 123/83 99 02/13/23 16:32 98 02/13/23 16:01 85 41 H 136/80 98 02/13/23 15:45 74 26 H 125/90 98 02/13/23 15:30 70 26 H 139/81 98 02/13/23 15:15 74 21 127/82 99 02/13/23 15:01 102 H 18 107/74 97 02/13/23 14:45 72 18 123/70 96 02/13/23 14:31 72 24 122/72 98 02/13/23 14:30 73 21 122/72 99 02/13/23 13:43 70 32 H 98 02/13/23 13:41 98 02/13/23 13:22 97.4 F 75 34 H 114/59 98 Results - Labs Lab/Micro Results: Lab Results-Last 24 Hours 02/13/23 02/13/23 02/13/23 Range/Units 13:38 13:38 13:38 WBC 6.2 (4.0-10.5) x10^3/uL RBC 3.80 L (4.1-5.6) x10^6/uL Hgb 9.8 L (12.5-18.0) g/dL Hct 31.9 L (42-50) % MCV 83.9 (78-100) fL MCH 25.8 L (26-32) pg MCHC 30.7 L (32-36) g/dL RDW 18.5 H (11.5-14.0) % Plt Count 144 L (150-450) x10^3/uL MPV 10.7 (7.5-11.0) fL Gran % 87.0 H (36.0-66.0) % Immature Gran % (Auto) 0.5 H (0.00-0.4) % Nucleat RBC Rel Count 0.0 (0.00-0.1) % Eos # (Auto) 0.01 (0-0.5) x10^3/uL Immature Gran # (Auto) 0.03 (0.00-0.03) x10^3u/L Absolute Lymphs (auto) 0.41 L (1.0-4.6) x10^3/uL Absolute Monos (auto) 0.34 (0.0-1.3) x10^3/uL Absolute Nucleated RBC 0.00 (0.00-0.01) x10^3u/L Lymphocytes % 6.6 L (24.0-44.0) % Monocytes % 5.5 (0.0-12.0) % Eosinophils % 0.2 (0.00-5.0) % Basophils % 0.2 (0.0-0.4) % Absolute Granulocytes 5.40 (1.4-6.9) x10^3/uL Basophils # 0.01 (0-0.4) x10^3/uL PT (9.4-12.5) SECONDS INR (0.8-3.0) APTT (25.1-36.5) SECONDS Sodium 135 L (137-145) mmol/L Potassium 3.7 (3.5-5.1) mmol/L Chloride 99 (98-107) mmol/L Carbon Dioxide 26 (22-30) mmol/L Anion Gap 13.6 (5-15) MEQ/L BUN 28 H (9-20) mg/dL Creatinine 1.19 (0.66-1.25) mg/dL Estimated GFR 59.1 ML/MIN Glucose 150 H (74-106) mg/dL Calcium 8.4 (8.4-10.2) mg/dL Total Bilirubin 0.90 (0.2-1.3) mg/dL AST 43 (17-59) U/L ALT 31 (0-50) U/L Alkaline Phosphatase 147 H (38-126) U/L Troponin I 0.038 H* (0.000-0.034) ng/mL Serum Total Protein 6.4 (6.3-8.2) g/dL Albumin 3.9 (3.5-5.0) g/dL Influenza Type A Ag (NEGATIVE) Influenza Type B Ag (NEGATIVE) RSV (PCR) (NEGATIVE) SARS-CoV-2 (PCR) (NEGATIVE) Slides for Path Review YES 02/13/23 02/13/23 02/13/23 Range/Units 13:38 14:05 15:40 WBC (4.0-10.5) x10^3/uL RBC (4.1-5.6) x10^6/uL Hgb (12.5-18.0) g/dL Hct (42-50) % MCV (78-100) fL MCH (26-32) pg MCHC (32-36) g/dL RDW (11.5-14.0) % Plt Count (150-450) x10^3/uL MPV (7.5-11.0) fL Gran % (36.0-66.0) % Immature Gran % (Auto) (0.00-0.4) % Nucleat RBC Rel Count (0.00-0.1) % Eos # (Auto) (0-0.5) x10^3/uL Immature Gran # (Auto) (0.00-0.03) x10^3u/L Absolute Lymphs (auto) (1.0-4.6) x10^3/uL Absolute Monos (auto) (0.0-1.3) x10^3/uL Absolute Nucleated RBC (0.00-0.01) x10^3u/L Lymphocytes % (24.0-44.0) % Monocytes % (0.0-12.0) % Eosinophils % (0.00-5.0) % Basophils % (0.0-0.4) % Absolute Granulocytes (1.4-6.9) x10^3/uL Basophils # (0-0.4) x10^3/uL PT 28.1 H (9.4-12.5) SECONDS INR 2.78 (0.8-3.0) APTT 36.6 H (25.1-36.5) SECONDS Sodium (137-145) mmol/L Potassium (3.5-5.1) mmol/L Chloride (98-107) mmol/L Carbon Dioxide (22-30) mmol/L Anion Gap (5-15) MEQ/L BUN (9-20) mg/dL Creatinine (0.66-1.25) mg/dL Estimated GFR ML/MIN Glucose (74-106) mg/dL Calcium (8.4-10.2) mg/dL Total Bilirubin (0.2-1.3) mg/dL AST (17-59) U/L ALT (0-50) U/L Alkaline Phosphatase (38-126) U/L Troponin I 0.032 (0.000-0.034) ng/mL Serum Total Protein (6.3-8.2) g/dL Albumin (3.5-5.0) g/dL Influenza Type A Ag NEGATIVE (NEGATIVE) Influenza Type B Ag NEGATIVE (NEGATIVE) RSV (PCR) NEGATIVE (NEGATIVE) SARS-CoV-2 (PCR) NEGATIVE (NEGATIVE) Slides for Path Review - Radiology Impressions Radiology Exams & Impressions: Radiology Procedures Category Date Time Status CHEST 1 VIEW (PORTABLE) Stat Exams 02/13/23 13:26 Completed - Other Procedures and Tests Respiratory Therapy 02/13/23 17:24 RT Screen per Nursing Assess ONCE 02/13/23 17:28 Respiratory Therapy Assessment DAILY 02/13/23 17:36 Oxygen Nasal Cannula 3 lpm EMILIA Encounter - EMILIA Encounter Attestation EMILIA Encounter Attestation: "AlemlyseenandLOU Vela andhavediscussed pertinent aspects of their care with Leny Calles agree with the history, physical exam (any modifications based on my personal exam will be noted below), assessment, and plan as outlined in original note. Please see immediately below for my summary of findings and additional assessment and plan along with any meaningful corrections/explanations to the Subjective/Objective portions of the EMILIA note will be noted." My portion of the encounter took place via telemedicine. -COPD exacerbation with failure of outpatient management. Continue IV steroids, nebs. No indication for antibiotics in the absence of fever, WBC and CXR findings.
[2023-02-13] MEDS ORDERED: PHARMACY DOSING REQUEST MC ONE (17:16)
[2023-02-13] MEDS ORDERED: DUONEB 0.5-3 MG/3 ml Neb IH PRN (17:17)
[2023-02-13] MEDS ORDERED: JANTOVEN PO SCH (18:00)
[2023-02-13] MEDS: BUMEX 1 MG PO SCH (18:14)
[2023-02-13] MEDS: DUONEB 0.5-3 MG/3 ml Neb IH SCH (18:38)
[2023-02-13] MEDS ORDERED: VENTOLIN COMMON CANISTER IH SCH (20:00)
[2023-02-13] MEDS: DELTASONE 20 MG PO SCH (21:56)
[2023-02-13] MEDS ORDERED: Desyrel 150 MG PO SCH (22:00)
[2023-02-13] MEDS ORDERED: VIBRAMYCIN 100 MG*** 100 MG in Dextrose 5%/Water IV Soln. 100ML PLUS BAG 100 ML IV SCH (22:00)
[2023-02-14 05:40] LABS: Hematocrit 32.3 % (42-50); Hemoglobin 9.9 g/dL (12.5-18.0); Mean Cell Volume 81.8 fL (78-100); Mean Corpuscular Hemoglobin 25.1 pg (26-32); Mean Corpuscular Hgb Concent. 30.7 g/dL (32-36); Mean Platelet Volume 11.2 fL (7.5-11.0); Platelet Count 147 x10^3/uL (150-450); Red Blood Count 3.95 x10^6/uL (4.1-5.6); Red Cell Distribution Width 18.5 % (11.5-14.0); White Blood Count 5.5 x10^3/uL (4.0-10.5)
[2023-02-14 06:00] LABS: INR 3.17 (0.8-3.0); PROTIME 31.7 SECONDS (9.4-12.5)
[2023-02-14 06:07] LABS: ALBUMIN 3.8 g/dL (3.5-5.0); ANION GAP 13.8 MEQ/L (5-15); BILIRUBIN,TOTAL 0.6 mg/dL (0.2-1.3); Calcium 8.3 mg/dL (8.4-10.2); Creatinine 1 1.15 mg/dL (0.66-1.25); EST GLOMERULAR FILTRATION RATE 61.6 ML/MIN; Potassium 3.2 mmol/L (3.5-5.1); Total Protein 6.6 g/dL (6.3-8.2)
[2023-02-14] MEDS ORDERED: Klor Con PO ONE (07:35)
[2023-02-14 07:42] VITALS: RESP 18
[2023-02-14] MEDS: DUONEB 0.5-3 MG/3 ml Neb IH SCH ×2 (07:44→11:10)
[2023-02-14] MEDS: DELTASONE 20 MG PO SCH (09:29)
[2023-02-14] MEDS: BUMEX 1 MG PO SCH (09:29)
--- NOTE | 2023-02-14 09:58 | PCM.DS ---
Discharge Summary Date of Admission: 02/13/23 16:47 Date of Discharge: 02/14/23 Admitting Physician: MARLINE RODRIGUES MD Primary Care Provider: ULISES ADAMS <LENY CARRENO - Last Filed: 02/14/23 10:25> Date of Admission: 02/13/23 16:47 Date of Discharge: 02/14/23 Admitting Physician: MARLINE RODRIGUES MD Primary Care Provider: ULISES ADAMS <MARLINE RODRIGUES - Last Filed: 02/14/23 18:55> Allergies <LENY CARRENO - Last Filed: 02/14/23 10:25> <MARLINE RODRIGUES - Last Filed: 02/14/23 18:55> Allergies No Known Drug Allergies Allergy (Verified 02/13/23 13:20) Hospital Summary - Hospital Course Hospital Course: 02/13/23 is a 87 year old male with PMHX of COPD, asthma, hyperlipidemia, CHF, [place], Stroke, A-fib, and CABG. He presented to our ED for evaluation of shortness of breath. Patient currently on Coumadin for atrial fibrillation. INR was performed yesterday. Patient's niece is a nurse. She reports INR was 3.5. Patient saw his financial specialist regarding his shortness of breath and was started on steroids to treat COPD exacerbation. In spite of the steroids patient's symptoms worsened thus came to the ER. He is on baseline 3LNC. Symptoms are moderate in intensity. Activity worsens symptoms and symptoms improved with rest. Patient voices no other complaints concerns at this time. Since admission to ER sxs have improved, he was given steriods, duonebs, and antibiotics. Lung sounds are clear. Flu and COVID are negative. Trop I slightly elevated will trend and consult cardiology if needed. Most likely observe overnight and d/c tomorrow. 02/14/23 Pt sitting up in chair. He is feeling much better and would like to go home. Lung sounds are clear. He is on baseline oxygen of 3LNC. Troponins trended down. He denies CP, SOB, Abd pain, N/V/D. He denies any further concerns at this time. Will d/c with steroids and antibiotics. - Vitals & Intake/Output Vital Signs: Vital Signs Temperature 96.9 F 02/14/23 07:42 Pulse Rate 74 02/14/23 07:45 Respiratory Rate 18 02/14/23 07:45 Blood Pressure 112/71 02/14/23 07:42 O2 Sat by Pulse Oximetry 99 02/14/23 07:45 Intake & Output: Intake & Output 02/11/23 02/12/23 02/13/23 02/14/23 11:59 11:59 11:59 11:59 Intake Total 1440 Balance 1440 Weight 76.1 kg - Lab Result Diagrams: 02/14/23 04:59 02/14/23 04:59 Lab Results-Last 24 Hrs: Lab Results-Last 24 Hours 02/13/23 02/13/23 02/13/23 Range/Units 13:38 13:38 13:38 WBC 6.2 (4.0-10.5) x10^3/uL RBC 3.80 L (4.1-5.6) x10^6/uL Hgb 9.8 L (12.5-18.0) g/dL Hct 31.9 L (42-50) % MCV 83.9 (78-100) fL MCH 25.8 L (26-32) pg MCHC 30.7 L (32-36) g/dL RDW 18.5 H (11.5-14.0) % Plt Count 144 L (150-450) x10^3/uL MPV 10.7 (7.5-11.0) fL Gran % 87.0 H (36.0-66.0) % Immature Gran % (Auto) 0.5 H (0.00-0.4) % Nucleat RBC Rel Count 0.0 (0.00-0.1) % Eos # (Auto) 0.01 (0-0.5) x10^3/uL Immature Gran # (Auto) 0.03 (0.00-0.03) x10^3u/L Absolute Lymphs (auto) 0.41 L (1.0-4.6) x10^3/uL Absolute Monos (auto) 0.34 (0.0-1.3) x10^3/uL Absolute Nucleated RBC 0.00 (0.00-0.01) x10^3u/L Lymphocytes % 6.6 L (24.0-44.0) % Monocytes % 5.5 (0.0-12.0) % Eosinophils % 0.2 (0.00-5.0) % Basophils % 0.2 (0.0-0.4) % Absolute Granulocytes 5.40 (1.4-6.9) x10^3/uL Basophils # 0.01 (0-0.4) x10^3/uL PT (9.4-12.5) SECONDS INR (0.8-3.0) APTT (25.1-36.5) SECONDS Sodium 135 L (137-145) mmol/L Potassium 3.7 (3.5-5.1) mmol/L Chloride 99 (98-107) mmol/L Carbon Dioxide 26 (22-30) mmol/L Anion Gap 13.6 (5-15) MEQ/L BUN 28 H (9-20) mg/dL Creatinine 1.19 (0.66-1.25) mg/dL Estimated GFR 59.1 ML/MIN Glucose 150 H (74-106) mg/dL Calcium 8.4 (8.4-10.2) mg/dL Total Bilirubin 0.90 (0.2-1.3) mg/dL AST 43 (17-59) U/L ALT 31 (0-50) U/L Alkaline Phosphatase 147 H (38-126) U/L Troponin I 0.038 H* (0.000-0.034) ng/mL Serum Total Protein 6.4 (6.3-8.2) g/dL Albumin 3.9 (3.5-5.0) g/dL Influenza Type A Ag (NEGATIVE) Influenza Type B Ag (NEGATIVE) RSV (PCR) (NEGATIVE) SARS-CoV-2 (PCR) (NEGATIVE) Slides for Path Review YES 02/13/23 02/13/23 02/13/23 Range/Units 13:38 14:05 15:40 WBC (4.0-10.5) x10^3/uL RBC (4.1-5.6) x10^6/uL Hgb (12.5-18.0) g/dL Hct (42-50) % MCV (78-100) fL MCH (26-32) pg MCHC (32-36) g/dL RDW (11.5-14.0) % Plt Count (150-450) x10^3/uL MPV (7.5-11.0) fL Gran % (36.0-66.0) % Immature Gran % (Auto) (0.00-0.4) % Nucleat RBC Rel Count (0.00-0.1) % Eos # (Auto) (0-0.5) x10^3/uL Immature Gran # (Auto) (0.00-0.03) x10^3u/L Absolute Lymphs (auto) (1.0-4.6) x10^3/uL Absolute Monos (auto) (0.0-1.3) x10^3/uL Absolute Nucleated RBC (0.00-0.01) x10^3u/L Lymphocytes % (24.0-44.0) % Monocytes % (0.0-12.0) % Eosinophils % (0.00-5.0) % Basophils % (0.0-0.4) % Absolute Granulocytes (1.4-6.9) x10^3/uL Basophils # (0-0.4) x10^3/uL PT 28.1 H (9.4-12.5) SECONDS INR 2.78 (0.8-3.0) APTT 36.6 H (25.1-36.5) SECONDS Sodium (137-145) mmol/L Potassium (3.5-5.1) mmol/L Chloride (98-107) mmol/L Carbon Dioxide (22-30) mmol/L Anion Gap (5-15) MEQ/L BUN (9-20) mg/dL Creatinine (0.66-1.25) mg/dL Estimated GFR ML/MIN Glucose (74-106) mg/dL Calcium (8.4-10.2) mg/dL Total Bilirubin (0.2-1.3) mg/dL AST (17-59) U/L ALT (0-50) U/L Alkaline Phosphatase (38-126) U/L Troponin I 0.032 (0.000-0.034) ng/mL Serum Total Protein (6.3-8.2) g/dL Albumin (3.5-5.0) g/dL Influenza Type A Ag NEGATIVE (NEGATIVE) Influenza Type B Ag NEGATIVE (NEGATIVE) RSV (PCR) NEGATIVE (NEGATIVE) SARS-CoV-2 (PCR) NEGATIVE (NEGATIVE) Slides for Path Review 02/13/23 02/14/23 02/14/23 Range/Units 21:40 04:59 04:59 WBC 5.5 (4.0-10.5) x10^3/uL RBC 3.95 L (4.1-5.6) x10^6/uL Hgb 9.9 L (12.5-18.0) g/dL Hct 32.3 L (42-50) % MCV 81.8 (78-100) fL MCH 25.1 L (26-32) pg MCHC 30.7 L (32-36) g/dL RDW 18.5 H (11.5-14.0) % Plt Count 147 L (150-450) x10^3/uL MPV 11.2 H (7.5-11.0) fL Gran % (36.0-66.0) % Immature Gran % (Auto) (0.00-0.4) % Nucleat RBC Rel Count (0.00-0.1) % Eos # (Auto) (0-0.5) x10^3/uL Immature Gran # (Auto) (0.00-0.03) x10^3u/L Absolute Lymphs (auto) (1.0-4.6) x10^3/uL Absolute Monos (auto) (0.0-1.3) x10^3/uL Absolute Nucleated RBC (0.00-0.01) x10^3u/L Lymphocytes % (24.0-44.0) % Monocytes % (0.0-12.0) % Eosinophils % (0.00-5.0) % Basophils % (0.0-0.4) % Absolute Granulocytes (1.4-6.9) x10^3/uL Basophils # (0-0.4) x10^3/uL PT (9.4-12.5) SECONDS INR (0.8-3.0) APTT (25.1-36.5) SECONDS Sodium 136 L (137-145) mmol/L Potassium 3.2 L (3.5-5.1) mmol/L Chloride 97 L (98-107) mmol/L Carbon Dioxide 28 (22-30) mmol/L Anion Gap 13.8 (5-15) MEQ/L BUN 31 H (9-20) mg/dL Creatinine 1.15 (0.66-1.25) mg/dL Estimated GFR 61.6 ML/MIN Glucose 131 H (74-106) mg/dL Calcium 8.3 L (8.4-10.2) mg/dL Total Bilirubin 0.60 (0.2-1.3) mg/dL AST 42 (17-59) U/L ALT 32 (0-50) U/L Alkaline Phosphatase 157 H (38-126) U/L Troponin I 0.022 (0.000-0.034) ng/mL Serum Total Protein 6.6 (6.3-8.2) g/dL Albumin 3.8 (3.5-5.0) g/dL Influenza Type A Ag (NEGATIVE) Influenza Type B Ag (NEGATIVE) RSV (PCR) (NEGATIVE) SARS-CoV-2 (PCR) (NEGATIVE) Slides for Path Review 02/14/23 Range/Units 04:59 WBC (4.0-10.5) x10^3/uL RBC (4.1-5.6) x10^6/uL Hgb (12.5-18.0) g/dL Hct (42-50) % MCV (78-100) fL MCH (26-32) pg MCHC (32-36) g/dL RDW (11.5-14.0) % Plt Count (150-450) x10^3/uL MPV (7.5-11.0) fL Gran % (36.0-66.0) % Immature Gran % (Auto) (0.00-0.4) % Nucleat RBC Rel Count (0.00-0.1) % Eos # (Auto) (0-0.5) x10^3/uL Immature Gran # (Auto) (0.00-0.03) x10^3u/L Absolute Lymphs (auto) (1.0-4.6) x10^3/uL Absolute Monos (auto) (0.0-1.3) x10^3/uL Absolute Nucleated RBC (0.00-0.01) x10^3u/L Lymphocytes % (24.0-44.0) % Monocytes % (0.0-12.0) % Eosinophils % (0.00-5.0) % Basophils % (0.0-0.4) % Absolute Granulocytes (1.4-6.9) x10^3/uL Basophils # (0-0.4) x10^3/uL PT 31.7 H (9.4-12.5) SECONDS INR 3.17 H (0.8-3.0) APTT (25.1-36.5) SECONDS Sodium (137-145) mmol/L Potassium (3.5-5.1) mmol/L Chloride (98-107) mmol/L Carbon Dioxide (22-30) mmol/L Anion Gap (5-15) MEQ/L BUN (9-20) mg/dL Creatinine (0.66-1.25) mg/dL Estimated GFR ML/MIN Glucose (74-106) mg/dL Calcium (8.4-10.2) mg/dL Total Bilirubin (0.2-1.3) mg/dL AST (17-59) U/L ALT (0-50) U/L Alkaline Phosphatase (38-126) U/L Troponin I (0.000-0.034) ng/mL Serum Total Protein (6.3-8.2) g/dL Albumin (3.5-5.0) g/dL Influenza Type A Ag (NEGATIVE) Influenza Type B Ag (NEGATIVE) RSV (PCR) (NEGATIVE) SARS-CoV-2 (PCR) (NEGATIVE) Slides for Path Review - Radiology Exams Ordered Rad Exams-Entire Visit: Radiology Procedures Category Date Time Status CHEST 1 VIEW (PORTABLE) Stat Exams 02/13/23 13:26 Completed - Procedures and Test Procedures and Tests throughout Hospitalization: Therapy Orders & Screens 02/13/23 13:43 Respiratory Therapy Assessment DAILY Comment: 02/13/23 17:24 RT Screen per Nursing Assess ONCE Comment: Protocol Order Physician Instructions: Greater than 3 points order RT Admission Screen Reason For Exam: Triggered on Admission Diagnosis: COPD exacerbcation Diagnosis: COPD exacerbcation Pneumonia: No Home O2: Yes Asthma: No CHF: No Home CPAP/BIPAP: No Home Nebs/MDI: Yes Total Points: 10 02/13/23 17:28 Respiratory Therapy Assessment DAILY Comment: Diagnosis: COPD exacerbcation 02/13/23 17:36 Oxygen Nasal Cannula 3 lpm Comment: Diagnosis: COPD exacerbcation <LENY CARRENO - Last Filed: 02/14/23 10:25> - Vitals & Intake/Output Vital Signs: Vital Signs Temperature 97.1 F 02/14/23 12:00 Pulse Rate 70 02/14/23 12:00 Respiratory Rate 18 02/14/23 12:00 Blood Pressure 114/65 02/14/23 12:00 O2 Sat by Pulse Oximetry 94 L 02/14/23 12:00 Intake & Output: Intake & Output 02/12/23 02/13/23 02/14/23 02/15/23 11:59 11:59 11:59 11:59 Intake Total 1440 Balance 1440 Weight 76.1 kg - Lab Result Diagrams: 02/14/23 04:59 02/14/23 04:59 Lab Results-Last 24 Hrs: Lab Results-Last 24 Hours 02/13/23 02/14/23 02/14/23 Range/Units 21:40 04:59 04:59 WBC 5.5 (4.0-10.5) x10^3/uL RBC 3.95 L (4.1-5.6) x10^6/uL Hgb 9.9 L (12.5-18.0) g/dL Hct 32.3 L (42-50) % MCV 81.8 (78-100) fL MCH 25.1 L (26-32) pg MCHC 30.7 L (32-36) g/dL RDW 18.5 H (11.5-14.0) % Plt Count 147 L (150-450) x10^3/uL MPV 11.2 H (7.5-11.0) fL PT (9.4-12.5) SECONDS INR (0.8-3.0) Sodium 136 L (137-145) mmol/L Potassium 3.2 L (3.5-5.1) mmol/L Chloride 97 L (98-107) mmol/L Carbon Dioxide 28 (22-30) mmol/L Anion Gap 13.8 (5-15) MEQ/L BUN 31 H (9-20) mg/dL Creatinine 1.15 (0.66-1.25) mg/dL Estimated GFR 61.6 ML/MIN Glucose 131 H (74-106) mg/dL Calcium 8.3 L (8.4-10.2) mg/dL Total Bilirubin 0.60 (0.2-1.3) mg/dL AST 42 (17-59) U/L ALT 32 (0-50) U/L Alkaline Phosphatase 157 H (38-126) U/L Troponin I 0.022 (0.000-0.034) ng/mL Serum Total Protein 6.6 (6.3-8.2) g/dL Albumin 3.8 (3.5-5.0) g/dL 02/14/23 Range/Units 04:59 WBC (4.0-10.5) x10^3/uL RBC (4.1-5.6) x10^6/uL Hgb (12.5-18.0) g/dL Hct (42-50) % MCV (78-100) fL MCH (26-32) pg MCHC (32-36) g/dL RDW (11.5-14.0) % Plt Count (150-450) x10^3/uL MPV (7.5-11.0) fL PT 31.7 H (9.4-12.5) SECONDS INR 3.17 H (0.8-3.0) Sodium (137-145) mmol/L Potassium (3.5-5.1) mmol/L Chloride (98-107) mmol/L Carbon Dioxide (22-30) mmol/L Anion Gap (5-15) MEQ/L BUN (9-20) mg/dL Creatinine (0.66-1.25) mg/dL Estimated GFR ML/MIN Glucose (74-106) mg/dL Calcium (8.4-10.2) mg/dL Total Bilirubin (0.2-1.3) mg/dL AST (17-59) U/L ALT (0-50) U/L Alkaline Phosphatase (38-126) U/L Troponin I (0.000-0.034) ng/mL Serum Total Protein (6.3-8.2) g/dL Albumin (3.5-5.0) g/dL - Radiology Exams Ordered Rad Exams-Entire Visit: Radiology Procedures Category Date Time Status CHEST 1 VIEW (PORTABLE) Stat Exams 02/13/23 13:26 Completed - Procedures and Test Procedures and Tests throughout Hospitalization: Therapy Orders & Screens 02/13/23 13:43 Respiratory Therapy Assessment DAILY Comment: 02/13/23 17:24 RT Screen per Nursing Assess ONCE Comment: Protocol Order Physician Instructions: Greater than 3 points order RT Admission Screen Reason For Exam: Triggered on Admission Diagnosis: COPD exacerbcation Diagnosis: COPD exacerbcation Pneumonia: No Home O2: Yes Asthma: No CHF: No Home CPAP/BIPAP: No Home Nebs/MDI: Yes Total Points: 10 02/13/23 17:28 Respiratory Therapy Assessment DAILY Comment: Diagnosis: COPD exacerbcation 02/13/23 17:36 Oxygen Nasal Cannula 3 lpm Comment: Diagnosis: COPD exacerbcation <MARLINE RODRIGUES - Last Filed: 02/14/23 18:55> Discharge Exam General Appearance: no apparent distress, alert Neurologic Exam: alert, oriented x 3, cooperative, normal mood/affect, nml cerebellar function, sensation nml, No motor deficits Eye Exam: PERRL, EOMI, eyes nml inspection Ears, Nose, Throat Exam: normal ENT inspection, pharynx normal, moist mucous membranes Neck Exam: normal inspection, non-tender, supple, full range of motion Respiratory Exam: normal breath sounds, lungs clear, No respiratory distress Cardiovascular Exam: regular rate/rhythm, normal heart sounds Gastrointestinal/Abdomen Exam: soft, No tenderness, No mass Male Genitalia Exam: deferred Rectal Exam: deferred Back Exam: normal inspection, normal range of motion, No CVA tenderness, No vertebral tenderness Extremity Exam: normal inspection, normal range of motion Skin Exam: normal color, warm, dry <LENY CARRENO - Last Filed: 02/14/23 10:25> Final Diagnosis/Problem List - Final Discharge Diagnosis/Problem (1) COPD exacerbation Status: Acute Code(s): J44.1 - CHRONIC OBSTRUCTIVE PULMONARY DISEASE W (ACUTE) EXACERBATION (2) Hyperlipidemia Status: Acute Code(s): E78.5 - HYPERLIPIDEMIA, UNSPECIFIED (3) Elevated troponin level Status: Acute Code(s): R74.8 - ABNORMAL LEVELS OF OTHER SERUM ENZYMES (4) Anticoagulated on Coumadin Status: Chronic Code(s): Z79.01 - PUMP INSTALLATION AND SERVICER (CURRENT) USE OF ANTICOAGULANTS (5) Atrial fibrillation Status: Chronic Code(s): I48.91 - UNSPECIFIED ATRIAL FIBRILLATION (6) Hyponatremia Status: Acute Code(s): E87.1 - HYPO-OSMOLALITY AND HYPONATREMIA (7) GERD (gastroesophageal reflux disease) Status: Acute Assessment & Plan: (1) COPD exacerbation Current Visit: Yes Status: Acute Assessment & Plan: - failed OP steroids ordered by Pulm - on Baseline 3LNC - Chest XR 02/13/23: Nonacute chest with chronic features - Cont. antibiotics ceftriaxone - Steroids PO Code(s): J44.1 - CHRONIC OBSTRUCTIVE PULMONARY DISEASE W (ACUTE) EXACERBATION (2) Hyperlipidemia Current Visit: Yes Status: Acute Assessment & Plan: - Continue statin Code(s): E78.5 - HYPERLIPIDEMIA, UNSPECIFIED (3) Elevated troponin level Current Visit: No Status: Acute Assessment & Plan: - Trop 0.038- continue to trend - 2nd trop trended down 0.032 - Consider cardiology consult 02/14 - trop trended down and no Cp, most likely r/t demand Code(s): R74.8 - ABNORMAL LEVELS OF OTHER SERUM ENZYMES (4) Anticoagulated on Coumadin Current Visit: No Status: Chronic Assessment & Plan: - Pharmacy to manage coumadin - INR 2.78, target INR 2-3 02/14 - INR 3.17 Code(s): Z79.01 - PUMP INSTALLATION AND SERVICER (CURRENT) USE OF ANTICOAGULANTS (5) Atrial fibrillation Current Visit: No Status: Chronic Assessment & Plan: - chronic - tele Code(s): I48.91 - UNSPECIFIED ATRIAL FIBRILLATION (6) Hyponatremia Current Visit: Yes Status: Acute Assessment & Plan: - mild- monitor Code(s): E87.1 - HYPO-OSMOLALITY AND HYPONATREMIA (7) GERD (gastroesophageal reflux disease) Current Visit: Yes Status: Acute Assessment & Plan: - continue omeprazole Code(s): K21.9 - GASTRO-ESOPHAGEAL REFLUX DISEASE WITHOUT ESOPHAGITIS Code(s): K21.9 - GASTRO-ESOPHAGEAL REFLUX DISEASE WITHOUT ESOPHAGITIS <LENY CARRENO - Last Filed: 02/14/23 10:25> - Discharge Discharge Date: 02/14/23 <LENY CARRENO - Last Filed: 02/14/23 10:25> <MARLINE RODRIGUES - Last Filed: 02/14/23 18:55> - Discharge Disposition: Home, Self-Care Condition: Stable Prescriptions: New Azithromycin [Azithromycin 250 mg Pack] 250 mg PO UD #6 tablet Budesonide/Formoterol Fumarate [Budesonide-Formoterol 160-4.5] 10.2 gm IH BID 30 Days #1 Prednisone 20 mg [Deltasone 20 mg] 20 mg PO BID 5 Days #10 tablet Continue Atorvastatin Calcium [Lipitor] 40 mg PO DAILY Albuterol Sulfate [Proair Hfa] 8.5 gm IH Q4HWA Albuterol/Ipratropium 3ml Neb* [DUONEB 0.5-3 MG/3 ml Neb] 3 ml IH Q6H PRN PRN PRN Reason: Shortness Of Breath/Wheezing Trazodone HCl 150 mg PO HS Omeprazole 40 mg PO DAILY Empagliflozin [Jardiance] 10 mg PO DAILY Bumetanide 1 mg [Bumex 1 mg] 2 mg PO BID Spironolactone 25 mg [Aldactone 25 MG] 12.5 mg PO DAILY Potassium Chloride Tab* [Klor Con] 40 meq PO DAILY #120 tablet Warfarin Sodium 5 mg [Jantoven] 2.5 mg PO DAILY Instructions: Exacerbation of COPD (DC) Additional Instructions: follow up with Pulmonology TODAY Follow up with: ULISES ADAMS MD [Primary Care Provider] - 02/21/23 10:00 am EMILIA Encounter - EMILIA Encounter Attestation EMILIA Encounter Attestation: "LOU Sandoval andhavediscussed pertinent aspects of their care with Leny Carreno and agree with the history, physical exam (any modifications based on my personal exam will be noted below), assessment, and plan as outlined in original note. Please see immediately below for my summary of findings and additional assessment and plan along with any meaningful corrections/explanations to the Subjective/Objective portions of the EMILIA note will be noted." My portion of the encounter took place via telemedicine. -COPD exacerbation, now improving. Okay to discharge home on short course of oral steroids and inhaled steroid/LABA combination (new Rx, follow up with PCP). <MARLINE RODRIGUES - Last Filed: 02/14/23 18:55>
[2023-02-14] MEDS ORDERED: ZOCOR 20MG PO SCH (10:00)
[2023-02-14] MEDS ORDERED: Aldactone 25 MG PO SCH (10:00)
[2023-02-14] MEDS ORDERED: Protonix 40MG Tablet PO SCH (10:00)
[2023-02-14] MEDS ORDERED: Klor Con PO SCH (10:00)
[2023-02-14] MEDS ORDERED: FLUZONE HIGH-DOSE QUAD 2023-24 IM ONE (10:00)
[2023-02-14] MEDS ORDERED: ROCEPHIN 1 Gm-D5w 50 ml Bag** 1 G/50 ML IVPB IV SCH ×2 (10:00)
[2023-02-14] MEDS ORDERED: JARDIANCE PO SCH (10:00)
[2023-02-14 12:07] VITALS: BP 114/65; PULSE 70; TEMP 97.1; O2SAT 94
[2023-02-15] MEDS ORDERED: JANTOVEN PO SCH (18:00)
== END 2023-02-14 14:08 | disposition home health service (06) ==
LOC: ED 13:15 → MED SURG 16:47
PROVIDERS: ADMIT Internal Medicine; ATTEND Internal Medicine
DX: J44.1 Chronic obstructive pulmonary disease with (acute) exacerbation (principal); E78.5 Hyperlipidemia, unspecified; R74.8 Abnormal levels of other serum enzymes; I48.91 Unspecified atrial fibrillation; E87.1 Hypo-osmolality and hyponatremia; K21.9 Gastro-esophageal reflux disease without esophagitis; I50.9 Heart failure, unspecified; I25.2 Old myocardial infarction; Z95.0 Presence of cardiac pacemaker; Z79.01 Long term (current) use of anticoagulants; Z79.899 Other long term (current) drug therapy; Z20.828 Contact with and (suspected) exposure to other viral communicable diseases; Z99.81 Dependence on supplemental oxygen
CPT/HCPCS: 0241U; 36000; 36415; 71045; 80053; 84484; 85025; 85027; 85610; 85730; 87040; 93041; 94640; 94760; 94762; 96365; 96374; 99285; G0008; Q3014; 90662; 93268; J0696; J2930; A9270-GY; G0378

== ENCOUNTER 2023-04-10 10:48 | Observation (INO) | payer MEDICARE ==
[2023-04-10 11:48] LABS: Absolute Neutrophil Ct (ANC) 5.58 x10^3/uL (1.4-6.9); BASOPHIL % 0.3 % (0.0-0.4); Basophil (Absolute #) 0.02 x10^3/uL (0-0.4); Eosinophil % 1.7 % (0.00-5.0); Eosinophil (Absolute #) 0.12 x10^3/uL (0-0.5); Hematocrit 35.7 % (42-50); Hemoglobin 10.5 g/dL (12.5-18.0); IMMATURE GRAN # 0.03 x10^3u/L (0.00-0.03); IMMATURE GRAN % 0.4 % (0.00-0.4); Lymphocytes % 8.5 % (24.0-44.0); Mean Cell Volume 84.4 fL (78-100); Mean Corpuscular Hemoglobin 24.8 pg (26-32); Mean Corpuscular Hgb Concent. 29.4 g/dL (32-36); Mean Platelet Volume 10.7 fL (7.5-11.0); Monocyte (Absolute #) 0.72 x10^3/uL (0.0-1.3); Monocytes % 10.2 % (0.0-12.0); Neutrophil % 78.9 % (36.0-66.0); Platelet Count 146 x10^3/uL (150-450); Red Blood Count 4.23 x10^6/uL (4.1-5.6); White Blood Count 7.1 x10^3/uL (4.0-10.5)
--- NOTE | 2023-04-10 11:50 | ERPHSYRPT ---
- History of Present Illness Time Seen by Provider: 04/10/23 11:00 Source: patient Exam Limitations: no limitations Patient Subjective Stated Complaint: C/O SOB for 3 days Triage Nursing Assessment: Patient brought back to ER in a W/C. He is alert and oriented. He is SOB with a non-productive cough. Wheezes heard throughout lungs gayle with some rhonchi to left upper lobe as well. Pitting edema present to BLE. Patient has missed several days of his routine medications this past week including his coumadin and bumex. Lips are dry. Physician History: Patient is a 87-year-old male history of COPD with 4 L nasal cannula home O2 requirement presents to our ED for evaluation of shortness of breath. Shortness of breath has been progressively worsening over the past 3 days. Shortness of breath associate with a cough. Audible wheezing on physical exam. Patient advises that he has not been compliant with his home meds. Patient has not taken his Coumadin or his Bumex. As result patient has some pitting edema to his lower extremity. Symptoms are progressive. Symptoms are moderate in intensity. No specific worsening or improving factors. Patient voices no other complaints or concerns at this time. Portions of this note were created with voice recognition technology. There may be grammatical, spelling, punctuation or sound alike errors Timing/Duration: day(s) (3 days) Severity: moderate Modifying Factors: Improves With: movement Associated Symptoms: denies symptoms Allergies/Adverse Reactions: No Known Drug Allergies Allergy (Verified 04/10/23 10:50) Home Medications: Albuterol Sulfate [Proair Hfa] 8.5 gm IH Q4HWA 06/08/20 [History] Atorvastatin Calcium [Lipitor] 40 mg PO DAILY 06/08/20 [History] Albuterol/Ipratropium 3ml Neb* [DUONEB 0.5-3 MG/3 ml Neb] 3 ml IH Q6H PRN PRN 10/17/20 [History] Trazodone HCl 150 mg PO HS 09/19/22 [History] Bumetanide 1 mg [Bumex 1 mg] 2 mg PO BID 09/20/22 [History] Empagliflozin [Jardiance] 10 mg PO DAILY 09/20/22 [History] Omeprazole 40 mg PO DAILY 09/20/22 [History] Spironolactone 25 mg [Aldactone 25 MG] 12.5 mg PO DAILY 09/26/22 [History] Warfarin Sodium 5 mg [Coumadin] 2.5 mg PO DAILY 12/05/22 [History] Fluoxetine HCl 10 mg [Prozac 10 mg] 1 cap PO DAILY 04/10/23 [History] Prednisone 20 mg [Deltasone 20 mg] 10 mg PO DAILY 04/10/23 [History] Warfarin Sodium 2 mg [Coumadin 2 MG] 1 tab PO DAILY 04/10/23 [History] Hx Tetanus, Diphtheria Vaccination/Date Given: Yes Hx Influenza Vaccination/Date Given: No Hx Pneumococcal Vaccination/Date Given: Yes Immunizations Up to Date: Yes Travel Risk - International Travel Have you traveled outside of the country in past 3 weeks: No - Coronavirus Screening Are you exhibiting any of the following symptoms?: Yes Symptoms: Cough: New Onset, Shortness of Breath Close contact with a COVID-19 positive Pt in past 14-21 Days: No - Vaccine Status Have you recieved a Covid-19 vaccination: Yes 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: 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 - Vaccination Dates Dates if Unknown: unknown - Review of Systems Constitutional: No Symptoms, No Fever, No Chills Eyes: No Symptoms Ears, Nose, & Throat: No Symptoms Respiratory: No Symptoms, No Cough, No Dyspnea Cardiac: No Symptoms, No Chest Pain, No Edema, No Syncope Abdominal/Gastrointestinal: No Symptoms, No Abdominal Pain, No Nausea, No Vomiting, No Diarrhea Genitourinary Symptoms: No Symptoms, No Dysuria Musculoskeletal: No Symptoms, No Back Pain, No Neck Pain Skin: No Symptoms, No Rash Neurological: No Symptoms, No Dizziness, No Focal Weakness, No Sensory Changes Psychological: No Symptoms Endocrine: No Symptoms Hematologic/Lymphatic: No Symptoms Immunological/Allergic: No Symptoms All Other Systems: Reviewed and Negative - Past Medical History Pertinent Past Medical History: Yes Neurological History: Stroke ENT History: No Pertinent History Cardiac History: Congestive Heart Failure, Coronary Artery Disease, High Cholest amberly, Hypertension, Myocardial Infarction ([place]), Other Respiratory History: Asthma, COPD Endocrine Medical History: No Pertinent History Musculoskeletal History: No Pertinent History GI Medical History: Hernia History: Renal Disease Psycho-Social History: No Pertinent History Male Reproductive Disorders: No Pertinent History Other Medical History: AFIB, stenosis, CKD stage 3 - Past Surgical History Past Surgical History: Yes Neuro Surgical History: No Pertinent History Cardiac: CABG, Cardiac Stent, Pacemaker Respiratory: No Pertinent History Gastrointestinal: Appendectomy, Hernia Repair Genitourinary: No Pertinent History Musculoskeletal: No Pertinent History Male Surgical History: No Pertinent History Other Surgical History: PACEMAKER - Social History Smoking Status: Never smoker Exposure to second hand smoke: No Drug Use: none Patient Lives Alone: No (Granddaughter) Significant Family History: heart disease - Nursing Vital Signs Nursing Vital Signs: Initial Vital Signs Temperature 98.7 F 04/10/23 10:54 Pulse Rate 76 04/10/23 10:54 Respiratory Rate 22 04/10/23 10:54 Blood Pressure 106/66 04/10/23 10:54 O2 Sat by Pulse Oximetry 97 04/10/23 10:54 Pain Scale Pain Intensity 0 - Physical Exam General Appearance: no apparent distress, alert Eye Exam: PERRL/EOMI, eyes nml inspection Ears, Nose, Throat Exam: normal ENT inspection, TMs normal, pharynx normal, moist mucous membranes Neck Exam: normal inspection, non-tender, supple, full range of motion Respiratory Exam: diminished breath sounds, rhonchi, wheezing, No respiratory distress Cardiovascular Exam: regular rate/rhythm, normal heart sounds, normal peripheral pulses Gastrointestinal/Abdomen Exam: soft, normal bowel sounds, No tenderness, No mass Back Exam: normal inspection, normal range of motion, No CVA tenderness, No vertebral tenderness Extremity Exam: normal inspection, normal range of motion, pelvis stable Neurologic Exam: alert, oriented x 3, cooperative, normal mood/affect, sensation nml, No motor deficits Skin Exam: normal color, warm, dry, No rash Lymphatic Exam: No adenopathy SpO2 Interpretation: normal SpO2: 98 O2 Delivery: Room Air - Course Nursing assessment & vital signs reviewed: Yes EKG Interpreted by Me: RATE (80), A-fib (A-fib a flutter with ventricular paced complexes), NORMAL AXIS, NORMAL INTERVALS - Radiology Exams Chest X-ray Interpretation: Teleradiologist Report (Nonacute chest with chronic features) Ordered Tests: Active Orders 24 hr Category Date Time Status Brim Rounder STAT Care 04/10/23 11:15 Active EKG-ER Only STAT Care 04/10/23 11:14 Active IV Insertion STAT Care 04/10/23 11:14 Active Pulse Oximetry (ED) STAT Care 04/10/23 11:14 Active Telemetry q4h Care 04/10/23 12:25 Active CHEST 1 VIEW (PORTABLE) Stat Exams 04/10/23 11:15 Completed BLOOD CULTURE Stat Lab 04/10/23 11:41 Received CBC W DIFF Stat Lab 04/10/23 11:14 Completed CMP Stat Lab 04/10/23 11:41 Completed NT PRO BNPII Stat Lab 04/10/23 11:41 Completed PROTIME WITH INR Stat Lab 04/10/23 11:41 Received TROPONIN Q4H Lab 04/10/23 11:15 Received TROPONIN Q4H Lab 04/10/23 15:15 Ordered TROPONIN Q4H Lab 04/10/23 19:15 Ordered Respiratory Therapy Assessment DAILY RT 04/10/23 12:32 Active Transfer Order Routine Transfer 04/10/23 Ordered Medication Summary Generic Name Dose Route Start Last Admin Trade Name Freq PRN Reason Stop Dose Admin Ceftriaxone Sodium/Dextrose 2 g in 50 mls @ 100 mls/hr 04/10/23 12:17 Rocephin 2 Gm-D5w 50ml Bag IV 04/10/23 12:46 STAT STA Azithromycin 500 mg in 250 mls @ 250 mls/hr 04/10/23 12:17 Zithromax 500 Mg/ 250 Ml Nacl Premix IV 04/10/23 13:16 STAT STA Potassium Chloride 20 meq in 100 mls @ 50 mls/hr 04/10/23 12:30 Potassium Chloride 20 Meq In Water 100ml IV 04/10/23 16:29 Q2H FAVIAN Magnesium Sulfate/Dextrose 100 mls @ 100 mls/hr 04/10/23 12:30 Magnesium 1 Gm / 100 Ml D5w IV 04/10/23 14:29 Q1H FAVIAN Discontinued Medications Generic Name Dose Route Start Last Admin Trade Name Freq PRN Reason Stop Dose Admin Albuterol/Ipratropium 3 ml 04/10/23 12:16 04/10/23 12:28 Ipratropium/Albuterol Sulfate 3 Ml Ampul.Neb IH 04/10/23 12:17 3 ml STAT ONE Administration Albuterol/Ipratropium Confirm 04/10/23 12:27 Ipratropium/Albuterol Sulfate 3 Ml Ampul.Neb Administered 04/10/23 12:28 Dose 3 ml IH .STK-MED ONE Methylprednisolone Sodium 0 mg 04/10/23 12:16 Succinate 125 mg/ Sterile IV 04/10/23 12:17 Water 2 ml STAT ONE Furosemide 40 mg 04/10/23 12:25 Furosemide 40 Mg/4 Ml Vial IV 04/10/23 12:26 STAT ONE Lab/Rad Data: Laboratory Result Diagrams 04/10/23 11:14 04/10/23 11:41 Laboratory Results 04/10/23 04/10/23 Range/Units 11:41 11:14 WBC 7.1 (4.0-10.5) x10^3/uL RBC 4.23 (4.1-5.6) x10^6/uL Hgb 10.5 L (12.5-18.0) g/dL Hct 35.7 L (42-50) % MCV 84.4 (78-100) fL MCH 24.8 L (26-32) pg MCHC 29.4 L (32-36) g/dL RDW 19.0 H (11.5-14.0) % Plt Count 146 L (150-450) x10^3/uL MPV 10.7 (7.5-11.0) fL Gran % 78.9 H (36.0-66.0) % Immature Gran % (Auto) 0.4 (0.00-0.4) % Nucleat RBC Rel Count 0.0 (0.00-0.1) % Eos # (Auto) 0.12 (0-0.5) x10^3/uL Immature Gran # (Auto) 0.03 (0.00-0.03) x10^3u/L Absolute Lymphs (auto) 0.60 L (1.0-4.6) x10^3/uL Absolute Monos (auto) 0.72 (0.0-1.3) x10^3/uL Absolute Nucleated RBC 0.00 (0.00-0.01) x10^3u/L Lymphocytes % 8.5 L (24.0-44.0) % Monocytes % 10.2 (0.0-12.0) % Eosinophils % 1.7 (0.00-5.0) % Basophils % 0.3 (0.0-0.4) % Absolute Granulocytes 5.58 (1.4-6.9) x10^3/uL Basophils # 0.02 (0-0.4) x10^3/uL Sodium 136 L (137-145) mmol/L Potassium 3.1 L (3.5-5.1) mmol/L Chloride 98 (98-107) mmol/L Carbon Dioxide 31 H (22-30) mmol/L Anion Gap 10.2 (5-15) MEQ/L BUN 28 H (9-20) mg/dL Creatinine 1.17 (0.66-1.25) mg/dL Estimated GFR 60.3 ML/MIN Glucose 103 (74-106) mg/dL Calcium 8.6 (8.4-10.2) mg/dL Total Bilirubin 1.40 H (0.2-1.3) mg/dL AST 47 (17-59) U/L ALT 23 (0-50) U/L Alkaline Phosphatase 141 H (38-126) U/L NT-Pro-B Natriuret Pep 4640 (<300) pg/mL Serum Total Protein 6.9 (6.3-8.2) g/dL Albumin 4.0 (3.5-5.0) g/dL - Progress Progress: improved Progress Note: Case discussed with who accepts admission to observation at 12:23 PM 04/10/23 12:27 87-year-old male history of COPD presents to our ED with 3-day history of derrick rtness of breath. Physical exam reveals lungs to be coarse diminished with wheezing. Chest x-ray is nonacute with chronic features. Blood cultures sent. CBC reveals a hemoglobin of 10.5. This appears to be improved from his last hemoglobin level. CMP reveals a potassium of 3.1. Potassium and magnesium ordered. COVID test negative. Patient has been noncompliant with his Bumex. BNP is 4640. 40 mg IV Lasix administered. Troponin slightly elevated. Patient received albuterol dual neb, magnesium sulfate, potassium chloride 40 mg of Lasix Rocephin azithromycin and Solu-Medrol. Plan of care discussed the patient. He agrees to admission to [facility] for further evaluation and treatment. Portions of this note were created with voice recognition technology. There may be grammatical, spelling, punctuation or sound alike errors Complexity problem addressed is moderate acute complicated No critical care time Complex of data reviewed and analyzed is extensive. Test ordered test reviewed. Results analyzed and correlated clinically. Management discussed with hospitalist who accepts admission to observation. Risk of complication and or risk of morbidity/mortality of patient management is high. Patient requires hospitalization for further evaluation and treatment. Vital stable. Time spent to admit patient is approximately 30 minutes. Plan of care established for shared decision making. No social determinants of health present impede follow-up. Portions of this note were created with voice recognition technology. There may be grammatical, spelling, punctuation or sound alike errors 04/10/23 12:44 [address] with DrLinda: Jose Will see patient in: hospital (observation) Counseled pt/family regarding: lab results, diagnosis, rad results - Departure Departure Disposition: Home Clinical Impression: COPD exacerbation, non compliant with home med, Hypokalemia, Elevated brain natriuretic peptide (BNP) level Condition: Stable Critical Care Time: No Referrals: ULISES ADAMS MD [Primary Care Provider] - Follow up/PCP as directed Instructions: Chronic Obstructive Pulmonary Disease
--- NOTE | 2023-04-10 12:07 | XRAY ---
Indication: Short of breath. Comparison: February 13, 2023 Portable chest remains hyperinflated and clear. Heart remains borderline enlarged again with aortic valve replacement, CABG, and left pacemaker. Bony thorax intact again with osteopenia and mild degenerative changes. Impression: Continued nonacute chest with chronic features.
[2023-04-10 12:14] LABS: ANION GAP 10.2 MEQ/L (5-15); BILIRUBIN,TOTAL 1.4 mg/dL (0.2-1.3); Calcium 8.6 mg/dL (8.4-10.2); Creatinine 1 1.17 mg/dL (0.66-1.25); EST GLOMERULAR FILTRATION RATE 60.3 ML/MIN; Potassium 3.1 mmol/L (3.5-5.1); Total Protein 6.9 g/dL (6.3-8.2)
[2023-04-10] MEDS ORDERED: solu-MEDROL 125 MG, Sterile H2O 10 ml 2 ML IV ONE ×2 (12:16)
[2023-04-10] MEDS ORDERED: DUONEB 0.5-3 MG/3 ml Neb IH ONE ×2 (12:16→12:27)
[2023-04-10] MEDS ORDERED: Zithromax 500 MG/ 250 ML NaCl Premix 500 MG/250 ML IVPB IV STA (12:17)
[2023-04-10] MEDS ORDERED: ROCEPHIN 2 Gm-D5w 50ML BAG** 2 G/50 ML IVPB IV STA (12:17)
[2023-04-10] MEDS ORDERED: Lasix 40 MG/4 ML IV ONE (12:25)
[2023-04-10 12:33] LABS: INR 1.58 (0.8-3.0); PROTIME 16.7 SECONDS (9.4-12.5)
[2023-04-10] MEDS ORDERED: Sterile H2O 10 ml IJ ONE (12:34)
[2023-04-10] MEDS ORDERED: ROCEPHIN 2 Gm-D5w 50ML BAG** 2 G/50 ML IVPB IV ONE (12:34)
[2023-04-10] MEDS ORDERED: solu-MEDROL ONE (12:34)
[2023-04-10 12:42] LABS: INFLUENZA A NEGATIVE (NEGATIVE); INFLUENZA B NEGATIVE (NEGATIVE); RESPIRATORY SYNCTIAL VIRUS NEGATIVE (NEGATIVE); SARS-CoV-2 Xpert Express NEGATIVE (NEGATIVE)
[2023-04-10] MEDS ORDERED: Zithromax 500 MG/ 250 ML NaCl Premix 500 MG/250 ML IVPB IV ONE (13:07)
[2023-04-10] MEDS ORDERED: Lasix 40 MG/4 ML ONE (13:07)
[2023-04-10] MEDS ORDERED: Sodium Chloride 0.9% 1000 ML 1,000 ML ONE (13:08)
[2023-04-10] MEDS ORDERED: Sodium Chloride 0.9% 1000 ML 1,000 ML IV SCH (13:30)
[2023-04-10] MEDS: Magnesium 1 Gm / 100 Ml D5W*** 100 ML IV SCH ×2 (13:32→14:14)
[2023-04-10] MEDS: POTASSIUM CHLORIDE 20 mEq IN WATER 100ML 20 MEQ/100 ML BAG IV SCH ×2 (13:46→17:15)
--- NOTE | 2023-04-10 15:55 | PCM.HP ---
History of Present Illness - Chief Complaint Chief Complaint: copd exacerbation Date: 04/10/23 History of Present Illness: is a 87 year old male with PMHX of COPD, pacemaker, CABG, [place], CKD, hyperlipidemia, HTN, CHF, CAD, and GERD. Baseline O2 requirement is 4LNC. Pt came to the ED for evaluation of shortness of breath. Shortness of breath has been progressively worsening over the past 3 days. Shortness of breath associate with a cough. Audible wheezing on physical exam. Patient advises that he has not been compliant with his home meds. Patient has not taken his Coumadin or his Bumex. As result patient has +3 pitting edema to his lower extremity. Symptoms are progressive. Symptoms are moderate in intensity. No specific worsening or improving factors. Patient voices no other complaints or concerns at this time. Steriods and antibiotics gave in ER, will continue. Will start lasix for CHF. - Review of Systems Constitutional: No Fever, No Chills Eyes: No Symptoms Ears, Nose, & Throat: No Symptoms Respiratory: Cough, Short Of Breath, Wheezing Cardiac: Edema, No Chest Pain, No Syncope Abdominal/Gastrointestinal: No Abdominal Pain, No Nausea, No Vomiting, No Diarrhea Genitourinary Symptoms: No Dysuria Musculoskeletal: No Back Pain, No Neck Pain Skin: No Rash Neurological: No Dizziness, No Focal Weakness, No Sensory Changes Psychological: No Symptoms Endocrine: No Symptoms Hematologic/Lymphatic: No Symptoms Immunological/Allergic: No Symptoms Medications & Allergies Home Medications: Home Medication List Albuterol Sulfate [Proair Hfa] 8.5 gm IH Q4HWA 06/08/20 [History Confirmed 04/10/23] Atorvastatin Calcium [Lipitor] 40 mg PO DAILY 06/08/20 [History Confirmed 04/10/23] Albuterol/Ipratropium 3ml Neb* [DUONEB 0.5-3 MG/3 ml Neb] 3 ml IH Q6H PRN PRN 10/17/20 [History Confirmed 04/10/23] Trazodone HCl 150 mg PO HS 09/19/22 [History Confirmed 04/10/23] Bumetanide 1 mg [Bumex 1 mg] 2 mg PO BID 09/20/22 [History Confirmed 04/10/23] Empagliflozin [Jardiance] 10 mg PO DAILY 09/20/22 [History Confirmed 04/10/23] Omeprazole 40 mg PO DAILY 09/20/22 [History Confirmed 04/10/23] Spironolactone 25 mg [Aldactone 25 MG] 12.5 mg PO DAILY 09/26/22 [History Confirmed 04/10/23] Potassium Chloride Tab* [Klor Con] 40 meq PO DAILY #120 tablet 09/28/22 [Rx Confirmed 04/10/23] Warfarin Sodium 5 mg [Coumadin] 2.5 mg PO DAILY 12/05/22 [History Confirmed 04/10/23] Budesonide/Formoterol Fumarate [Budesonide-Formoterol 160-4.5] 10.2 gm IH BID 30 Days #1 02/14/23 [Rx Confirmed 04/10/23] Fluoxetine HCl 10 mg [Prozac 10 mg] 1 cap PO DAILY 04/10/23 [History Confirmed 04/10/23] Prednisone 20 mg [Deltasone 20 mg] 10 mg PO DAILY 04/10/23 [History Confirmed 04/10/23] Warfarin Sodium 2 mg [Coumadin 2 MG] 1 tab PO DAILY 04/10/23 [History Confirmed 04/10/23] Allergies/Adverse Reactions: Allergies Allergy/AdvReac Type Severity Reaction Status Date / Time No Known Drug Allergies Allergy Verified 04/10/23 10:50 - Past Medical History Past Medical History: Yes Neurological History: Stroke ENT History: No Pertinent History Cardiac History: Congestive Heart Failure, Coronary Artery Disease, High Cholesterol, Hypertension, Myocardial Infarction ([place]), Other Respiratory History: Asthma, COPD Endocrine Medical History: No Pertinent History Musculoskelatal History: No Pertinent History GI Medical History: Hernia History: Renal Disease Pyscho-Social History: No Pertinent History Male Reproductive Disorders: No Pertinent History Comment: AFIB, stenosis, CKD stage 3 - Past Surgical History Past Surgical History: Yes Neuro Surgical History: No Pertinent History Cardiac History: CABG, Cardiac Stent, Pacemaker Respiratory Surgery: No Pertinent History GI Surgical History: Appendectomy, Hernia Repair Genitourinary Surgical Hx: No Pertinent History Musculskeletal Surgical Hx: No Pertinent History Male Surgical History: No Pertinent History Other Surgical History: PACEMAKER - Social History Smoking Status: Never smoker Exposure to second hand smoke: No Alcohol: None Drug Use: none Significant Family History: heart disease - Physical Exam Vital Signs: Vital Signs - 24 hr Temp Pulse Resp BP BP Pulse Ox 04/10/23 14:00 83 20 114/64 04/10/23 13:00 76 28 H 114/84 98 04/10/23 12:47 98 04/10/23 12:34 72 20 97 04/10/23 12:30 85 15 115/69 04/10/23 12:00 75 12 106/72 98 04/10/23 11:45 78 18 117/61 98 04/10/23 11:44 80 22 04/10/23 11:40 74 27 H 96 04/10/23 11:31 77 22 98 04/10/23 11:17 98 04/10/23 11:02 79 19 106/66 92 L 04/10/23 10:54 98.7 F 76 22 106/66 97 General Appearance: no apparent distress, alert Neurologic Exam: alert, oriented x 3, cooperative, normal mood/affect, nml cerebellar function, nml station & gait, sensation nml, No motor deficits Eye Exam: PERRL/EOMI, eyes nml inspection Ears, Nose, Throat Exam: normal ENT inspection, TMs normal, pharynx normal, moist mucous membranes Neck Exam: normal inspection, non-tender, supple, full range of motion Respiratory Exam: normal breath sounds, crackles/rales, No respiratory distress Cardiovascular Exam: regular rate/rhythm, normal heart sounds, normal peripheral pulses Gastrointestinal/Abdomen Exam: soft, normal bowel sounds, No tenderness, No mass Back Exam: normal inspection, normal range of motion, No CVA tenderness, No vertebral tenderness Extremity Exam: normal inspection, normal range of motion, pelvis stable Skin Exam: normal color, warm, dry, No rash Lymphatic Exam: No adenopathy Results - Labs Lab/Micro Results: Lab Results-Last 24 Hours 04/10/23 04/10/23 04/10/23 Range/Units 11:14 11:15 11:25 WBC 7.1 (4.0-10.5) x10^3/uL RBC 4.23 (4.1-5.6) x10^6/uL Hgb 10.5 L (12.5-18.0) g/dL Hct 35.7 L (42-50) % MCV 84.4 (78-100) fL MCH 24.8 L (26-32) pg MCHC 29.4 L (32-36) g/dL RDW 19.0 H (11.5-14.0) % Plt Count 146 L (150-450) x10^3/uL MPV 10.7 (7.5-11.0) fL Gran % 78.9 H (36.0-66.0) % Immature Gran % (Auto) 0.4 (0.00-0.4) % Nucleat RBC Rel Count 0.0 (0.00-0.1) % Eos # (Auto) 0.12 (0-0.5) x10^3/uL Immature Gran # (Auto) 0.03 (0.00-0.03) x10^3u/L Absolute Lymphs (auto) 0.60 L (1.0-4.6) x10^3/uL Absolute Monos (auto) 0.72 (0.0-1.3) x10^3/uL Absolute Nucleated RBC 0.00 (0.00-0.01) x10^3u/L Lymphocytes % 8.5 L (24.0-44.0) % Monocytes % 10.2 (0.0-12.0) % Eosinophils % 1.7 (0.00-5.0) % Basophils % 0.3 (0.0-0.4) % Absolute Granulocytes 5.58 (1.4-6.9) x10^3/uL Basophils # 0.02 (0-0.4) x10^3/uL PT (9.4-12.5) SECONDS INR (0.8-3.0) Sodium (137-145) mmol/L Potassium (3.5-5.1) mmol/L Chloride (98-107) mmol/L Carbon Dioxide (22-30) mmol/L Anion Gap (5-15) MEQ/L BUN (9-20) mg/dL Creatinine (0.66-1.25) mg/dL Estimated GFR ML/MIN Glucose (74-106) mg/dL Calcium (8.4-10.2) mg/dL Total Bilirubin (0.2-1.3) mg/dL AST (17-59) U/L ALT (0-50) U/L Alkaline Phosphatase (38-126) U/L Troponin I 0.080 H* (0.000-0.034) ng/mL NT-Pro-B Natriuret Pep (<300) pg/mL Serum Total Protein (6.3-8.2) g/dL Albumin (3.5-5.0) g/dL Influenza Type A Ag NEGATIVE (NEGATIVE) Influenza Type B Ag NEGATIVE (NEGATIVE) RSV (PCR) NEGATIVE (NEGATIVE) SARS-CoV-2 (PCR) NEGATIVE (NEGATIVE) 04/10/23 04/10/23 Range/Units 11:41 11:41 WBC (4.0-10.5) x10^3/uL RBC (4.1-5.6) x10^6/uL Hgb (12.5-18.0) g/dL Hct (42-50) % MCV (78-100) fL MCH (26-32) pg MCHC (32-36) g/dL RDW (11.5-14.0) % Plt Count (150-450) x10^3/uL MPV (7.5-11.0) fL Gran % (36.0-66.0) % Immature Gran % (Auto) (0.00-0.4) % Nucleat RBC Rel Count (0.00-0.1) % Eos # (Auto) (0-0.5) x10^3/uL Immature Gran # (Auto) (0.00-0.03) x10^3u/L Absolute Lymphs (auto) (1.0-4.6) x10^3/uL Absolute Monos (auto) (0.0-1.3) x10^3/uL Absolute Nucleated RBC (0.00-0.01) x10^3u/L Lymphocytes % (24.0-44.0) % Monocytes % (0.0-12.0) % Eosinophils % (0.00-5.0) % Basophils % (0.0-0.4) % Absolute Granulocytes (1.4-6.9) x10^3/uL Basophils # (0-0.4) x10^3/uL PT 16.7 H (9.4-12.5) SECONDS INR 1.58 (0.8-3.0) Sodium 136 L (137-145) mmol/L Potassium 3.1 L (3.5-5.1) mmol/L Chloride 98 (98-107) mmol/L Carbon Dioxide 31 H (22-30) mmol/L Anion Gap 10.2 (5-15) MEQ/L BUN 28 H (9-20) mg/dL Creatinine 1.17 (0.66-1.25) mg/dL Estimated GFR 60.3 ML/MIN Glucose 103 (74-106) mg/dL Calcium 8.6 (8.4-10.2) mg/dL Total Bilirubin 1.40 H (0.2-1.3) mg/dL AST 47 (17-59) U/L ALT 23 (0-50) U/L Alkaline Phosphatase 141 H (38-126) U/L Troponin I (0.000-0.034) ng/mL NT-Pro-B Natriuret Pep 4640 (<300) pg/mL Serum Total Protein 6.9 (6.3-8.2) g/dL Albumin 4.0 (3.5-5.0) g/dL Influenza Type A Ag (NEGATIVE) Influenza Type B Ag (NEGATIVE) RSV (PCR) (NEGATIVE) SARS-CoV-2 (PCR) (NEGATIVE) - Radiology Impressions Radiology Exams & Impressions: Radiology Procedures Category Date Time Status CHEST 1 VIEW (PORTABLE) Stat Exams 04/10/23 11:15 Completed - Other Procedures and Tests Respiratory Therapy 04/10/23 12:32 Respiratory Therapy Assessment DAILY 04/10/23 14:45 Oxygen Nasal Cannula 2 lpm Assessment/Plan (1) COPD exacerbation Current Visit: Yes Status: Acute Assessment & Plan: - steriods, antibiotics - On BL O2 at 4lNC - RT eval and treat -duonebs - Chest XR 04/10/23 Impression: Continued nonacute chest with chronic features. Code(s): J44.1 - CHRONIC OBSTRUCTIVE PULMONARY DISEASE W (ACUTE) EXACERBATION (2) CHF (congestive heart failure) Current Visit: Yes Status: Acute Assessment & Plan: - BNP 4640 - Tele - lasix - Trop trending down, 0.080, 0.075- cont to monitor - K+ >4, Mg+ > 2 - recheck BNP in 48 hours - Echo 08/15/22 EF 40-45% IMPRESSION: 1) GLOBAL LEFT VENTRICULAR HYPOKINESIA, EJECTION FRACTION OF AROUND 40 TO 45%. 2) SEVERE AORTIC STENOSIS WITH PEAK TRANSAORTIC GRADIENT OF 38 MM OF MERCURY AND MEAN GRADIENT OF 22 MM OF MERCURY. 3) MODERATE MITRAL REGURGITATION. 4) MODERATE TRICUSPID REGURGITATION. RIGHT VENTRICULAR SYSTOLIC PRESSURE OF 41 MM OF MERCURY. 5) LEFT VENTRICULAR HYPERTROPHY. 6) MODERATELY DILATED RIGHT SIDE CHAMBERS. 7) PACEMAKER ELECTRODE IN RIGHT VENTRICLE. 8) MILDLY DILATED INFERIOR VENA CAVA. Code(s): I50.9 - HEART FAILURE, UNSPECIFIED (3) Hypokalemia Current Visit: Yes Status: Acute Assessment & Plan: - K= 3.1- replaced Code(s): E87.6 - HYPOKALEMIA (4) Anticoagulated on Coumadin Current Visit: No Status: Chronic Assessment & Plan: - Pharmacy to dose - Daily PT/INR VTE Coumadin PPI: omeprazole Next of kin: Talisha Ortiz [phone] Code status: SCO/DNR Code(s): Z79.01 - FEE CLERK (CURRENT) USE OF ANTICOAGULANTS
[2023-04-10] MEDS ORDERED: PHARMACY DOSING REQUEST MC ONE (16:08)
[2023-04-10] MEDS ORDERED: Tums EX 750 MG PO PRN (16:53)
[2023-04-10] MEDS ORDERED: TYLENOL 325 MG PO PRN (16:53)
[2023-04-10] MEDS ORDERED: VENTOLIN COMMON CANISTER IH PRN (17:12)
[2023-04-10] MEDS: Lasix 40 MG/4 ML IV SCH (17:41)
[2023-04-10] MEDS ORDERED: DUONEB 0.5-3 MG/3 ml Neb IH PRN (17:54)
[2023-04-10] MEDS ORDERED: Coumadin 2 MG PO SCH (18:00)
[2023-04-10] MEDS ORDERED: DUONEB 0.5-3 MG/3 ml Neb IH SCH (19:00)
[2023-04-10] MEDS: Advair Hfa 230/21 Mcg COMMON CANISTER IH SCH (19:04)
[2023-04-10] MEDS ORDERED: VENTOLIN COMMON CANISTER IH SCH (20:00)
[2023-04-10] MEDS: DELTASONE 20 MG PO SCH (21:05)
[2023-04-10] MEDS ORDERED: NON-FORMULARY ITEM (Budesonide/Formoterol Fumarate [Budesonide-Formoterol 160-4.5] 10.2 GM IH SCH (22:00)
[2023-04-10] MEDS ORDERED: Desyrel 150 MG PO SCH (22:00)
[2023-04-11] MEDS ORDERED: Sodium Chloride 0.9% 1000 ML 1,000 ML ONE (00:29)
[2023-04-11] MEDS ORDERED: PROVENTIL 2.5 MG/3 ML NEB IH ONE (04:34)
[2023-04-11] MEDS ORDERED: PROVENTIL 2.5 MG/3 ML NEB IH PRN (04:45)
[2023-04-11 04:54] LABS: Hematocrit 31.9 % (42-50); Hemoglobin 9.6 g/dL (12.5-18.0); Mean Cell Volume 82.2 fL (78-100); Mean Corpuscular Hemoglobin 24.7 pg (26-32); Mean Corpuscular Hgb Concent. 30.1 g/dL (32-36); Mean Platelet Volume 11.5 fL (7.5-11.0); Platelet Count 135 x10^3/uL (150-450); Red Blood Count 3.88 x10^6/uL (4.1-5.6); Red Cell Distribution Width 19.3 % (11.5-14.0); White Blood Count 3.2 x10^3/uL (4.0-10.5)
[2023-04-11 05:24] LABS: INR 1.87 (0.8-3.0); PROTIME 19.6 SECONDS (9.4-12.5)
[2023-04-11 06:14] LABS: ALBUMIN 3.2 g/dL (3.5-5.0); BILIRUBIN,TOTAL 0.7 mg/dL (0.2-1.3); Creatinine 1 1.28 mg/dL (0.66-1.25); EST GLOMERULAR FILTRATION RATE 54.2 ML/MIN; Potassium 3.8 mmol/L (3.5-5.1); Total Protein 5.7 g/dL (6.3-8.2)
[2023-04-11] MEDS: Advair Hfa 230/21 Mcg COMMON CANISTER IH SCH (06:52)
[2023-04-11] MEDS ORDERED: DUONEB 0.5-3 MG/3 ml Neb IH PRN (08:00)
[2023-04-11] MEDS ORDERED: Klor Con PO SCH (10:00)
[2023-04-11] MEDS ORDERED: ZOCOR 20MG PO SCH (10:00)
[2023-04-11] MEDS ORDERED: Aldactone 25 MG PO SCH (10:00)
[2023-04-11] MEDS ORDERED: Protonix 40MG Tablet PO SCH (10:00)
[2023-04-11] MEDS ORDERED: COUMADIN PO SCH (10:00)
[2023-04-11] MEDS ORDERED: JARDIANCE PO SCH (10:00)
[2023-04-11] MEDS ORDERED: LIPITOR 40MG PO SCH (10:00)
[2023-04-11] MEDS ORDERED: Coumadin 2 MG PO SCH ×2 (10:00→18:00)
[2023-04-11] MEDS ORDERED: NON-FORMULARY ITEM (Omeprazole [Omeprazole] 40 MG Capsule.Dr) PO SCH (10:00)
[2023-04-11] MEDS ORDERED: ROCEPHIN 1 Gm-D5w 50 ml Bag** 1 G/50 ML IVPB IV SCH (10:00)
[2023-04-11] MEDS ORDERED: PROZAC 10 MG PO SCH (10:00)
[2023-04-11] MEDS: DELTASONE 20 MG PO SCH (10:08)
[2023-04-11] MEDS: Lasix 40 MG/4 ML IV SCH (10:09)
--- NOTE | 2023-04-11 10:31 | PCM.DS ---
Discharge Summary Date of Admission: 04/10/23 14:45 Date of Discharge: 04/11/23 Admitting Physician: MINNIE PADILLA MD Primary Care Provider: ULISES ADAMS Allergies Allergies No Known Drug Allergies Allergy (Verified 04/10/23 10:50) Hospital Summary - Hospital Course Hospital Course: 04/10/23 is a 87 year old male with PMHX of COPD, pacemaker, CABG, [place], CKD, hyperlipidemia, HTN, CHF, CAD, and GERD. Baseline O2 requirement is 4LNC. Pt cam e to the ED for evaluation of shortness of breath. Shortness of breath has been progressively worsening over the past 3 days. Shortness of breath associate with a cough. Audible wheezing on physical exam. Patient advises that he has not been compliant with his home meds. Patient has not taken his Coumadin or his Bumex. As result patient has +3 pitting edema to his lower extremity. Symptoms are progressive. Symptoms are moderate in intensity. No specific worsening or improving factors. Patient voices no other complaints or concerns at this time. Steriods and antibiotics gave in ER, will continue. Will start lasix for CHF. 04/11/23 Pt is sitting up in the chair he is feeling much better. Edema has improved overnight with Lasix. He is no longer SOB and lung sounds are clear. He is on his baseline 4LNC. Case management to discuss options for home compliance with medications. He has had repeat admissions due to noncompliance with oxygen and medications. He denies CP, SOB, abd. pain, N/V/D. - Vitals & Intake/Output Vital Signs: Vital Signs Temperature 97.3 F 04/11/23 07:16 Pulse Rate 53 L 04/11/23 07:16 Respiratory Rate 18 04/11/23 07:16 Blood Pressure 112/64 04/11/23 07:16 O2 Sat by Pulse Oximetry 93 L 04/11/23 07:16 Intake & Output: Intake & Output 04/08/23 04/09/23 04/10/23 04/11/23 11:59 11:59 11:59 11:59 Intake Total 2239 Balance 2239 Weight 76.6 kg 75.3 kg - Lab Result Diagrams: 04/11/23 04:44 04/11/23 04:44 Lab Results-Last 24 Hrs: Lab Results-Last 24 Hours 04/10/23 04/10/23 04/10/23 Range/Units 11:14 11:15 11:25 WBC 7.1 (4.0-10.5) x10^3/uL RBC 4.23 (4.1-5.6) x10^6/uL Hgb 10.5 L (12.5-18.0) g/dL Hct 35.7 L (42-50) % MCV 84.4 (78-100) fL MCH 24.8 L (26-32) pg MCHC 29.4 L (32-36) g/dL RDW 19.0 H (11.5-14.0) % Plt Count 146 L (150-450) x10^3/uL MPV 10.7 (7.5-11.0) fL Gran % 78.9 H (36.0-66.0) % Immature Gran % (Auto) 0.4 (0.00-0.4) % Nucleat RBC Rel Count 0.0 (0.00-0.1) % Eos # (Auto) 0.12 (0-0.5) x10^3/uL Immature Gran # (Auto) 0.03 (0.00-0.03) x10^3u/L Absolute Lymphs (auto) 0.60 L (1.0-4.6) x10^3/uL Absolute Monos (auto) 0.72 (0.0-1.3) x10^3/uL Absolute Nucleated RBC 0.00 (0.00-0.01) x10^3u/L Lymphocytes % 8.5 L (24.0-44.0) % Monocytes % 10.2 (0.0-12.0) % Eosinophils % 1.7 (0.00-5.0) % Basophils % 0.3 (0.0-0.4) % Absolute Granulocytes 5.58 (1.4-6.9) x10^3/uL Basophils # 0.02 (0-0.4) x10^3/uL PT (9.4-12.5) SECONDS INR (0.8-3.0) Sodium (137-145) mmol/L Potassium (3.5-5.1) mmol/L Chloride (98-107) mmol/L Carbon Dioxide (22-30) mmol/L Anion Gap (5-15) MEQ/L BUN (9-20) mg/dL Creatinine (0.66-1.25) mg/dL Estimated GFR ML/MIN Glucose (74-106) mg/dL Calcium (8.4-10.2) mg/dL Magnesium (1.6-2.3) mg/dL Total Bilirubin (0.2-1.3) mg/dL AST (17-59) U/L ALT (0-50) U/L Alkaline Phosphatase (38-126) U/L Troponin I 0.080 H* (0.000-0.034) ng/mL NT-Pro-B Natriuret Pep (<300) pg/mL Serum Total Protein (6.3-8.2) g/dL Albumin (3.5-5.0) g/dL Influenza Type A Ag NEGATIVE (NEGATIVE) Influenza Type B Ag NEGATIVE (NEGATIVE) RSV (PCR) NEGATIVE (NEGATIVE) SARS-CoV-2 (PCR) NEGATIVE (NEGATIVE) 04/10/23 04/10/23 04/10/23 Range/Units 11:41 11:41 14:10 WBC (4.0-10.5) x10^3/uL RBC (4.1-5.6) x10^6/uL Hgb (12.5-18.0) g/dL Hct (42-50) % MCV (78-100) fL MCH (26-32) pg MCHC (32-36) g/dL RDW (11.5-14.0) % Plt Count (150-450) x10^3/uL MPV (7.5-11.0) fL Gran % (36.0-66.0) % Immature Gran % (Auto) (0.00-0.4) % Nucleat RBC Rel Count (0.00-0.1) % Eos # (Auto) (0-0.5) x10^3/uL Immature Gran # (Auto) (0.00-0.03) x10^3u/L Absolute Lymphs (auto) (1.0-4.6) x10^3/uL Absolute Monos (auto) (0.0-1.3) x10^3/uL Absolute Nucleated RBC (0.00-0.01) x10^3u/L Lymphocytes % (24.0-44.0) % Monocytes % (0.0-12.0) % Eosinophils % (0.00-5.0) % Basophils % (0.0-0.4) % Absolute Granulocytes (1.4-6.9) x10^3/uL Basophils # (0-0.4) x10^3/uL PT 16.7 H (9.4-12.5) SECONDS INR 1.58 (0.8-3.0) Sodium 136 L (137-145) mmol/L Potassium 3.1 L (3.5-5.1) mmol/L Chloride 98 (98-107) mmol/L Carbon Dioxide 31 H (22-30) mmol/L Anion Gap 10.2 (5-15) MEQ/L BUN 28 H (9-20) mg/dL Creatinine 1.17 (0.66-1.25) mg/dL Estimated GFR 60.3 ML/MIN Glucose 103 (74-106) mg/dL Calcium 8.6 (8.4-10.2) mg/dL Magnesium 2.4 H (1.6-2.3) mg/dL Total Bilirubin 1.40 H (0.2-1.3) mg/dL AST 47 (17-59) U/L ALT 23 (0-50) U/L Alkaline Phosphatase 141 H (38-126) U/L Troponin I (0.000-0.034) ng/mL NT-Pro-B Natriuret Pep 4640 (<300) pg/mL Serum Total Protein 6.9 (6.3-8.2) g/dL Albumin 4.0 (3.5-5.0) g/dL Influenza Type A Ag (NEGATIVE) Influenza Type B Ag (NEGATIVE) RSV (PCR) (NEGATIVE) SARS-CoV-2 (PCR) (NEGATIVE) 04/10/23 04/10/23 04/10/23 Range/Units 14:20 19:15 22:40 WBC (4.0-10.5) x10^3/uL RBC (4.1-5.6) x10^6/uL Hgb (12.5-18.0) g/dL Hct (42-50) % MCV (78-100) fL MCH (26-32) pg MCHC (32-36) g/dL RDW (11.5-14.0) % Plt Count (150-450) x10^3/uL MPV (7.5-11.0) fL Gran % (36.0-66.0) % Immature Gran % (Auto) (0.00-0.4) % Nucleat RBC Rel Count (0.00-0.1) % Eos # (Auto) (0-0.5) x10^3/uL Immature Gran # (Auto) (0.00-0.03) x10^3u/L Absolute Lymphs (auto) (1.0-4.6) x10^3/uL Absolute Monos (auto) (0.0-1.3) x10^3/uL Absolute Nucleated RBC (0.00-0.01) x10^3u/L Lymphocytes % (24.0-44.0) % Monocytes % (0.0-12.0) % Eosinophils % (0.00-5.0) % Basophils % (0.0-0.4) % Absolute Granulocytes (1.4-6.9) x10^3/uL Basophils # (0-0.4) x10^3/uL PT (9.4-12.5) SECONDS INR (0.8-3.0) Sodium (137-145) mmol/L Potassium 3.6 (3.5-5.1) mmol/L Chloride (98-107) mmol/L Carbon Dioxide (22-30) mmol/L Anion Gap (5-15) MEQ/L BUN (9-20) mg/dL Creatinine (0.66-1.25) mg/dL Estimated GFR ML/MIN Glucose (74-106) mg/dL Calcium (8.4-10.2) mg/dL Magnesium (1.6-2.3) mg/dL Total Bilirubin (0.2-1.3) mg/dL AST (17-59) U/L ALT (0-50) U/L Alkaline Phosphatase (38-126) U/L Troponin I 0.075 H* 0.061 H* (0.000-0.034) ng/mL NT-Pro-B Natriuret Pep (<300) pg/mL Serum Total Protein (6.3-8.2) g/dL Albumin (3.5-5.0) g/dL Influenza Type A Ag (NEGATIVE) Influenza Type B Ag (NEGATIVE) RSV (PCR) (NEGATIVE) SARS-CoV-2 (PCR) (NEGATIVE) 04/11/23 04/11/23 04/11/23 Range/Units 04:44 04:44 04:44 WBC 3.2 L (4.0-10.5) x10^3/uL RBC 3.88 L (4.1-5.6) x10^6/uL Hgb 9.6 L (12.5-18.0) g/dL Hct 31.9 L (42-50) % MCV 82.2 (78-100) fL MCH 24.7 L (26-32) pg MCHC 30.1 L (32-36) g/dL RDW 19.3 H (11.5-14.0) % Plt Count 135 L (150-450) x10^3/uL MPV 11.5 H (7.5-11.0) fL Gran % (36.0-66.0) % Immature Gran % (Auto) (0.00-0.4) % Nucleat RBC Rel Count (0.00-0.1) % Eos # (Auto) (0-0.5) x10^3/uL Immature Gran # (Auto) (0.00-0.03) x10^3u/L Absolute Lymphs (auto) (1.0-4.6) x10^3/uL Absolute Monos (auto) (0.0-1.3) x10^3/uL Absolute Nucleated RBC (0.00-0.01) x10^3u/L Lymphocytes % (24.0-44.0) % Monocytes % (0.0-12.0) % Eosinophils % (0.00-5.0) % Basophils % (0.0-0.4) % Absolute Granulocytes (1.4-6.9) x10^3/uL Basophils # (0-0.4) x10^3/uL PT (9.4-12.5) SECONDS INR (0.8-3.0) Sodium 135 L (137-145) mmol/L Potassium 3.8 (3.5-5.1) mmol/L Chloride 102 (98-107) mmol/L Carbon Dioxide 25 (22-30) mmol/L Anion Gap 11.0 (5-15) MEQ/L BUN 29 H (9-20) mg/dL Creatinine 1.28 H (0.66-1.25) mg/dL Estimated GFR 54.2 ML/MIN Glucose 140 H (74-106) mg/dL Calcium 8.0 L (8.4-10.2) mg/dL Magnesium (1.6-2.3) mg/dL Total Bilirubin 0.70 (0.2-1.3) mg/dL AST 48 (17-59) U/L ALT 26 (0-50) U/L Alkaline Phosphatase 155 H (38-126) U/L Troponin I (0.000-0.034) ng/mL NT-Pro-B Natriuret Pep 4890 (<300) pg/mL Serum Total Protein 5.7 L (6.3-8.2) g/dL Albumin 3.2 L (3.5-5.0) g/dL Influenza Type A Ag (NEGATIVE) Influenza Type B Ag (NEGATIVE) RSV (PCR) (NEGATIVE) SARS-CoV-2 (PCR) (NEGATIVE) 04/11/23 04/11/23 Range/Units 04:44 04:44 WBC (4.0-10.5) x10^3/uL RBC (4.1-5.6) x10^6/uL Hgb (12.5-18.0) g/dL Hct (42-50) % MCV (78-100) fL MCH (26-32) pg MCHC (32-36) g/dL RDW (11.5-14.0) % Plt Count (150-450) x10^3/uL MPV (7.5-11.0) fL Gran % (36.0-66.0) % Immature Gran % (Auto) (0.00-0.4) % Nucleat RBC Rel Count (0.00-0.1) % Eos # (Auto) (0-0.5) x10^3/uL Immature Gran # (Auto) (0.00-0.03) x10^3u/L Absolute Lymphs (auto) (1.0-4.6) x10^3/uL Absolute Monos (auto) (0.0-1.3) x10^3/uL Absolute Nucleated RBC (0.00-0.01) x10^3u/L Lymphocytes % (24.0-44.0) % Monocytes % (0.0-12.0) % Eosinophils % (0.00-5.0) % Basophils % (0.0-0.4) % Absolute Granulocytes (1.4-6.9) x10^3/uL Basophils # (0-0.4) x10^3/uL PT 19.6 H (9.4-12.5) SECONDS INR 1.87 (0.8-3.0) Sodium (137-145) mmol/L Potassium (3.5-5.1) mmol/L Chloride (98-107) mmol/L Carbon Dioxide (22-30) mmol/L Anion Gap (5-15) MEQ/L BUN (9-20) mg/dL Creatinine (0.66-1.25) mg/dL Estimated GFR ML/MIN Glucose (74-106) mg/dL Calcium (8.4-10.2) mg/dL Magnesium 2.4 H (1.6-2.3) mg/dL Total Bilirubin (0.2-1.3) mg/dL AST (17-59) U/L ALT (0-50) U/L Alkaline Phosphatase (38-126) U/L Troponin I (0.000-0.034) ng/mL NT-Pro-B Natriuret Pep (<300) pg/mL Serum Total Protein (6.3-8.2) g/dL Albumin (3.5-5.0) g/dL Influenza Type A Ag (NEGATIVE) Influenza Type B Ag (NEGATIVE) RSV (PCR) (NEGATIVE) SARS-CoV-2 (PCR) (NEGATIVE) - Radiology Exams Ordered Rad Exams-Entire Visit: Radiology Procedures Category Date Time Status CHEST 1 VIEW (PORTABLE) Stat Exams 04/10/23 11:15 Completed - Procedures and Test Procedures and Tests throughout Hospitalization: Therapy Orders & Screens 04/10/23 12:32 Respiratory Therapy Assessment DAILY Comment: 04/10/23 14:45 Oxygen Nasal Cannula 2 lpm Comment: 04/10/23 16:19 RT Screen per Nursing Assess ONCE Comment: Protocol Order Physician Instructions: Greater than 3 points order RT Admission Screen Reason For Exam: Triggered on Admission Diagnosis: copd exacerbation Diagnosis: copd exacerbation Home O2: Yes CHF: Yes Home Nebs/MDI: Yes Total Points: 13 04/11/23 08:12 Oxygen Nasal Cannula 4 lpm Comment: Diagnosis: copd exacerbation Discharge Exam General Appearance: no apparent distress, alert Neurologic Exam: alert, oriented x 3, cooperative, normal mood/affect, nml cerebellar function, sensation nml, No motor deficits Eye Exam: PERRL, EOMI, eyes nml inspection Ears, Nose, Throat Exam: normal ENT inspection, pharynx normal, moist mucous membranes Neck Exam: normal inspection, non-tender, supple, full range of motion Respiratory Exam: normal breath sounds, lungs clear, No respiratory distress Cardiovascular Exam: regular rate/rhythm, normal heart sounds, edema (+1 pittin g- improved) Gastrointestinal/Abdomen Exam: soft, No tenderness, No mass Male Genitalia Exam: deferred Rectal Exam: deferred Back Exam: normal inspection, normal range of motion, No CVA tenderness, No vertebral tenderness Extremity Exam: normal inspection, normal range of motion Skin Exam: normal color, warm, dry Final Diagnosis/Problem List - Final Discharge Diagnosis/Problem (1) COPD exacerbation Current Visit: Yes Status: Acute Code(s): J44.1 - CHRONIC OBSTRUCTIVE PULMONARY DISEASE W (ACUTE) EXACERBATION (2) CHF (congestive heart failure) Current Visit: Yes Status: Acute Code(s): I50.9 - HEART FAILURE, UNSPECIFIED (3) Hypokalemia Current Visit: Yes Status: Acute Code(s): E87.6 - HYPOKALEMIA (4) Anticoagulated on Coumadin Current Visit: No Status: Chronic Assessment & Plan: (1) COPD exacerbation Current Visit: Yes Status: Acute Assessment & Plan: - steriods, antibiotics - On BL O2 at 4lNC - RT eval and treat - duonebs - Chest XR 04/10/23 Impression: Continued nonacute chest with chronic features. 04/11/23 - sxs resolved - on BL O2 Code(s): J44.1 - CHRONIC OBSTRUCTIVE PULMONARY DISEASE W (ACUTE) EXACERBATION (2) CHF (congestive heart failure) Current Visit: Yes Status: Acute Assessment & Plan: - BNP 4640 - Tele - lasix - Trop trending down, 0.080, 0.075- cont to monitor - K+ >4, Mg+ > 2 - recheck BNP in 48 hours - Echo 08/15/22 EF 40-45% IMPRESSION: 1) GLOBAL LEFT VENTRICULAR HYPOKINESIA, EJECTION FRACTION OF AROUND 40 TO 45%. 2) SEVERE AORTIC STENOSIS WITH PEAK TRANSAORTIC GRADIENT OF 38 MM OF MERCURY AND MEAN GRADIENT OF 22 MM OF MERCURY. 3) MODERATE MITRAL REGURGITATION. 4) MODERATE TRICUSPID REGURGITATION. RIGHT VENTRICULAR SYSTOLIC PRESSURE OF 41 MM OF MERCURY. 5) LEFT VENTRICULAR HYPERTROPHY. 6) MODERATELY DILATED RIGHT SIDE CHAMBERS. 7) PACEMAKER ELECTRODE IN RIGHT VENTRICLE. 8) MILDLY DILATED INFERIOR VENA CAVA. Code(s): I50.9 - HEART FAILURE, UNSPECIFIED (3) Hypokalemia Current Visit: Yes Status: Acute Assessment & Plan: - K= 3.1- replaced 04/11/23 - resolved Code(s): E87.6 - HYPOKALEMIA (4) Anticoagulated on Coumadin Current Visit: No Status: Chronic Assessment & Plan: - Pharmacy to dose - Daily PT/INR - [facility] checks PT/INR weekly at home for [facility] Coumadin clinic Code(s): Z79.01 - SKILLED NURSING (CURRENT) USE OF ANTICOAGULANTS - Discharge Discharge Date: 04/11/23 Disposition: Home, Self-Care Condition: Stable Prescriptions: Continue Atorvastatin Calcium [Lipitor] 40 mg PO DAILY Albuterol Sulfate [Proair Hfa] 8.5 gm IH Q4HWA Albuterol/Ipratropium 3ml Neb* [DUONEB 0.5-3 MG/3 ml Neb] 3 ml IH Q6H PRN PRN PRN Reason: Shortness Of Breath/Wheezing Trazodone HCl 150 mg PO HS Omeprazole 40 mg PO DAILY Empagliflozin [Jardiance] 10 mg PO DAILY Bumetanide 1 mg [Bumex 1 mg] 2 mg PO BID Spironolactone 25 mg [Aldactone 25 MG] 12.5 mg PO DAILY Potassium Chloride Tab* [Klor Con] 40 meq PO DAILY #120 tablet Warfarin Sodium 5 mg [Coumadin] 2.5 mg PO DAILY Budesonide/Formoterol Fumarate [Budesonide-Formoterol 160-4.5] 10.2 gm IH BID 30 Days #1 Prednisone 20 mg [Deltasone 20 mg] 10 mg PO DAILY Warfarin Sodium 2 mg [Coumadin 2 MG] 1 tab PO DAILY Fluoxetine HCl 10 mg [Prozac 10 mg] 1 cap PO DAILY Additional Instructions: Continue to take steroids as prescribed prior to admission. Please take medications as prescribed. Please follow up with Coumadin clinic - continue same dose of Coumadin you were taking prior to admission. Follow up with: ULISES ADAMS MD [Primary Care Provider] -
[2023-04-11] MEDS ORDERED: Zithromax 250 MG TABLET PO SCH (11:00)
[2023-04-11 11:26] VITALS: BP 126/72; PULSE 65; RESP 16; TEMP 97.1; O2SAT 97
[2023-04-12] MEDS ORDERED: COUMADIN PO SCH (18:00)
== END 2023-04-11 13:26 | disposition home or self-care (01) ==
LOC: ED 10:48 → MED SURG 14:45
PROVIDERS: ADMIT Internal Medicine; ATTEND Internal Medicine
DX: J44.1 Chronic obstructive pulmonary disease with (acute) exacerbation (principal); I13.0 Hypertensive heart and chronic kidney disease with heart failure and stage 1 through stage 4 chronic kidney disease, or unspecified chronic kidney disease; N18.30 Chronic kidney disease, stage 3 unspecified; I50.9 Heart failure, unspecified; E87.6 Hypokalemia; R60.0 Localized edema; E78.5 Hyperlipidemia, unspecified; I25.2 Old myocardial infarction; I25.10 Atherosclerotic heart disease of native coronary artery without angina pectoris; Z79.01 Long term (current) use of anticoagulants; Z79.899 Other long term (current) drug therapy; Z20.828 Contact with and (suspected) exposure to other viral communicable diseases; Z99.81 Dependence on supplemental oxygen; Z91.148 Patient's other noncompliance with medication regimen for other reason; Z95.0 Presence of cardiac pacemaker
CPT/HCPCS: 0241U; 36000; 36415; 71045; 80053; 83735; 83880; 84132; 84484; 85025; 85027; 85610; 87040; 93005; 93041; 94640; 94760; 96365; 96367; 96374; 96375; 99284; Q3014; 93268; J0456; J0696; J1940; J2930; J3475; J3480; J7609; A9270-GY; G0378

== ENCOUNTER 2023-04-24 19:07 | Observation (INO) | payer MEDICARE ==
[2023-04-24 20:16] LABS: Absolute Neutrophil Ct (ANC) 5.12 x10^3/uL (1.4-6.9); BASOPHIL % 0.3 % (0.0-0.4); Basophil (Absolute #) 0.02 x10^3/uL (0-0.4); Eosinophil % 2.9 % (0.00-5.0); Eosinophil (Absolute #) 0.21 x10^3/uL (0-0.5); Hematocrit 36.9 % (42-50); IMMATURE GRAN # 0.03 x10^3u/L (0.00-0.03); IMMATURE GRAN % 0.4 % (0.00-0.4); Lymphocyte (Absolute #) 1.12 x10^3/uL (1.0-4.6); Lymphocytes % 15.7 % (24.0-44.0); Mean Cell Volume 82.2 fL (78-100); Mean Corpuscular Hemoglobin 24.5 pg (26-32); Mean Corpuscular Hgb Concent. 29.8 g/dL (32-36); Mean Platelet Volume 11.6 fL (7.5-11.0); Monocyte (Absolute #) 0.63 x10^3/uL (0.0-1.3); Monocytes % 8.8 % (0.0-12.0); Neutrophil % 71.9 % (36.0-66.0); Platelet Count 139 x10^3/uL (150-450); Red Blood Count 4.49 x10^6/uL (4.1-5.6); Red Cell Distribution Width 19.2 % (11.5-14.0); White Blood Count 7.1 x10^3/uL (4.0-10.5)
[2023-04-24 20:30] LABS: ANION GAP 12.2 MEQ/L (5-15); BILIRUBIN,TOTAL 1.1 mg/dL (0.2-1.3); Calcium 8.8 mg/dL (8.4-10.2); Creatinine 1 1.11 mg/dL (0.66-1.25); EST GLOMERULAR FILTRATION RATE 63.9 ML/MIN; MAGNESIUM 2.2 mg/dL (1.6-2.3); Total Protein 7.1 g/dL (6.3-8.2)
[2023-04-24] MEDS ORDERED: DUONEB 0.5-3 MG/3 ml Neb IH ONE ×2 (20:36→20:41)
--- NOTE | 2023-04-24 20:39 | ERPHSYRPT ---
- History of Present Illness Time Seen by Provider: 04/24/23 19:30 Source: patient Exam Limitations: no limitations Patient Subjective Stated Complaint: pt states he has had increasing shortness of breath and cough since yesterday. Triage Nursing Assessment: pt alert and oriented, answers questions approp. pt back to room per wheelchair and transfers to stretcher per self with minimal assist. pt shourt of breathwith exertion. lung sounds clear bilat. skin warm and dry Physician History: Patient is an 88-year-old male with history of COPD presents to our ED with a 1 day history of progressive shortness of breath. Increasing cough. Patient self treated with albuterol nebulizer at home. However no significant improvement. No associated chest pain. No nausea vomiting or diaphoresis. Symptoms are moderate in intensity. Exertion worsens symptoms. Symptoms improved with rest. Granddaughter at bedside. They voiced no other complaints or concerns at this time. Portions of this note were created with voice recognition technology. There may be grammatical, spelling, punctuation or sound alike errors Timing/Duration: yesterday Activities at Onset: none Severity of Dyspnea-Max: moderate Severity of Dyspnea-Current: mild Possible Cause: occasional episodes Modifying Factors: Improves With: activity Associated Symptoms: cough Allergies/Adverse Reactions: No Known Drug Allergies Allergy (Verified 04/24/23 19:39) Home Medications: Albuterol Sulfate [Proair Hfa] 8.5 gm IH Q4HWA 06/08/20 [History] Atorvastatin Calcium [Lipitor] 40 mg PO DAILY 06/08/20 [History] Albuterol/Ipratropium 3ml Neb* [DUONEB 0.5-3 MG/3 ml Neb] 3 ml IH Q6H PRN PRN 10/17/20 [History] Trazodone HCl 150 mg PO HS 09/19/22 [History] Bumetanide 1 mg [Bumex 1 mg] 2 mg PO BID 09/20/22 [History] Empagliflozin [Jardiance] 10 mg PO DAILY 09/20/22 [History] Omeprazole 40 mg PO DAILY 09/20/22 [History] Warfarin Sodium 5 mg [Coumadin] 2.5 mg PO DAILY 12/05/22 [History] Fluoxetine HCl 10 mg [Prozac 10 mg] 1 cap PO DAILY 04/10/23 [History] Prednisone 20 mg [Deltasone 20 mg] 10 mg PO DAILY 04/10/23 [History] Warfarin Sodium 2 mg [Coumadin 2 MG] 1 tab PO DAILY 04/10/23 [History] Potassium Chloride Tab* [Klor Con] 10 meq PO DAILY 04/24/23 [History] Hx Tetanus, Diphtheria Vaccination/Date Given: No Hx Influenza Vaccination/Date Given: Yes Hx Pneumococcal Vaccination/Date Given: No Immunizations Up to Date: No Travel Risk - International Travel Have you traveled outside of the country in past 3 weeks: No - Coronavirus Screening Symptoms: Cough: New Onset, Shortness of Breath Close contact with a COVID-19 positive Pt in past 14-21 Days: No - Vaccine Status Have you recieved a Covid-19 vaccination: Yes Managing Jeweler: Unknown - Vaccination Dates Dates if Unknown: unknown - Review of Systems Constitutional: No Symptoms, No Fever, No Chills Eyes: No Symptoms Ears, Nose, & Throat: No Symptoms Respiratory: No Symptoms, No Cough, No Dyspnea Cardiac: No Symptoms, No Chest Pain, No Edema, No Syncope Abdominal/Gastrointestinal: No Symptoms, No Abdominal Pain, No Nausea, No Vomiting, No Diarrhea Genitourinary Symptoms: No Symptoms, No Dysuria Musculoskeletal: No Symptoms, No Back Pain, No Neck Pain Skin: No Symptoms, No Rash Neurological: No Symptoms, No Dizziness, No Focal Weakness, No Sensory Changes Psychological: No Symptoms Endocrine: No Symptoms Hematologic/Lymphatic: No Symptoms Immunological/Allergic: No Symptoms All Other Systems: Reviewed and Negative - Past Medical History Pertinent Past Medical History: Yes Neurological History: Stroke ENT History: No Pertinent History Cardiac History: Congestive Heart Failure, Coronary Artery Disease, High Cholesterol, Hypertension, Myocardial Infarction (MS), Other Respiratory History: Asthma, COPD Endocrine Medical History: No Pertinent History Musculoskeletal History: No Pertinent History GI Medical History: Hernia History: Renal Disease Psycho-Social History: No Pertinent History Male Reproductive Disorders: No Pertinent History Other Medical History: AFIB, stenosis, CKD stage 3, 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 - Past Surgical History Past Surgical History: Yes Neuro Surgical History: No Pertinent History Cardiac: CABG, Cardiac Stent, Pacemaker Respiratory: No Pertinent History Gastrointestinal: Appendectomy, Hernia Repair Genitourinary: No Pertinent History Musculoskeletal: No Pertinent History Male Surgical History: No Pertinent History Other Surgical History: PACEMAKER, aortic valve replacement - Social History Smoking Status: Never smoker Exposure to second hand smoke: No Drug Use: none Patient Lives Alone: No Significant Family History: heart disease - Nursing Vital Signs Nursing Vital Signs: Initial Vital Signs Temperature 97.8 F 04/24/23 19:23 Pulse Rate 80 04/24/23 19:23 Respiratory Rate 24 04/24/23 19:23 Blood Pressure 119/67 04/24/23 19:23 O2 Sat by Pulse Oximetry 96 04/24/23 19:23 Pain Scale Pain Intensity 0 - Physical Exam General Appearance: no apparent distress, alert Eye Exam: PERRL/EOMI Ears, Nose, Throat Exam: hearing grossly normal, normal ENT inspection, normal pharynx Neck Exam: normal inspection, supple, full range of motion Respiratory Exam: diminished breath sounds, rhonchi, wheezing Cardiovascular/Chest Exam: normal heart sounds, regular rate/rhythm Abdominal/Gastrointestinal Exam: soft, No tenderness, No distention, No mass Extremity Exam: non-tender, normal range of motion, normal inspection, no calf tenderness, no pedal edema Neurologic Exam: alert, oriented x 3, cooperative, assembler final II-XII nml as tested, sensation nml, No motor deficits Skin Exam: normal color, warm, No dry Lymphatic Exam: No adenopathy SpO2 Interpretation: normal SpO2: 97 O2 Delivery: Room Air - Course Nursing assessment & vital signs reviewed: Yes EKG Interpreted by Me: RATE (76), A-fib, NORMAL AXIS, NORMAL INTERVALS - CT Exams Chest CT Interpretation: Tele-radiologist Report (Enlarged heart, right heart o verload, bilateral pleural effusion, right upper lobe calcified granuloma, hiatal hernia, gallbladder calculus no evidence of acute PE) Ordered Tests: Active Orders 24 hr Category Date Time Status Home School Liaison Officer STAT Care 04/24/23 19:35 Active EKG-ER Only STAT Care 04/24/23 20:38 Active Order K Level 2 hours post-inf 2 HRS POST K-INFUSED Care 04/24/23 22:33 Active Pulse Oximetry (ED) STAT Care 04/24/23 19:33 Active Telemetry q4h Care 04/24/23 22:33 Active CHEST WITH CONTRAST [CT] Stat Exams 04/24/23 22:32 Completed BLOOD CULTURE Stat Lab 04/24/23 19:55 Received CBC AM.LAB Lab 04/25/23 04:00 Ordered CBC AM.LAB Lab 04/26/23 04:00 Ordered CBC AM.LAB Lab 04/27/23 04:00 Ordered CBC W DIFF Stat Lab 04/24/23 19:20 Completed CMP AM.LAB Lab 04/25/23 04:00 Ordered CMP AM.LAB Lab 04/26/23 04:00 Ordered CMP AM.LAB Lab 04/27/23 04:00 Ordered CMP AM.LAB Lab 04/28/23 04:00 Ordered CMP Stat Lab 04/24/23 19:20 Completed D-DIMER QUANTITATIVE Stat Lab 04/24/23 19:20 Completed Lactic Acid Stat Lab 04/24/23 19:40 Completed Lactic Acid Stat Lab 04/24/23 21:44 Completed MAGNESIUM Stat Lab 04/24/23 19:20 Completed MG [MAGNESIUM] AM.LAB Lab 04/25/23 04:00 Ordered NT PRO BNPII Stat Lab 04/24/23 19:20 Completed PT INR [PROTIME WITH INR] Stat Lab 04/24/23 22:03 Completed TROPONIN Q4H Lab 04/24/23 19:20 Completed TROPONIN Q4H Lab 04/24/23 22:50 Completed TROPONIN Q4H Lab 04/25/23 03:45 Ordered Respiratory Therapy Assessment DAILY RT 04/24/23 20:43 Active Transfer Order Routine Transfer 04/25/23 Ordered Medication Summary Generic Name Dose Route Start Last Admin Trade Name Freq PRN Reason Stop Dose Admin Albuterol/Ipratropium 3 ml 04/25/23 01:00 Ipratropium/Albuterol Sulfate 3 Ml Ampul.Neb IH 05/25/23 00:59 Q6HRT FAVIAN Methylprednisolone Sodium 0 mg 04/25/23 10:00 Succinate 40 mg/ Sterile Water IV 05/25/23 09:59 1 ml Q12HT FAVIAN Magnesium Sulfate/Dextrose 100 mls @ 100 mls/hr 04/24/23 22:45 04/24/23 23:50 Magnesium 1 Gm / 100 Ml D5w IV 04/25/23 00:44 100 mls/hr Q1H FAVIAN Administration Potassium Chloride 20 meq in 100 mls @ 50 mls/hr 04/24/23 22:45 04/25/23 01:16 Potassium Chloride 20 Meq In Water 100ml IV 04/25/23 02:44 50 mls/hr Q2H FAVIAN Administration Sodium Chloride 1,000 mls @ 50 mls/hr 04/24/23 23:15 04/24/23 23:17 Sodium Chloride 0.9% 1000 Ml IV 05/24/23 23:14 50 mls/hr .Q20H FAVIAN Administration Discontinued Medications Generic Name Dose Route Start Last Admin Trade Name Gemini PRN Reason Stop Dose Admin Albuterol Sulfate 2.5 mg 04/24/23 23:47 04/24/23 23:54 Albuterol Sulfate 2.5 Mg/3 Ml Neb IH 04/24/23 23:48 2.5 mg STAT ONE Administration Albuterol Sulfate Confirm 04/24/23 23:53 Albuterol Sulfate 2.5 Mg/3 Ml Neb Administered 04/24/23 23:54 Dose 2.5 mg IH .STK-MED ONE Albuterol/Ipratropium 3 ml 04/24/23 20:36 04/24/23 20:41 Ipratropium/Albuterol Sulfate 3 Ml Ampul.Neb IH 04/24/23 20:37 3 ml STAT ONE Administration Albuterol/Ipratropium Confirm 04/24/23 20:41 Ipratropium/Albuterol Sulfate 3 Ml Ampul.Neb Administered 04/24/23 20:42 Dose 3 ml IH .STK-MED ONE Methylprednisolone Sodium 0 mg 04/24/23 22:35 04/24/23 23:14 Succinate 125 mg/ Sterile IV 04/24/23 22:36 125 mg Water 2 ml STAT ONE Administration Diphenhydramine HCl 25 mg 04/24/23 23:47 04/24/23 23:50 Diphenhydramine Hcl 50 Mg/Ml Vial IV 04/24/23 23:48 25 mg STAT ONE Administration Diphenhydramine HCl Confirm 04/24/23 23:49 Diphenhydramine Hcl 50 Mg/Ml Vial Administered 04/24/23 23:50 Dose 50 mg .ROUTE .STK-MED ONE Ceftriaxone Sodium/Dextrose 2 g in 50 mls @ 100 mls/hr 04/24/23 22:37 0 04/24/23 23:14 Rocephin 2 Gm-D5w 50ml Bag IV 04/24/23 23:06 100 ml/hr STAT STA 100 mls/hr Administration Azithromycin 500 mg in 250 mls @ 250 mls/hr 04/24/23 22:37 04/24/23 23:50 Zithromax 500 Mg/ 250 Ml Nacl Premix IV 04/24/23 23:36 250 ml/hr STAT STA 250 mls/hr Administration Azithromycin Confirm 04/24/23 22:49 Zithromax 500 Mg/ 250 Ml Nacl Premix Administered 04/24/23 22:50 Dose 500 mg in 250 mls @ ud IV .STK-MED ONE Ceftriaxone Sodium/Dextrose Confirm 04/24/23 22:49 Rocephin 2 Gm-D5w 50ml Bag Administered 04/24/23 22:50 Dose 2 g in 50 mls @ ud IV .STK-MED ONE Methylprednisolone Sodium Succinate Confirm 04/24/23 22:48 Methylprednis Sod Succ 125 Mg/2 Ml Vial Administered 04/24/23 22:49 Dose 125 mg .ROUTE .STK-MED ONE Sterile Water Confirm 04/24/23 22:48 Water For Injection,Sterile 10 Ml Vial Administered 04/24/23 22:49 Dose 10 ml IJ .STK-MED ONE Lab/Rad Data: Laboratory Result Diagrams 04/24/23 19:20 04/24/23 19:20 Laboratory Results 04/24/23 04/24/23 04/24/23 Range/Units 22:50 22:03 21:44 WBC (4.0-10.5) x10^3/uL RBC (4.1-5.6) x10^6/uL Hgb (12.5-18.0) g/dL Hct (42-50) % MCV (78-100) fL MCH (26-32) pg MCHC (32-36) g/dL RDW (11.5-14.0) % Plt Count (150-450) x10^3/uL MPV (7.5-11.0) fL Gran % (36.0-66.0) % Immature Gran % (Auto) (0.00-0.4) % Nucleat RBC Rel Count (0.00-0.1) % Eos # (Auto) (0-0.5) x10^3/uL Immature Gran # (Auto) (0.00-0.03) x10^3u/L Absolute Lymphs (auto) (1.0-4.6) x10^3/uL Absolute Monos (auto) (0.0-1.3) x10^3/uL Absolute Nucleated RBC (0.00-0.01) x10^3u/L Lymphocytes % (24.0-44.0) % Monocytes % (0.0-12.0) % Eosinophils % (0.00-5.0) % Basophils % (0.0-0.4) % Absolute Granulocytes (1.4-6.9) x10^3/uL Basophils # (0-0.4) x10^3/uL PT 23.4 H (9.4-12.5) SECONDS INR 2.26 (0.8-3.0) D-Dimer (0.0-0.50) mg/L Sodium (137-145) mmol/L Potassium (3.5-5.1) mmol/L Chloride (98-107) mmol/L Carbon Dioxide (22-30) mmol/L Anion Gap (5-15) MEQ/L BUN (9-20) mg/dL Creatinine (0.66-1.25) mg/dL Estimated GFR ML/MIN Glucose (74-106) mg/dL Lactic Acid 1.9 (0.4-2.0) Calcium (8.4-10.2) mg/dL Magnesium (1.6-2.3) mg/dL Total Bilirubin (0.2-1.3) mg/dL AST (17-59) U/L ALT (0-50) U/L Alkaline Phosphatase (38-126) U/L Troponin I 0.068 H* (0.000-0.034) ng/mL NT-Pro-B Natriuret Pep (<300) pg/mL Serum Total Protein (6.3-8.2) g/dL Albumin (3.5-5.0) g/dL Influenza Type A Ag (NEGATIVE) Influenza Type B Ag (NEGATIVE) RSV (PCR) (NEGATIVE) SARS-CoV-2 (PCR) (NEGATIVE) 04/24/23 04/24/23 04/24/23 Range/Units 19:55 19:40 19:20 WBC (4.0-10.5) x10^3/uL RBC (4.1-5.6) x10^6/uL Hgb (12.5-18.0) g/dL Hct (42-50) % MCV (78-100) fL MCH (26-32) pg MCHC (32-36) g/dL RDW (11.5-14.0) % Plt Count (150-450) x10^3/uL MPV (7.5-11.0) fL Gran % (36.0-66.0) % Immature Gran % (Auto) (0.00-0.4) % Nucleat RBC Rel Count (0.00-0.1) % Eos # (Auto) (0-0.5) x10^3/uL Immature Gran # (Auto) (0.00-0.03) x10^3u/L Absolute Lymphs (auto) (1.0-4.6) x10^3/uL Absolute Monos (auto) (0.0-1.3) x10^3/uL Absolute Nucleated RBC (0.00-0.01) x10^3u/L Lymphocytes % (24.0-44.0) % Monocytes % (0.0-12.0) % Eosinophils % (0.00-5.0) % Basophils % (0.0-0.4) % Absolute Granulocytes (1.4-6.9) x10^3/uL Basophils # (0-0.4) x10^3/uL PT (9.4-12.5) SECONDS INR (0.8-3.0) D-Dimer (0.0-0.50) mg/L Sodium (137-145) mmol/L Potassium (3.5-5.1) mmol/L Chloride (98-107) mmol/L Carbon Dioxide (22-30) mmol/L Anion Gap (5-15) MEQ/L BUN (9-20) mg/dL Creatinine (0.66-1.25) mg/dL Estimated GFR ML/MIN Glucose (74-106) mg/dL Lactic Acid 2.7 H (0.4-2.0) Calcium (8.4-10.2) mg/dL Magnesium (1.6-2.3) mg/dL Total Bilirubin (0.2-1.3) mg/dL AST (17-59) U/L ALT (0-50) U/L Alkaline Phosphatase (38-126) U/L Troponin I (0.000-0.034) ng/mL NT-Pro-B Natriuret Pep 4170 (<300) pg/mL Serum Total Protein (6.3-8.2) g/dL Albumin (3.5-5.0) g/dL Influenza Type A Ag NEGATIVE (NEGATIVE) Influenza Type B Ag NEGATIVE (NEGATIVE) RSV (PCR) NEGATIVE (NEGATIVE) SARS-CoV-2 (PCR) NEGATIVE (NEGATIVE) 04/24/23 04/24/23 04/24/23 Range/Units 19:20 19:20 19:20 WBC (4.0-10.5) x10^3/uL RBC (4.1-5.6) x10^6/uL Hgb (12.5-18.0) g/dL Hct (42-50) % MCV (78-100) fL MCH (26-32) pg MCHC (32-36) g/dL RDW (11.5-14.0) % Plt Count (150-450) x10^3/uL MPV (7.5-11.0) fL Gran % (36.0-66.0) % Immature Gran % (Auto) (0.00-0.4) % Nucleat RBC Rel Count (0.00-0.1) % Eos # (Auto) (0-0.5) x10^3/uL Immature Gran # (Auto) (0.00-0.03) x10^3u/L Absolute Lymphs (auto) (1.0-4.6) x10^3/uL Absolute Monos (auto) (0.0-1.3) x10^3/uL Absolute Nucleated RBC (0.00-0.01) x10^3u/L Lymphocytes % (24.0-44.0) % Monocytes % (0.0-12.0) % Eosinophils % (0.00-5.0) % Basophils % (0.0-0.4) % Absolute Granulocytes (1.4-6.9) x10^3/uL Basophils # (0-0.4) x10^3/uL PT (9.4-12.5) SECONDS INR (0.8-3.0) D-Dimer 1.26 H* (0.0-0.50) mg/L Sodium 138 (137-145) mmol/L Potassium 3.0 L* (3.5-5.1) mmol/L Chloride 96 L (98-107) mmol/L Carbon Dioxide 32 H (22-30) mmol/L Anion Gap 12.2 (5-15) MEQ/L BUN 22 H (9-20) mg/dL Creatinine 1.11 (0.66-1.25) mg/dL Estimated GFR 63.9 ML/MIN Glucose 107 H (74-106) mg/dL Lactic Acid (0.4-2.0) Calcium 8.8 (8.4-10.2) mg/dL Magnesium 2.2 (1.6-2.3) mg/dL Total Bilirubin 1.10 (0.2-1.3) mg/dL AST 46 (17-59) U/L ALT 23 (0-50) U/L Alkaline Phosphatase 163 H (38-126) U/L Troponin I 0.068 H* (0.000-0.034) ng/mL NT-Pro-B Natriuret Pep (<300) pg/mL Serum Total Protein 7.1 (6.3-8.2) g/dL Albumin 4.0 (3.5-5.0) g/dL Influenza Type A Ag (NEGATIVE) Influenza Type B Ag (NEGATIVE) RSV (PCR) (NEGATIVE) SARS-CoV-2 (PCR) (NEGATIVE) 04/24/23 Range/Units 19:20 WBC 7.1 (4.0-10.5) x10^3/uL RBC 4.49 (4.1-5.6) x10^6/uL Hgb 11.0 L (12.5-18.0) g/dL Hct 36.9 L (42-50) % MCV 82.2 (78-100) fL MCH 24.5 L (26-32) pg MCHC 29.8 L (32-36) g/dL RDW 19.2 H (11.5-14.0) % Plt Count 139 L (150-450) x10^3/uL MPV 11.6 H (7.5-11.0) fL Gran % 71.9 H (36.0-66.0) % Immature Gran % (Auto) 0.4 (0.00-0.4) % Nucleat RBC Rel Count 0.0 (0.00-0.1) % Eos # (Auto) 0.21 (0-0.5) x10^3/uL Immature Gran # (Auto) 0.03 (0.00-0.03) x10^3u/L Absolute Lymphs (auto) 1.12 (1.0-4.6) x10^3/uL Absolute Monos (auto) 0.63 (0.0-1.3) x10^3/uL Absolute Nucleated RBC 0.00 (0.00-0.01) x10^3u/L Lymphocytes % 15.7 L (24.0-44.0) % Monocytes % 8.8 (0.0-12.0) % Eosinophils % 2.9 (0.00-5.0) % Basophils % 0.3 (0.0-0.4) % Absolute Granulocytes 5.12 (1.4-6.9) x10^3/uL Basophils # 0.02 (0-0.4) x10^3/uL PT (9.4-12.5) SECONDS INR (0.8-3.0) D-Dimer (0.0-0.50) mg/L Sodium (137-145) mmol/L Potassium (3.5-5.1) mmol/L Chloride (98-107) mmol/L Carbon Dioxide (22-30) mmol/L Anion Gap (5-15) MEQ/L BUN (9-20) mg/dL Creatinine (0.66-1.25) mg/dL Estimated GFR ML/MIN Glucose (74-106) mg/dL Lactic Acid (0.4-2.0) Calcium (8.4-10.2) mg/dL Magnesium (1.6-2.3) mg/dL Total Bilirubin (0.2-1.3) mg/dL AST (17-59) U/L ALT (0-50) U/L Alkaline Phosphatase (38-126) U/L Troponin I (0.000-0.034) ng/mL NT-Pro-B Natriuret Pep (<300) pg/mL Serum Total Protein (6.3-8.2) g/dL Albumin (3.5-5.0) g/dL Influenza Type A Ag (NEGATIVE) Influenza Type B Ag (NEGATIVE) RSV (PCR) (NEGATIVE) SARS-CoV-2 (PCR) (NEGATIVE) - Progress Progress: improved Air Movement: good Progress Note: Patient is an 88-year-old male presents to our ED for evaluation of shortness of breath. CMP reveals a hypokalemia of 3.0. Patient has a lactic acidosis 2.7. COVID test negative. Patient currently on Coumadin for history of A-fib. INR 2.26. D-dimer positive at 1.26. CTA chest pending. Patient's troponin is 0.068. Patient has history of chronically elevated troponin. Patient receiving 2 g magnesium. K rider administered. Blood cultures pending. Rocephin and azithromycin ordered. Solu-Medrol administered. DuoNeb administered. Patient reassessed. He feels much better. Case discussed with Dr. Howard who accepts admission to observation. Currently awaiting results of CTA and second troponin before admitting to floor. Portions of this note were created with voice recognition technology. There may be grammatical, spelling, punctuation or sound alike errors Complexity of problem addressed is moderate acute complicated No critical care time Complex of data reviewed and analyzed is extensive. Test ordered test reviewed. Management discussed with hospitalist accepts admission to observation. Risk of morbidity/mortality patient management is high. Patient requires hospitalization for further evaluation and treatment. Patient received albuterol for management of his COPD exacerbation Vital stable. Patient agrees to admission at [facility] for further evaluation and treatment. Plan of care established for shared decision making. No social determinants of health present impede follow-up. 04/24/23 23:[address] Howard at [address] Howard accepts admission to observation. He is aware of the findings regarding the possible right heart strain. They will obtain a echo in the morning. Consultation school office manager they will initiate diuresis on the floor. Hospitalist advised initiating Lasix. 20 of Lasix IV administered. 04/25/23 02:01 Blood Culture(s) Obtained: Yes Antibiotics given: Yes Counseled pt/family regarding: lab results, diagnosis, rad results - Departure Departure Disposition: Observation Clinical Impression: SOB (shortness of breath), COPD exacerbation, Hypokalemia, Lactic acidosis, Chronically elevated troponin, Right heart overload, Pleural effusion, right, Right upper lobe calcified granuloma, Hiatal hernia, Gallbladder calculus Condition: Stable Critical Care Time: No Referrals: ULISES ADAMS MD [Primary Care Provider] - Follow up/PCP as directed Instructions: Chronic Obstructive Pulmonary Disease
[2023-04-24 21:01] LABS: INFLUENZA A NEGATIVE (NEGATIVE); INFLUENZA B NEGATIVE (NEGATIVE); RESPIRATORY SYNCTIAL VIRUS NEGATIVE (NEGATIVE); SARS-CoV-2 Xpert Express NEGATIVE (NEGATIVE)
[2023-04-24 22:12] LABS: INR 2.26 (0.8-3.0); PROTIME 23.4 SECONDS (9.4-12.5)
[2023-04-24] MEDS ORDERED: solu-MEDROL 125 MG, Sterile H2O 10 ml 2 ML IV ONE ×2 (22:35)
[2023-04-24] MEDS ORDERED: ROCEPHIN 2 Gm-D5w 50ML BAG** 2 G/50 ML IVPB IV STA (22:37)
[2023-04-24] MEDS ORDERED: Zithromax 500 MG/ 250 ML NaCl Premix 500 MG/250 ML IVPB IV STA (22:37)
[2023-04-24] MEDS ORDERED: Sterile H2O 10 ml IJ ONE (22:48)
[2023-04-24] MEDS ORDERED: solu-MEDROL ONE (22:48)
[2023-04-24] MEDS ORDERED: Zithromax 500 MG/ 250 ML NaCl Premix 500 MG/250 ML IVPB IV ONE (22:49)
[2023-04-24] MEDS ORDERED: ROCEPHIN 2 Gm-D5w 50ML BAG** 2 G/50 ML IVPB IV ONE (22:49)
[2023-04-24] MEDS ORDERED: POTASSIUM CHLORIDE 20 mEq IN WATER 100ML 100 ML IV ONE (22:49)
[2023-04-24] MEDS ORDERED: Sodium Chloride 0.9% 1000 ML 1,000 ML IV SCH (23:15)
[2023-04-24] MEDS: Magnesium 1 Gm / 100 Ml D5W*** 100 ML IV SCH ×2 (23:21→23:50)
[2023-04-24] MEDS: POTASSIUM CHLORIDE 20 mEq IN WATER 100ML 20 MEQ/100 ML BAG IV SCH (23:22)
--- NOTE | 2023-04-24 23:41 | PCM.HP ---
History of Present Illness - Chief Complaint Chief Complaint: shortness of breath Date: 04/24/23 History of Present Illness: Mr. Moore is a 88 year old male with a past medical history significant for hypertension, hyperlipidemia, coronary artery disease status post CABG, aortic stenosis status post AVR and COPD who presents to the hospital with complaints of increasing shortness of breath. No fever or chills. No chest pain or palpitations. He was evaluated in the ER, started on oxygen, duonebs and IV steroids. Initial labs were notable for a low potassium of 3.0 but an elevated d-dimer, so he was sent for CT scan chest with IV contrast. He has been recommended for admission to treat his shortness of breath. - Review of Systems Constitutional: No Fever, No Chills Eyes: No Vision Changes Respiratory: Short Of Breath, Wheezing, No Cough, No Orthopnea Cardiac: No Chest Pain, No Palpitations Abdominal/Gastrointestinal: No Abdominal Pain, No Nausea, No Vomiting Genitourinary Symptoms: No Dysuria, No Frequency Musculoskeletal: No Back Pain, No Neck Pain Skin: No Pruritis, No Rash Neurological: No Dizziness Psychological: No Suicidal Ideations Endocrine: No Polyuria, No Polydipsia Hematologic/Lymphatic: No Easy Bleeding Medications & Allergies Home Medications: Home Medication List Albuterol Sulfate [Proair Hfa] 8.5 gm IH Q4HWA 06/08/20 [History Confirmed 04/24/23] Atorvastatin Calcium [Lipitor] 40 mg PO DAILY 06/08/20 [History Confirmed 04/24/23] Albuterol/Ipratropium 3ml Neb* [DUONEB 0.5-3 MG/3 ml Neb] 3 ml IH Q6H PRN PRN 10/17/20 [History Confirmed 04/24/23] Trazodone HCl 150 mg PO HS 09/19/22 [History Confirmed 04/24/23] Bumetanide 1 mg [Bumex 1 mg] 2 mg PO BID 09/20/22 [History Confirmed 04/24/23] Empagliflozin [Jardiance] 10 mg PO DAILY 09/20/22 [History Confirmed 04/24/23] Omeprazole 40 mg PO DAILY 09/20/22 [History Confirmed 04/24/23] Warfarin Sodium 5 mg [Coumadin] 2.5 mg PO DAILY 12/05/22 [History Confirmed 04/10/23] Budesonide/Formoterol Fumarate [Budesonide-Formoterol 160-4.5] 10.2 gm IH BID 30 Days #1 02/14/23 [Rx Confirmed 04/24/23] Fluoxetine HCl 10 mg [Prozac 10 mg] 1 cap PO DAILY 04/10/23 [History Confirmed 04/24/23] Prednisone 20 mg [Deltasone 20 mg] 10 mg PO DAILY 04/10/23 [History Confirmed 04/24/23] Warfarin Sodium 2 mg [Coumadin 2 MG] 1 tab PO DAILY 04/10/23 [History Confirmed 04/10/23] Potassium Chloride Tab* [Klor Con] 10 meq PO DAILY 04/24/23 [History Confirmed 04/24/23] Allergies/Adverse Reactions: Allergies Allergy/AdvReac Type Severity Reaction Status Date / Time No Known Drug Allergies Allergy Verified 04/24/23 19:39 - Past Medical History Past Medical History: Yes Neurological History: Stroke ENT History: No Pertinent History Cardiac History: Congestive Heart Failure, Coronary Artery Disease, High Cholesterol, Hypertension, Myocardial Infarction ([place]), Other Respiratory History: Asthma, COPD Endocrine Medical History: No Pertinent History Musculoskelatal History: No Pertinent History GI Medical History: Hernia History: Renal Disease Pyscho-Social History: No Pertinent History Male Reproductive Disorders: No Pertinent History Comment: AFIB, stenosis, CKD stage 3, 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 - Past Surgical History Past Surgical History: Yes Neuro Surgical History: No Pertinent History Cardiac History: CABG, Cardiac Stent, Pacemaker Respiratory Surgery: No Pertinent History GI Surgical History: Appendectomy, Hernia Repair Genitourinary Surgical Hx: No Pertinent History Musculskeletal Surgical Hx: No Pertinent History Male Surgical History: No Pertinent History Other Surgical History: PACEMAKER, aortic valve replacement - Social History Smoking Status: Never smoker Exposure to second hand smoke: No Alcohol: None Drug Use: none Significant Family History: heart disease - Physical Exam Vital Signs: Vital Signs - 24 hr Temp Pulse Resp BP BP Pulse Ox 04/24/23 23:17 97 04/24/23 22:00 80 18 124/74 99 04/24/23 21:30 78 17 115/67 98 01/16/24 21:00 75 20 116/70 99 04/24/23 20:43 91 H 22 96 04/24/23 20:30 70 16 133/72 100 04/24/23 19:35 97 04/24/23 19:30 85 24 112/65 04/24/23 19:23 97.8 F 80 24 119/67 96 General Appearance: alert Neurologic Exam: No motor deficits Ears, Nose, Throat Exam: dry mucous membranes Neck Exam: supple Respiratory Exam: rhonchi, No respiratory distress, No crackles/rales Cardiovascular Exam: regular rate/rhythm Gastrointestinal/Abdomen Exam: soft Extremity Exam: No pedal edema, No swelling Skin Exam: warm, No rash, No petechiae Results - Labs Lab/Micro Results: Lab Results-Last 24 Hours 04/24/23 04/24/23 04/24/23 Range/Units 19:20 19:20 19:20 WBC 7.1 (4.0-10.5) x10^3/uL RBC 4.49 (4.1-5.6) x10^6/uL Hgb 11.0 L (12.5-18.0) g/dL Hct 36.9 L (42-50) % MCV 82.2 (78-100) fL MCH 24.5 L (26-32) pg MCHC 29.8 L (32-36) g/dL RDW 19.2 H (11.5-14.0) % Plt Count 139 L (150-450) x10^3/uL MPV 11.6 H (7.5-11.0) fL Gran % 71.9 H (36.0-66.0) % Immature Gran % (Auto) 0.4 (0.00-0.4) % Nucleat RBC Rel Count 0.0 (0.00-0.1) % Eos # (Auto) 0.21 (0-0.5) x10^3/uL Immature Gran # (Auto) 0.03 (0.00-0.03) x10^3u/L Absolute Lymphs (auto) 1.12 (1.0-4.6) x10^3/uL Absolute Monos (auto) 0.63 (0.0-1.3) x10^3/uL Absolute Nucleated RBC 0.00 (0.00-0.01) x10^3u/L Lymphocytes % 15.7 L (24.0-44.0) % Monocytes % 8.8 (0.0-12.0) % Eosinophils % 2.9 (0.00-5.0) % Basophils % 0.3 (0.0-0.4) % Absolute Granulocytes 5.12 (1.4-6.9) x10^3/uL Basophils # 0.02 (0-0.4) x10^3/uL PT (9.4-12.5) SECONDS INR (0.8-3.0) D-Dimer 1.26 H* (0.0-0.50) mg/L Sodium 138 (137-145) mmol/L Potassium 3.0 L* (3.5-5.1) mmol/L Chloride 96 L (98-107) mmol/L Carbon Dioxide 32 H (22-30) mmol/L Anion Gap 12.2 (5-15) MEQ/L BUN 22 H (9-20) mg/dL Creatinine 1.11 (0.66-1.25) mg/dL Estimated GFR 63.9 ML/MIN Glucose 107 H (74-106) mg/dL Lactic Acid (0.4-2.0) Calcium 8.8 (8.4-10.2) mg/dL Magnesium 2.2 (1.6-2.3) mg/dL Total Bilirubin 1.10 (0.2-1.3) mg/dL AST 46 (17-59) U/L ALT 23 (0-50) U/L Alkaline Phosphatase 163 H (38-126) U/L Troponin I (0.000-0.034) ng/mL NT-Pro-B Natriuret Pep (<300) pg/mL Serum Total Protein 7.1 (6.3-8.2) g/dL Albumin 4.0 (3.5-5.0) g/dL Influenza Type A Ag (NEGATIVE) Influenza Type B Ag (NEGATIVE) RSV (PCR) (NEGATIVE) SARS-CoV-2 (PCR) (NEGATIVE) 04/24/23 04/24/23 04/24/23 Range/Units 19:20 19:20 19:40 WBC (4.0-10.5) x10^3/uL RBC (4.1-5.6) x10^6/uL Hgb (12.5-18.0) g/dL Hct (42-50) % MCV (78-100) fL MCH (26-32) pg MCHC (32-36) g/dL RDW (11.5-14.0) % Plt Count (150-450) x10^3/uL MPV (7.5-11.0) fL Gran % (36.0-66.0) % Immature Gran % (Auto) (0.00-0.4) % Nucleat RBC Rel Count (0.00-0.1) % Eos # (Auto) (0-0.5) x10^3/uL Immature Gran # (Auto) (0.00-0.03) x10^3u/L Absolute Lymphs (auto) (1.0-4.6) x10^3/uL Absolute Monos (auto) (0.0-1.3) x10^3/uL Absolute Nucleated RBC (0.00-0.01) x10^3u/L Lymphocytes % (24.0-44.0) % Monocytes % (0.0-12.0) % Eosinophils % (0.00-5.0) % Basophils % (0.0-0.4) % Absolute Granulocytes (1.4-6.9) x10^3/uL Basophils # (0-0.4) x10^3/uL PT (9.4-12.5) SECONDS INR (0.8-3.0) D-Dimer (0.0-0.50) mg/L Sodium (137-145) mmol/L Potassium (3.5-5.1) mmol/L Chloride (98-107) mmol/L Carbon Dioxide (22-30) mmol/L Anion Gap (5-15) MEQ/L BUN (9-20) mg/dL Creatinine (0.66-1.25) mg/dL Estimated GFR ML/MIN Glucose (74-106) mg/dL Lactic Acid 2.7 H (0.4-2.0) Calcium (8.4-10.2) mg/dL Magnesium (1.6-2.3) mg/dL Total Bilirubin (0.2-1.3) mg/dL AST (17-59) U/L ALT (0-50) U/L Alkaline Phosphatase (38-126) U/L Troponin I 0.068 H* (0.000-0.034) ng/mL NT-Pro-B Natriuret Pep 4170 (<300) pg/mL Serum Total Protein (6.3-8.2) g/dL Albumin (3.5-5.0) g/dL Influenza Type A Ag (NEGATIVE) Influenza Type B Ag (NEGATIVE) RSV (PCR) (NEGATIVE) SARS-CoV-2 (PCR) (NEGATIVE) 04/24/23 04/24/23 04/24/23 Range/Units 19:55 21:44 22:03 WBC (4.0-10.5) x10^3/uL RBC (4.1-5.6) x10^6/uL Hgb (12.5-18.0) g/dL Hct (42-50) % MCV (78-100) fL MCH (26-32) pg MCHC (32-36) g/dL RDW (11.5-14.0) % Plt Count (150-450) x10^3/uL MPV (7.5-11.0) fL Gran % (36.0-66.0) % Immature Gran % (Auto) (0.00-0.4) % Nucleat RBC Rel Count (0.00-0.1) % Eos # (Auto) (0-0.5) x10^3/uL Immature Gran # (Auto) (0.00-0.03) x10^3u/L Absolute Lymphs (auto) (1.0-4.6) x10^3/uL Absolute Monos (auto) (0.0-1.3) x10^3/uL Absolute Nucleated RBC (0.00-0.01) x10^3u/L Lymphocytes % (24.0-44.0) % Monocytes % (0.0-12.0) % Eosinophils % (0.00-5.0) % Basophils % (0.0-0.4) % Absolute Granulocytes (1.4-6.9) x10^3/uL Basophils # (0-0.4) x10^3/uL PT 23.4 H (9.4-12.5) SECONDS INR 2.26 (0.8-3.0) D-Dimer (0.0-0.50) mg/L Sodium (137-145) mmol/L Potassium (3.5-5.1) mmol/L Chloride (98-107) mmol/L Carbon Dioxide (22-30) mmol/L Anion Gap (5-15) MEQ/L BUN (9-20) mg/dL Creatinine (0.66-1.25) mg/dL Estimated GFR ML/MIN Glucose (74-106) mg/dL Lactic Acid 1.9 (0.4-2.0) Calcium (8.4-10.2) mg/dL Magnesium (1.6-2.3) mg/dL Total Bilirubin (0.2-1.3) mg/dL AST (17-59) U/L ALT (0-50) U/L Alkaline Phosphatase (38-126) U/L Troponin I (0.000-0.034) ng/mL NT-Pro-B Natriuret Pep (<300) pg/mL Serum Total Protein (6.3-8.2) g/dL Albumin (3.5-5.0) g/dL Influenza Type A Ag NEGATIVE (NEGATIVE) Influenza Type B Ag NEGATIVE (NEGATIVE) RSV (PCR) NEGATIVE (NEGATIVE) SARS-CoV-2 (PCR) NEGATIVE (NEGATIVE) - Radiology Impressions Radiology Exams & Impressions: Radiology Procedures Category Date Time Status CHEST WITH CONTRAST [CT] Stat Exams 04/24/23 22:32 Taken - Other Procedures and Tests Respiratory Therapy 04/24/23 20:43 Respiratory Therapy Assessment DAILY Assessment/Plan (1) COPD exacerbation Current Visit: Yes Status: Acute Assessment & Plan: Likely COPD exacerbation --> shortness of breath 1. Admit to observation status 2. Duonebs/IV steroids 3. Supplemental oxygen 4. Monitor O2 sats Code(s): J44.1 - CHRONIC OBSTRUCTIVE PULMONARY DISEASE W (ACUTE) EXACERBATION (2) Hypokalemia Current Visit: Yes Status: Acute Assessment & Plan: Secondary to diuretics 1. Replete K, check Mg 2. Monitor electrolytes Code(s): E87.6 - HYPOKALEMIA (3) DEEPIKA (acute kidney injury) Current Visit: No Status: Acute Assessment & Plan: DEEPIKA on CKD stage II likely from cardiorenal syndrome 1. Continue diuretics 2. Limit sodium intake 3. Follow I/Os 4. Watch creatinine closely Code(s): N17.9 - ACUTE KIDNEY FAILURE, UNSPECIFIED (4) CHF (congestive heart failure) Current Visit: No Status: Acute Assessment & Plan: CHF appears compensated 1. Continue diuretics 2. Continue SGLT2 3. Follow I/Os 4. Watch daily weights Code(s): I50.9 - HEART FAILURE, UNSPECIFIED Telemedicine Encounter - Telemedicine Encounter Telemedicine Encounter: The entirety of this encounter was performed via Telemedicine"
[2023-04-24] MEDS ORDERED: BENADRYL 50 MG/ML IV ONE (23:47)
[2023-04-24] MEDS ORDERED: PROVENTIL 2.5 MG/3 ML NEB IH ONE ×2 (23:47→23:53)
[2023-04-24] MEDS ORDERED: BENADRYL 50 MG/ML ONE (23:49)
--- NOTE | 2023-04-24 23:56 | XRAY ---
CLINICAL HISTORY:sob COMPARISON:CT scan dated 12/05/2022. TECHNIQUE:Multiple axial sections of the chest with 100ml Isovue 370 intravenous contrast administration. Sagittal and coronal reformatted images were obtained. FINDINGS: The cardiac size is enlarged. The patient is s/p median sternotomy as well as aortic valve replacement. No pericardial effusion. Significantly dilated hepatic veins with reflux into IVC are noted as suggestive of right heart overload. The aorta appears unremarkable. No aneurysmal dilatation or dissection is seen. Interrupted atherosclerotic calcification is noted. The pulmonary trunk and right and left pulmonary arteries are well-opacified evidence of filling defect to suggest embolism. Multiple subcentimeter mesenteric lymph nodes are seen. No evidence of pathological enlargement. Patent trachea and mainstem bronchi. Persistent bibasilar atelectasis. There is interval development of small bilateral pleural effusion and bilateral lower lobe interlobular septal thickening. Stable 5 mm right upper lobe calcified granuloma. No additional discrete nodule is seen. No focal consolidation or collapse is seen. The sections through the abdomen demonstrate a hiatal hernia. A small calculus was seen in the gallbladder. The patient is s/p fixation of right scapular fracture. Multilevel mild thoracolumbar spondylosis. IMPRESSION: No evidence of acute pulmonary embolism, Suggestion of right strain owing to reflux of contrast IVC and hepatic veins. Recommended clinical correlation There is interval development of small bilateral pleural effusion with bilateral lower lobe interlobular septal thickening. The rest of the findings are stable. Recommend clinical correlation and follow-up. Electronically Signed by: Josse Aquino MD. (04/24/2023 23:52:04 EST)
[2023-04-25] MEDS ORDERED: POTASSIUM CHLORIDE 20 mEq IN WATER 100ML 100 ML IV ONE (01:14)
[2023-04-25] MEDS: POTASSIUM CHLORIDE 20 mEq IN WATER 100ML 20 MEQ/100 ML BAG IV SCH (01:16)
[2023-04-25] MEDS ORDERED: Lasix 20 MG/2 ML IV STA (02:06)
[2023-04-25] MEDS ORDERED: Lasix 20 MG/2 ML ONE (02:15)
[2023-04-25] MEDS: DUONEB 0.5-3 MG/3 ml Neb IH SCH ×2 (03:08→06:47)
[2023-04-25 04:58] LABS: Hematocrit 33.1 % (42-50); Hemoglobin 9.9 g/dL (12.5-18.0); Mean Cell Volume 81.3 fL (78-100); Mean Corpuscular Hemoglobin 24.3 pg (26-32); Mean Corpuscular Hgb Concent. 29.9 g/dL (32-36); Mean Platelet Volume 11.5 fL (7.5-11.0); Platelet Count 137 x10^3/uL (150-450); Red Blood Count 4.07 x10^6/uL (4.1-5.6); Red Cell Distribution Width 19.3 % (11.5-14.0); White Blood Count 10.1 x10^3/uL (4.0-10.5)
[2023-04-25 05:29] LABS: ALBUMIN 3.7 g/dL (3.5-5.0); ANION GAP 11.8 MEQ/L (5-15); BILIRUBIN,TOTAL 1.1 mg/dL (0.2-1.3); Calcium 8.2 mg/dL (8.4-10.2); Creatinine 1 1.07 mg/dL (0.66-1.25); EST GLOMERULAR FILTRATION RATE 66.8 ML/MIN; MAGNESIUM 2.5 mg/dL (1.6-2.3); Potassium 3.6 mmol/L (3.5-5.1); Total Protein 6.4 g/dL (6.3-8.2)
[2023-04-25] MEDS ORDERED: DUONEB 0.5-3 MG/3 ml Neb IH PRN (08:01)
[2023-04-25] MEDS ORDERED: MEDICATION INTERVENTION MC SCH (08:30)
[2023-04-25] MEDS ORDERED: PHARMACY DOSING REQUEST MC ONE (08:59)
[2023-04-25 09:22] LABS: INR 2.72 (0.8-3.0); PROTIME 27.8 SECONDS (9.4-12.5)
[2023-04-25] MEDS ORDERED: BUMEX 1 MG IV SCH (10:00)
[2023-04-25] MEDS ORDERED: Klor Con PO SCH (10:00)
[2023-04-25] MEDS ORDERED: Protonix 40MG Tablet PO SCH (10:00)
[2023-04-25] MEDS ORDERED: ZOCOR 20MG PO SCH (10:00)
[2023-04-25] MEDS ORDERED: JARDIANCE PO SCH (10:00)
[2023-04-25] MEDS ORDERED: NON-FORMULARY ITEM (Budesonide/Formoterol Fumarate [Budesonide-Formoterol 160-4.5] 10.2 GM IH SCH (10:00)
[2023-04-25] MEDS ORDERED: solu-MEDROL 40 MG, Sterile H2O 10 ml 1 ML IV SCH ×2 (10:00)
[2023-04-25] MEDS ORDERED: PROZAC 10 MG PO SCH (10:00)
--- NOTE | 2023-04-25 10:46 | PCM.DS ---
Discharge Summary Date of Admission: 04/25/23 02:36 Date of Discharge: 04/25/23 Admitting Physician: JONATHAN SALGUERO MD Primary Care Provider: ULISES ADAMS Allergies Allergies No Known Drug Allergies Allergy (Verified 04/24/23 19:39) Hospital Summary - Hospital Course Hospital Course: Mr. Moore is a 88 year old male with a past medical history significant for hypertension, hyperlipidemia, coronary artery disease status post CABG, aortic stenosis status post AVR and COPD. He presented to the hospital with complaints of increasing shortness of breath. No fever or chills. No chest pain or palpitations. He was evaluated in the ER, started on oxygen, duonebs and IV steroids. Initial labs were notable for a low potassium of 3.0 but an elevated d -dimer, so he was sent for CT scan chest with IV contrast. This was negative for PE but did show some apparent CHF. Echo was ordered for further eval. Pt reports he is feeling better and on baseline oxygen. He is wanting to d/c today. It had been discussed with him at last visit to consider hospice. He is admitted to the hospital often for recurrent COPD exacerbations and would be a good candidate for hospice or ECF. He lives at home with granddaughter. Case management to discuss with pt and family to prevent recurrent admissions. - Vitals & Intake/Output Vital Signs: Vital Signs Temperature 97 F 04/25/23 07:42 Pulse Rate 73 04/25/23 07:42 Respiratory Rate 19 04/25/23 07:42 Blood Pressure 97/56 04/25/23 07:42 O2 Sat by Pulse Oximetry 95 04/25/23 07:42 Intake & Output: Intake & Output 04/22/23 04/23/23 04/24/23 04/25/23 11:59 11:59 11:59 11:59 Intake Total 100 Balance 100 Weight 75.5 kg - Lab Result Diagrams: 04/25/23 04:48 04/25/23 04:48 Lab Results-Last 24 Hrs: Lab Results-Last 24 Hours 04/24/23 04/24/23 04/24/23 Range/Units 19:20 19:20 19:20 WBC 7.1 (4.0-10.5) x10^3/uL RBC 4.49 (4.1-5.6) x10^6/uL Hgb 11.0 L (12.5-18.0) g/dL Hct 36.9 L (42-50) % MCV 82.2 (78-100) fL MCH 24.5 L (26-32) pg MCHC 29.8 L (32-36) g/dL RDW 19.2 H (11.5-14.0) % Plt Count 139 L (150-450) x10^3/uL MPV 11.6 H (7.5-11.0) fL Gran % 71.9 H (36.0-66.0) % Immature Gran % (Auto) 0.4 (0.00-0.4) % Nucleat RBC Rel Count 0.0 (0.00-0.1) % Eos # (Auto) 0.21 (0-0.5) x10^3/uL Immature Gran # (Auto) 0.03 (0.00-0.03) x10^3u/L Absolute Lymphs (auto) 1.12 (1.0-4.6) x10^3/uL Absolute Monos (auto) 0.63 (0.0-1.3) x10^3/uL Absolute Nucleated RBC 0.00 (0.00-0.01) x10^3u/L Lymphocytes % 15.7 L (24.0-44.0) % Monocytes % 8.8 (0.0-12.0) % Eosinophils % 2.9 (0.00-5.0) % Basophils % 0.3 (0.0-0.4) % Absolute Granulocytes 5.12 (1.4-6.9) x10^3/uL Basophils # 0.02 (0-0.4) x10^3/uL PT (9.4-12.5) SECONDS INR (0.8-3.0) D-Dimer 1.26 H* (0.0-0.50) mg/L Sodium 138 (137-145) mmol/L Potassium 3.0 L* (3.5-5.1) mmol/L Chloride 96 L (98-107) mmol/L Carbon Dioxide 32 H (22-30) mmol/L Anion Gap 12.2 (5-15) MEQ/L BUN 22 H (9-20) mg/dL Creatinine 1.11 (0.66-1.25) mg/dL Estimated GFR 63.9 ML/MIN Glucose 107 H (74-106) mg/dL Lactic Acid (0.4-2.0) Calcium 8.8 (8.4-10.2) mg/dL Magnesium 2.2 (1.6-2.3) mg/dL Total Bilirubin 1.10 (0.2-1.3) mg/dL AST 46 (17-59) U/L ALT 23 (0-50) U/L Alkaline Phosphatase 163 H (38-126) U/L Troponin I (0.000-0.034) ng/mL NT-Pro-B Natriuret Pep (<300) pg/mL Serum Total Protein 7.1 (6.3-8.2) g/dL Albumin 4.0 (3.5-5.0) g/dL Influenza Type A Ag (NEGATIVE) Influenza Type B Ag (NEGATIVE) RSV (PCR) (NEGATIVE) SARS-CoV-2 (PCR) (NEGATIVE) 04/24/23 04/24/23 04/24/23 Range/Units 19:20 19:20 19:40 WBC (4.0-10.5) x10^3/uL RBC (4.1-5.6) x10^6/uL Hgb (12.5-18.0) g/dL Hct (42-50) % MCV (78-100) fL MCH (26-32) pg MCHC (32-36) g/dL RDW (11.5-14.0) % Plt Count (150-450) x10^3/uL MPV (7.5-11.0) fL Gran % (36.0-66.0) % Immature Gran % (Auto) (0.00-0.4) % Nucleat RBC Rel Count (0.00-0.1) % Eos # (Auto) (0-0.5) x10^3/uL Immature Gran # (Auto) (0.00-0.03) x10^3u/L Absolute Lymphs (auto) (1.0-4.6) x10^3/uL Absolute Monos (auto) (0.0-1.3) x10^3/uL Absolute Nucleated RBC (0.00-0.01) x10^3u/L Lymphocytes % (24.0-44.0) % Monocytes % (0.0-12.0) % Eosinophils % (0.00-5.0) % Basophils % (0.0-0.4) % Absolute Granulocytes (1.4-6.9) x10^3/uL Basophils # (0-0.4) x10^3/uL PT (9.4-12.5) SECONDS INR (0.8-3.0) D-Dimer (0.0-0.50) mg/L Sodium (137-145) mmol/L Potassium (3.5-5.1) mmol/L Chloride (98-107) mmol/L Carbon Dioxide (22-30) mmol/L Anion Gap (5-15) MEQ/L BUN (9-20) mg/dL Creatinine (0.66-1.25) mg/dL Estimated GFR ML/MIN Glucose (74-106) mg/dL Lactic Acid 2.7 H (0.4-2.0) Calcium (8.4-10.2) mg/dL Magnesium (1.6-2.3) mg/dL Total Bilirubin (0.2-1.3) mg/dL AST (17-59) U/L ALT (0-50) U/L Alkaline Phosphatase (38-126) U/L Troponin I 0.068 H* (0.000-0.034) ng/mL NT-Pro-B Natriuret Pep 4170 (<300) pg/mL Serum Total Protein (6.3-8.2) g/dL Albumin (3.5-5.0) g/dL Influenza Type A Ag (NEGATIVE) Influenza Type B Ag (NEGATIVE) RSV (PCR) (NEGATIVE) SARS-CoV-2 (PCR) (NEGATIVE) 04/24/23 04/24/23 04/24/23 Range/Units 19:55 21:44 22:03 WBC (4.0-10.5) x10^3/uL RBC (4.1-5.6) x10^6/uL Hgb (12.5-18.0) g/dL Hct (42-50) % MCV (78-100) fL MCH (26-32) pg MCHC (32-36) g/dL RDW (11.5-14.0) % Plt Count (150-450) x10^3/uL MPV (7.5-11.0) fL Gran % (36.0-66.0) % Immature Gran % (Auto) (0.00-0.4) % Nucleat RBC Rel Count (0.00-0.1) % Eos # (Auto) (0-0.5) x10^3/uL Immature Gran # (Auto) (0.00-0.03) x10^3u/L Absolute Lymphs (auto) (1.0-4.6) x10^3/uL Absolute Monos (auto) (0.0-1.3) x10^3/uL Absolute Nucleated RBC (0.00-0.01) x10^3u/L Lymphocytes % (24.0-44.0) % Monocytes % (0.0-12.0) % Eosinophils % (0.00-5.0) % Basophils % (0.0-0.4) % Absolute Granulocytes (1.4-6.9) x10^3/uL Basophils # (0-0.4) x10^3/uL PT 23.4 H (9.4-12.5) SECONDS INR 2.26 (0.8-3.0) D-Dimer (0.0-0.50) mg/L Sodium (137-145) mmol/L Potassium (3.5-5.1) mmol/L Chloride (98-107) mmol/L Carbon Dioxide (22-30) mmol/L Anion Gap (5-15) MEQ/L BUN (9-20) mg/dL Creatinine (0.66-1.25) mg/dL Estimated GFR ML/MIN Glucose (74-106) mg/dL Lactic Acid 1.9 (0.4-2.0) Calcium (8.4-10.2) mg/dL Magnesium (1.6-2.3) mg/dL Total Bilirubin (0.2-1.3) mg/dL AST (17-59) U/L ALT (0-50) U/L Alkaline Phosphatase (38-126) U/L Troponin I (0.000-0.034) ng/mL NT-Pro-B Natriuret Pep (<300) pg/mL Serum Total Protein (6.3-8.2) g/dL Albumin (3.5-5.0) g/dL Influenza Type A Ag NEGATIVE (NEGATIVE) Influenza Type B Ag NEGATIVE (NEGATIVE) RSV (PCR) NEGATIVE (NEGATIVE) SARS-CoV-2 (PCR) NEGATIVE (NEGATIVE) 04/24/23 04/25/23 04/25/23 Range/Units 22:50 03:45 04:48 WBC 10.1 (4.0-10.5) x10^3/uL RBC 4.07 L (4.1-5.6) x10^6/uL Hgb 9.9 L (12.5-18.0) g/dL Hct 33.1 L (42-50) % MCV 81.3 (78-100) fL MCH 24.3 L (26-32) pg MCHC 29.9 L (32-36) g/dL RDW 19.3 H (11.5-14.0) % Plt Count 137 L (150-450) x10^3/uL MPV 11.5 H (7.5-11.0) fL Gran % (36.0-66.0) % Immature Gran % (Auto) (0.00-0.4) % Nucleat RBC Rel Count (0.00-0.1) % Eos # (Auto) (0-0.5) x10^3/uL Immature Gran # (Auto) (0.00-0.03) x10^3u/L Absolute Lymphs (auto) (1.0-4.6) x10^3/uL Absolute Monos (auto) (0.0-1.3) x10^3/uL Absolute Nucleated RBC (0.00-0.01) x10^3u/L Lymphocytes % (24.0-44.0) % Monocytes % (0.0-12.0) % Eosinophils % (0.00-5.0) % Basophils % (0.0-0.4) % Absolute Granulocytes (1.4-6.9) x10^3/uL Basophils # (0-0.4) x10^3/uL PT (9.4-12.5) SECONDS INR (0.8-3.0) D-Dimer (0.0-0.50) mg/L Sodium (137-145) mmol/L Potassium (3.5-5.1) mmol/L Chloride (98-107) mmol/L Carbon Dioxide (22-30) mmol/L Anion Gap (5-15) MEQ/L BUN (9-20) mg/dL Creatinine (0.66-1.25) mg/dL Estimated GFR ML/MIN Glucose (74-106) mg/dL Lactic Acid (0.4-2.0) Calcium (8.4-10.2) mg/dL Magnesium (1.6-2.3) mg/dL Total Bilirubin (0.2-1.3) mg/dL AST (17-59) U/L ALT (0-50) U/L Alkaline Phosphatase (38-126) U/L Troponin I 0.068 H* 0.067 H* (0.000-0.034) ng/mL NT-Pro-B Natriuret Pep (<300) pg/mL Serum Total Protein (6.3-8.2) g/dL Albumin (3.5-5.0) g/dL Influenza Type A Ag (NEGATIVE) Influenza Type B Ag (NEGATIVE) RSV (PCR) (NEGATIVE) SARS-CoV-2 (PCR) (NEGATIVE) 04/25/23 04/25/23 Range/Units 04:48 09:05 WBC (4.0-10.5) x10^3/uL RBC (4.1-5.6) x10^6/uL Hgb (12.5-18.0) g/dL Hct (42-50) % MCV (78-100) fL MCH (26-32) pg MCHC (32-36) g/dL RDW (11.5-14.0) % Plt Count (150-450) x10^3/uL MPV (7.5-11.0) fL Gran % (36.0-66.0) % Immature Gran % (Auto) (0.00-0.4) % Nucleat RBC Rel Count (0.00-0.1) % Eos # (Auto) (0-0.5) x10^3/uL Immature Gran # (Auto) (0.00-0.03) x10^3u/L Absolute Lymphs (auto) (1.0-4.6) x10^3/uL Absolute Monos (auto) (0.0-1.3) x10^3/uL Absolute Nucleated RBC (0.00-0.01) x10^3u/L Lymphocytes % (24.0-44.0) % Monocytes % (0.0-12.0) % Eosinophils % (0.00-5.0) % Basophils % (0.0-0.4) % Absolute Granulocytes (1.4-6.9) x10^3/uL Basophils # (0-0.4) x10^3/uL PT 27.8 H (9.4-12.5) SECONDS INR 2.72 (0.8-3.0) D-Dimer (0.0-0.50) mg/L Sodium 133 L (137-145) mmol/L Potassium 3.6 (3.5-5.1) mmol/L Chloride 96 L (98-107) mmol/L Carbon Dioxide 29 (22-30) mmol/L Anion Gap 11.8 (5-15) MEQ/L BUN 22 H (9-20) mg/dL Creatinine 1.07 (0.66-1.25) mg/dL Estimated GFR 66.8 ML/MIN Glucose 155 H (74-106) mg/dL Lactic Acid (0.4-2.0) Calcium 8.2 L (8.4-10.2) mg/dL Magnesium 2.5 H (1.6-2.3) mg/dL Total Bilirubin 1.10 (0.2-1.3) mg/dL AST 41 (17-59) U/L ALT 22 (0-50) U/L Alkaline Phosphatase 163 H (38-126) U/L Troponin I (0.000-0.034) ng/mL NT-Pro-B Natriuret Pep (<300) pg/mL Serum Total Protein 6.4 (6.3-8.2) g/dL Albumin 3.7 (3.5-5.0) g/dL Influenza Type A Ag (NEGATIVE) Influenza Type B Ag (NEGATIVE) RSV (PCR) (NEGATIVE) SARS-CoV-2 (PCR) (NEGATIVE) - Radiology Exams Ordered Rad Exams-Entire Visit: Radiology Procedures Category Date Time Status CHEST WITH CONTRAST [CT] Stat Exams 04/24/23 22:32 Completed ECHO W/2D AND DOPPLER [US] Routine Exams 04/25/23 02:41 Ordered - Procedures and Test Procedures and Tests throughout Hospitalization: Therapy Orders & Screens 04/24/23 20:43 Respiratory Therapy Assessment DAILY Comment: 04/25/23 03:09 Oxygen Oxymask LPM 4 lpm Comment: Diagnosis: shortness of breath, COPD exacerbation 04/25/23 03:36 RT Screen per Nursing Assess ONCE Comment: Protocol Order Physician Instructions: Greater than 3 points order RT Admission Screen Reason For Exam: Triggered on Admission Diagnosis: shortness of breath, COPD exacerbation Diagnosis: shortness of breath, COPD exacerbation Pneumonia: Yes Home O2: Yes Asthma: Yes CHF: Yes Home CPAP/BIPAP: No Home Nebs/MDI: Yes Total Points: 20 04/25/23 09:00 ST Screen per Nursing Assess ONCE Comment: Protocol Order Physician Instructions: Greater than [address] Admission Screening Reason For Exam: Triggered on Admission Diagnosis: shortness of breath, COPD exacerbation CVA/Dyshpagia/Aphasia: No Cognitive Deficits: No Dehydration/Nutrition Deficit: No Reflux: No Oral-Motor Difficulties: No Pneumonia: Yes Senior Care Resident: No Total Points: 5 Discharge Exam General Appearance: no apparent distress, alert Neurologic Exam: alert, oriented x 3, cooperative, normal mood/affect, nml cerebellar function, sensation nml, No motor deficits Eye Exam: PERRL, EOMI, eyes nml inspection Ears, Nose, Throat Exam: normal ENT inspection, pharynx normal, moist mucous membranes Neck Exam: normal inspection, non-tender, supple, full range of motion Respiratory Exam: normal breath sounds, lungs clear, No respiratory distress Cardiovascular Exam: regular rate/rhythm, normal heart sounds Gastrointestinal/Abdomen Exam: soft, No tenderness, No mass Male Genitalia Exam: deferred Rectal Exam: deferred Back Exam: normal inspection, normal range of motion, No CVA tenderness, No vertebral tenderness Extremity Exam: normal inspection, normal range of motion Skin Exam: normal color, warm, dry Final Diagnosis/Problem List - Final Discharge Diagnosis/Problem (1) COPD exacerbation Current Visit: Yes Status: Acute Assessment & Plan: -Duonebs/IV steroids - Supplemental oxygen - on BL 4 LNC - D-dimer elevated - Chest CT negative for PE - Chest CT 04/24/23 IMPRESSION: No evidence of acute pulmonary embolism, Suggestion of right strain owing to reflux of contrast IVC and hepatic veins. Recommended clinical correlation There is interval development of small bilateral pleural effusion with bilateral lower lobe interlobular septal thickening. The rest of the findings are stable. Recommend clinical correlation and follow-up. Code(s): J44.1 - CHRONIC OBSTRUCTIVE PULMONARY DISEASE W (ACUTE) EXACERBATION (2) Acute exacerbation of CHF (congestive heart failure) Current Visit: No Status: Acute Assessment & Plan: - Bumex - cont jardiance - BNP 04/24 4170 - echo 04/25/23- EJ 47% per driver license technician - Previous echo: 08/15/22 1) GLOBAL LEFT VENTRICULAR HYPOKINESIA, EJECTION FRACTION OF AROUND 40 TO 45%. 2) SEVERE AORTIC STENOSIS WITH PEAK TRANSAORTIC GRADIENT OF 38 MM OF MERCURY AND MEAN GRADIENT OF 22 MM OF MERCURY. 3) MODERATE MITRAL REGURGITATION. 4) MODERATE TRICUSPID REGURGITATION. RIGHT VENTRICULAR SYSTOLIC PRESSURE OF 41 MM OF MERCURY. 5) LEFT VENTRICULAR HYPERTROPHY. 6) MODERATELY DILATED RIGHT SIDE CHAMBERS. 7) PACEMAKER ELECTRODE IN RIGHT VENTRICLE. 8) MILDLY DILATED INFERIOR VENA CAVA - F/u OP with cardiology - appointment made Code(s): I50.9 - HEART FAILURE, UNSPECIFIED (3) Hypokalemia Current Visit: Yes Status: Resolved Assessment & Plan: - resolved K+ 3.6 Code(s): E87.6 - HYPOKALEMIA (4) DEEPIKA (acute kidney injury) Current Visit: No Status: Resolved Assessment & Plan: - resolved - at baseline Code(s): N17.9 - ACUTE KIDNEY FAILURE, UNSPECIFIED - Discharge Discharge Date: 04/25/23 Disposition: Home, Self-Care Condition: Stable Prescriptions: Continue Atorvastatin Calcium [Lipitor] 40 mg PO DAILY Albuterol Sulfate [Proair Hfa] 8.5 gm IH Q4HWA Albuterol/Ipratropium 3ml Neb* [DUONEB 0.5-3 MG/3 ml Neb] 3 ml IH Q6H PRN PRN PRN Reason: Shortness Of Breath/Wheezing Trazodone HCl 150 mg PO HS Omeprazole 40 mg PO DAILY Empagliflozin [Jardiance] 10 mg PO DAILY Bumetanide 1 mg [Bumex 1 mg] 2 mg PO BID Budesonide/Formoterol Fumarate [Budesonide-Formoterol 160-4.5] 10.2 gm IH BID 30 Days #1 Prednisone 20 mg [Deltasone 20 mg] 10 mg PO DAILY Fluoxetine HCl 10 mg [Prozac 10 mg] 1 cap PO DAILY Potassium Chloride Tab* [Klor Con] 10 meq PO DAILY Warfarin Sodium 2.5 mg PO UD Warfarin Sodium 2 mg PO UD Additional Instructions: Follow up with cardiology as scheduled. Follow up with Coumadin clinic as scheduled. [facility] HAS BEEN SET UP. THEY WILL CONTACT YOU TO ARRANGE A TIME TO COME SEE YOU. THEIR PHONE NUMBER IS [phone] IF YOU NEED ANYTHING BEFORE THEIR FIRST VISIT Follow up with: ULISES ADAMS MD [Primary Care Provider] - 04/27/23 2:15 pm JOSHUA ROLAND [CONSULTING PHYSICIAN] - 05/09/23 1:30 pm (Babita Herrera [facility])
[2023-04-25] MEDS ORDERED: VENTOLIN COMMON CANISTER IH SCH (12:00)
[2023-04-25 12:38] VITALS: BP 117/63; PULSE 71; RESP 18; TEMP 96.8; O2SAT 97
[2023-04-25] MEDS ORDERED: Coumadin 2 MG PO SCH (18:00)
[2023-04-25] MEDS ORDERED: Desyrel 150 MG PO SCH (22:00)
[2023-04-26] MEDS ORDERED: COUMADIN PO SCH (18:00)
== END 2023-04-25 13:19 | disposition home or self-care (01) ==
LOC: ED 19:07 → MED SURG 04-25 02:36
PROVIDERS: ADMIT Internal Medicine Nephrology; ATTEND Internal Medicine Nephrology
DX: J44.1 Chronic obstructive pulmonary disease with (acute) exacerbation (principal); I13.0 Hypertensive heart and chronic kidney disease with heart failure and stage 1 through stage 4 chronic kidney disease, or unspecified chronic kidney disease; N18.30 Chronic kidney disease, stage 3 unspecified; I50.9 Heart failure, unspecified; E87.6 Hypokalemia; N17.9 Acute kidney failure, unspecified; I48.91 Unspecified atrial fibrillation; E78.5 Hyperlipidemia, unspecified; I25.10 Atherosclerotic heart disease of native coronary artery without angina pectoris; I25.2 Old myocardial infarction; Z79.01 Long term (current) use of anticoagulants; Z79.899 Other long term (current) drug therapy; Z20.828 Contact with and (suspected) exposure to other viral communicable diseases; Z95.0 Presence of cardiac pacemaker
CPT/HCPCS: 0241U; 36000; 36415; 71260; 80053; 83605; 83735; 83880; 84484; 85025; 85027; 85379; 85610; 87040; 93005; 93041; 93306; 94640; 94760; 94762; 96374; 96375; 93268; 99285; J0456; J0696; J1200; J1940; J2920; J2930; J3475; J3480; J7609; Q3014; A9270-GY; G0378

== ENCOUNTER 2023-05-31 22:24 | Observation (INO) | payer MEDICARE ==
--- NOTE | 2023-05-31 22:36 | ERPHSYRPT ---
- History of Present Illness Time Seen by Provider: 05/31/23 22:36 Source: patient, family, EMS, old records Exam Limitations: no limitations Physician History: This is an 88-year-old white male patient who was brought into the emergency department by the paramedics secondary to complaints of shortness of breath and inability to walk secondary to bilateral lower extremity weakness. The weakness in his legs are the biggest concern for him. He has no chest pain. I reviewed the patient's inpatient stay at [facility] on 04/25/2023. The long chain beamer service provided the patient with a DuoNeb and Solu-Medrol 125 mg intravenously prior to arrival to the emergency department. Again, the patient states he is becoming more increasingly weak today especially. Patient has a history of chronically elevated troponins. During his last day his troponins were 0.068, 0.068 and 0.067. The range of his troponins are 0.035-0.080 since 2019. Patient has multiple medical problems including atrial fibrillation on Coumadin, coronary artery disease with history of CABG and cardiac stent in place. He also has a pacemaker in place. 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 Timing/Duration: today, worse Severity of Dyspnea-Max: mild Severity of Dyspnea-Current: mild Possible Cause: occasional episodes Modifying Factors: Improves With: nothing Associated Symptoms: anxiety, weakness (Fascially in his bilateral lower extremities), No chest pain/discomfort Allergies/Adverse Reactions: No Known Drug Allergies Allergy (Verified 04/24/23 19:39) Home Medications: Albuterol Sulfate [Proair Hfa] 8.5 gm IH Q4HWA 06/08/20 [History] Atorvastatin Calcium [Lipitor] 40 mg PO DAILY 06/08/20 [History] Albuterol/Ipratropium 3ml Neb* [DUONEB 0.5-3 MG/3 ml Neb] 3 ml IH Q6H PRN PRN 10/17/20 [History] Trazodone HCl 150 mg PO HS 09/19/22 [History] Bumetanide 1 mg [Bumex 1 mg] 2 mg PO BID 09/20/22 [History] Empagliflozin [Jardiance] 10 mg PO DAILY 09/20/22 [History] Omeprazole 40 mg PO DAILY 09/20/22 [History] Fluoxetine HCl 10 mg [Prozac 10 mg] 1 cap PO DAILY 04/10/23 [History] Prednisone 20 mg [Deltasone 20 mg] 10 mg PO DAILY 04/10/23 [History] Potassium Chloride Tab* [Klor Con] 10 meq PO DAILY 04/24/23 [History] Warfarin Sodium 2 mg PO UD 04/25/23 [History] Warfarin Sodium 2.5 mg PO UD 04/25/23 [History] Hx Tetanus, Diphtheria Vaccination/Date Given: No Hx Influenza Vaccination/Date Given: Yes Hx Pneumococcal Vaccination/Date Given: No Travel Risk - International Travel Have you traveled outside of the country in past 3 weeks: No - Coronavirus Screening Are you exhibiting any of the following symptoms?: No Close contact with a COVID-19 positive Pt in past 14-21 Days: No - Vaccine Status Have you recieved a Covid-19 vaccination: Yes Public Health Physician: Unknown - Vaccination Dates Dates if Unknown: unknown - Review of Systems Constitutional: Weakness (Especially bilateral lower extremities) Eyes: No Symptoms Ears, Nose, & Throat: No Symptoms Respiratory: No Symptoms Cardiac: No Symptoms Abdominal/Gastrointestinal: No Symptoms Genitourinary Symptoms: No Symptoms Musculoskeletal: No Symptoms Skin: No Symptoms Neurological: No Symptoms Psychological: No Symptoms Endocrine: No Symptoms Hematologic/Lymphatic: No Symptoms Immunological/Allergic: No Symptoms All Other Systems: Reviewed and Negative - Past Medical History Pertinent Past Medical History: Yes Neurological History: Stroke ENT History: Cataracts, Glaucoma Cardiac History: Arrhythmia, Congestive Heart Failure, Coronary Artery Disease, High Cholesterol, Myocardial Infarction (AR), Other Respiratory History: Asthma, CHF, COPD, Pneumonia, Sleep Apnea Endocrine Medical History: No Pertinent History Musculoskeletal History: Arthritis GI Medical History: Hernia History: Renal Disease Psycho-Social History: Panic Disorder Male Reproductive Disorders: No Pertinent History Other Medical History: AFIB, stenosis, CKD stage 3, 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 - Past Surgical History Past Surgical History: Yes Neuro Surgical History: No Pertinent History Cardiac: CABG, Cardiac Catheterization, Cardiac Stent, Pacemaker, Valve Replacement Respiratory: No Pertinent History Gastrointestinal: Appendectomy, Cholecystectomy, Hernia Repair Genitourinary: No Pertinent History Musculoskeletal: No Pertinent History Male Surgical History: No Pertinent History Other Surgical History: PACEMAKER, aortic valve replacement - Social History Smoking Status: Never smoker Exposure to second hand smoke: No Drug Use: none Patient Lives Alone: No Significant Family History: heart disease - Nursing Vital Signs Nursing Vital Signs: Initial Vital Signs Temperature 98.4 F 05/31/23 22:27 Pulse Rate 68 05/31/23 22:27 Respiratory Rate 22 05/31/23 22:27 Blood Pressure 137/77 05/31/23 22:27 O2 Sat by Pulse Oximetry 99 05/31/23 22:27 Pain Scale Pain Intensity 0 - Physical Exam General Appearance: no apparent distress, alert, anxiety Eye Exam: PERRL/EOMI, eyes nml inspection Ears, Nose, Throat Exam: hearing grossly normal, normal ENT inspection, normal pharynx Neck Exam: normal inspection, non-tender, supple, full range of motion Respiratory Exam: normal breath sounds, lungs clear, airway intact, No chest tenderness, No respiratory distress Cardiovascular/Chest Exam: normal heart sounds, regular rate/rhythm Abdominal/Gastrointestinal Exam: soft, normal bowel sounds, tenderness Rectal Exam: not done Extremity Exam: non-tender, normal range of motion, normal inspection Neurologic Exam: alert, oriented x 3, cooperative, 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 The LVH and prolonged CO interval have resolved since that last twelve-lead EKG.) Ordered Tests: Active Orders 24 hr Category Date Time Status Fur Coat Sewer STAT Care 05/31/23 22:57 Active EKG-ER Only STAT Care 05/31/23 22:57 Active IV Insertion STAT Care 05/31/23 22:57 Active CHEST 1 VIEW (PORTABLE) Stat Exams 05/31/23 23:24 Taken BLOOD CULTURE Stat Lab 05/31/23 23:16 Ordered CBC W DIFF Stat Lab 05/31/23 23:16 Completed CMP Stat Lab 05/31/23 23:16 Completed Lactic Acid Stat Lab 05/31/23 23:10 Completed MAGNESIUM Stat Lab 05/31/23 23:16 Completed NT PRO BNPII Stat Lab 05/31/23 23:16 Completed PROTIME WITH INR Stat Lab 05/31/23 23:16 Completed TROPONIN Q4H Lab 05/31/23 23:16 Completed TROPONIN Q4H Lab 06/01/23 03:00 Ordered TROPONIN Q4H Lab 06/01/23 07:00 Ordered Medication Summary Discontinued Medications Generic Name Dose Route Start Last Admin Trade Name Gemini PRN Reason Stop Dose Admin Bumetanide 1 mg 06/01/23 00:13 Bumetanide 0.25 Mg/Ml 4ml Vial IV 06/01/23 00:14 STAT ONE Potassium Chloride 20 meq 05/31/23 23:38 05/31/23 23:48 Potassium Chloride Tab 10 Meq Tab PO 05/31/23 23:39 20 meq STAT ONE Administration Potassium Chloride Confirm 05/31/23 23:47 Potassium Chloride Tab 10 Meq Tab Administered 05/31/23 23:48 Dose 20 meq .ROUTE .STK-MED ONE Lab/Rad Data: Laboratory Result Diagrams 05/31/23 23:16 05/31/23 23:16 Laboratory Results 05/31/23 05/31/23 05/31/23 Range/Units 23:16 23:16 23:16 WBC (4.0-10.5) x10^3/uL RBC (4.1-5.6) x10^6/uL Hgb (12.5-18.0) g/dL Hct (42-50) % MCV (78-100) fL MCH (26-32) pg MCHC (32-36) g/dL RDW (11.5-14.0) % Plt Count (150-450) x10^3/uL MPV (7.5-11.0) fL Gran % (36.0-66.0) % Immature Gran % (Auto) (0.00-0.4) % Nucleat RBC Rel Count (0.00-0.1) % Eos # (Auto) (0-0.5) x10^3/uL Immature Gran # (Auto) (0.00-0.03) x10^3u/L Absolute Lymphs (auto) (1.0-4.6) x10^3/uL Absolute Monos (auto) (0.0-1.3) x10^3/uL Absolute Nucleated RBC (0.00-0.01) x10^3u/L Lymphocytes % (24.0-44.0) % Monocytes % (0.0-12.0) % Eosinophils % (0.00-5.0) % Basophils % (0.0-0.4) % Absolute Granulocytes (1.4-6.9) x10^3/uL Basophils # (0-0.4) x10^3/uL PT 21.9 H (9.4-12.5) SECONDS INR 2.11 (0.8-3.0) Sodium (137-145) mmol/L Potassium (3.5-5.1) mmol/L Chloride (98-107) mmol/L Carbon Dioxide (22-30) mmol/L Anion Gap (5-15) MEQ/L BUN (9-20) mg/dL Creatinine (0.66-1.25) mg/dL Estimated GFR ML/MIN Glucose (74-106) mg/dL Lactic Acid (0.4-2.0) Calcium (8.4-10.2) mg/dL Magnesium (1.6-2.3) mg/dL Total Bilirubin (0.2-1.3) mg/dL AST (17-59) U/L ALT (0-50) U/L Alkaline Phosphatase (38-126) U/L Troponin I 0.052 H* (0.000-0.034) ng/mL NT-Pro-B Natriuret Pep 5640 (<300) pg/mL Serum Total Protein (6.3-8.2) g/dL Albumin (3.5-5.0) g/dL Influenza Type A Ag NEGATIVE (NEGATIVE) Influenza Type B Ag NEGATIVE (NEGATIVE) RSV (PCR) NEGATIVE (NEGATIVE) SARS-CoV-2 (PCR) NEGATIVE (NEGATIVE) 05/31/23 05/31/23 05/31/23 Range/Units 23:16 23:16 23:10 WBC 9.4 (4.0-10.5) x10^3/uL RBC 4.38 (4.1-5.6) x10^6/uL Hgb 10.7 L (12.5-18.0) g/dL Hct 36.0 L (42-50) % MCV 82.2 (78-100) fL MCH 24.4 L (26-32) pg MCHC 29.7 L (32-36) g/dL RDW 20.6 H (11.5-14.0) % Plt Count 109 L (150-450) x10^3/uL MPV 11.6 H (7.5-11.0) fL Gran % 84.0 H (36.0-66.0) % Immature Gran % (Auto) 0.3 (0.00-0.4) % Nucleat RBC Rel Count 0.0 (0.00-0.1) % Eos # (Auto) 0.15 (0-0.5) x10^3/uL Immature Gran # (Auto) 0.03 (0.00-0.03) x10^3u/L Absolute Lymphs (auto) 0.80 L (1.0-4.6) x10^3/uL Absolute Monos (auto) 0.50 (0.0-1.3) x10^3/uL Absolute Nucleated RBC 0.00 (0.00-0.01) x10^3u/L Lymphocytes % 8.6 L (24.0-44.0) % Monocytes % 5.3 (0.0-12.0) % Eosinophils % 1.6 (0.00-5.0) % Basophils % 0.2 (0.0-0.4) % Absolute Granulocytes 7.85 H (1.4-6.9) x10^3/uL Basophils # 0.02 (0-0.4) x10^3/uL PT (9.4-12.5) SECONDS INR (0.8-3.0) Sodium 134 L (137-145) mmol/L Potassium 3.2 L (3.5-5.1) mmol/L Chloride 96 L (98-107) mmol/L Carbon Dioxide 32 H (22-30) mmol/L Anion Gap 9.6 (5-15) MEQ/L BUN 23 H (9-20) mg/dL Creatinine 1.30 H (0.66-1.25) mg/dL Estimated GFR 52.8 ML/MIN Glucose 110 H (74-106) mg/dL Lactic Acid 1.9 (0.4-2.0) Calcium 8.7 (8.4-10.2) mg/dL Magnesium 2.0 (1.6-2.3) mg/dL Total Bilirubin 1.50 H (0.2-1.3) mg/dL AST 32 (17-59) U/L ALT 18 (0-50) U/L Alkaline Phosphatase 166 H (38-126) U/L Troponin I (0.000-0.034) ng/mL NT-Pro-B Natriuret Pep (<300) pg/mL Serum Total Protein 6.6 (6.3-8.2) g/dL Albumin 3.8 (3.5-5.0) g/dL Influenza Type A Ag (NEGATIVE) Influenza Type B Ag (NEGATIVE) RSV (PCR) (NEGATIVE) SARS-CoV-2 (PCR) (NEGATIVE) - Progress Progress: improved, re-examined Air Movement: good Progress Note: 05/31/23 23:56 This patient's medical issue is 1 of moderate to high complexity. The level of complexity and the workup performed is based on review of the patient's past medical history, review of the patient's medication list, review of the patient's drug allergy list, history present illness and physical findings on examination. The workup in this patient includes placement of an intravenous line, infusion of normal saline solution, twelve-lead EKG, BNP, troponin level, viral swabs, chest x-ray and PT/INR. This patient has a history of atrial fibrillation and is on Coumadin. He has a pacemaker in place. He has stage III chronic kidney disease, history of stroke in the past, history of depression, hyperlipidemia, COPD that is oxygen dependent with 3 to 4 L via nasal cannula and has a history of coronary disease having had CABG and stent in place. He denies chest pain at this time. His biggest issue is weakness in his legs. 06/01/23 00:23 I reviewed the patient's laboratory data I interpreted them. Patient has chronically elevated troponin level. Today's troponin level 0.052 which is significantly lower than that troponin level drawn 5 weeks ago. His GFR is slightly worsened compared to 5 weeks ago but nothing emergent. He has chronic kidney diseasestage III. His hemoglobin is 10.7 which is improved over 5 weeks ago of 9.9. Platelet count is 109,000 was slightly lower than that of 5 weeks ago. Patient's chest x-ray was interpreted by me and I do not see any acute cardiopulmonary process. His twelve-lead EKG was interpreted by me and it is improved over that twelve-lead EKG that was performed 5 weeks ago. The biggest concern the patient and patient's family has is that he is becoming weaker specifically in his legs. He lives with his great granddaughter. I did speak with the telehospitalist Dr. Hooks. We will place him in observation and repeat labs and repeat twelve-lead EKG in the morning. We will also obtain physical therapy consultation and discharge planning for possible placement in the short-term care facility for more intense physical therapy and strengthening. Dr. Hooks agrees with this plan Blood Culture(s) Obtained: No Antibiotics given: No Counseled pt/family regarding: lab results, diagnosis, rad results Medical Desision Making - Independent Historian Additional History obtained from: Family - Diagnostic Testing Diagnostic test were ordered, analyzed, and reviewed by me: Yes Radiological Interpretation: Interpreted by me - Risk of complications The pt has a high risk of morbidity or mortality based on: Decision regarding hospitilization or escalation of hosp level of care - Departure Departure Disposition: Observation Clinical Impression: Leg weakness, bilateral, Hypokalemia, Troponin level elevated, Elevated brain natriuretic peptide (BNP) level Condition: Stable Critical Care Time: No Referrals: [facility] [Primary Care Provider] - Follow up/PCP as directed
[2023-05-31 23:21] LABS: Absolute Neutrophil Ct (ANC) 7.85 x10^3/uL (1.4-6.9); BASOPHIL % 0.2 % (0.0-0.4); Basophil (Absolute #) 0.02 x10^3/uL (0-0.4); Eosinophil % 1.6 % (0.00-5.0); Eosinophil (Absolute #) 0.15 x10^3/uL (0-0.5); Hemoglobin 10.7 g/dL (12.5-18.0); IMMATURE GRAN # 0.03 x10^3u/L (0.00-0.03); IMMATURE GRAN % 0.3 % (0.00-0.4); Lymphocytes % 8.6 % (24.0-44.0); Mean Cell Volume 82.2 fL (78-100); Mean Corpuscular Hemoglobin 24.4 pg (26-32); Mean Corpuscular Hgb Concent. 29.7 g/dL (32-36); Mean Platelet Volume 11.6 fL (7.5-11.0); Monocytes % 5.3 % (0.0-12.0); Platelet Count 109 x10^3/uL (150-450); Red Blood Count 4.38 x10^6/uL (4.1-5.6); Red Cell Distribution Width 20.6 % (11.5-14.0); White Blood Count 9.4 x10^3/uL (4.0-10.5)
[2023-05-31 23:33] LABS: INR 2.11 (0.8-3.0); PROTIME 21.9 SECONDS (9.4-12.5)
[2023-05-31 23:34] LABS: ALBUMIN 3.8 g/dL (3.5-5.0); ANION GAP 9.6 MEQ/L (5-15); BILIRUBIN,TOTAL 1.5 mg/dL (0.2-1.3); Calcium 8.7 mg/dL (8.4-10.2); Creatinine 1 1.3 mg/dL (0.66-1.25); EST GLOMERULAR FILTRATION RATE 52.8 ML/MIN; Potassium 3.2 mmol/L (3.5-5.1); Total Protein 6.6 g/dL (6.3-8.2)
[2023-05-31] MEDS ORDERED: Klor Con ONE (23:47)
[2023-05-31] MEDS: Klor Con PO ONE (23:48)
[2023-05-31 23:58] LABS: INFLUENZA A NEGATIVE (NEGATIVE); INFLUENZA B NEGATIVE (NEGATIVE); RESPIRATORY SYNCTIAL VIRUS NEGATIVE (NEGATIVE); SARS-CoV-2 Xpert Express NEGATIVE (NEGATIVE)
[2023-06-01 00:07] LABS: TROPONIN 0.052 ng/mL (0.000-0.034)
[2023-06-01] MEDS ORDERED: BUMEX 1 MG ONE (02:53)
[2023-06-01] MEDS: BUMEX 1 MG IV ONE (02:54)
[2023-06-01] MEDS ORDERED: Zofran 4 MG/2 ML VIAL IV PRN (03:23)
[2023-06-01] MEDS ORDERED: DUONEB 0.5-3 MG/3 ml Neb IH PRN (04:25)
[2023-06-01] MEDS ORDERED: Coumadin 2 MG PO SCH (04:45)
--- NOTE | 2023-06-01 04:58 | PCM.HP ---
History of Present Illness - Chief Complaint Chief Complaint: Leg weakness Date: 06/01/23 History of Present Illness: Mr. Moore is an 88 year-old gentelman with Afib on coumadin, CAD s/p CABG + PCI, HTN, HLD, CKD, COPD, chronic hypoxemic respiratory failure, prior CVA, MDD, and GERD who presents with shortness of breath and weakness. He admits to being chronically short of breath, but today he started to feel more weak in the legs to the piont that he could not walk. Upon arrival to [place], laboratory data revealed anemia, mild hyponatremia, hypokalemia, miildly elevated Cr, and elevated troponins (chronic). Chest imaging revealed some haziness. On my examination, he is resting comfortably on 3L [place] oxygen (baseline) denying any current fevers, chills, nausea, vomiting, diarrhea, syncope, presyncope, visual changes, orthopnea, PND, odynophagia, dysphagia, chest pain, shortness of breath, belly pain, dysuria, hematuria, melena, hematochezia, or neurological changes. All other systems were reviewed and were negative. - Review of Systems Constitutional: No Fever, No Chills Eyes: No Symptoms Ears, Nose, & Throat: No Symptoms Respiratory: No Cough, No Short Of Breath Cardiac: No Chest Pain, No Edema, No Syncope Abdominal/Gastrointestinal: No Abdominal Pain, No Nausea, No Vomiting, No Diarrhea Genitourinary Symptoms: No Dysuria Musculoskeletal: No Back Pain, No Neck Pain Skin: No Rash Neurological: No Dizziness, No Focal Weakness, No Sensory Changes Psychological: No Symptoms Endocrine: No Symptoms Hematologic/Lymphatic: No Symptoms Immunological/Allergic: No Symptoms Medications & Allergies Home Medications: Home Medication List Albuterol Sulfate [Proair Hfa] 8.5 gm IH Q4HWA 06/08/20 [History Confirmed 06/01/23] Atorvastatin Calcium [Lipitor] 40 mg PO DAILY 06/08/20 [History Confirmed 06/01/23] Albuterol/Ipratropium 3ml Neb* [DUONEB 0.5-3 MG/3 ml Neb] 3 ml IH Q6H PRN PRN 10/17/20 [History Confirmed 06/01/23] Trazodone HCl 150 mg PO HS 09/19/22 [History Confirmed 06/01/23] Bumetanide 1 mg [Bumex 1 mg] 2 mg PO BID 09/20/22 [History Confirmed 06/01/23] Empagliflozin [Jardiance] 10 mg PO DAILY 09/20/22 [History Confirmed 06/01/23] Omeprazole 40 mg PO DAILY 09/20/22 [History Confirmed 06/01/23] Budesonide/Formoterol Fumarate [Budesonide-Formoterol 160-4.5] 10.2 gm IH BID 30 Days #1 02/14/23 [Rx Confirmed 06/01/23] Fluoxetine HCl 10 mg [Prozac 10 mg] 1 cap PO DAILY 04/10/23 [History Confirmed 06/01/23] Prednisone 20 mg [Deltasone 20 mg] 10 mg PO DAILY 04/10/23 [History Confirmed 06/01/23] Potassium Chloride Tab* [Klor Con] 10 meq PO DAILY 04/24/23 [History Confirmed 06/01/23] Warfarin Sodium 2 mg PO UD 04/25/23 [History Confirmed 06/01/23] Warfarin Sodium 3 mg PO UD 04/25/23 [History Confirmed 06/01/23] Allergies/Adverse Reactions: Allergies Allergy/AdvReac Type Severity Reaction Status Date / Time No Known Drug Allergies Allergy Verified 06/01/23 02:37 - Past Medical History Past Medical History: Yes Neurological History: Stroke ENT History: Cataracts, Glaucoma Cardiac History: Arrhythmia, Congestive Heart Failure, Coronary Artery Disease, High Cholesterol, Myocardial Infarction (AR), Other Respiratory History: Asthma, CHF, COPD, Pneumonia, Sleep Apnea Endocrine Medical History: No Pertinent History Musculoskelatal History: Arthritis GI Medical History: Hernia History: Renal Disease Pyscho-Social History: Panic Disorder Male Reproductive Disorders: No Pertinent History Comment: AFIB, stenosis, CKD stage 3, 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 - Past Surgical History Past Surgical History: Yes Neuro Surgical History: No Pertinent History Cardiac History: CABG, Cardiac Catheterization, Cardiac Stent, Pacemaker, Valve Replacement Respiratory Surgery: No Pertinent History GI Surgical History: Appendectomy, Cholecystectomy, Hernia Repair Genitourinary Surgical Hx: No Pertinent History Musculskeletal Surgical Hx: No Pertinent History Male Surgical History: No Pertinent History Other Surgical History: PACEMAKER, aortic valve replacement Significant Family History: heart disease - Social History Smoking Status: Never smoker Exposure to second hand smoke: No Alcohol: None Drug Use: none - Social Determinants of Health Will the patient participate in the screening: Yes Do you worry about a steady place to live?: No Do you have any problems with any of the following?: No known problems In the past 12 months,have you had to go without utilities?: No Have you or anyone in your house had to go without enough: No Transportation Issues: No Has anyone in your support network made you feel unsafe?: No Does the patient want assistance with any of the above?: No - Physical Exam Vital Signs: Vital Signs - 24 hr Temp Pulse Resp BP BP Pulse Ox 06/01/23 03:36 98.0 F 70 17 108/66 95 06/01/23 03:23 95 06/01/23 03:00 77 18 119/74 95 06/01/23 02:30 70 17 123/71 95 06/01/23 02:00 70 17 126/74 96 06/01/23 01:30 72 17 136/79 95 06/01/23 01:00 70 21 138/77 98 06/01/23 00:30 70 18 126/91 97 06/01/23 00:00 70 22 134/82 96 05/31/23 23:30 70 20 153/82 98 05/31/23 23:00 70 20 144/64 98 05/31/23 22:30 70 20 137/77 98 05/31/23 22:27 98.4 F 68 22 137/77 99 General Appearance: no apparent distress, alert Neurologic Exam: alert, oriented x 3, cooperative, normal mood/affect, nml c erebellar function, nml station & gait, sensation nml, No motor deficits Eye Exam: PERRL/EOMI, eyes nml inspection Ears, Nose, Throat Exam: normal ENT inspection, TMs normal, pharynx normal, moist mucous membranes Neck Exam: normal inspection, non-tender, supple, full range of motion Respiratory Exam: normal breath sounds, lungs clear, No respiratory distress Cardiovascular Exam: regular rate/rhythm, normal heart sounds, normal peripheral pulses Gastrointestinal/Abdomen Exam: soft, normal bowel sounds, No tenderness, No mass Back Exam: normal inspection, normal range of motion, No CVA tenderness, No vertebral tenderness Extremity Exam: normal inspection, normal range of motion, pelvis stable Skin Exam: normal color, warm, dry, No rash Lymphatic Exam: No adenopathy Results - Labs Lab/Micro Results: Lab Results-Last 24 Hours 05/31/23 05/31/23 05/31/23 Range/Units 23:10 23:16 23:16 WBC 9.4 (4.0-10.5) x10^3/uL RBC 4.38 (4.1-5.6) x10^6/uL Hgb 10.7 L (12.5-18.0) g/dL Hct 36.0 L (42-50) % MCV 82.2 (78-100) fL MCH 24.4 L (26-32) pg MCHC 29.7 L (32-36) g/dL RDW 20.6 H (11.5-14.0) % Plt Count 109 L (150-450) x10^3/uL MPV 11.6 H (7.5-11.0) fL Gran % 84.0 H (36.0-66.0) % Immature Gran % (Auto) 0.3 (0.00-0.4) % Nucleat RBC Rel Count 0.0 (0.00-0.1) % Eos # (Auto) 0.15 (0-0.5) x10^3/uL Immature Gran # (Auto) 0.03 (0.00-0.03) x10^3u/L Absolute Lymphs (auto) 0.80 L (1.0-4.6) x10^3/uL Absolute Monos (auto) 0.50 (0.0-1.3) x10^3/uL Absolute Nucleated RBC 0.00 (0.00-0.01) x10^3u/L Lymphocytes % 8.6 L (24.0-44.0) % Monocytes % 5.3 (0.0-12.0) % Eosinophils % 1.6 (0.00-5.0) % Basophils % 0.2 (0.0-0.4) % Absolute Granulocytes 7.85 H (1.4-6.9) x10^3/uL Basophils # 0.02 (0-0.4) x10^3/uL PT (9.4-12.5) SECONDS INR (0.8-3.0) Sodium 134 L (137-145) mmol/L Potassium 3.2 L (3.5-5.1) mmol/L Chloride 96 L (98-107) mmol/L Carbon Dioxide 32 H (22-30) mmol/L Anion Gap 9.6 (5-15) MEQ/L BUN 23 H (9-20) mg/dL Creatinine 1.30 H (0.66-1.25) mg/dL Estimated GFR 52.8 ML/MIN Glucose 110 H (74-106) mg/dL Lactic Acid 1.9 (0.4-2.0) Calcium 8.7 (8.4-10.2) mg/dL Magnesium 2.0 (1.6-2.3) mg/dL Total Bilirubin 1.50 H (0.2-1.3) mg/dL AST 32 (17-59) U/L ALT 18 (0-50) U/L Alkaline Phosphatase 166 H (38-126) U/L Troponin I (0.000-0.034) ng/mL NT-Pro-B Natriuret Pep (<300) pg/mL Serum Total Protein 6.6 (6.3-8.2) g/dL Albumin 3.8 (3.5-5.0) g/dL Influenza Type A Ag (NEGATIVE) Influenza Type B Ag (NEGATIVE) RSV (PCR) (NEGATIVE) SARS-CoV-2 (PCR) (NEGATIVE) 05/31/23 05/31/23 05/31/23 Range/Units 23:16 23:16 23:16 WBC (4.0-10.5) x10^3/uL RBC (4.1-5.6) x10^6/uL Hgb (12.5-18.0) g/dL Hct (42-50) % MCV (78-100) fL MCH (26-32) pg MCHC (32-36) g/dL RDW (11.5-14.0) % Plt Count (150-450) x10^3/uL MPV (7.5-11.0) fL Gran % (36.0-66.0) % Immature Gran % (Auto) (0.00-0.4) % Nucleat RBC Rel Count (0.00-0.1) % Eos # (Auto) (0-0.5) x10^3/uL Immature Gran # (Auto) (0.00-0.03) x10^3u/L Absolute Lymphs (auto) (1.0-4.6) x10^3/uL Absolute Monos (auto) (0.0-1.3) x10^3/uL Absolute Nucleated RBC (0.00-0.01) x10^3u/L Lymphocytes % (24.0-44.0) % Monocytes % (0.0-12.0) % Eosinophils % (0.00-5.0) % Basophils % (0.0-0.4) % Absolute Granulocytes (1.4-6.9) x10^3/uL Basophils # (0-0.4) x10^3/uL PT 21.9 H (9.4-12.5) SECONDS INR 2.11 (0.8-3.0) Sodium (137-145) mmol/L Potassium (3.5-5.1) mmol/L Chloride (98-107) mmol/L Carbon Dioxide (22-30) mmol/L Anion Gap (5-15) MEQ/L BUN (9-20) mg/dL Creatinine (0.66-1.25) mg/dL Estimated GFR ML/MIN Glucose (74-106) mg/dL Lactic Acid (0.4-2.0) Calcium (8.4-10.2) mg/dL Magnesium (1.6-2.3) mg/dL Total Bilirubin (0.2-1.3) mg/dL AST (17-59) U/L ALT (0-50) U/L Alkaline Phosphatase (38-126) U/L Troponin I 0.052 H* (0.000-0.034) ng/mL NT-Pro-B Natriuret Pep 5640 (<300) pg/mL Serum Total Protein (6.3-8.2) g/dL Albumin (3.5-5.0) g/dL Influenza Type A Ag NEGATIVE (NEGATIVE) Influenza Type B Ag NEGATIVE (NEGATIVE) RSV (PCR) NEGATIVE (NEGATIVE) SARS-CoV-2 (PCR) NEGATIVE (NEGATIVE) 06/01/23 Range/Units 03:04 WBC (4.0-10.5) x10^3/uL RBC (4.1-5.6) x10^6/uL Hgb (12.5-18.0) g/dL Hct (42-50) % MCV (78-100) fL MCH (26-32) pg MCHC (32-36) g/dL RDW (11.5-14.0) % Plt Count (150-450) x10^3/uL MPV (7.5-11.0) fL Gran % (36.0-66.0) % Immature Gran % (Auto) (0.00-0.4) % Nucleat RBC Rel Count (0.00-0.1) % Eos # (Auto) (0-0.5) x10^3/uL Immature Gran # (Auto) (0.00-0.03) x10^3u/L Absolute Lymphs (auto) (1.0-4.6) x10^3/uL Absolute Monos (auto) (0.0-1.3) x10^3/uL Absolute Nucleated RBC (0.00-0.01) x10^3u/L Lymphocytes % (24.0-44.0) % Monocytes % (0.0-12.0) % Eosinophils % (0.00-5.0) % Basophils % (0.0-0.4) % Absolute Granulocytes (1.4-6.9) x10^3/uL Basophils # (0-0.4) x10^3/uL PT (9.4-12.5) SECONDS INR (0.8-3.0) Sodium (137-145) mmol/L Potassium (3.5-5.1) mmol/L Chloride (98-107) mmol/L Carbon Dioxide (22-30) mmol/L Anion Gap (5-15) MEQ/L BUN (9-20) mg/dL Creatinine (0.66-1.25) mg/dL Estimated GFR ML/MIN Glucose (74-106) mg/dL Lactic Acid (0.4-2.0) Calcium (8.4-10.2) mg/dL Magnesium (1.6-2.3) mg/dL Total Bilirubin (0.2-1.3) mg/dL AST (17-59) U/L ALT (0-50) U/L Alkaline Phosphatase (38-126) U/L Troponin I 0.044 H* (0.000-0.034) ng/mL NT-Pro-B Natriuret Pep (<300) pg/mL Serum Total Protein (6.3-8.2) g/dL Albumin (3.5-5.0) g/dL Influenza Type A Ag (NEGATIVE) Influenza Type B Ag (NEGATIVE) RSV (PCR) (NEGATIVE) SARS-CoV-2 (PCR) (NEGATIVE) - Radiology Impressions Radiology Exams & Impressions: Radiology Procedures Category Date Time Status CHEST 1 VIEW (PORTABLE) Stat Exams 05/31/23 23:24 Taken CHEST WITH CONTRAST [CT] Routine Exams 06/01/23 04:47 Ordered - Other Procedures and Tests Respiratory Therapy 06/01/23 04:24 Oxygen Nasal Cannula 4 lpm 06/01/23 04:25 Respiratory Therapy Assessment DAILY 06/01/23 05:00 EKG REPEAT IN AM Assessment/Plan (1) Leg weakness, bilateral Current Visit: Yes Status: Acute Assessment & Plan: ASSESSMENT 1. Weakness 2. Hypokalemia 3. Hyponatremia 4. Acute on Chronic Kidney Disease 5. Non-ST Elevation Myocardial Infarction, Type II 6. Hypertension 7. Hyperlipidemia 8. Coronary Artery Disease s/p PCI + CABG 9. Atrial Fibrillation on Coumadin 10. Chronic Obstructive Pulmonary Disease 11. Prior Cerebrovascular Accident 12. Major Depressive Disorder PLAN 1. Currently on 3L baseline oxygen 2. CT Chest non-contrasted this AM 3. Lung sound clear; continue nebs 4. Gentle fluids; hold diuretics 5. Replete K 6. Continue coumadin with daily INR 7. Continue cardiac medications 8. PT + SW for evaluation for rehab Coumadin/PPI The entirety of this encounter was done via telemedicine Mello Hooks MD Pulmonary and Critical Care Medicine Code(s): R29.898 - [facility] SYMPTOMS AND SIGNS INVOLVING THE MUSCULOSKELETAL SYSTEM Telemedicine Encounter - Telemedicine Encounter Telemedicine Encounter: The entirety of this encounter was performed via Telemedicine"
[2023-06-01] MEDS: POTASSIUM CHLORIDE 20 mEq IN WATER 100ML 20 MEQ/100 ML BAG IV SCH (05:53)
[2023-06-01] MEDS: Sodium Chloride 0.9% 1000 ML 1,000 ML IV SCH (05:53)
[2023-06-01 07:13] VITALS: BP 120/68; TEMP 98.2
[2023-06-01] MEDS: Advair Hfa 115/21 Common canister IH SCH (07:29)
[2023-06-01 07:39] LABS: Absolute Neutrophil Ct (ANC) 7.85 x10^3/uL (1.4-6.9); Basophil (Absolute #) 0 x10^3/uL (0-0.4); Eosinophil (Absolute #) 0 x10^3/uL (0-0.5); Hematocrit 35.6 % (42-50); Hemoglobin 10.8 g/dL (12.5-18.0); IMMATURE GRAN # 0.04 x10^3u/L (0.00-0.03); IMMATURE GRAN % 0.5 % (0.00-0.4); Lymphocyte (Absolute #) 0.22 x10^3/uL (1.0-4.6); Lymphocytes % 2.6 % (24.0-44.0); Mean Cell Volume 81.3 fL (78-100); Mean Corpuscular Hemoglobin 24.7 pg (26-32); Mean Corpuscular Hgb Concent. 30.3 g/dL (32-36); Mean Platelet Volume 11.4 fL (7.5-11.0); Monocyte (Absolute #) 0.25 x10^3/uL (0.0-1.3); Neutrophil % 93.9 % (36.0-66.0); Platelet Count 107 x10^3/uL (150-450); Red Blood Count 4.38 x10^6/uL (4.1-5.6); Red Cell Distribution Width 20.4 % (11.5-14.0); White Blood Count 8.4 x10^3/uL (4.0-10.5)
[2023-06-01 07:52] LABS: INR 2.01 (0.8-3.0); PROTIME 20.9 SECONDS (9.4-12.5)
[2023-06-01 08:00] LABS: Slide Review 1 NO
[2023-06-01 08:07] LABS: ANION GAP 10.3 MEQ/L (5-15); BILIRUBIN,TOTAL 1.6 mg/dL (0.2-1.3); Calcium 8.7 mg/dL (8.4-10.2); Creatinine 1 1.13 mg/dL (0.66-1.25); EST GLOMERULAR FILTRATION RATE 62.5 ML/MIN; Potassium 3.7 mmol/L (3.5-5.1); Total Protein 6.7 g/dL (6.3-8.2)
[2023-06-01] MEDS: Protonix 40MG Tablet PO SCH (08:19)
[2023-06-01] MEDS: ZOCOR 20MG PO SCH (08:19)
[2023-06-01] MEDS: JARDIANCE PO SCH (08:20)
[2023-06-01] MEDS: PROZAC 10 MG PO SCH (08:20)
[2023-06-01] MEDS: DELTASONE 10 MG PO SCH (08:20)
[2023-06-01] MEDS: Klor Con PO SCH (08:20)
[2023-06-01] MEDS: DUONEB 0.5-3 MG/3 ml Neb IH PRN (09:16)
[2023-06-01] MEDS: TYLENOL 325 MG PO PRN (09:27)
[2023-06-01 09:28] VITALS: PULSE 86; RESP 30; O2SAT 90
--- NOTE | 2023-06-01 09:41 | XRAY ---
Indication: Short of breath. Comparison: April 10, 2023 Portable chest again hyperinflated and clear. Heart remains enlarged again with aortic valve replacement, CABG, and left pacemaker. Bony thorax intact again with osteopenia and mild degenerative changes. Impression: Continued nonacute chest with chronic features.
[2023-06-01] MEDS ORDERED: LIPITOR 40MG PO SCH (10:00)
[2023-06-01] MEDS ORDERED: DELTASONE 20 MG PO SCH (10:00)
[2023-06-01] MEDS ORDERED: NON-FORMULARY ITEM (Omeprazole [Omeprazole] 40 MG Capsule.Dr) PO SCH (10:00)
[2023-06-01] MEDS ORDERED: NON-FORMULARY ITEM (Budesonide/Formoterol Fumarate [Budesonide-Formoterol 160-4.5] 10.2 GM IH SCH (10:00)
--- NOTE | 2023-06-01 14:08 | PCM.DS ---
Discharge Summary Date of Admission: 06/01/23 03:21 Date of Discharge: 06/01/23 Admitting Physician: JERICHO JALLOH MD Primary Care Provider: [facility] Allergies Allergies No Known Drug Allergies Allergy (Verified 06/01/23 02:37) Hospital Summary - Hospital Course Hospital Course: Mr. Moore is an 88 year-old gentleman with Afib on Coumadin, CAD s/p CABG + PCI, HTN, HLD, CKD, COPD, chronic hypoxemic respiratory failure, prior CVA, MDD, and GERD who presented with shortness of breath and weakness. On admission he admitted to being chronically short of breath, but today he started to feel more weak in the legs to the piont that he could not walk. Upon arrival to [place], laboratory data revealed anemia, mild hyponatremia, hypokalemia, miildly elevated Cr, and elevated troponins (chronic). Chest imaging revealed some haziness. He was on baseline 3L [place] oxygen. This morning he was feeling better and wanting to go home. At 10:00 he was seen in be in v-fib on the monitor and staff went in to check on him. He was unresponsive and had no pulse. CPR was started then stopped after speaking with family as he wished to be a DNR. He had a DNR paper unsigned on chart so that was why CPR was started per bathhouse attendant. Time of was pronounced at 10:03. Discussed with family when they arrived. - Vitals & Intake/Output Vital Signs: Vital Signs Temperature 98.2 F 06/01/23 07:13 Pulse Rate 86 06/01/23 09:21 Respiratory Rate 30 H 06/01/23 09:21 Blood Pressure 120/68 06/01/23 07:13 O2 Sat by Pulse Oximetry 90 L 06/01/23 09:21 Intake & Output: Intake & Output 05/30/23 05/31/23 06/01/23 06/02/23 11:59 11:59 11:59 11:59 Intake Total 480 Output Total 600 Balance -120 Weight 74.4 kg - Lab Result Diagrams: 06/01/23 07:28 06/01/23 07:28 Lab Results-Last 24 Hrs: Lab Results-Last 24 Hours 05/31/23 05/31/23 05/31/23 Range/Units 23:10 23:16 23:16 WBC 9.4 (4.0-10.5) x10^3/uL RBC 4.38 (4.1-5.6) x10^6/uL Hgb 10.7 L (12.5-18.0) g/dL Hct 36.0 L (42-50) % MCV 82.2 (78-100) fL MCH 24.4 L (26-32) pg MCHC 29.7 L (32-36) g/dL RDW 20.6 H (11.5-14.0) % Plt Count 109 L (150-450) x10^3/uL MPV 11.6 H (7.5-11.0) fL Gran % 84.0 H (36.0-66.0) % Immature Gran % (Auto) 0.3 (0.00-0.4) % Nucleat RBC Rel Count 0.0 (0.00-0.1) % Eos # (Auto) 0.15 (0-0.5) x10^3/uL Immature Gran # (Auto) 0.03 (0.00-0.03) x10^3u/L Absolute Lymphs (auto) 0.80 L (1.0-4.6) x10^3/uL Absolute Monos (auto) 0.50 (0.0-1.3) x10^3/uL Absolute Nucleated RBC 0.00 (0.00-0.01) x10^3u/L Lymphocytes % 8.6 L (24.0-44.0) % Monocytes % 5.3 (0.0-12.0) % Eosinophils % 1.6 (0.00-5.0) % Basophils % 0.2 (0.0-0.4) % Absolute Granulocytes 7.85 H (1.4-6.9) x10^3/uL Basophils # 0.02 (0-0.4) x10^3/uL PT (9.4-12.5) SECONDS INR (0.8-3.0) Sodium 134 L (137-145) mmol/L Potassium 3.2 L (3.5-5.1) mmol/L Chloride 96 L (98-107) mmol/L Carbon Dioxide 32 H (22-30) mmol/L Anion Gap 9.6 (5-15) MEQ/L BUN 23 H (9-20) mg/dL Creatinine 1.30 H (0.66-1.25) mg/dL Estimated GFR 52.8 ML/MIN Glucose 110 H (74-106) mg/dL Lactic Acid 1.9 (0.4-2.0) Calcium 8.7 (8.4-10.2) mg/dL Magnesium 2.0 (1.6-2.3) mg/dL Total Bilirubin 1.50 H (0.2-1.3) mg/dL AST 32 (17-59) U/L ALT 18 (0-50) U/L Alkaline Phosphatase 166 H (38-126) U/L Troponin I (0.000-0.034) ng/mL NT-Pro-B Natriuret Pep (<300) pg/mL Serum Total Protein 6.6 (6.3-8.2) g/dL Albumin 3.8 (3.5-5.0) g/dL Influenza Type A Ag (NEGATIVE) Influenza Type B Ag (NEGATIVE) RSV (PCR) (NEGATIVE) SARS-CoV-2 (PCR) (NEGATIVE) Slides for Path Review 05/31/23 05/31/23 05/31/23 Range/Units 23:16 23:16 23:16 WBC (4.0-10.5) x10^3/uL RBC (4.1-5.6) x10^6/uL Hgb (12.5-18.0) g/dL Hct (42-50) % MCV (78-100) fL MCH (26-32) pg MCHC (32-36) g/dL RDW (11.5-14.0) % Plt Count (150-450) x10^3/uL MPV (7.5-11.0) fL Gran % (36.0-66.0) % Immature Gran % (Auto) (0.00-0.4) % Nucleat RBC Rel Count (0.00-0.1) % Eos # (Auto) (0-0.5) x10^3/uL Immature Gran # (Auto) (0.00-0.03) x10^3u/L Absolute Lymphs (auto) (1.0-4.6) x10^3/uL Absolute Monos (auto) (0.0-1.3) x10^3/uL Absolute Nucleated RBC (0.00-0.01) x10^3u/L Lymphocytes % (24.0-44.0) % Monocytes % (0.0-12.0) % Eosinophils % (0.00-5.0) % Basophils % (0.0-0.4) % Absolute Granulocytes (1.4-6.9) x10^3/uL Basophils # (0-0.4) x10^3/uL PT 21.9 H (9.4-12.5) SECONDS INR 2.11 (0.8-3.0) Sodium (137-145) mmol/L Potassium (3.5-5.1) mmol/L Chloride (98-107) mmol/L Carbon Dioxide (22-30) mmol/L Anion Gap (5-15) MEQ/L BUN (9-20) mg/dL Creatinine (0.66-1.25) mg/dL Estimated GFR ML/MIN Glucose (74-106) mg/dL Lactic Acid (0.4-2.0) Calcium (8.4-10.2) mg/dL Magnesium (1.6-2.3) mg/dL Total Bilirubin (0.2-1.3) mg/dL AST (17-59) U/L ALT (0-50) U/L Alkaline Phosphatase (38-126) U/L Troponin I 0.052 H* (0.000-0.034) ng/mL NT-Pro-B Natriuret Pep 5640 (<300) pg/mL Serum Total Protein (6.3-8.2) g/dL Albumin (3.5-5.0) g/dL Influenza Type A Ag NEGATIVE (NEGATIVE) Influenza Type B Ag NEGATIVE (NEGATIVE) RSV (PCR) NEGATIVE (NEGATIVE) SARS-CoV-2 (PCR) NEGATIVE (NEGATIVE) Slides for Path Review 06/01/23 06/01/23 06/01/23 Range/Units 03:04 07:28 07:28 WBC 8.4 (4.0-10.5) x10^3/uL RBC 4.38 (4.1-5.6) x10^6/uL Hgb 10.8 L (12.5-18.0) g/dL Hct 35.6 L (42-50) % MCV 81.3 (78-100) fL MCH 24.7 L (26-32) pg MCHC 30.3 L (32-36) g/dL RDW 20.4 H (11.5-14.0) % Plt Count 107 L (150-450) x10^3/uL MPV 11.4 H (7.5-11.0) fL Gran % 93.9 H (36.0-66.0) % Immature Gran % (Auto) 0.5 H (0.00-0.4) % Nucleat RBC Rel Count 0.0 (0.00-0.1) % Eos # (Auto) 0 (0-0.5) x10^3/uL Immature Gran # (Auto) 0.04 H (0.00-0.03) x10^3u/L Absolute Lymphs (auto) 0.22 L (1.0-4.6) x10^3/uL Absolute Monos (auto) 0.25 (0.0-1.3) x10^3/uL Absolute Nucleated RBC 0.00 (0.00-0.01) x10^3u/L Lymphocytes % 2.6 L (24.0-44.0) % Monocytes % 3.0 (0.0-12.0) % Eosinophils % 0.0 (0.00-5.0) % Basophils % 0.0 (0.0-0.4) % Absolute Granulocytes 7.85 H (1.4-6.9) x10^3/uL Basophils # 0 (0-0.4) x10^3/uL PT (9.4-12.5) SECONDS INR (0.8-3.0) Sodium (137-145) mmol/L Potassium (3.5-5.1) mmol/L Chloride (98-107) mmol/L Carbon Dioxide (22-30) mmol/L Anion Gap (5-15) MEQ/L BUN (9-20) mg/dL Creatinine (0.66-1.25) mg/dL Estimated GFR ML/MIN Glucose (74-106) mg/dL Lactic Acid (0.4-2.0) Calcium (8.4-10.2) mg/dL Magnesium (1.6-2.3) mg/dL Total Bilirubin (0.2-1.3) mg/dL AST (17-59) U/L ALT (0-50) U/L Alkaline Phosphatase (38-126) U/L Troponin I 0.044 H* 0.039 H* (0.000-0.034) ng/mL NT-Pro-B Natriuret Pep (<300) pg/mL Serum Total Protein (6.3-8.2) g/dL Albumin (3.5-5.0) g/dL Influenza Type A Ag (NEGATIVE) Influenza Type B Ag (NEGATIVE) RSV (PCR) (NEGATIVE) SARS-CoV-2 (PCR) (NEGATIVE) Slides for Path Review NO 06/01/23 06/01/23 Range/Units 07:28 07:28 WBC (4.0-10.5) x10^3/uL RBC (4.1-5.6) x10^6/uL Hgb (12.5-18.0) g/dL Hct (42-50) % MCV (78-100) fL MCH (26-32) pg MCHC (32-36) g/dL RDW (11.5-14.0) % Plt Count (150-450) x10^3/uL MPV (7.5-11.0) fL Gran % (36.0-66.0) % Immature Gran % (Auto) (0.00-0.4) % Nucleat RBC Rel Count (0.00-0.1) % Eos # (Auto) (0-0.5) x10^3/uL Immature Gran # (Auto) (0.00-0.03) x10^3u/L Absolute Lymphs (auto) (1.0-4.6) x10^3/uL Absolute Monos (auto) (0.0-1.3) x10^3/uL Absolute Nucleated RBC (0.00-0.01) x10^3u/L Lymphocytes % (24.0-44.0) % Monocytes % (0.0-12.0) % Eosinophils % (0.00-5.0) % Basophils % (0.0-0.4) % Absolute Granulocytes (1.4-6.9) x10^3/uL Basophils # (0-0.4) x10^3/uL PT 20.9 H (9.4-12.5) SECONDS INR 2.01 (0.8-3.0) Sodium 136 L (137-145) mmol/L Potassium 3.7 (3.5-5.1) mmol/L Chloride 97 L (98-107) mmol/L Carbon Dioxide 32 H (22-30) mmol/L Anion Gap 10.3 (5-15) MEQ/L BUN 23 H (9-20) mg/dL Creatinine 1.13 (0.66-1.25) mg/dL Estimated GFR 62.5 ML/MIN Glucose 137 H (74-106) mg/dL Lactic Acid (0.4-2.0) Calcium 8.7 (8.4-10.2) mg/dL Magnesium (1.6-2.3) mg/dL Total Bilirubin 1.60 H (0.2-1.3) mg/dL AST 32 (17-59) U/L ALT 18 (0-50) U/L Alkaline Phosphatase 144 H (38-126) U/L Troponin I (0.000-0.034) ng/mL NT-Pro-B Natriuret Pep 5550 (<300) pg/mL Serum Total Protein 6.7 (6.3-8.2) g/dL Albumin 4.0 (3.5-5.0) g/dL Influenza Type A Ag (NEGATIVE) Influenza Type B Ag (NEGATIVE) RSV (PCR) (NEGATIVE) SARS-CoV-2 (PCR) (NEGATIVE) Slides for Path Review Micro Results-Entire Visit: Microbiology 05/31/23 23:16 Blood Culture Gram Stain - Final Blood - Radiology Exams Ordered Rad Exams-Entire Visit: Radiology Procedures Category Date Time Status CHEST 1 VIEW (PORTABLE) Stat Exams 05/31/23 23:24 Completed - Procedures and Test Procedures and Tests throughout Hospitalization: Therapy Orders & Screens 06/01/23 04:13 RT Screen per Nursing Assess ONCE Comment: Protocol Order Physician Instructions: Greater than 3 points order RT Admission Screen Reason For Exam: Triggered on Admission Diagnosis: Leg weakness Diagnosis: Leg weakness Pneumonia: No Home O2: Yes: 3L day 4L night Asthma: No CHF: Yes Home CPAP/BIPAP: No Home Nebs/MDI: Yes Total Points: 13 06/01/23 04:24 Oxygen Nasal Cannula 4 lpm Comment: Diagnosis: Leg weakness 06/01/23 04:25 Respiratory Therapy Assessment DAILY Comment: Diagnosis: Leg weakness 06/01/23 05:00 EKG REPEAT IN AM Comment: Discharge Exam Comments: Final Diagnosis/Problem List - Final Discharge Diagnosis/Problem (1) Ventricular fibrillation Current Visit: Yes Status: Acute Assessment & Plan: - Seen on monitor at 10 am - pt found unresponsive - CPR started and stopped d/t SCO status and pt's wishes per family - Time of called at 10:03 Code(s): I49.01 - VENTRICULAR FIBRILLATION (2) Elevated brain natriuretic peptide (BNP) level Current Visit: Yes Status: Acute Assessment & Plan: - BNP 5550 - Bumex gave in ER Code(s): R79.89 - OTHER SPECIFIED ABNORMAL FINDINGS OF BLOOD CHEMISTRY (3) Elevated troponin level Current Visit: Yes Status: Acute Assessment & Plan: - Trop 0.052, 0.044, 0.039- trended down Code(s): R74.8 - ABNORMAL LEVELS OF OTHER SERUM ENZYMES (4) Hypokalemia Current Visit: Yes Status: Acute Assessment & Plan: - resolved Code(s): E87.6 - HYPOKALEMIA (5) Leg weakness, bilateral Current Visit: Yes Status: Acute Assessment & Plan: - PT/ OT - 2:2 CHF Code(s): R29.898 - OT SYMPTOMS AND SIGNS INVOLVING THE MUSCULOSKELETAL SYSTEM (6) Acute exacerbation of CHF (congestive heart failure) Current Visit: No Status: Acute Assessment & Plan: - Chronic CHF - bumex gave in ER - on baseline O2 - BNP 5550 - Chest XR Portable chest again hyperinflated and clear. Heart remains enlarged again with aortic valve replacement, CABG, and left pacemaker. Bony thorax intact again with osteopenia and mild degenerative changes. Impression: Continued nonacute chest with chronic features Code(s): I50.9 - HEART FAILURE, UNSPECIFIED (7) CAD (coronary artery disease) Current Visit: Yes Status: Acute Assessment & Plan: Echo 04/25/23 The patient underwent 2D echo, M-mode study and color flow mapping which showed normal left ventricle size and wall thickness with diffuse hypokinesia with overall moderate left ventricular systolic dysfunction with calculated ejection fraction of about 42%. There was mild to moderate left atrial enlargement. The right atrium appears to be at least moderately enlarged. The right ventricle was moderately enlarged. There was no evidence of any pericardial effusion. Aortic root size was not well visualized however most likely within acceptable range. The mitral valve appears to be mildly thickened but opening well without evidence of restriction. Most likely the patient did have aortic valve replacement probably transcatheter aortic valve replacement with thickened and calcified valve leaflets with reduction of aortic valve opening with peak sys tolic gradient of 40 mm of Mercury and mean gradient of 24 mm of Mercury suggestive of most likely mild to moderate narrowing. The tricuspid valve was not well visualized however appears to be opening well. Pulmonic valve was not well visualized. There was pacemaker artifact noted in the right atrium. Color Doppler flow mapping showed moderate mitral regurgitation, moderate tricuspid regurgitation without evidence of any significant pulmonary hypertension however. There was mild pulmonic insufficiency as well. IMPRESSION: 1) NORMAL LEFT VENTRICLE SIZE. 2) MODERATE LEFT VENTRICULAR SYSTOLIC DYSFUNCTION. 3) PACEMAKER ARTIFACT IN THE RIGHT ATRIUM. 4) BIATRIAL ENLARGEMENT. 5) RIGHT VENTRICULAR ENLARGEMENT. 6) MOST LIKELY DARCY AORTIC VALVE REPLACEMENT PROBABLY TRANSCATHETER AORTIC VALVE REPLACEMENT WITH PEAK SYSTOLIC PRESSURE OF 40 MM OF MERCURY AND MEAN GRADI ENT OF 24 MM OF MERCURY. 7) MODERATE MITRAL REGURGITATION. 8) MODERATE TRICUSPID REGURGITATION. 9) MILD PULMONIC INSUFFICIENCY. - Follows with Dr. Fay Code(s): I25.10 - ATHSCL HEART DISEASE OF [place] CORONARY ARTERY W/O ANG PCTRS - Discharge Discharge Date: 06/01/23 Disposition: Condition: Stable Prescriptions: No Action Atorvastatin Calcium [Lipitor] 40 mg PO DAILY Albuterol Sulfate [Proair Hfa] 8.5 gm IH Q4HWA Albuterol/Ipratropium 3ml Neb* [DUONEB 0.5-3 MG/3 ml Neb] 3 ml IH Q6H PRN PRN PRN Reason: Shortness Of Breath/Wheezing Trazodone HCl 150 mg PO HS Omeprazole 40 mg PO DAILY Empagliflozin [Jardiance] 10 mg PO DAILY Bumetanide 1 mg [Bumex 1 mg] 2 mg PO BID Budesonide/Formoterol Fumarate [Budesonide-Formoterol 160-4.5] 10.2 gm IH BID 30 Days #1 Prednisone 20 mg [Deltasone 20 mg] 10 mg PO DAILY Fluoxetine HCl 10 mg [Prozac 10 mg] 1 cap PO DAILY Potassium Chloride Tab* [Klor Con] 10 meq PO DAILY Warfarin Sodium 3 mg PO UD Warfarin Sodium 2 mg PO UD Follow up with: [facility] [Primary Care Provider] -
--- NOTE | 2023-06-01 14:22 | PCM.DS ---
Note Note: Pupils are fixed and dilated bilaterally, non reactive to light and accommodation. No corneal reflex. No spontaneous movements. No spontaneous chest movements. No pulse or heart sounds heard over 1 minute. No breath sounds on auscultation. Date of : 06/01/23 Time of : 10:03 Patient declared by me at: 10:04 Cause of : V-fib, CAD Discussed pt case with family and answered all the questions/concerns.
[2023-06-01] MEDS ORDERED: Coumadin 3 MG PO SCH (18:00)
[2023-06-01] MEDS ORDERED: Desyrel 150 MG PO SCH (22:00)
[2023-06-02] MEDS ORDERED: Coumadin 2 MG PO SCH (18:00)
== END 2023-06-01 10:04 | disposition expired ==
LOC: ED 22:24 → MED SURG 06-01 03:21
PROVIDERS: ADMIT Internal Medicine Critical Care Medicine; ATTEND Internal Medicine Critical Care Medicine
DX: I49.01 Ventricular fibrillation (principal); R79.89 Other specified abnormal findings of blood chemistry; R74.8 Abnormal levels of other serum enzymes; E87.6 Hypokalemia; R29.898 Other symptoms and signs involving the musculoskeletal system; R53.1 Weakness; I50.9 Heart failure, unspecified; I25.10 Atherosclerotic heart disease of native coronary artery without angina pectoris; I48.91 Unspecified atrial fibrillation; I13.0 Hypertensive heart and chronic kidney disease with heart failure and stage 1 through stage 4 chronic kidney disease, or unspecified chronic kidney disease; N18.30 Chronic kidney disease, stage 3 unspecified; E78.5 Hyperlipidemia, unspecified; J44.9 Chronic obstructive pulmonary disease, unspecified; D64.9 Anemia, unspecified; E87.1 Hypo-osmolality and hyponatremia; Z86.73 Personal history of transient ischemic attack (TIA), and cerebral infarction without residual deficits; Z79.01 Long term (current) use of anticoagulants; Z95.0 Presence of cardiac pacemaker; Z79.899 Other long term (current) drug therapy; Z20.828 Contact with and (suspected) exposure to other viral communicable diseases
CPT/HCPCS: 0241U; 36000; 36415; 71045; 80053; 83605; 83735; 83880; 84484; 85025; 85610; 87040; 87077; 87186; 93005; 93041; 93268; 94640; 94760; 96374; 99284; J3480; Q3014; A9270-GY; G0378